=== PATIENT | female | born 1995 | race Hispanic/Latino ===

== ENCOUNTER 2017-06-12 10:08 | Emergency (ER) | payer SELFPAY ==
[2017-06-12] MEDS ORDERED: PANTOPRAZOLE 40 MG INJ ONE (11:15)
[2017-06-12] MEDS ORDERED: ONDANSETRON 4 MG/2 ML VIAL ONE (11:15)
[2017-06-12] MEDS ORDERED: NA CHLORIDE 0.9% 1,000 ML ONE (11:15)
[2017-06-12 11:25] LABS: Urine Blood NEGATIVE (NEG); Urine Glucose NEGATIVE (NEG); Urine Protein NEGATIVE (NEG); Urine pH 7.5 (5.0-7.0)
--- NOTE | 2017-06-12 11:29 | RAD REPORT ---
EXAM DESCRIPTION: US - Abdomen Exam Limited - 06/12/2017 11:11 am CLINICAL HISTORY: Abdominal pain. COMPARISON: None. FINDINGS: The patient was not NPO prior to the exam limiting evaluation. This results in the gallbla dder main somewhat contracted. A gallstone is not visualized. The gallbladder wall is not thickened. The biliary tree is normal caliber. IMPRESSION: Grossly normal gallbladder ultrasound
[2017-06-12 11:38] LABS: Urine Amorphous Sediment 4+ /HPF (NONE SEEN); Urine Bacteria <20 /HPF (<20); Urine RBC NONE SEEN /HPF (NONE SEEN)
[2017-06-12 11:39] LABS: Urine Culture Reflex Order NOT NEEDED
[2017-06-12 11:39] LABS: Absolute Monocytes 0.5 K/uL (0.1-1.3); Absolute Neutrophil 3.4 K/uL (1.8-8.0); Basophils % 0.6 % (0-1.3); Eosinophils % 0.5 % (0-4.4); Hematocrit 37.9 % (36.0-45.0); Lymphocytes % 33.6 % (15.3-44.8); MCH 30.4 pg (27.0-35.0); MCV 90.8 fL (80-100); MPV 8.5 fL (7.6-11.3); Monocytes % 8.5 % (3.3-12.3); RBC Red Blood Cell Count 4.17 M/uL (3.86-4.86)
[2017-06-12 11:52] LABS: Bicarbonate 27 mEq/L (21-31); Glucose Level 93 mg/dL (65-120); Lipase 25 U/L (22-51); Potassium 4.1 mEq/L (3.6-5.0); Sodium Level 137 mEq/L (135-145)
[2017-06-12 11:58] LABS: ALT/SGPT 19 IU/L (10-60); AST/SGOT 20 IU/L (10-42); Alkaline Phosphatase 79 IU/L (42-121); Amylase Level 55 U/L (28-100); BUN Blood Urea Nitrogen 14 mg/dL (6-20); Bilirubin Direct < 0.1 mg/dL (0-0.2); Bilirubin Total 0.3 mg/dL (0.3-1.2); Protein, Total 7.7 g/dL (6.0-8.3)
--- NOTE | 2017-06-12 12:06 | ER ---
Nurse's Notes [facility] Name: Philomena Smith Age: 21 yrs Sex: Female : 1995 Arrival Date: 06/12/2017 Time: 10:09 Bed 20 Private MD: Diagnosis: Upper abdominal pain, unspecified;Gastro-esophageal reflux disease Presentation: 06/12 10:34 Presenting complaint: Patient states: RUQ pain that started last night after eating aj steak and potatoes. Patient reports nausea as well. Transition of care: patient was not received from another setting of care. Onset of symptoms was June 11, 2017. Care prior to arrival: None. 10:34 Method Of Arrival: Ambulatory aj 10:34 Acuity: LUIS ANTONIO 3 aj Triage Assessment: 10:36 General: Appears in no apparent distress. comfortable, Behavior is calm, cooperative, aj appropriate for age. Pain: Complains of pain in epigastric area and right upper quadrant Pain currently is 7 out of 10 on a pain scale. Neuro: Level of Consciousness is awake, alert, obeys commands, Oriented to person, place, time, situation. Respiratory: Airway is patent Respiratory effort is even, unlabored, Respiratory pattern is regular, symmetrical. GI: Reports upper abdominal pain, nausea. Derm: Skin is intact, is healthy with good turgor, Skin is pink, warm \T\ dry. normal. 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 - Social history:: Smoking status: Patient/guardian denies using tobacco. Screenin:23 Abuse screen: Denies threats or abuse. Denies injuries from another. Nutritional iw screening: No deficits noted. Tuberculosis screening: No symptoms or risk factors identified. Fall Risk None identified. Assessment: 12:23 Reassessment: Patient appears in no apparent distress at this time. Patient and/or iw family updated on plan of care and expected duration. Pain level reassessed. Patient is alert, oriented x 3, equal unlabored respirations, skin warm/dry/pink. Patient denies pain at this time. Patient states feeling better. Patient states symptoms have improved. 12:24 GI: Bowel sounds present X 4 quads. Abd is soft and non tender X 4 quads. iw Vital Signs: 10:36 BP 124 / 78; Pulse 95; Resp 17; Temp 97.2; Pulse Ox 97% on R/A; Weight 58.97 kg; Height aj 5 ft. 0 in. (152.40 cm); Pain 7/10; 12:23 BP 128 / 74; Pulse 84; Resp 16; Pulse Ox 100% on R/A; Pain 0/10; iw 10:36 Body Mass Index 25.39 (58.97 kg, 152.40 cm) aj ED Course: 10:09 Patient arrived in ED. as 10:35 Triage completed. aj 10:36 Arm band placed on left wrist. Patient placed in waiting room, Patient notified of wait aj time. 10:41 Tg Torres FNP-C is PHCP. kb 10:41 Krzysztof Peres MD is Attending Physician. kb 11:11 Ultrasound completed. Patient tolerated well. aa4 11:12 US Abdomen Limited In Process Unspecified. EDMS 11:18 Missed attempt(s): 22 gauge in left forearm. Bleeding controlled, band aid applied, dh3 catheter tip intact. 11:25 Initial lab(s) drawn, by ED staff, sent to lab. dh3 11:30 Bhakti Grimm, SHARLA is Primary Nurse. ss 12:23 Patient has correct armband on for positive identification. iw 12:23 No provider procedures requiring assistance completed. IV discontinued, intact, iw bleeding controlled, No redness/swelling at site. Pressure dressing applied. Administered Medications: 11:26 Drug: Zofran 4 mg Route: IVP; Site: right antecubital; ss 12:25 Follow up: Response: No adverse reaction iw 11:31 Drug: NS 0.9% 1000 ml Route: IV; Rate: 1000 ml; Site: right antecubital; ss 12:25 Follow up: IV Status: Completed infusion iw 11:31 Drug: ProTONIX 40 mg Route: IVP; Site: right antecubital; ss 12:00 Follow up: Response: No adverse reaction; Pain is decreased iw Outcome: 12:05 Discharge ordered by . kb 12:23 Discharged to home ambulatory, with friend. iw 12:23 Condition: good 12:23 Discharge instructions given to patient, Instructed on discharge instructions, follow up and referral plans. medication usage, Demonstrated understanding of instructions, follow-up care, medications, Prescriptions given X 2. 12:25 Patient left the ED. iw Signatures: Dispatcher [employer] EDMS Tg Torres, TAX EXAMINING TECHNICIAN-C TAX EXAMINING TECHNICIAN-Laura Pack, RN RN Amara Hughes Irene, RN RN iw Frazier, Amanda aa4 Bhakti Grimm RN RN ss Herrera, Deanna 3
--- NOTE | 2017-06-12 12:06 | EDPHYS ---
Physician Documentation [facility] Name: Philomena Smith Age: 21 yrs Sex: Female : 1995 Arrival Date: 06/12/2017 Time: 10:09 Bed 20 Private MD: ED Physician Krzysztof Peres HPI: 06/12 11:41 This 21 yrs old Female presents to ER via Ambulatory with complaints of kb Abdominal Pain. 11:41 The patient presents with abdominal pain in the upper abdomen. Onset: The kb symptoms/episode began/occurred yesterday. The symptoms do not radiate. Associated signs and symptoms: Pertinent positives: nausea. The symptoms are described as achy. Modifying factors: The symptoms are alleviated by nothing, the symptoms are aggravated by nothing. Severity of pain: At its worst the pain was moderate in the emergency department the pain is unchanged. The patient has experienced similar episodes in the past, several times, and the symptoms today are exactly the same. The patient has not recently seen a physician. Pt states she started having upper abd pain last night after dinner. States she has had this pain several times in the past, but never had it evaluated. 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 - Social history:: Smoking status: Patient/guardian denies using tobacco. ROS: 11:41 Constitutional: Negative for fever, chills, and weight loss, Cardiovascular: Negative kb for chest pain, palpitations, and edema, Respiratory: Negative for shortness of breath, cough, wheezing, and pleuritic chest pain, Back: Negative for injury and pain, : Negative for injury, bleeding, discharge, and swelling, MS/Extremity: Negative for injury and deformity, Skin: Negative for injury, rash, and discoloration, Neuro: Negative for headache, weakness, numbness, tingling, and seizure. 11:41 Abdomen/GI: Positive for abdominal pain, nausea, Negative for vomiting, diarrhea, constipation, abdominal cramps, abdominal distension, anorexia. Exam: 11:41 Constitutional: This is a well developed, well nourished patient who is awake, alert, kb and in no acute distress. Head/Face: Normocephalic, atraumatic. Chest/axilla: Normal chest wall appearance and motion. Nontender with no deformity. No lesions are appreciated. Cardiovascular: Regular rate and rhythm with a normal S1 and S2. No gallops, murmurs, or rubs. Normal PMI, no JVD. No pulse deficits. Respiratory: Lungs have equal breath sounds bilaterally, clear to auscultation and percussion. No rales, rhonchi or wheezes noted. No increased work of breathing, no retractions or nasal flaring. Back: No spinal tenderness. No costovertebral tenderness. Full range of motion. Skin: Warm, dry with normal turgor. Normal color with no rashes, no lesions, and no evidence of cellulitis. MS/ Extremity: Pulses equal, no cyanosis. Neurovascular intact. Full, normal range of motion. Neuro: Awake and alert, GCS 15, oriented to person, place, time, and situation. Cranial nerves II-XII grossly intact. Motor strength 5/5 in all extremities. Sensory grossly intact. Cerebellar exam normal. Normal gait. 11:41 Abdomen/GI: Inspection: abdomen appears normal, Bowel sounds: normal, in all quadrants, Palpation: soft, in all quadrants, moderate abdominal tenderness, in the epigastric area, right upper quadrant and left upper quadrant. Vital Signs: 10:36 BP 124 / 78; Pulse 95; Resp 17; Temp 97.2; Pulse Ox 97% on R/A; Weight 58.97 kg; Height aj 5 ft. 0 in. (152.40 cm); Pain 7/10; 12:23 BP 128 / 74; Pulse 84; Resp 16; Pulse Ox 100% on R/A; Pain 0/10; iw 10:36 Body Mass Index 25.39 (58.97 kg, 152.40 cm) aj MDM: 10:48 Patient medically screened. kb 11:41 Data reviewed: vital signs, nurses notes. Data interpreted: Pulse oximetry: on room air kb is 97 %. Interpretation: normal. 12:03 Counseling: I had a detailed discussion with the patient and/or guardian regarding: the kb historical points, exam findings, and any diagnostic results supporting the discharge/admit diagnosis, lab results, the need for outpatient follow up, a family practitioner, a vice president of finance, to return to the emergency department if symptoms worsen or persist or if there are any questions or concerns that arise at home. 06/12 10:52 Order name: Amylase, Serum; Complete Time: 11:59 kb 06/12 10:52 Order name: Basic Metabolic Panel; Complete Time: 11:59 kb 06/12 10:52 Order name: CBC with Diff; Complete Time: 11:44 kb 06/12 10:52 Order name: Hepatic Function; Complete Time: 11:59 kb 06/12 10:52 Order name: Lipase; Complete Time: 11:59 kb 06/12 11:18 Order name: Urine Microscopic Only; Complete Time: 11:39 hb 06/12 10:41 Order name: US Abdomen Limited; Complete Time: 11:30 kb 06/12 10:52 Order name: Urine Test (obtain specimen); Complete Time: 11:31 kb 06/12 10:52 Order name: IV Saline Lock; Complete Time: 11:26 kb 06/12 11:20 Order name: Urine Dipstick--Ancillary (enter results); Complete Time: 11:25 mw2 06/12 11:21 Order name: Urine --Ancillary (enter results); Complete Time: 11:26 mw2 06/12 10:52 Order name: Labs collected and sent; Complete Time: 11:26 kb 06/12 10:52 Order name: Urine Dipstick-Ancillary (obtain specimen); Complete Time: 11:31 kb Administered Medications: 11:26 Drug: Zofran 4 mg Route: IVP; Site: right antecubital; ss 12:25 Follow up: Response: No adverse reaction iw 11:31 Drug: NS 0.9% 1000 ml Route: IV; Rate: 1000 ml; Site: right antecubital; ss 12:25 Follow up: IV Status: Completed infusion iw 11:31 Drug: ProTONIX 40 mg Route: IVP; Site: right antecubital; ss 12:00 Follow up: Response: No adverse reaction; Pain is decreased iw Disposition: 06/13 07:57 Co-signature as Attending Physician, Krzysztof Peres MD I agree with the assessment and wa plan of care. Disposition: 06/12/17 12:05 Discharged to Home. Impression: Upper abdominal pain, unspecified, Gastro-esophageal reflux disease. - Condition is Stable. - Discharge Instructions: Gastroesophageal Reflux Disease, Adult, Abdominal Pain, Adult, [id number]. - Prescriptions for Protonix 40 mg Oral Tablet - take 1 tablet by ORAL route once daily; 30 tablet. Zofran 4 mg Oral Tablet - take 1 tablet by ORAL route every 6 hours As needed; 20 tablet. - Medication Reconciliation Form, Thank You Letter, Antibiotic Education, Prescription Opioid Use, Work release form form. Signatures: Dispatcher [employer] Tg Reese, CRAB FISHER-C CRAB FISHER-Laura Pack RN RN aj Williams, Irene, RN RN iw Smirch, Shelby, RN RN ss Krzysztof Peres MD MD wa
== END 2017-06-12 12:25 | disposition home or self-care (01) ==
LOC: ER 10:08
DX: K21.9 Gastro-esophageal reflux disease without esophagitis (principal)
CPT/HCPCS: 36415; 76705; 80048; 80076; 81003; 81015; 81025; 82150; 83690; 85025; 96361; 96374; 96375; 99284; C9113; J2405; J7030

== ENCOUNTER 2017-06-27 11:30 | Emergency (ER) | payer SELFPAY ==
[2017-06-27 13:45] LABS: Absolute Lymphocytes (CBC) 1.9 K/uL (0.7-4.9); Absolute Monocytes 0.6 K/uL (0.1-1.3); Absolute Neutrophil 5.1 K/uL (1.8-8.0); Basophils % 0.9 % (0-1.3); Lymphocytes % 24.8 % (15.3-44.8); MCH 30.7 pg (27.0-35.0); MCV 90.5 fL (80-100); MPV 8.5 fL (7.6-11.3); Monocytes % 7.4 % (3.3-12.3); RBC Red Blood Cell Count 4.42 M/uL (3.86-4.86)
[2017-06-27 13:51] LABS: Protime INR 0.94
[2017-06-27 13:52] LABS: BUN Blood Urea Nitrogen 8 mg/dL (6-20); Bicarbonate 28 mEq/L (21-31); Glucose Level 100 mg/dL (65-120); Potassium 3.3 mEq/L (3.6-5.0); Sodium Level 138 mEq/L (135-145)
--- NOTE | 2017-06-27 14:34 | EDPHYS ---
Physician Documentation [facility] Name: Philomena Smith Age: 21 yrs Sex: Female : 1995 Arrival Date: 06/27/2017 Time: 11:32 Bed 27 Private MD: None, None ED Physician Stuart Wilson HPI: 06/27 16:48 This 21 yrs old Female presents to ER via Ambulatory with complaints of Rectal kdr Bleeding. 16:48 The patient presents to the emergency department with bleeding from the rectum/anus, kdr that is mild, Spotting when she wiped the last few days. Onset: The symptoms/episode began/occurred 3 day(s) ago. Context: the patient has no known special context relating to the rectal area complaint(s). Modifying factors: The symptoms are alleviated by nothing, The symptoms are aggravated by bowel movement. Associate signs and symptoms: The patient has no apparent associated signs or symptoms. The patient has not experienced similar symptoms in the past. The patient has not recently seen a physician. 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 - Social history:: Smoking status: . ROS: 16:48 Constitutional: Negative for fever, chills, and weight loss, Eyes: Negative for injury, kdr pain, redness, and discharge, Neck: Negative for injury, pain, and swelling, Cardiovascular: Negative for chest pain, palpitations, and edema, Respiratory: Negative for shortness of breath, cough, wheezing, and pleuritic chest pain, Back: Negative for injury and pain, : Negative for injury, bleeding, discharge, and swelling, MS/Extremity: Negative for injury and deformity, Skin: Negative for injury, rash, and discoloration, Neuro: Negative for headache, weakness, numbness, tingling, and seizure activity. Psych: Negative for depression, anxiety, suicide ideation, homicidal ideation, and hallucinations, Allergy/Immunology: Negative for hives, rash, and allergies, Endocrine: Negative for neck swelling, polydipsia, polyuria, polyphagia, and marked weight changes, Hematologic/Lymphatic: Negative for swollen nodes, abnormal bleeding, and unusual bruising. 16:48 Abdomen/GI: Positive for abdominal pain, nausea, vomiting, and diarrhea, constipation, abdominal cramps, abdominal distension, anorexia, States she has chronic abdominal pain that is unchanged. Exam: 16:48 Constitutional: This is a well developed, well nourished patient who is awake, alert, kdr and in no acute distress. Head/Face: Normocephalic, atraumatic. Eyes: Pupils equal round and reactive to light, extra-ocular motions intact. Lids and lashes normal. Conjunctiva and sclera are non-icteric and not injected. Cornea within normal limits. Periorbital areas with no swelling, redness, or edema. Neck: Trachea midline, no thyromegaly or masses palpated, and no cervical lymphadenopathy. Supple, full range of motion without nuchal rigidity, or vertebral point tenderness. No Meningismus. Chest/axilla: Normal chest wall appearance and motion. Nontender with no deformity. No lesions are appreciated. Cardiovascular: Regular rate and rhythm with a normal S1 and S2. No gallops, murmurs, or rubs. Normal PMI, no JVD. No pulse deficits. Respiratory: Lungs have equal breath sounds bilaterally, clear to auscultation and percussion. No rales, rhonchi or wheezes noted. No increased work of breathing, no retractions or nasal flaring. Back: No spinal tenderness. No costovertebral tenderness. Full range of motion. Skin: Warm, dry with normal turgor. Normal color with no rashes, no lesions, and no evidence of cellulitis. MS/ Extremity: Pulses equal, no cyanosis. Neurovascular intact. Full, normal range of motion. Neuro: Awake and alert, GCS 15, oriented to person, place, time, and situation. Cranial nerves II-XII grossly intact. Motor strength 5/5 in all extremities. Sensory grossly intact. Cerebellar exam normal. Normal gait. Psych: Awake, alert, with orientation to person, place and time. Behavior, mood, and affect are within normal limits. 16:48 Abdomen/GI: Inspection: abdomen appears normal, Bowel sounds: normal, Palpation: soft, nontender, Rectal exam: rectal tone normal, Stool: normal, hemorrhoid(s), are not appreciated, mass, is not appreciated, swelling, is not appreciated, fecal impaction, is not appreciated. Vital Signs: 11:37 BP 107 / 80; Pulse 107; Resp 18; Temp 97.5(O); Pulse Ox 100% on R/A; Weight 59.42 kg; hj Height 5 ft. 2 in. (157.48 cm); Pain 6/10; 12:45 BP 114 / 78; Pulse 97; Resp 18; Pulse Ox 100% ; aj1 13:26 BP 108 / 75; Pulse 99; Resp 18; Pulse Ox 99% ; aj1 14:46 BP 110 / 72; Pulse 97; Resp 18; Pulse Ox 99% ; aj1 11:37 Body Mass Index 23.96 (59.42 kg, 157.48 cm) hj MDM: 14:33 Patient medically screened. kdr 16:48 Data reviewed: vital signs, nurses notes, lab test result(s). Counseling: I had a kdr detailed discussion with the patient and/or guardian regarding: the historical points, exam findings, and any diagnostic results supporting the discharge/admit diagnosis, lab results, the need for outpatient follow up. 06/27 13:04 Order name: CBC with Diff [facility] 06/27 13:04 Order name: Chem 7; Complete Time: 13:58 [facility] 06/27 13:04 Order name: PT-INR; Complete Time: 14:26 [facility] 06/27 13:04 Order name: CBC with Automated Diff; Complete Time: 13:58 [facility] 06/27 15:01 Order name: Urine Dipstick--Ancillary (enter results) Administered Medications: No medications were administered Disposition: 06/27/17 14:33 Discharged to Home. Impression: Rectal Bleeding. - Condition is Stable. - Discharge Instructions: Gastrointestinal Bleeding, [id number]. - Work release form, Medication Reconciliation Form, Thank You Letter, Antibiotic Education, Prescription Opioid Use form. - Follow up: Private Physician; When: 2 - 3 days; Reason: If symptoms return, Further diagnostic work-up, Recheck today's complaints, Continuance of care, Re-evaluation by your physician. - Problem is new. - Symptoms have improved. Signatures: Dispatcher [employer] Nicole Odom RN RN aj1 Juan Miguel Benton RN RN sg Stuart Wilson MD MD [facility] Kosta, Jonny, RN RN hj
--- NOTE | 2017-06-27 14:34 | ER ---
Nurse's Notes [facility] Name: Philomena Smith Age: 21 yrs Sex: Female : 1995 Arrival Date: 06/27/2017 Time: 11:32 Bed 27 Private MD: None, None Diagnosis: Rectal Bleeding Presentation: 06/27 11:34 Presenting complaint: Patient states: na been noticing streak of blood in my stool for hj 2 years now, today its hurts today when i went; denies nausea, vomiting, diarrhea, constipation; denies fever and chills;. Transition of care: patient was not received from another setting of care. Onset of symptoms was June 27, 2017. Initial Sepsis Screen: Does the patient meet any 2 criteria? No. Patient's initial sepsis screen is negative. Does the patient have a suspected source of infection? No. Patient's initial sepsis screen is negative. Care prior to arrival: None. 11:34 Method Of Arrival: Ambulatory 11:34 Acuity: LUIS ANTONIO 3 hj Triage Assessment: 11:37 General: Appears in no apparent distress. uncomfortable, Behavior is calm, cooperative, hj appropriate for age. Pain: Complains of pain in rectal. 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 - Social history:: Smoking status: . Screenin:45 Abuse screen: Denies threats or abuse. Denies injuries from another. Nutritional aj1 screening: No deficits noted. Tuberculosis screening: No symptoms or risk factors identified. 14:46 Fall Risk None identified. aj1 Assessment: 12:45 General: Appears in no apparent distress. comfortable, Behavior is calm, cooperative, aj1 appropriate for age. Pain: Denies pain. Neuro: Level of Consciousness is awake, alert, obeys commands, Oriented to person, place, time, situation, Speech is normal, Facial symmetry appears normal. Cardiovascular: Patient's skin is warm and dry. Respiratory: Airway is patent Respiratory effort is even, unlabored, Respiratory pattern is regular, symmetrical. GI: Abdomen is non-distended, Bowel sounds present X 4 quads. Abd is soft and non tender X 4 quads. Reports bloody stool, Patient currently denies abdominal pain, constipation, diarrhea. : No signs and/or symptoms were reported regarding the genitourinary system. EENT: No signs and/or symptoms were reported regarding the EENT system. Derm: No signs and/or symptoms reported regarding the dermatologic system. Skin is pink, warm \T\ dry. normal. Musculoskeletal: No signs and/or symptoms reported regarding the musculoskeletal system. Circulation, motion, and sensation intact. 13:26 Reassessment: Patient appears in no apparent distress at this time. No changes from aj1 previously documented assessment. Patient and/or family updated on plan of care and expected duration. Pain level reassessed. Patient is alert, oriented x 3, equal unlabored respirations, skin warm/dry/pink. 14:46 Reassessment: Patient appears in no apparent distress at this time. No changes from aj1 previously documented assessment. Patient and/or family updated on plan of care and expected duration. Pain level reassessed. Patient is alert, oriented x 3, equal unlabored respirations, skin warm/dry/pink. Vital Signs: 11:37 BP 107 / 80; Pulse 107; Resp 18; Temp 97.5(O); Pulse Ox 100% on R/A; Weight 59.42 kg; hj Height 5 ft. 2 in. (157.48 cm); Pain 6/10; 12:45 BP 114 / 78; Pulse 97; Resp 18; Pulse Ox 100% ; aj1 13:26 BP 108 / 75; Pulse 99; Resp 18; Pulse Ox 99% ; aj1 14:46 BP 110 / 72; Pulse 97; Resp 18; Pulse Ox 99% ; aj1 11:37 Body Mass Index 23.96 (59.42 kg, 157.48 cm) ED Course: 11:32 Patient arrived in ED. mr 11:33 None, None is Private Physician. mr 11:36 Triage completed. hj 11:37 Arm band placed on right wrist. hj 12:21 Stuart Wilson MD is Attending Physician. kdr 12:45 Patient has correct armband on for positive identification. Bed in low position. Call aj1 light in reach. Side rails up X 1. 12:45 No provider procedures requiring assistance completed. aj1 12:47 Shane, Nicole, RN is Primary Nurse. aj1 13:26 Served as a brand inspector during rectal exam. aj1 13:48 Inserted saline lock: 22 gauge in right antecubital area, using aseptic technique. aj1 Blood collected. 14:59 IV discontinued, intact, bleeding controlled, No redness/swelling at site. Pressure aj1 dressing applied. Administered Medications: No medications were administered Outcome: 14:33 Discharge ordered by . kdr 15:00 Discharged to home ambulatory. aj1 15:00 Condition: good 15:00 Discharge instructions given to patient, Instructed on discharge instructions, follow up and referral plans. Demonstrated understanding of instructions, follow-up care. 15:00 Patient left the ED. aj1 15:01 Patient left the ED. sg Signatures: Nicole Lynn RN SHARLA aj1 Juan Miguel Benton RN RN sg Stuart Wilson MD MD kdr Rivera, Maria mr Brambila, Jonny RN SHARLA Corrections: (The following items were deleted from the chart) : 13:20 General: Appears in no apparent distress. comfortable, Behavior is calm, aj1 cooperative, appropriate for age, aj1 : 13:20 Pain: Denies pain. aj1 aj1 : 13:20 Neuro: Level of Consciousness is awake, alert, obeys commands, Oriented to aj1 person, place, time, situation, Speech is normal, Facial symmetry appears normal, aj1 : 13:20 Cardiovascular: Patient's skin is warm and dry. aj1 aj1 : 13:20 Respiratory: Airway is patent Respiratory effort is even, unlabored, Respiratory aj1 pattern is regular, symmetrical, aj1 : 13:20 GI: Abdomen is non-distended, Bowel sounds present X 4 quads. Abd is soft and non aj1 tender X 4 quads. Reports bloody stool, Patient currently denies abdominal pain, constipation, diarrhea, aj1 : 13:20 : No signs and/or symptoms were reported regarding the genitourinary system. aj1aj1 : 13:20 EENT: No signs and/or symptoms were reported regarding the EENT system. aj1 aj1 : 13:20 Derm: No signs and/or symptoms reported regarding the dermatologic system. Skin aj1 is pink, warm \T\ dry. normal, aj1 13:25 13:20 Musculoskeletal: No signs and/or symptoms reported regarding the musculoskeletal aj1 system. Circulation, motion, and sensation intact. aj1
[2017-06-27 15:12] LABS: Urine Blood NEGATIVE (NEG); Urine Glucose NEGATIVE (NEG); Urine Protein NEGATIVE (NEG); Urine Specific Gravity 1.015 (1.005-1.030)
== END 2017-06-27 15:01 | disposition home or self-care (01) ==
LOC: ER 11:30
DX: K62.5 Hemorrhage of anus and rectum (principal)
CPT/HCPCS: 36415; 80048; 81003; 85025; 85610; 99284

== ENCOUNTER 2017-08-19 17:16 | Emergency (ER) | payer SELFPAY ==
[2017-08-19 18:10] LABS: Absolute Lymphocytes (CBC) 1.1 K/uL (0.7-4.9); Absolute Monocytes 0.6 K/uL (0.1-1.3); Absolute Neutrophil 4.4 K/uL (1.8-8.0); Basophils % 0.3 % (0-1.3); Eosinophils % 0.4 % (0-4.4); Hematocrit 37.7 % (36.0-45.0); MCV 90.3 fL (80-100); MPV 8.6 fL (7.6-11.3); Monocytes % 10.1 % (3.3-12.3); RBC Red Blood Cell Count 4.17 M/uL (3.86-4.86)
[2017-08-19 18:23] LABS: ALT/SGPT 27 U/L (12-78); AST/SGOT 23 U/L (15-37); Albumin 3.6 g/dL (3.4-5.0); Alkaline Phosphatase 77 U/L (45-117); BUN Blood Urea Nitrogen 6 mg/dL (7-18); Bicarbonate 27 mmol/L (21-32); Bilirubin Direct 0.1 mg/dL (0-0.2); Bilirubin Total 0.4 mg/dL (0.2-1.0); Glucose Level 78 mg/dL (74-106); Lipase 88 U/L (73-393); Potassium 3.3 mmol/L (3.5-5.1); Protein, Total 7.7 g/dL (6.4-8.2); Sodium Level 135 mmol/L (136-145)
[2017-08-19 18:35] LABS: Urine Blood NEGATIVE (NEG); Urine Glucose NEGATIVE (NEG); Urine Protein NEGATIVE (NEG)
[2017-08-19] MEDS ORDERED: KETOROLAC 30 MG/ML INJ ONE (18:38)
[2017-08-19] MEDS ORDERED: NA CHLORIDE 0.9% 1,000 ML ONE (18:38)
[2017-08-19 19:07] LABS: Urine Bacteria <20 /HPF (<20); Urine Culture Reflex Order NOT NEEDED; Urine RBC <5 /HPF (NONE SEEN)
--- NOTE | 2017-08-19 20:34 | RAD REPORT ---
EXAM DESCRIPTION: CT - Abdomen Pelvis W Contrast - 08/19/2017 8:18 pm CLINICAL HISTORY: Abdominal pain. Left-sided abdominal pain COMPARISON: March 2017 TECHNIQUE: Computed axial tomography of the abdomen and pelvis was obtained. 100 cc Isovue-300 is ad ministered intravenously. Oral contrast was given. All CT scans are performed using dose optimization technique as appropriate and may include automated exposure control or mA/KV adjustment according to patient size. FINDINGS: The liver, spleen, pancreas, adrenals and kidneys appear unremarkable. The appendix is normal caliber. There is no evidence of diverticulitis 2.7 centimeter left ovarian cyst is seen with minimal amount of free fluid A tiny umbilical hernia is present IMPRESSION: 2.7 centimeter left ovarian cyst with minimal amount of free fluid
--- NOTE | 2017-08-19 20:56 | ER ---
Nurse's Notes [facility] Name: Philomena Smith Age: 21 yrs Sex: Female : 1995 Arrival Date: 08/19/2017 Time: 17:19 Bed 26 Private MD: None, None Diagnosis: Other and unspecified ovarian cysts-Left Presentation: 08/19 17:30 Presenting complaint: Patient states: left sided abdominal pain that began today. Pt aa5 states "I was just sitting when the pain started". Pt also reports nausea, denies vomiting. 17:30 Transition of care: patient was not received from another setting of care. Onset of aa5 symptoms was August 19, 2017. Risk Assessment: Do you want to hurt yourself or someone else? Patient reports no desire to harm self or others. Initial Sepsis Screen: Does the patient meet any 2 criteria? No. Patient's initial sepsis screen is negative. Does the patient have a suspected source of infection? No. Patient's initial sepsis screen is negative. Care prior to arrival: None. 17:30 Method Of Arrival: Ambulatory aa5 17:30 Acuity: LUIS ANTONIO 3 aa5 Triage Assessment: 17:55 General: Appears in no apparent distress. well groomed, well developed, well nourished, rk2 Behavior is calm, cooperative. Pain: Complains of pain in abdomen. Neuro: Level of Consciousness is alert, obeys commands, Oriented to person, place, time, situation. Respiratory: Airway is patent Respiratory effort is even, unlabored, Respiratory pattern is regular, symmetrical. GI: Abdomen is flat, Abd is soft X 4 quads Abdomen is tender to palpation in left upper quadrant and left lower quadrant. Derm: Skin is pink, warm \\T\\ dry. 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 - Social history:: Smoking status: Patient/guardian denies using tobacco. - Ebola Screening: : No symptoms or risks identified at this time. Screenin:56 Abuse screen: Denies threats or abuse. Nutritional screening: No deficits noted. rk2 Tuberculosis screening: No symptoms or risk factors identified. Fall Risk None identified. Assessment: 18:20 GI: Bowel sounds present X 4 quads. rk2 18:49 Reassessment: Pt. completed oral contrast, CT called. rk2 19:30 Reassessment: Patient appears in no apparent distress at this time. No changes from rk2 previously documented assessment. Patient and/or family updated on plan of care and expected duration. Pain level reassessed. No needs voiced \\T\\ this time. 20:07 Reassessment: Pt. taken to CT by wheelchair, appears to be in no distress \\T\\ this time. rk2 Vital Signs: 17:30 BP 118 / 76; Pulse 107; Resp 18 S; Temp 97.5(TE); Pulse Ox 98% on R/A; Weight 59.42 kg aa5 (R); Height 5 ft. 0 in. (152.40 cm) (R); 19:00 BP 101 / 74; Pulse 95; Resp 17; Pulse Ox 100% on R/A; rk2 21:00 BP 112 / 68; Pulse 88; Resp 17; Pulse Ox 99% on R/A; rk2 17:30 Body Mass Index 25.58 (59.42 kg, 152.40 cm) aa5 ED Course: 17:19 Patient arrived in ED. sb2 17:19 None, None is Private Physician. sb2 17:28 Arm band placed on. aa5 17:34 Stuart Wilson MD is Attending Physician. kdr 17:40 Triage completed. aa5 17:40 Daisy Mims, RN is Primary Nurse. rk2 17:56 Patient has correct armband on for positive identification. Bed in low position. Call rk2 light in reach. 17:56 Inserted saline lock: 20 gauge in left antecubital area, using aseptic technique. rk2 18:51 Wayne Ferreira PA is PHCP. cp 20:18 CT Abd/Pelvis - W/Contrast In Process Unspecified. EDMS 20:55 Pam Interiano MD is Referral Physician. cp 21:13 No provider procedures requiring assistance completed. IV discontinued. rk2 Administered Medications: 18:40 Drug: TORadol 30 mg Route: IVP; Site: left antecubital; rk2 21:09 Follow up: Response: No adverse reaction rk2 18:40 Drug: NS 0.9% 1000 ml Route: IV; Rate: 1 bolus; Site: left antecubital; rk2 19:20 Follow up: Response: No adverse reaction; IV Status: Completed infusion rk2 21:08 Drug: Potassium Effervescent Tablet 25 mEq Route: PO; rk2 21:09 Follow up: given \\T\\ DC rk2 Intake: Outcome: 20:56 Discharge ordered by . cp 21:13 Discharged to home ambulatory. rk2 21:13 Condition: good 21:13 Discharge instructions given to patient, Prescriptions given X 1. 21:14 Patient left the ED. rk2 Signatures: Dispatcher [employer] EDMS Stuart Wilson MD MD kdr Calderon, Audri RN RN aa5 Wayne Ferreira PA PA cp Kidder, Rhonda, RN RN rk2 Diana Martinez sb2 Corrections: (The following items were deleted from the chart) 18:49 18:48 GI: Bowel sounds present X 4 quads. rk2 rk2 18:49 18:20 Reassessment: Pt. completed oral contrast, CT called rk2 rk2
--- NOTE | 2017-08-19 20:56 | EDPHYS ---
Physician Documentation [facility] Name: Philomena Smith Age: 21 yrs Sex: Female : 1995 Arrival Date: 08/19/2017 Time: 17:19 Bed 26 Private MD: None, None ED Physician Stuart Wilson HPI: 08/19 18:43 This 21 yrs old Female presents to ER via Ambulatory with complaints of kdr Abdominal Pain. 18:43 The patient presents with abdominal pain in the left upper quadrant, in the left lower kdr quadrant. Onset: The symptoms/episode began/occurred suddenly, just prior to arrival. The symptoms do not radiate. Associated signs and symptoms: Pertinent positives: nausea and vomiting, Pertinent negatives: blood in stools, chest pain, constipation, diarrhea, dysuria, fever, headache, hematuria, nausea, palpitations, shortness of breath, vaginal discharge, vomiting. The symptoms are described as achy, crampy, sharp, steady, waxing/waning. Modifying factors: The symptoms are alleviated by nothing, the symptoms are aggravated by movement, touching the area, vomiting. Severity of pain: At its worst the pain was mild moderate just prior to arrival, in the emergency department the pain is unchanged. The patient has experienced similar episodes in the past, a few times. The patient has not recently seen a physician. 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 - Social history:: Smoking status: Patient/guardian denies using tobacco. - Ebola Screening: : No symptoms or risks identified at this time. ROS: 18:43 Constitutional: Negative for fever, chills, and weight loss, Eyes: Negative for injury, kdr pain, redness, and discharge, Neck: Negative for injury, pain, and swelling, Cardiovascular: Negative for chest pain, palpitations, and edema, Respiratory: Negative for shortness of breath, cough, wheezing, and pleuritic chest pain, Back: Negative for injury and pain, : Negative for injury, bleeding, discharge, and swelling, MS/Extremity: Negative for injury and deformity, Skin: Negative for injury, rash, and discoloration, Neuro: Negative for headache, weakness, numbness, tingling, and seizure activity. Psych: Negative for depression, anxiety, suicide ideation, homicidal ideation, and hallucinations, Allergy/Immunology: Negative for hives, rash, and allergies, Endocrine: Negative for neck swelling, polydipsia, polyuria, polyphagia, and marked weight changes, Hematologic/Lymphatic: Negative for swollen nodes, abnormal bleeding, and unusual bruising. 18:43 Abdomen/GI: Positive for abdominal pain, nausea and vomiting, Negative for Exam: 18:51 Constitutional: This is a well developed, well nourished patient who is awake, alert, kdr and in no acute distress. Head/Face: Normocephalic, atraumatic. Eyes: Pupils equal round and reactive to light, extra-ocular motions intact. Lids and lashes normal. Conjunctiva and sclera are non-icteric and not injected. Cornea within normal limits. Periorbital areas with no swelling, redness, or edema. Neck: Trachea midline, no thyromegaly or masses palpated, and no cervical lymphadenopathy. Supple, full range of motion without nuchal rigidity, or vertebral point tenderness. No Meningismus. Chest/axilla: Normal chest wall appearance and motion. Nontender with no deformity. No lesions are appreciated. Cardiovascular: Regular rate and rhythm with a normal S1 and S2. No gallops, murmurs, or rubs. Normal PMI, no JVD. No pulse deficits. Respiratory: Lungs have equal breath sounds bilaterally, clear to auscultation and percussion. No rales, rhonchi or wheezes noted. No increased work of breathing, no retractions or nasal flaring. Back: No spinal tenderness. No costovertebral tenderness. Full range of motion. Skin: Warm, dry with normal turgor. Normal color with no rashes, no lesions, and no evidence of cellulitis. MS/ Extremity: Pulses equal, no cyanosis. Neurovascular intact. Full, normal range of motion. Neuro: Awake and alert, GCS 15, oriented to person, place, time, and situation. Cranial nerves II-XII grossly intact. Motor strength 5/5 in all extremities. Sensory grossly intact. Cerebellar exam normal. Normal gait. Psych: Awake, alert, with orientation to person, place and time. Behavior, mood, and affect are within normal limits. 18:51 Abdomen/GI: Inspection: abdomen appears normal, Bowel sounds: active, Palpation: soft, mild abdominal tenderness, in the anterior aspect of left lateral abdomen, left upper quadrant and left lower quadrant. Vital Signs: 17:30 BP 118 / 76; Pulse 107; Resp 18 S; Temp 97.5(TE); Pulse Ox 98% on R/A; Weight 59.42 kg aa5 (R); Height 5 ft. 0 in. (152.40 cm) (R); 19:00 BP 101 / 74; Pulse 95; Resp 17; Pulse Ox 100% on R/A; rk2 21:00 BP 112 / 68; Pulse 88; Resp 17; Pulse Ox 99% on R/A; rk2 17:30 Body Mass Index 25.58 (59.42 kg, 152.40 cm) aa5 MDM: 18:52 Patient medically screened. cp 20:54 Special discussion: Based on the patient's Hx, exam, and Dx evaluation, there is no cp indication for emergent surgery or inpatient Tx. It is understood by the patient/guardian that if the Sx's persist or worsen they need to return immediately for re-evaluation. 20:55 Data reviewed: vital signs, nurses notes, lab test result(s), radiologic studies, CT cp scan. 20:55 Counseling: I had a detailed discussion with the patient and/or guardian regarding: the cp historical points, exam findings, and any diagnostic results supporting the discharge/admit diagnosis, lab results, radiology results, the need for outpatient follow up, an OB/Gyne specialist, to return to the emergency department if symptoms worsen or persist or if there are any questions or concerns that arise at home. Response to treatment: the patient's symptoms have markedly improved after treatment, and as a result, I will discharge patient. 08/19 17:34 Order name: Basic Metabolic Panel; Complete Time: 18:29 kdr 08/19 19:23 Interpretation: Normal except: NA 135; K 3.3; BUN 6. cp 08/19 17:34 Order name: CBC with Diff; Complete Time: 18:29 kdr 08/19 17:34 Order name: Creatinine for Radiology; Complete Time: 18:29 kdr 08/19 17:34 Order name: Hepatic Function; Complete Time: 18:29 kdr 08/19 20:50 Interpretation: Normal except: GLOB 4.1; A/G 0.9. 08/19 17:34 Order name: Lipase; Complete Time: 18:29 kdr 08/19 19:23 Interpretation: LIP 88; Reviewed. 08/19 17:34 Order name: Urine Microscopic Only; Complete Time: 19:22 kdr 08/19 19:22 Interpretation: Reviewed. 08/19 17:34 Order name: IV Saline Lock; Complete Time: 17:52 kdr 08/19 17:34 Order name: Labs collected and sent; Complete Time: 17:52 kdr 08/19 18:09 Order name: CT Abd/Pelvis - W/Contrast; Complete Time: 20:49 kdr 08/19 20:49 Interpretation: Report reviewed. 08/19 18:24 Order name: Urine Dipstick--Ancillary (enter results); Complete Time: 19:22 bd 08/19 19:22 Interpretation: Reviewed. 08/19 18:24 Order name: Urine --Ancillary (enter results); Complete Time: 19:22 bd 08/19 17:34 Order name: Urine Dipstick-Ancillary (obtain specimen); Complete Time: 17:54 kdr Administered Medications: 18:40 Drug: TORadol 30 mg Route: IVP; Site: left antecubital; rk2 21:09 Follow up: Response: No adverse reaction rk2 18:40 Drug: NS 0.9% 1000 ml Route: IV; Rate: 1 bolus; Site: left antecubital; rk2 19:20 Follow up: Response: No adverse reaction; IV Status: Completed infusion rk2 21:08 Drug: Potassium Effervescent Tablet 25 mEq Route: PO; rk2 21:09 Follow up: given \T\ DC rk2 Disposition: 08/19/17 20:56 Discharged to Home. Impression: Other and unspecified ovarian cysts - Left. - Condition is Stable. - Discharge Instructions: Ovarian Cyst. - Prescriptions for Naprosyn 500 mg Oral Tablet - take 1 tablet by ORAL route 2 times per day take with food; 20 tablet. - Medication Reconciliation Form, Thank You Letter, Antibiotic Education, Prescription Opioid Use, Work release form form. - Follow up: Pam Interiano MD; When: 1 week; Reason: Recheck today's complaints. - Problem is new. - Symptoms have improved. Addendum: 08/23/2017 07:33 Co-signature as Attending Physician, Stuart Wilson MD I agree with the assessment and k dr plan of care. Signatures: Dispatcher [employer] EDStuart Joe MD MD [facility] Ann Nance RN RN aa5 Wayne Ferreira PA PA cp Daisy Mims, RN RN rk2 Corrections: (The following items were deleted from the chart) 08/19 21:14 20:56 08/19/2017 20:56 Discharged to Home. Impression: Other and unspecified ovarian rk2 cysts - Left. Condition is Stable. Forms are Medication Reconciliation Form, Thank You Letter, Antibiotic Education, Prescription Opioid Use. Follow up: Mini Rekhi; When: 1 week; Reason: Recheck today's complaints. Problem is new. Symptoms have improved. cp
[2017-08-19] MEDS ORDERED: POTASSIUM 25 MEQ EFFERV TAB ONE (21:09)
== END 2017-08-19 21:14 | disposition home or self-care (01) ==
LOC: ER 17:16
DX: N83.292 Other ovarian cyst, left side (principal)
CPT/HCPCS: 36415; 74177; 80048; 80076; 81003; 81015; 81025; 83690; 85025; 96361; 96374; 99284; J7030; Q9967

== ENCOUNTER 2018-03-30 21:32 | Emergency (ER) | payer SELFPAY ==
[2018-03-30] MEDS ORDERED: ACETAMINOPHEN 500 MG TAB ONE (22:03)
--- NOTE | 2018-03-31 00:02 | EDPHYS ---
Physician Documentation [facility] Name: Philomena Smith Age: 22 yrs Sex: Female : 1995 Arrival Date: 03/30/2018 Time: 21:33 Bed 25 Private MD: ED Physician Maycol Johnson HPI: 03/30 23:00 This 22 yrs old Female presents to ER via Ambulatory with complaints of body pm1 aches, chills, headache, sore throat. 23:00 The patient presents with sore throat. The patient describes throat pain as burning, pm1 raw, scratchy. 23:00 Onset: The symptoms/episode began/occurred 2 day(s) ago. Severity of symptoms: in the pm1 emergency department the symptoms are unchanged. Modifying factors: The symptoms are alleviated by nothing, the symptoms are aggravated by foods, swallowing, Patient's oral intake status: good Denies contact with similarly ill indivduals. Associated signs and symptoms: Pertinent positives: cough, fever, flu-like symptoms, headache, Sore throat bodyaches, Pertinent negatives chest pain, diarrhea, nausea, shortness of breath, vomiting. The patient has not experienced similar symptoms in the past. The patient has not recently seen a physician. 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 - Social history:: Smoking status: Patient/guardian denies using tobacco. - Ebola Screening: : No symptoms or risks identified at this time. ROS: 23:00 : Negative for injury, bleeding, discharge, and swelling, MS/Extremity: Negative for pm1 injury and deformity, Skin: Negative for injury, rash, and discoloration, Neuro: Negative for headache, weakness, numbness, tingling, and seizure. 23:00 Eyes: Negative for injury, pain, redness, and discharge, Cardiovascular: Negative for chest pain, palpitations, and edema, Abdomen/GI: Negative for abdominal pain, nausea, vomiting, diarrhea, and constipation. 23:00 Constitutional: Positive for body aches, fever, Negative for poor PO intake. 23:00 ENT: Positive for sore throat, Negative for drainage from ear(s), ear pain, rhinorrhea, sinus congestion, sinus pain. 23:00 Respiratory: Positive for cough, Negative for shortness of breath, sputum production, wheezing. 23:00 Neck: Positive for swollen nodes, Negative for pain with movement, stiffness. pm1 Exam: 23:00 Constitutional: This is a well developed, well nourished patient who is awake, alert, pm1 and in no acute distress. Head/Face: Normocephalic, atraumatic. Eyes: Pupils equal round and reactive to light, extra-ocular motions intact. Lids and lashes normal. Conjunctiva and sclera are non-icteric and not injected. Cornea within normal limits. Periorbital areas with no swelling, redness, or edema. ENT: Nares patent. No nasal discharge, no septal abnormalities noted. Tympanic membranes are normal and external auditory canals are clear. Oropharynx with no redness, swelling, or masses, exudates, or evidence of obstruction, uvula midline. Mucous membranes moist. Neck: Trachea midline, no thyromegaly or masses palpated, and no cervical lymphadenopathy. Supple, full range of motion without nuchal rigidity, or vertebral point tenderness. No Meningismus. Chest/axilla: Normal chest wall appearance and motion. Nontender with no deformity. No lesions are appreciated. Cardiovascular: Regular rate and rhythm with a normal S1 and S2. No gallops, murmurs, or rubs. Normal PMI, no JVD. No pulse deficits. Respiratory: Lungs have equal breath sounds bilaterally, clear to auscultation and percussion. No rales, rhonchi or wheezes noted. No increased work of breathing, no retractions or nasal flaring. Abdomen/GI: Soft, non-tender, with normal bowel sounds. No distension or tympany. No guarding or rebound. No evidence of tenderness throughout. Back: No spinal tenderness. No costovertebral tenderness. Full range of motion. Skin: Warm, dry with normal turgor. Normal color with no rashes, no lesions, and no evidence of cellulitis. MS/ Extremity: Pulses equal, no cyanosis. Neurovascular intact. Full, normal range of motion. 23:00 Neuro: Orientation: is normal, Motor: is normal, moves all fours, Sensation: is normal, no obvious gross deficits, Gait: is steady, at a normal pace, without difficulty. Vital Signs: 21:38 BP 109 / 72; Pulse 123; Resp 18; Temp 99.0(O); Pulse Ox 99% on R/A; Weight 65.77 kg ak1 (R); Height 5 ft. 2 in. (157.48 cm) (R); Pain 5/10; 03/31 00:16 BP 110 / 60; Pulse 90; Resp 18; Temp 99(O); Pulse Ox 100% ; Pain 0/10; mg2 03/30 21:38 Body Mass Index 26.52 (65.77 kg, 157.48 cm) ak1 MDM: 03/30 21:46 Patient medically screened. pm1 23:58 Data reviewed: vital signs. Data interpreted: Pulse oximetry: on room air is 99 %. pm1 Interpretation: normal. Counseling: I had a detailed discussion with the patient and/or guardian regarding: the historical points, exam findings, and any diagnostic results supporting the discharge/admit diagnosis, lab results, the need for outpatient follow up, to return to the emergency department if symptoms worsen or persist or if there are any questions or concerns that arise at home. 03/30 21:50 Order name: Strep; Complete Time: 23:46 pm1 03/30 21:50 Order name: Flu; Complete Time: 23:46 pm1 03/30 21:50 Order name: [place] Screen Profile; Complete Time: 23:46 pm1 03/30 22:21 Order name: Throat Culture EDMS Administered Medications: 22:12 Drug: Tylenol 1000 mg Route: PO; mg2 03/31 00:17 Follow up: Response: No adverse reaction; Marked relief of symptoms mg2 Disposition: 05:41 Co-signature as Attending Physician, Maycol Johnson MD I agree with the assessment and tw4 plan of care. Disposition: 03/31/18 00:00 Discharged to Home. Impression: Acute pharyngitis. - Condition is Stable. - Discharge Instructions: Pharyngitis. - Medication Reconciliation Form, Thank You Letter form. - Follow up: Emergency Department; When: As needed; Reason: Worsening of condition. Follow up: Private Physician; When: 2 - 3 days; Reason: Recheck today's complaints, Continuance of care, Re-evaluation by your physician. - Problem is new. - Symptoms have improved. Signatures: Dispatcher [employer] EDMS Sharda Fox, RN RN ak1 Arnold Newell, LANDSCAPER HELPER LANDSCAPER HELPER pm1 Maycol Johnson MD MD tw4 Yuriy Lozada, RN RN mg2 Corrections: (The following items were deleted from the chart) 00:17 00:00 03/31/2018 00:00 Discharged to Home. Impression: Acute pharyngitis. Condition is mg2 Stable. Forms are Medication Reconciliation Form, Thank You Letter, Antibiotic Education, Prescription Opioid Use. Follow up: Emergency Department; When: As needed; Reason: Worsening of condition. Follow up: Private Physician; When: 2 - 3 days; Reason: Recheck today's complaints, Continuance of care, Re-evaluation by your physician. Problem is new. Symptoms have improved. pm1 01:38 03/30 23:00 Eyes: Negative for injury, pain, redness, and discharge, Neck: Negative for pm1 injury, pain, and swelling, Cardiovascular: Negative for chest pain, palpitations, and edema, Abdomen/GI: Negative for abdominal pain, nausea, vomiting, diarrhea, and constipation, pm1
--- NOTE | 2018-03-31 00:02 | ER ---
Nurse's Notes [facility] Name: Philomena Smith Age: 22 yrs Sex: Female : 1995 Arrival Date: 03/30/2018 Time: 21:33 Bed 25 Private MD: Diagnosis: Acute pharyngitis Presentation: 03/30 21:39 Presenting complaint: Patient states: bodyaches, neck pain X2 days. Transition of care: ak1 patient was not received from another setting of care. Onset of symptoms is unknown. Risk Assessment: Do you want to hurt yourself or someone else? Patient reports no desire to harm self or others. Care prior to arrival: None. 21:39 Method Of Arrival: Ambulatory ak1 21:39 Acuity: LUIS ANTONIO 4 ak1 22:23 Initial Sepsis Screen: Does the patient meet any 2 criteria? No. Patient's initial mg2 sepsis screen is negative. Does the patient have a suspected source of infection? No. Patient's initial sepsis screen is negative. Triage Assessment: 21:39 General: Appears in no apparent distress. Behavior is calm, appropriate for age. ak1 22:23 Headache History: The patient has had previous headaches and this one is similar to mg2 previous episodes. Pain: Complains of pain in head Also complains of no other associated symptoms. 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 - Social history:: Smoking status: Patient/guardian denies using tobacco. - Ebola Screening: : No symptoms or risks identified at this time. Screenin:22 Abuse screen: Denies threats or abuse. Denies injuries from another. Nutritional mg2 screening: No deficits noted. Tuberculosis screening: No symptoms or risk factors identified. Fall Risk None identified. Assessment: 22:20 General: Appears in no apparent distress. comfortable, Behavior is calm, cooperative. mg2 Pain: Complains of pain in head and neck Pain does not radiate. Pain currently is 4 out of 10 on a pain scale. Quality of pain is described as aching, Pain began gradually, Is intermittent. Neuro: Level of Consciousness is awake, alert, obeys commands, Oriented to person, place, time, situation. Neuro: Reports headache. Cardiovascular: Capillary refill < 3 seconds Patient's skin is warm and dry. Respiratory: Airway is patent Respiratory effort is even, unlabored, Respiratory pattern is regular, symmetrical. GI: No signs and/or symptoms were reported involving the gastrointestinal system. : No signs and/or symptoms were reported regarding the genitourinary system. EENT: No signs and/or symptoms were reported regarding the EENT system. Derm: Skin is intact, is healthy with good turgor, Skin is pink, warm \T\ dry. normal. Musculoskeletal: Reports pain in whole body since yesterday. Vital Signs: 21:38 BP 109 / 72; Pulse 123; Resp 18; Temp 99.0(O); Pulse Ox 99% on R/A; Weight 65.77 kg ak1 (R); Height 5 ft. 2 in. (157.48 cm) (R); Pain 5/10; 03/31 00:16 BP 110 / 60; Pulse 90; Resp 18; Temp 99(O); Pulse Ox 100% ; Pain 0/10; mg2 03/30 21:38 Body Mass Index 26.52 (65.77 kg, 157.48 cm) ak1 ED Course: 03/30 21:33 Patient arrived in ED. am2 21:39 Triage completed. ak1 21:39 Arm band placed on Patient placed in an exam room, on a stretcher, Patient notified of ak1 wait time. 21:43 Arnold Newell NP is PHCP. pm1 21:43 Maycol Johnson MD is Attending Physician. pm1 22:00 Initial lab(s) drawn, by me, sent to lab. Flu and/or RSV swab sent to lab. Strep swab jp3 sent to lab. 22:05 Bed in low position. Call light in reach. Side rails up X 1. Pulse ox on. NIBP on. jp3 22:05 Flu Sent. jp3 22:05 Quay Screen Profile Sent. jp3 22:05 Strep Sent. jp3 22:12 Yuriy Lozada, RN is Primary Nurse. mg2 22:23 No provider procedures requiring assistance completed. Patient did not have IV access mg2 during this emergency room visit. 22:28 Throat Culture Sent. tl3 Administered Medications: 22:12 Drug: Tylenol 1000 mg Route: PO; mg2 03/31 00:17 Follow up: Response: No adverse reaction; Marked relief of symptoms mg2 Outcome: 00:00 Discharge ordered by . pm1 00:17 Discharged to home ambulatory, with family. mg2 00:17 Condition: good 00:17 Discharge instructions given to patient, family, Instructed on discharge instructions, follow up and referral plans. Demonstrated understanding of instructions, follow-up care. 00:17 Patient left the ED. mg2 Signatures: Sharda Fox RN RN ak1 Arnold Newell NP [employer] SUPERINTENDENT pm1 Laura Torres am2 Mary Jo Casanova RN RN tl3 Yuriy Lozada RN RN mg2 Esteban Eng jp3
== END 2018-03-31 00:17 | disposition home or self-care (01) ==
LOC: ER 21:32
DX: J02.9 Acute pharyngitis, unspecified (principal); R51 Headache
CPT/HCPCS: 36415; 86308; 87070; 87081; 87804; 99283

== ENCOUNTER 2018-05-04 21:14 | Emergency (ER) | payer OTHER ==
[2018-05-04 23:57] LABS: Urine Blood NEGATIVE (NEG); Urine Glucose NEGATIVE (NEG); Urine Protein NEGATIVE (NEG); Urine pH 8.5 (5.0-7.0)
[2018-05-05 00:09] LABS: Urine Amorphous Sediment 1+ /HPF (NONE SEEN); Urine Bacteria <20 /HPF (<20); Urine Culture Reflex Order NOT NEEDED; Urine RBC <5 /HPF (NONE SEEN)
--- NOTE | 2018-05-05 00:11 | ER ---
Nurse's Notes [facility] Name: Philomena Smith Age: 22 yrs Sex: Female : 1995 Arrival Date: 05/04/2018 Time: 21:18 Bed 23 Private MD: Diagnosis: external hemorrhoid Presentation: 05/04 21:36 Presenting complaint: Patient states: she is having abdominal pain with rectal bleeding bb which is bright red has been seen for the same thing in the past but bleeding was worse today also had two episodes of diarrhea today but denies vomiting. Transition of care: patient was not received from another setting of care. Onset of symptoms was May 04, 2018. Risk Assessment: Do you want to hurt yourself or someone else? Patient reports no desire to harm self or others. Initial Sepsis Screen: Does the patient meet any 2 criteria? No. Patient's initial sepsis screen is negative. Does the patient have a suspected source of infection? No. Patient's initial sepsis screen is negative. Care prior to arrival: None. 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 - Social history:: Smoking status: Patient/guardian denies using tobacco. - Ebola Screening: : No symptoms or risks identified at this time. Screenin:13 Abuse screen: Denies threats or abuse. Denies injuries from another. Nutritional rv screening: No deficits noted. Tuberculosis screening: No symptoms or risk factors identified. Fall Risk None identified. Assessment: 22:13 General: Appears in no apparent distress. comfortable, Behavior is calm, cooperative. rv Pain: Complains of pain in abdomen. Neuro: Level of Consciousness is awake, alert, obeys commands, Oriented to person, place, time, situation. Cardiovascular: Capillary refill < 3 seconds. Respiratory: Airway is patent. GI: Bowel sounds present X 4 quads. Abd is soft and non tender X 4 quads. : No signs and/or symptoms were reported regarding the genitourinary system. EENT: No signs and/or symptoms were reported regarding the EENT system. Derm: Skin is intact. Musculoskeletal: No signs and/or symptoms reported regarding the musculoskeletal system. 03 00:18 Reassessment: Patient and/or family updated on plan of care and expected duration. Pain tl3 level reassessed. pt being discharged. Vital Signs: 05/04 21:38 BP 123 / 78; Pulse 105; Resp 20 S; Temp 98.2(O); Pulse Ox 100% on R/A; Weight 66.68 kg bb (R); Height 5 ft. 0 in. (152.40 cm) (R); Pain 0/10; 22:00 BP 111 / 77 LA; Pulse 92; Resp 19 S; Pulse Ox 100% on R/A; rv 21:38 Body Mass Index 28.71 (66.68 kg, 152.40 cm) bb ED Course: 21:18 Patient arrived in ED. es 21:38 Triage completed. bb 21:38 Arm band placed on Patient placed in an exam room, on a stretcher, on pulse oximetry. bb 21:51 Wayne Ferreira PA is PHCP. cp 21:51 Wayne Sultana MD is Attending Physician. cp 22:13 Patient has correct armband on for positive identification. Placed in gown. Bed in low rv position. Call light in reach. Side rails up X 1. Pulse ox on. NIBP on. 03 00:09 Krzysztof Ramirez MD is Referral Physician. cp 00:18 No provider procedures requiring assistance completed. Patient did not have IV access tl3 during this emergency room visit. Administered Medications: No medications were administered Outcome: 00:11 Discharge ordered by . cp 00:18 Discharged to home ambulatory. tl3 00:18 Condition: stable 00:18 Discharge instructions given to patient, Instructed on discharge instructions, follow up and referral plans. Demonstrated understanding of instructions, follow-up care. 00:19 Patient left the ED. tl3 Signatures: Nilda Ceja Brenda RN RN bb Wayne Ferreira PA PA cp Lowrey, Tammy, RN RN tl3 Adalberto Justin RN RN rv
--- NOTE | 2018-05-05 00:12 | EDPHYS ---
Physician Documentation [facility] Name: Philomena Smith Age: 22 yrs Sex: Female : 1995 Arrival Date: 05/04/2018 Time: 21:18 Bed 23 Private MD: ED Physician Wayne Sultana HPI: 05/04 23:30 This 22 yrs old Female presents to ER via Ambulatory with complaints of cp Abdominal Pain, Rectal Bleeding. 23:30 The patient presents with abdominal pain rectal bleeding. Onset: The symptoms/episode cp began/occurred today. Associated signs and symptoms: Pertinent negatives: constipation, diarrhea, dysuria, fever, vomiting. Severity of pain: in the emergency department the pain has improved markedly. Patient reports having bowel movement today and noticing drops of red blood in toilet and when she wiped. 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 - Social history:: Smoking status: Patient/guardian denies using tobacco. - Ebola Screening: : No symptoms or risks identified at this time. ROS: 23:35 Constitutional: Negative for body aches, chills, fever, poor PO intake. cp 23:35 Eyes: Negative for injury, pain, redness, and discharge. cp 23:35 ENT: Negative for drainage from ear(s), ear pain, sore throat, difficulty swallowing, difficulty handling secretions. 23:35 Cardiovascular: Negative for chest pain, palpitations. 23:35 Respiratory: Negative for cough, shortness of breath, wheezing. 23:35 Abdomen/GI: Positive for abdominal pain, rectal bleeding, Negative for vomiting, diarrhea, constipation. 23:35 : Negative for urinary symptoms, vaginal bleeding. 23:35 Neuro: Negative for altered mental status, headache, weakness. 23:35 All other systems are negative. Exam: 23:42 Constitutional: The patient appears in no acute distress, alert, awake, comfortable, cp non-toxic, well developed, well nourished. 23:42 Head/Face: Normocephalic, atraumatic. cp 23:42 Eyes: Periorbital structures: appear normal, Conjunctiva: normal, no exudate, no injection, Sclera: no appreciated abnormality, Lids and lashes: appear normal, bilaterally. 23:42 ENT: External ear(s): are unremarkable, Nose: is normal, Mouth: Lips: moist, Oral mucosa: moist, Posterior pharynx: Airway: no evidence of obstruction, patent. 23:42 Chest/axilla: Inspection: normal, Palpation: is normal, no crepitus, no tenderness. 23:42 Cardiovascular: Rate: normal, Rhythm: regular. 23:42 Respiratory: the patient does not display signs of respiratory distress, Respirations: normal, no use of accessory muscles, no retractions, no splinting, no tachypnea, Breath sounds: are clear throughout. 23:42 Abdomen/GI: Inspection: abdomen appears normal, Bowel sounds: active, all quadrants, Palpation: abdomen is soft and non-tender, in all quadrants. 23:42 Back: pain, is absent, ROM is normal. 23:42 : Rectal exam: hemorrhoid(s), external, no thrombosis, no inflammation noted. Vital Signs: 21:38 BP 123 / 78; Pulse 105; Resp 20 S; Temp 98.2(O); Pulse Ox 100% on R/A; Weight 66.68 kg bb (R); Height 5 ft. 0 in. (152.40 cm) (R); Pain 0/10; 22:00 BP 111 / 77 LA; Pulse 92; Resp 19 S; Pulse Ox 100% on R/A; rv 21:38 Body Mass Index 28.71 (66.68 kg, 152.40 cm) bb MDM: 21:51 Patient medically screened. cp 05/05 00:10 Data reviewed: vital signs, nurses notes, and as a result, I will discharge patient. cp 00:10 Counseling: I had a detailed discussion with the patient and/or guardian regarding: the cp historical points, exam findings, and any diagnostic results supporting the discharge/admit diagnosis, to return to the emergency department if symptoms worsen or persist or if there are any questions or concerns that arise at home. 05/04 23:24 Order name: Urine Microscopic Only cp 05/04 23:47 Order name: Urine Dipstick--Ancillary (enter results) ms 05/04 23:24 Order name: Urine Dipstick-Ancillary (obtain specimen); Complete Time: 23:48 cp 05/04 23:47 Order name: Urine --Ancillary (enter results) ms 05/04 23:48 Order name: Urine Dipstick-Ancillary; Complete Time: 00:07 EDOH 05/04 23:48 Order name: Urine --Ancillary; Complete Time: 00:07 EDOH 05/04 23:24 Order name: Urine Test (obtain specimen); Complete Time: 23:47 cp Administered Medications: No medications were administered Disposition: 05/05/18 00:11 Discharged to Home. Impression: external hemorrhoid. - Condition is Stable. - Discharge Instructions: Hemorrhoids. - Medication Reconciliation Form, Thank You Letter, Antibiotic Education, Prescription Opioid Use form. - Follow up: Krzysztof Ramirez MD; When: 2 - 3 days; Reason: Worsening of condition. - Problem is new. - Symptoms have improved. Addendum: 05/06/2018 11:18 Co-signature as Attending Physician, Wayne Sultana MD I agree with the assessment and c broussard plan of care. Signatures: Dispatcher [employer] [facility] Wayne Sultana MD MD cha Ballard, Brenda RN RN Wayne Hannah PA PA Mary Jo Cantu, RN RN tl3 Corrections: (The following items were deleted from the chart) 05/05 00:19 00:11 05/05/2018 00:11 Discharged to Home. Impression: external hemorrhoid. Condition tl3 is Stable. Forms are Medication Reconciliation Form, Thank You Letter, Antibiotic Education, Prescription Opioid Use. Follow up: Krzysztof Ramirez; When: 2 - 3 days; Reason: Worsening of condition. Problem is new. Symptoms have improved. cp
== END 2018-05-05 00:19 | disposition home or self-care (01) ==
LOC: ER 21:14
DX: K64.4 Residual hemorrhoidal skin tags (principal)
CPT/HCPCS: 81003; 81015; 81025; 99283

== ENCOUNTER 2018-06-26 03:47 | Emergency (ER) | payer OTHER, SELFPAY ==
[2018-06-26] MEDS ORDERED: AZITHROMYCIN 250 MG TAB ONE (04:54)
[2018-06-26] MEDS ORDERED: IBUPROFEN 200 MG TAB PO ONE (04:55)
--- NOTE | 2018-06-26 05:07 | EDPHYS ---
Physician Documentation [facility] Name: Philomena Smith Age: 22 yrs Sex: Female : 1995 Arrival Date: 06/26/2018 Time: 03:50 Bed 16 Private MD: ED Physician Wayne Sultana HPI: 06/26 04:05 This 22 yrs old Female presents to ER via Ambulatory with complaints of Sore catina Throat, Weakness. 04:05 The patient presents with sore throat. The patient describes throat pain as burning, catina constant. Onset: The symptoms/episode began/occurred yesterday. Severity of symptoms: At their worst the symptoms were mild, moderate, in the emergency department the symptoms are unchanged. Modifying factors: The symptoms are alleviated by nothing, the symptoms are aggravated by nothing. The patient has not experienced similar symptoms in the past. 04:07 fever, cough , sore throat, body aches. 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 - Social history:: Smoking status: Patient/guardian denies using tobacco, Patient uses alcohol, occasionally. - Family history:: not pertinent. - Ebola Screening: : No symptoms or risks identified at this time. ROS: 04:07 Constitutional: Negative for fever, chills, and weight loss, Eyes: Negative for injury, catina pain, redness, and discharge, Neck: Negative for injury, pain, and swelling, Cardiovascular: Negative for chest pain, palpitations, and edema, Abdomen/GI: Negative for abdominal pain, nausea, vomiting, diarrhea, and constipation, Back: Negative for injury and pain, : Negative for injury, bleeding, discharge, and swelling, MS/Extremity: Negative for injury and deformity, Skin: Negative for injury, rash, and discoloration, Neuro: Negative for headache, weakness, numbness, tingling, and seizure, Psych: Negative for depression, anxiety, suicide ideation, homicidal ideation, and hallucinations, Allergy/Immunology: Negative for hives, rash, and allergies, Endocrine: Negative for neck swelling, polydipsia, polyuria, polyphagia, and marked weight changes, Hematologic/Lymphatic: Negative for swollen nodes, abnormal bleeding, and unusual bruising. 04:07 ENT: Positive for sinus congestion, sore throat. 04:07 Respiratory: Positive for cough, with no reported sputum. Exam: 04:07 Head/Face: Normocephalic, atraumatic. Eyes: Pupils equal round and reactive to light, catina extra-ocular motions intact. Lids and lashes normal. Conjunctiva and sclera are non-icteric and not injected. Cornea within normal limits. Periorbital areas with no swelling, redness, or edema. Neck: Trachea midline, no thyromegaly or masses palpated, and no cervical lymphadenopathy. Supple, full range of motion without nuchal rigidity, or vertebral point tenderness. No Meningismus. Chest/axilla: Normal chest wall appearance and motion. Nontender with no deformity. No lesions are appreciated. Cardiovascular: Regular rate and rhythm with a normal S1 and S2. No gallops, murmurs, or rubs. Normal PMI, no JVD. No pulse deficits. Abdomen/GI: Soft, non-tender, with normal bowel sounds. No distension or tympany. No guarding or rebound. No evidence of tenderness throughout. Skin: Warm, dry with normal turgor. Normal color with no rashes, no lesions, and no evidence of cellulitis. MS/ Extremity: Pulses equal, no cyanosis. Neurovascular intact. Full, normal range of motion. Neuro: Awake and alert, GCS 15, oriented to person, place, time, and situation. Cranial nerves II-XII grossly intact. Motor strength 5/5 in all extremities. Sensory grossly intact. Cerebellar exam normal. Normal gait. 04:07 Constitutional: The patient appears febrile. 04:07 Respiratory: the patient does not display signs of respiratory distress, Respirations: normal, Breath sounds: rhonchi, that are mild, are scattered, Respiratory rate: 18 Vital Signs: 04:00 BP 121 / 80; Pulse 106; Resp 18; Temp 98.3(O); Pulse Ox 100% on R/A; Weight 66.68 kg jb4 (R); Height 5 ft. 0 in. (152.40 cm) (R); Pain 7/10; 04:55 BP 108 / 69; Pulse 100; Resp 16; Pulse Ox 98% on R/A; jb4 04:00 Body Mass Index 28.71 (66.68 kg, 152.40 cm) [facility] MDM: 03:59 Patient medically screened. [facility] 05:09 Data reviewed: vital signs, nurses notes, lab test result(s), Flu: negative radiologic [facility] studies, plain films. 06/26 04:05 Order name: Strep; Complete Time: 05:[address] [facility] 06/26 04:05 Order name: Flu; Complete Time: 05:[address] [facility] 06/26 04:05 Order name: Chest Pa And Lat (2 Views) XRAY [facility] 06/26 04:51 Order name: Urine Dipstick--Ancillary (enter results) [facility] 06/26 04:51 Order name: Urine --Ancillary (enter results) [facility] 06/26 04:05 Order name: Urine Dipstick-Ancillary (obtain specimen); Complete Time: 04:[address] [facility] 06/26 04:05 Order name: Urine Test (obtain specimen); Complete Time: 04:[address] [facility] 06/26 04:05 Order name: PO challenge; Complete Time: 04:[address] [facility] Administered Medications: 04:40 Drug: Motrin 600 mg Route: PO; jb4 05:17 Follow up: Response: No adverse reaction [facility] 04:40 Drug: Zithromax 500 mg Route: PO; 4 05:16 Follow up: Response: No adverse reaction 4 Disposition: 06/26/18 05:06 Discharged to Home. Impression: Fever, unspecified, Acute upper respiratory infection, unspecified, Malaise and fatigue, Streptococcal tonsillitis. - Condition is Stable. - Discharge Instructions: Strep Throat, Upper Respiratory Infection, Adult, Weakness, Cool Mist Vaporizer, Upper Respiratory Infection, Adult, [id number], Weakness, Cnzu-bv-[id number], Cough, Adult. - Prescriptions for Cheratussin AC 10- 100 mg/5 mL Oral liquid - take 10 milliliters by ORAL route every 4 hours; 120 milliliter. Zithromax 500 mg Oral Tablet - take 1 tablet by ORAL route once daily for 4 days; 4 tablet. - Medication Reconciliation Form, Thank You Letter, Antibiotic Education, Prescription Opioid Use form. - Follow up: Private Physician; When: 2 - 3 days; Reason: Recheck today's complaints, Continuance of care, Re-evaluation by your physician. - Problem is new. - Symptoms have improved. Signatures: Dispatcher [employer] EDWayne Richards MD MD cha Bryson, James, RN RN jb4 Corrections: (The following items were deleted from the chart) 05:25 05:06 06/26/2018 05:06 Discharged to Home. Impression: Fever, unspecified; Acute upper jb4 respiratory infection, unspecified; Malaise and fatigue; Streptococcal tonsillitis. Condition is Stable. Discharge Instructions: Upper Respiratory Infection, Adult, Weakness, Cool Mist Vaporizer, Upper Respiratory Infection, Adult, Kvuz-ky-Bdpw, Weakness, Ymwe-cv-Uput, Cough, Adult. Prescriptions for Cheratussin AC 10-100 mg/5 mL Oral liquid - take 10 milliliter by ORAL route every 4 hours; 150 milliliter, Zithromax 500 mg Oral Tablet - take 1 tablet by ORAL route once daily for 4 days; 4 tablet. and Forms are Medication Reconciliation Form, Thank You Letter, Antibiotic Education, Prescription Opioid Use. Follow up: Private Physician; When: 2 - 3 days; Reason: Recheck today's complaints, Continuance of care, Re-evaluation by your physician. Problem is new. Symptoms have improved. catina
--- NOTE | 2018-06-26 05:07 | ER ---
Nurse's Notes [facility] Name: Philomena Smith Age: 22 yrs Sex: Female : 1995 Arrival Date: 06/26/2018 Time: 03:50 Bed 16 Private MD: Diagnosis: Fever, unspecified;Acute upper respiratory infection, unspecified;Malaise and fatigue;Streptococcal tonsillitis Presentation: 06/26 03:55 Presenting complaint: Patient states: starting 2 days ago I began having cough, body jb4 aches, and chills. Now my chest and stomach hurt when I cough. 03:55 Transition of care: patient was not received from another setting of care. Onset of jb4 symptoms was June 24, 2018. Risk Assessment: Do you want to hurt yourself or someone else? Patient reports no desire to harm self or others. Initial Sepsis Screen: Does the patient meet any 2 criteria? HR > 90 bpm. Yes Does the patient have a suspected source of infection? No. Patient's initial sepsis screen is negative. Care prior to arrival: None. 03:55 Method Of Arrival: Ambulatory jb4 03:55 Acuity: LUIS ANTONIO 4 jb4 SPACE AND MISSILE OPERATIONS SPACELIFT: 04:00 LMP 06/16/2018 jb4 Historical: - Allergies: 04:00 No Known Allergies; jb4 - Home Meds: 04:00 None [Active]; jb4 - PMHx: 04:00 None; jb4 - PSHx: 04:00 None; jb4 - Immunization history:: Adult Immunizations up to date, Flu vaccine is not up to date. - Social history:: Smoking status: Patient/guardian denies using tobacco, Patient uses alcohol, occasionally. - Family history:: not pertinent. - Ebola Screening: : No symptoms or risks identified at this time. Screenin:00 Abuse screen: Denies threats or abuse. Nutritional screening: No deficits noted. jb4 Tuberculosis screening: No symptoms or risk factors identified. Fall Risk None identified. Assessment: 04:00 General: Appears in no apparent distress. uncomfortable, Behavior is calm, cooperative, jb4 appropriate for age. Pain: Complains of pain in generalized body aches Pain does not radiate. Pain currently is 7 out of 10 on a pain scale. Quality of pain is described as aching, Pain began 2-3 days ago. Neuro: Level of Consciousness is awake, alert, obeys commands, Oriented to person, place, time, situation. Cardiovascular: Patient's skin is warm and dry. Respiratory: Airway is patent Respiratory effort is even, unlabored, Respiratory pattern is regular, symmetrical. GI: No signs and/or symptoms were reported involving the gastrointestinal system. : No signs and/or symptoms were reported regarding the genitourinary system. EENT: Throat is clear is pink. Derm: Skin is intact, Skin is pink, warm \T\ dry. Musculoskeletal: Circulation, motion, and sensation intact. Range of motion: intact in all extremities. 05:00 Reassessment: Patient appears in no apparent distress at this time. Patient and/or jb4 family updated on plan of care and expected duration. Pain level reassessed. Patient is alert, oriented x 3, equal unlabored respirations, skin warm/dry/pink. Vital Signs: 04:00 BP 121 / 80; Pulse 106; Resp 18; Temp 98.3(O); Pulse Ox 100% on R/A; Weight 66.68 kg jb4 (R); Height 5 ft. 0 in. (152.40 cm) (R); Pain 7/10; 04:55 BP 108 / 69; Pulse 100; Resp 16; Pulse Ox 98% on R/A; jb4 04:00 Body Mass Index 28.71 (66.68 kg, 152.40 cm) jb4 ED Course: 03:50 Patient arrived in ED. do 03:59 Wayne Sultana MD is Attending Physician. catina 04:00 Arm band placed on left wrist. jb4 04:00 Patient has correct armband on for positive identification. Placed in gown. Bed in low jb4 position. Call light in reach. Pulse ox on. NIBP on. 04:03 Bart Marie RN is Primary Nurse. jb4 04:05 Triage completed. jb4 04:23 Flu Sent. jb4 04:23 Strep Sent. jb4 04:42 Patient moved to radiology via wheelchair. kw 04:42 X-ray completed. Patient tolerated procedure well. kw 04:43 Patient moved back from radiology. kw 04:43 Chest Pa And Lat (2 Views) XRAY In Process Unspecified. EDMS 05:23 No provider procedures requiring assistance completed. Patient did not have IV access jb4 during this emergency room visit. Administered Medications: 04:40 Drug: Motrin 600 mg Route: PO; jb4 05:17 Follow up: Response: No adverse reaction jb4 04:40 Drug: Zithromax 500 mg Route: PO; jb4 05:16 Follow up: Response: No adverse reaction jb4 Outcome: 05:06 Discharge ordered by . catina 05:23 Discharged to home ambulatory. jb4 05:23 Condition: stable 05:23 Discharge instructions given to patient, Instructed on discharge instructions, follow up and referral plans. medication usage, Demonstrated understanding of instructions, follow-up care, medications, Prescriptions given X 2. 05:25 Patient left the ED. jb4 Signatures: Dispatcher [employer] EDMS Wayne Sultana MD MD cha Whitley, Kimberlee kw Ogletree, Danielle do Bryson, James RN RN jb4
[2018-06-26 05:52] LABS: Urine Blood TRACE (NEG); Urine Glucose NEGATIVE (NEG); Urine Protein NEGATIVE (NEG); Urine Specific Gravity 1.025 (1.005-1.030); Urine pH 5.5 (5.0-7.0)
--- NOTE | 2018-06-26 08:03 | RAD REPORT ---
EXAM DESCRIPTION: RAD - Chest Pa And Lat (2 Views) - 06/26/2018 4:44 am CLINICAL HISTORY: Cough, body, chest pain, chills COMPARISON: May 2015 TECHNIQUE: PA and lateral views of the chest were obtained. FINDINGS: The lungs are clear. Heart size is normal and central vasculature is within normal limit s. No pleural effusion or pneumothorax seen. No acute bony finding noted. No aortic abnormality. IMPRESSION: No acute cardiopulmonary process.
== END 2018-06-26 05:25 | disposition home or self-care (01) ==
LOC: ER 03:47
DX: J06.9 Acute upper respiratory infection, unspecified (principal); J03.00 Acute streptococcal tonsillitis, unspecified
CPT/HCPCS: 71046; 81003; 81025; 87081; 87804; 99284

== ENCOUNTER 2018-11-21 21:10 | Emergency (ER) | payer SELFPAY ==
--- OUTSIDE RECORDS SUMMARY | 2018-11-21 21:13 | XMS REPORT ---
:1995 [facility] Address [address] [place] [address] Dr. Barreto [address] [place] [id number] Care Team Providers Name Role Phone Unavailable Unavailable Unavailable Problems This patient has no known problems. Allergies, Adverse Reactions, Alerts This patient has no known allergies or adverse reactions. Medications This patient has no known medications.
[2018-11-21] MEDS ORDERED: NA CHLORIDE 0.9% 1,000 ML ONE (21:43)
[2018-11-21 21:51] LABS: Absolute Lymphocytes (CBC) 2.1 K/uL (0.7-4.9); Basophils % 0.5 % (0-1.3); Hematocrit 39.1 % (36.0-45.0); Lymphocytes % 22.7 % (15.3-44.8); MPV 8.4 fL (7.6-11.3); RBC Red Blood Cell Count 4.21 M/uL (3.86-4.86)
[2018-11-21 21:59] LABS: Urine Bacteria 20-50 /HPF (<20); Urine Culture Reflex Order REFLEXED; Urine Mucus 2+ /HPF (NONE SEEN); Urine RBC <5 /HPF (NONE SEEN)
[2018-11-21 22:08] LABS: BUN Blood Urea Nitrogen 7 mg/dL (7-18); Bicarbonate 24 mmol/L (21-32); Glucose Level 80 mg/dL (74-106); Potassium 3.6 mmol/L (3.5-5.1); Sodium Level 140 mmol/L (136-145)
[2018-11-21 22:13] LABS: Urine Blood TRACE (NEG); Urine Glucose NEGATIVE (NEG); Urine Protein NEGATIVE (NEG); Urine Specific Gravity 1.025 (1.005-1.030)
[2018-11-21 22:32] LABS: HCG, Quantitative 1416 mIU/mL (1-3)
[2018-11-21] MEDS ORDERED: CEFTRIAXONE/SWI 1gm 1 GM/10 ML SYR ONE (23:18)
--- NOTE | 2018-11-21 23:58 | EDPHYS ---
Physician Documentation [facility] Name: Philomena Smith Age: 23 yrs Sex: Female : 1995 Arrival Date: 11/21/2018 Time: 21:13 Bed 24 Private MD: ED Physician Krzysztof Peres HPI: 11/21 21:45 This 23 yrs old Female presents to ER via Ambulatory with complaints of pm1 Abdominal Pain - Preg. 21:45 The patient presents with abdominal pain in the lower abdomen. Onset: The pm1 symptoms/episode began/occurred 2 day(s) ago. The symptoms do not radiate. Associated signs and symptoms: none. Pertinent negatives: nausea, vomiting, and diarrhea, chest pain, constipation, dysuria, fever, headache, shortness of breath. The symptoms are described as crampy. Modifying factors: The symptoms are alleviated by nothing, the symptoms are aggravated by nothing. Severity of pain: in the emergency department the pain has resolved is a 0 / 10. The patient has not experienced similar symptoms in the past. The patient has not recently seen a physician. A2. 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 - Social history:: Smoking status: Patient/guardian denies using tobacco, Patient/guardian denies using alcohol, street drugs, IV drugs. - Ebola Screening: : No symptoms or risks identified at this time. ROS: 21:45 Constitutional: Negative for fever, chills, and weight loss, Eyes: Negative for injury, pm1 pain, redness, and discharge, ENT: Negative for injury, pain, and discharge, Neck: Negative for injury, pain, and swelling, Cardiovascular: Negative for chest pain, palpitations, and edema, Respiratory: Negative for shortness of breath, cough, wheezing, and pleuritic chest pain. 21:45 Back: Negative for injury and pain, : Negative for injury, bleeding, discharge, and swelling, MS/Extremity: Negative for injury and deformity, Skin: Negative for injury, rash, and discoloration, Neuro: Negative for headache, weakness, numbness, tingling, and seizure. 21:45 Abdomen/GI: Positive for abdominal cramps, of the suprapubic area, right lower quadrant and left lower quadrant, Negative for nausea, vomiting, and diarrhea, constipation. Exam: 21:45 Constitutional: This is a well developed, well nourished patient who is awake, alert, pm1 and in no acute distress. Head/Face: Normocephalic, atraumatic. Eyes: Pupils equal round and reactive to light, extra-ocular motions intact. Lids and lashes normal. Conjunctiva and sclera are non-icteric and not injected. Cornea within normal limits. Periorbital areas with no swelling, redness, or edema. ENT: Nares patent. No nasal discharge, no septal abnormalities noted. Tympanic membranes are normal and external auditory canals are clear. Oropharynx with no redness, swelling, or masses, exudates, or evidence of obstruction, uvula midline. Mucous membranes moist. Neck: Trachea midline, no thyromegaly or masses palpated, and no cervical lymphadenopathy. Supple, full range of motion without nuchal rigidity, or vertebral point tenderness. No Meningismus. Chest/axilla: Normal chest wall appearance and motion. Nontender with no deformity. No lesions are appreciated. Cardiovascular: Regular rate and rhythm with a normal S1 and S2. No gallops, murmurs, or rubs. Normal PMI, no JVD. No pulse deficits. Respiratory: Lungs have equal breath sounds bilaterally, clear to auscultation and percussion. No rales, rhonchi or wheezes noted. No increased work of breathing, no retractions or nasal flaring. 21:45 Back: No spinal tenderness. No costovertebral tenderness. Full range of motion. Skin: Warm, dry with normal turgor. Normal color with no rashes, no lesions, and no evidence of cellulitis. MS/ Extremity: Pulses equal, no cyanosis. Neurovascular intact. Full, normal range of motion. 21:45 Abdomen/GI: Inspection: abdomen appears normal, Bowel sounds: normal, Palpation: abdomen is soft and non-tender, in all quadrants, mass, is not appreciated, rebound tenderness, is not appreciated. 21:45 Neuro: Orientation: is normal, Motor: is normal, moves all fours. Vital Signs: 21:26 BP 116 / 77; Pulse 104; Resp 18; Temp 97.9; Pulse Ox 100% on R/A; Weight 70.31 kg; mg2 Height 5 ft. 0 in. (152.40 cm); Pain 7/10; 23:23 BP 115 / 77; Pulse 111 RA; Resp 18; Pulse Ox 100% on R/A; mg2 21:26 Body Mass Index 30.27 (70.31 kg, 152.40 cm) mg2 MDM: 21:30 Patient medically screened. pm1 21:47 Data reviewed: vital signs. Data interpreted: Pulse oximetry: on room air is 100 %. pm1 Interpretation: normal. 23:51 Counseling: I had a detailed discussion with the patient and/or guardian regarding: the pm1 historical points, exam findings, and any diagnostic results supporting the discharge/admit diagnosis, lab results, radiology results, the need for outpatient follow up, to return to the emergency department if symptoms worsen or persist or if there are any questions or concerns that arise at home. 11/21 21:30 Order name: Quantitative Hcg; Complete Time: 00:10 11/21 21:30 Order name: Abo/rh Typing; Complete Time: 00:10 11/21 21:30 Order name: Basic Metabolic Panel; Complete Time: 00:10 11/21 21:30 Order name: CBC with Diff; Complete Time: 00:10 11/21 21:34 Order name: Urine Microscopic Only; Complete Time: 00:10 11/21 21:54 Order name: Urine Dipstick--Ancillary (enter results); Complete Time: 00:10 11/21 21:30 Order name: Urine Test (obtain specimen); Complete Time: 21:46 11/21 21:30 Order name: IV Saline Lock; Complete Time: 21:46 11/21 21:30 Order name: Labs collected and sent; Complete Time: 21:46 11/21 21:34 Order name: US Transvaginal Ob pm1 11/21 21:54 Order name: Urine --Ancillary (enter results); Complete Time: 00:10 11/21 22:01 Order name: Urine Culture EDMS 09/21 21:30 Order name: NPO; Complete Time: 21:46 pm1 11/21 21:30 Order name: Urine Dipstick-Ancillary (obtain specimen); Complete Time: 21:46 pm1 Administered Medications: 21:41 Drug: NS 0.9% 1000 ml Route: IV; Rate: 1000 ml; Site: right forearm; mg2 11/22 00:12 Follow up: Response: No adverse reaction; IV Status: Completed infusion 11/21 23:23 Drug: Rocephin - (cefTRIAXone) 1 grams Route: IVPB; Infused Over: 30 mins; Site: right mg2 forearm; 11/22 00:12 Follow up: Response: No adverse reaction; IV Status: Completed infusion Disposition: 09:15 Co-signature as Attending Physician, Krzysztof Peres MD I agree with the assessment and fl plan of care. Disposition: 11/21/18 23:57 Discharged to Home. Impression: Urinary tract infection, site not specified. - Condition is Stable. - Discharge Instructions: and Urinary Tract Infection. - Prescriptions for Macrobid 100 mg Oral Capsule - take 1 capsule by ORAL route every 12 hours for 10 days; 20 capsule. - Medication Reconciliation Form, Thank You Letter, Antibiotic Education, Prescription Opioid Use form. - Follow up: Emergency Department; When: As needed; Reason: Worsening of condition. Follow up: Private Physician; When: 2 - 3 days; Reason: Recheck today's complaints, Continuance of care, Re-evaluation by your physician. - Problem is new. - Symptoms have improved. Signatures: Dispatcher [employer] [facility] Arnold Newell NP WEAVER APPRENTICE pm1 Zakia Yi Krzysztof Peres MD MD wa Gardose, Michele, RN RN mg2 Corrections: (The following items were deleted from the chart) 00:13 11/21 23:57 11/21/2018 23:57 Discharged to Home. Impression: Urinary tract infection, site not specified. Condition is Stable. Forms are Medication Reconciliation Form, Thank You Letter, Antibiotic Education, Prescription Opioid Use. Follow up: Emergency Department; When: As needed; Reason: Worsening of condition. Follow up: Private Physician; When: 2 - 3 days; Reason: Recheck today's complaints, Continuance of care, Re-evaluation by your physician. Problem is new. Symptoms have improved. pm1
--- NOTE | 2018-11-21 23:58 | ER ---
Nurse's Notes [facility] Name: Philomena Smith Age: 23 yrs Sex: Female : 1995 Arrival Date: 11/21/2018 Time: 21:13 Bed 24 Private MD: Diagnosis: Urinary tract infection, site not specified Presentation: 11/21 21:25 Presenting complaint: Patient states: im and im having bilateral lower mg2 quadrant pain for 2 days. i also have history of ovarian cysts before. Transition of care: patient was not received from another setting of care. Onset of symptoms was November 20, 2018. Risk Assessment: Do you want to hurt yourself or someone else? Patient reports no desire to harm self or others. Initial Sepsis Screen: Does the patient meet any 2 criteria? No. Patient's initial sepsis screen is negative. Does the patient have a suspected source of infection? No. Patient's initial sepsis screen is negative. Care prior to arrival: None. 21:25 Method Of Arrival: Ambulatory mg2 21:25 Acuity: LUIS ANTONIO 3 mg2 Triage Assessment: 21:29 General: Appears in no apparent distress. comfortable, Behavior is calm, cooperative. mg2 Pain: Complains of pain in abdomen Pain does not radiate. Pain currently is 7 out of 10 on a pain scale. Quality of pain is described as aching, Pain began gradually, 2-3 days ago. Is intermittent. EENT: No signs and/or symptoms were reported regarding the EENT system. Neuro: Level of Consciousness is awake, alert, obeys commands, Oriented to person, place, time, situation. Cardiovascular: Capillary refill < 3 seconds Patient's skin is warm and dry. Respiratory: Airway is patent Respiratory effort is even, unlabored, Respiratory pattern is regular, symmetrical. GI: Reports lower abdominal pain. Derm: Skin is intact, is healthy with good turgor, Skin is pink, warm \T\ dry. normal. Musculoskeletal: Circulation, motion, and sensation intact. Capillary refill < 3 seconds. 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 - Social history:: Smoking status: Patient/guardian denies using tobacco, Patient/guardian denies using alcohol, street drugs, IV drugs. - Ebola Screening: : No symptoms or risks identified at this time. Screenin:30 Abuse screen: Denies threats or abuse. Denies injuries from another. Nutritional mg2 screening: No deficits noted. Tuberculosis screening: No symptoms or risk factors identified. Fall Risk None identified. Assessment: 21:30 Reassessment: see triage assessment. [facility] [place] 00:00 GI: Bowel sounds present X 4 quads. Abd is soft and non tender X 4 quads. Vital Signs: 11/21 21:26 BP 116 / 77; Pulse 104; Resp 18; Temp 97.9; Pulse Ox 100% on R/A; Weight 70.31 kg; mg2 Height 5 ft. 0 in. (152.40 cm); Pain 7/10; 23:23 BP 115 / 77; Pulse 111 RA; Resp 18; Pulse Ox 100% on R/A; mg2 21:26 Body Mass Index 30.27 (70.31 kg, 152.40 cm) mg2 ED Course: 21:13 Patient arrived in ED. ds1 21:25 Yuriy Lozada, SHARLA is Primary Nurse. mg2 21:26 Triage completed. mg2 21:28 Arm band placed on. mg2 21:30 Arnold Newell NP is PHCP. pm1 21:30 Krzysztof Peres MD is Attending Physician. pm1 21:47 Patient has correct armband on for positive identification. mg2 21:47 No provider procedures requiring assistance completed. Inserted saline lock: 20 gauge mg2 in right forearm, using aseptic technique. Blood collected. 22:22 US Transvaginal Ob In Process Unspecified. EDMS 22:30 Ultrasound completed. Patient tolerated well. Notified CHOCOLATE DIPPER/LISANDRO FERRIS. sg3 23:59 IV discontinued, intact, bleeding controlled, No redness/swelling at site. Pressure mg2 dressing applied. Administered Medications: 21:41 Drug: NS 0.9% 1000 ml Route: IV; Rate: 1000 ml; Site: right forearm; [facility] [place] 11/[place] 00:12 Follow up: Response: No adverse reaction; IV Status: Completed infusion 11/21 23:23 Drug: Rocephin - (cefTRIAXone) 1 grams Route: IVPB; Infused Over: 30 mins; Site: right mg2 forearm; 11/22 00:12 Follow up: Response: No adverse reaction; IV Status: Completed infusion Outcome: 11/21 23:57 Discharge ordered by . pm1 11/22 00:11 Discharged to home ambulatory. Condition: good Discharge instructions given to patient, Instructed on discharge instructions, follow up and referral plans. medication usage, POC UTI Demonstrated understanding of instructions, follow-up care, medications, POC Prescriptions given X 1. 00:13 Patient left the ED. Signatures: Dispatcher [employer] EDUT Vero Lloyd ds1 Arnold Newell NP CHOCOLATE DIPPER pm1 Zakia Yi [place] 3 Yuriy Lozada, RN RN mg2
[2018-11-22 01:43] VITALS: TEMP 98.3
[2018-11-22 01:44] VITALS: BP 121/74; O2SAT 99
--- NOTE | 2018-11-22 10:46 | RAD REPORT ---
EXAM DESCRIPTION: US - Transvaginal OB - 11/21/2018 10:22 pm CLINICAL HISTORY: ABD CRAMPING, Preliminary findings provided at the time of the study. COMPARISON: None. TECHNIQUE: Endovaginal sonography performed. FINDINGS: Normal sized uterus is identified. No myometrial mass seen. In the fundal portion of the e ndometrial cavity old fluid collection is present. This is most likely an early gestational sac. No f etal pole or yolk sac visible. Sac measurements correspond to a 5 week 1 day age. No hematoma or mass within the endometrial cavity. No blood or fluid in the cul de sac. Right ovary is identified and shows normal blood flow within the stroma. No right adnexal mass. Left ovary was obscured by bowel. No left adnexal mass seen. IMPRESSION: A 5 week 1 day sized sac is present in the fundal portion of the endometrial cavity. Thi s is most likely an early gestation. Follow-up sonography can be obtained as warranted. No hematoma or mass within the endometrial cavity. Normal right ovary and right adnexa. Nonvisualization of the left ovary due to bowel. No left adnexal mass.
== END 2018-11-22 00:13 | disposition home or self-care (01) ==
LOC: ER 21:10
DX: O23.40 Unspecified infection of urinary tract in pregnancy, unspecified trimester (principal); Z3A.00 Weeks of gestation of pregnancy not specified
CPT/HCPCS: 36415; 76817; 80048; 81003; 81015; 81025; 84702; 85025; 86900; 86901; 87086; 87088; 96361; 96365; 99284; J0696; J7030

== ENCOUNTER 2019-08-30 02:12 | Emergency (ER) | payer SELFPAY ==
--- OUTSIDE RECORDS SUMMARY | 2019-08-30 02:14 | XMS REPORT | Continuity of Care Document ---
:1995 Author Organization [facility] t Address [address] [place] [address] Care Team Providers Name Role Phone Pcp, Does Not Have A Attending Clinician Rom [place] Attending Clinician Doctor Unassigned, Name Attending Clinician Unavailable Payers Payer Name Policy Type Policy Number Effective Date Expiration Date S ource Problems This patient has no known problems. Allergies, Adverse Reactions, Alerts Allergy Allergy Status Severity Reaction(s) Onset Inactive Treating Comm ents Source Name Type Date Date Clinician No Known DA Active U 2018- [facility] [place] Medications This patient has no known medications. Procedures This patient has no known procedures. Encounters Start End Encounter Admission Attending Care Care Encounter Source Date/Time Date/Time Type Type Clinicians Facility Department ID 2019-08-24 2019-08-24 Telephone Anthony, [facility] [id number] 00:00:00 00:00:00 Patient Thien 350.1.13.10 Does Not Brenda 4.2.7.2.686 Have A [place] [id number] 2019-08-23 2019-08-23 Emergency Rom [facility] [id number] 13:57:56 14:34:00 Mago Neumann 350.1.13.10 [place] 4.2.7.2.686 [place] [id number] 2019-08-23 2019-08-23 Orders Doctor ANNA [id number] 00:00:00 00:00:00 Only Unassigned, DOMITILA 350.1.13.10 [place] [facility] 4.2.7.2.686 [id number] Results Test Description Test Time Test Comments Results Result Sour e Comments - US ABDOMEN LTD 2018-12-05 Patient Name: 01:30:00 OH CERDA Unit No: [id number] EXAMS: CPT CODE: [id number] US ABDOMEN LTD 47494 PROCEDURE: RIGHT UPPER QUADRANT ULTRASOUND DATED 12/05/2018 INDICATION: Acute epigastric abdominal pain COMPARISON: None TECHNIQUE: Sonographic evaluation of the right upper quadrant was performed with supplemental color and pulsed Doppler. FINDINGS: LIVER: A 7 x 6 x 5 mm hyperechoic lesion is identified in the peripheral subcapsular posterior segment of the right lobe the liver and a 9 x 8 x 6 mm hyperechoic lesion is identified in the peripheral subcapsular anterior segment of the right lobe of liver, likely representing incidental hemangiomas. The liver is otherwise normal in size and echotexture. GALLBLADDER: The gallbladder is incompletely distended however demonstrates no evidence of cholelithiasis, gallbladder wall thickening or pericholecystic fluid. BILE DUCTS: The common duct is normal in caliber measuring 2 mm. PANCREAS: The visualized pancreas appears normal. RIGHT KIDNEY: The right kidney measures 10.3 cm in length. Normal renal contour and morphology with normal echogenicity. There is no hydronephrosis. Additional comments: No free peritoneal fluid is identified in the right upper quadrant. Flow is documented in the inferior vena cava. The abdominal aorta is normal in caliber. IMPRESSION: 1. No sonographic evidence of cholelithiasis or acute cholecystitis. 2. Two hyperechoic lesions with greatest diameters of 7 mm and 9 mm are identified in the peripheral subcapsular right lobe of the liver, most likely representing incidental hemangiomas. SL:131 at 0130 Reported and signed by: Gustavo Machado MD CC: Vicky Lux MD Technologist: Arline Bacon RDMS Probe: Trnscrbd D/ (0130) ana.[email or web address].[email or web address] Orig Print D/T: S: 12/05/2018 (0133) [facility] NAME: OH CERDA Radiology Department PHYS: Tyson Escobar [address] : 1995 AGE: 23 SEX: F [place] [address] LOC: YESSICA PHONE #: [phone] EXAM DATE: 12/04/2018 STATUS: REG ER FAX #: [phone] RAD NO: Page 1 Signed Report Patient Name: OH CERDA Unit No: [id number] EXAMS: CPT CODE: [id number] ABDOMEN LTD 22100 <Continued> [facility] NAME: OH CERDA Radiology Department PHYS: Tyson Escobar [address] : 1995 AGE: 23 SEX: F [place] [address] LOC: YESSICA PHONE #: [phone] EXAM DATE: 12/04/2018 STATUS: REG ER FAX #: [phone] RAD NO: Page 2 Signed Report - US PREG UT 2018-12-05 Patient Name: TRANSVAGINAL 01:24:00 OH CERDA Unit No: [id number] EXAMS: CPT CODE: [id number] US PREG UT TRANSVAGINAL 56455 Early obstetrical ultrasound (less than 14 weeks) dated 12/04/2018. HISTORY: . Vaginal bleeding. A transabdominal pelvic ultrasound was performed with subsequent transvaginal imaging to better visualize the gestational sac and ovaries. No prior studies are available comparison. The uterus measures approximately 11.6 x 5.7 x 8.1 cm and contains a single intrauterine . The estimated gestational age based on a crown-rump length of 0.7 cm is 6 weeks 4 days. cardiac activity is documented with a heart rate of 127 bpm. Two hypoechoic avascular collections measuring 2.2 x 1.7 x 0.7 and 0.6 x 0.5 x 0.8 cm are identified adjacent to the gestational sac, likely representing subchorionic hemorrhage. No abnormalities of the myometrium are identified. The cervix is closed. The right ovary measures 3.8 x 1.8 x 1.7 cm and maintains normal echotexture. The left ovary measures 5.2 x 1.9 x 1.7 cm and contains a 2.0 x 1.5 x 1.5 cm thick-walled complex cyst, likely representing a resolving hemorrhagic corpus luteum. Ovarian blood flow is documented bilaterally using Doppler ultrasound. No adnexal masses or pelvic fluid collections are identified. IMPRESSION: 1. Single living intrauterine with an estimated ultrasound gestational age of 6 weeks 4 days and an estimated date of delivery of 07/26/2019. SL: 131 at 0124 Reported and signed by: Gustavo Machado MD CC: Vicky Lux MD Technologist: Arline Bacon RDMS Probe: [id number] Trnscrbd D/ (0124) t.DMM Orig Print D/T: S: 12/05/2018 (0127) [facility] NAME: OH CERDA Radiology Department PHYS: ANSELMOJudith Tyson Webber [address] : 1995 AGE: 23 SEX: F [place] [address] LOC: AgustinERS PHONE #: [phone] EXAM DATE: 12/05/2018 STATUS: REG ER FAX #: [phone] RAD NO: Page 1 Signed Report Patient Name: OH CERDA Unit No: [id number] EXAMS: CPT CODE: [id number] US PREG UT TRANSVAGINAL 55333 <Continued> [facility] NAME: OH CERDA Radiology Department PHYS: ANSELMOMarionTyson Redding [address] : 1995 AGE: 23 SEX: F [place] [address] LOC: Mk.ERS PHONE #: [phone] EXAM DATE: 12/05/2018 STATUS: REG ER FAX #: [phone] RAD NO: Page 2 Signed Report - US PREG EVAL 1ST 2018-12-05 Patient Name: TRIMTR 01:24:00 OH CERDA Unit No: [id number] EXAMS: CPT CODE: [id number] US PREG EVAL 1ST TRIMTR 62031 Early obstetrical ultrasound (less than 14 weeks) dated 12/04/2018. HISTORY: . Vaginal bleeding. A transabdominal pelvic ultrasound was performed with subsequent transvaginal imaging to better visualize the gestational sac and ovaries. No prior studies are available comparison. The uterus measures approximately 11.6 x 5.7 x 8.1 cm and contains a single intrauterine . The estimated gestational age based on a crown-rump length of 0.7 cm is 6 weeks 4 days. cardiac activity is documented with a heart rate of 127 bpm. Two hypoechoic avascular collections measuring 2.2 x 1.7 x 0.7 and 0.6 x 0.5 x 0.8 cm are identified adjacent to the gestational sac, likely representing subchorionic hemorrhage. No abnormalities of the myometrium are identified. The cervix is closed. The right ovary measures 3.8 x 1.8 x 1.7 cm and maintains normal echotexture. The left ovary measures 5.2 x 1.9 x 1.7 cm and contains a 2.0 x 1.5 x 1.5 cm thick-walled complex cyst, likely representing a resolving hemorrhagic corpus luteum. Ovarian blood flow is documented bilaterally using Doppler ultrasound. No adnexal masses or pelvic fluid collections are identified. IMPRESSION: 1. Single living intrauterine with an estimated ultrasound gestational age of 6 weeks 4 days and an estimated date of delivery of 07/26/2019. SL: 131 at 0124 Reported and signed by: Gustavo Machado MD CC: Vicky Lux MD Technologist: Arline Bacon RDMS Probe: Trnscrbd D/ (0124) Ben Orig Print D/T: S: 12/05/2018 (0127) [facility] NAME: OH CERDA Radiology Department PHYS: Tyson Escobar [address] : 1995 AGE: 23 SEX: F [place], [place] [address] LOC: AgustinERS PHONE #: [phone] EXAM DATE: 12/04/2018 STATUS: REG ER FAX #: [phone] RAD NO: Page 1 Signed Report Patient Name: OH CERDA Unit No: [id number] EXAMS: CPT CODE: [id number] US PREG EVAL 1ST TRIMTR 70270 <Continued> [facility] NAME: OH CERDA Radiology Department PHYS: Tyson Escobar [address] : 1995 AGE: 23 SEX: F [place], [place] [address] LOC: AgustinERS PHONE #: [phone] EXAM DATE: 12/04/2018 STATUS: REG ER FAX #: [phone] RAD NO: Page 2 Signed Report COMPREHENSIVE METABOLIC PANEL 2018-12-04 23:35:00 Test Item Value Reference Range Interpretation Comme nts SODIUM (test code = NA) 138 mEq/L 135-145 N POTASSIUM (test code = K) 3.6 mEq/L 3.5-5.0 N CHLORIDE (test code = CL) 103 mEq/L 100-115 N CARBON DIOXIDE (test code = CO2) 28 mEq/L 22-31 N ANION GAP (test code = GAP) 10.70 10-20 N GLUCOSE (test code = GLU) 95 mg/dL 65-110 N BLOOD UREA NITROGEN (test code = BUN) 6 mg/dL 7-18 L GLOMERULAR FILTRATION RATE (test code = GFR) 125 ml/min >60 N CREATININE (test code = CREAT) 0.6 mg/dL 0.5-1.0 N TOTAL PROTEIN (test code = PROT) 7.4 gm/dL 6.3-8.2 N ALBUMIN (test code = ALB) 3.3 gm/dL 3.4-4.8 L CALCIUM (test code = CA) 9.0 mg/dL 8.4-10.2 N BILIRUBIN TOTAL (test code = BILT) 0.2 mg/dL 0.2-1.0 N SGOT/AST (test code = AST) 13 units/L 15-37 L SGPT/ALT (test code = ALT) 22 units/L 12-78 N ALKALINE PHOSPHATASE TOTAL (test code = ALKP) 71 units/L 46-116 N [id number] 23:35:00 Test Item Value Reference Range Interpretation Comments LIPASE (test code = LIP) 127 units/L 73-393 N HCG [id number] 23:35:00 Test Item Value Reference Range Interpretation Comments HCG SERUM (test 72436 INTERPRETATI ON:VALUES BETWEEN code = HCG) 15-20 milliInte rnational units/mL NEED T O BERETESTED WITHIN 48 HOURS . All units for these ranges ar e in milliInternatio nalunits/mL0-1 WK AFTER CONCEP TION 0-50 1-2 W KS AFTER CONCEPTION 40-3002-3 WKS A FTER CONCEPTION 100-1 ,0003-4 WKS AFTER CONCEPTIO N 500-6,0001-2 MO NTHS AFTER CONCEPTION 5,000-200,0002- 3 MONTHS AFTER CONCEPTION 10,000-100,0002 ND TRIMESTER 3,000-50,0003RD TRIMESTER 1 ,000-50,000 SPECIMENS WITH AN HCG LEVEL FROM 0-6 milliInternatio nalunits/mL SHOULD BE CONSI DERED NEGATIVE COMPREHENSIVE METABOLIC [id number] 23:11:00 Test Item Value Reference Range Interpretation Comments SODIUM (test code = NA) 138 mEq/L 135-145 N POTASSIUM (test code = K) 3.6 mEq/L 3.5-5.0 N CHLORIDE (test code = CL) 103 mEq/L 100-115 N CARBON DIOXIDE (test code = CO2) 28 mEq/L 22-31 N ANION GAP (test code = GAP) 10.70 10-20 N GLUCOSE (test code = GLU) 95 mg/dL 65-110 N BLOOD UREA NITROGEN (test code = 6 mg/dL 7-18 L BUN) GLOMERULAR FILTRATION RATE (test 125 ml/min >60 N code = GFR) CREATININE (test code = CREAT) 0.6 mg/dL 0.5-1.0 N TOTAL PROTEIN (test code = PROT) 7.4 gm/dL 6.3-8.2 N ALBUMIN (test code = ALB) 3.3 gm/dL 3.4-4.8 L CALCIUM (test code = CA) 9.0 mg/dL 8.4-10.2 N BILIRUBIN TOTAL (test code = BILT) 0.2 mg/dL 0.2-1.0 N SGOT/AST (test code = AST) 13 units/L 15-37 L SGPT/ALT (test code = ALT) 22 units/L 12-78 N ALKALINE PHOSPHATASE TOTAL (test 71 units/L 46-116 N code = ALKP) CBC W/AUTO [id number] 22:58:00 Test Item Value Reference Range Interpretation Comments WHITE BLOOD CELL (test code = WBC) 8.0 K/mm3 6.6-12.1 N RED BLOOD CELL (test code = RBC) 3.99 M/mm3 3.45-5.01 N HEMOGLOBIN (test code = HGB) 12.5 g/dL 10.7-13.9 N HEMATOCRIT (test code = HCT) 37.1 % 32.1-42.1 N MEAN CELL VOLUME (test code = MCV) 93 fL 84.1-94.8 N MEAN CELL HGB (test code = MCH) 31.3 pg 27-35 N MEAN CELL HGB CONCETRATION (test 33.7 gm/dL 32.2-34.1 N code = MCHC) RED CELL DISTRIBUTION WIDTH (test 12.1 % 12.4-16.5 L code = RDW) PLATELET COUNT (test code = PLT) 309 K/mm3 133-385 N IMMATURE PLATELET FRACTION (test 0.0 % 0.0-10.8 N code = IPF) MEAN PLATELET VOLUME (test code = 10.1 fl 9.1-12.7 N MPV) NEUTROPHIL % (test code = NT%) 64.7 % 56.5-79.4 N LYMPHOCYTE % (test code = LY%) 25.6 % 14.3-34.3 N MONOCYTE % (test code = MO%) 7.9 % 5.1-10.4 N EOSINOPHIL % (test code = EO%) 0.8 % 0.1-3.0 N BASOPHIL % (test code = BA%) 0.5 % 0.1-1.0 N NEUTROPHIL # (test code = NT#) 5.2 K/mm3 LYMPHOCYTE # (test code = LY#) 2.0 K/mm3 MONOCYTE # (test code = MO#) 0.6 K/mm3 EOSINOPHIL # (test code = EO#) 0.06 K/mm3 BASOPHIL # (test code = BA#) 0.0 K/mm3 RBC MORPHOLOGY REQUIRED (test code NORMAL NORMAL = RBCM) PLATELET MORPHOLOGY REQUIRED (test NORMAL NORMAL code = PLTMR) UA RFLX MICR CULT IF [id number] 22:44:00 Test Item Value Reference Range Interpretation Comments UA COLOR (test code = COLU) YELLOW YELLOW UA APPEARANCE (test code = HAZY CLEAR APPU) UA GLUCOSE DIPSTICK (test NEGATIVE NEGATIVE code = DGLUU) UA BILIRUBIN DIPSTICK (test NEGATIVE NEGATIVE code = BILU) UA KETONE DIPSTICK (test code NEGATIVE NEGATIVE = KETU) UA SPECIFIC GRAVITY (test 1.025 1.001-1.035 N code = SGU) UA BLOOD DIPSTICK (test code NEGATIVE NEGATIVE = KAT) UA PH DIPSTICK (test code = 6.0 5-9 GAIL) UA PROTEIN DIPSTICK (test NEGATIVE NEGATIVE code = PROU) UA UROBILINIOGEN DIPSTICK 0.2 mg/dL NEG (test code = URO) UA NITRITE DIPSTICK (test NEGATIVE NEGATIVE code = CESAR) UA LEUKOCYTE ESTERASE NEGATIVE NEG DIPSTICK (test code = LEUU) UA WBC (test code = WBCU) NONE SEEN #/hpf NONE SEEN UA RBC (test code = RBCU) 2-5 #/hpf NONE SEEN A UA EPITHELIAL CELLS (test MANY #/HPF RARE-FEW A code = EPIU) UA BACTERIA (test code = RARE #/hpf NONE SEEN BACU) Indication for culture: Flank Pain
--- OUTSIDE RECORDS SUMMARY | 2019-08-30 02:14 | XMS REPORT | Summary of Care ---
:1995 Author Organization [facility] - Health Address [address] [place] [address] Care Team Providers Name Role Phone Pcp, Does Not Have A Primary Care Provider Encounter Details Date Type Department Care Team Description 08/23/2019 Orders Only [facility] Doctor Unassigned, No [address] [facility] [place] [address] [address] [place] [address] Allergies No Known Allergiesdocumented as of this encounter (statuses as of 08/23/2019) Medications No known medicationsdocumented as of this encounter (statuses as of 08/23/2019) Active Problems Problem Noted Date Missed ab 10/27/2017 Pelvic pain 10/27/2017 Blighted ovum 10/20/2017 Uterine size-date discrepancy, antepartum, first trime ster 12/19/2014 Supervision of high-risk with insufficient p renatal care, 12/14/2014 unspecified trimester Fatigue during , antepartum, unspecified trim rose 12/14/2014 documented as of this encounter (statuses as of 08/23/2019) Resolved Problems Problem Noted Date Resolved Date Unfavorable cervix in term 07/27/2015 Liveborn by 07/27/2015 10/27/2017 40 weeks gestation of 07/25/2015 10/28/19 18 Maternal varicella, non-immune 12/16/2014 8 Absence of menstruation 12/14/2014 12/19/2014 documented as of this encounter (statuses as of 08/23/2019) Social History Tobacco Use Types Packs/Day Years Used Date Never Smoker Smokeless Tobacco: Never Used Alcohol Use Drinks/Week oz/Week Comments No 0 Standard drinks or equivalent 0.0 Sex Assigned at Date Recorded Not on file Job Start Date Occupation Industry Not on file Not on file Not on file Travel History Travel Start Travel End No recent travel history available. documented as of this encounter Last Filed Vital Signs Not on filedocumented in this encounter Plan of Treatment Health Maintenance Due Date Last Done Comments VARICELLA VACCINES (1 of 2 - 1997 2-dose childhood series) MENINGOCOCCAL B VACCINES (1 of 2006 2 - Risk Bexsero 2-dose series) DTaP,Tdap,and Td Vaccines (1 - 09/13/2007 Tdap) HPV VACCINES (1 - Female 09/13/2007 2-dose series) Depression Screening 2008 PAP SMEAR 2017 CHLAMYDIA SCREENING 03/12/2018 03/12/2017, 12/13/2014 INFLUENZA VACCINE (Season 11/02/2019 Ended) MENINGOCOCCAL VACCINE Aged Out No longer eligible based on patient's age to complete this to pic PNEUMOCOCCAL 0-64 YEARS Aged Out No longe r eligible based COMBINED SERIES on patient's age to complete this to pic documented as of this encounter Procedures Procedure Name Priority Date/Time Associated Diagnosis Comme nts CONSENT/REFUSAL FOR Routine 08/23/2019 12:51 PM CDT DIAGNOSIS AND TREATMENT documented in this encounter Results Not on filedocumented in this encounter
--- OUTSIDE RECORDS SUMMARY | 2019-08-30 02:15 | XMS REPORT | Summary of Care ---
:1995 Author Organization [facility] Address [address] [place] [address] Care Team Providers Name Role Phone Pcp, Does Not Have A Primary Care Provider Reason for Visit Reason Comments Lab Results Encounter Details Date Type Department Care Team Description 08/24/2019 Telephone [facility] Phlebotomy Pcp, Patient Does Not Lab Results Lab-Wing Have A [address] [place] [address] Dr monzon [address] [place] [address] [place] [address] Allergies No Known Allergiesdocumented as of this encounter (statuses as of 08/25/2019) Medications Medication Sig Dispensed Refills Start Date End Date Status albuterol 90 Inhale 2 Puffs 8.5 g 0 08/23/2019 A ctive mcg/actuation every 4 (four) inhalerIndications: hours as needed Chills, COVID-19 virus for Wheezing or infection, Fever, Shortness of unspecified fever Breath. cause proMETHazine 25 mg Take 1 tablet by 6 tablet 0 08/23/2019 Active tabletIndications: mouth every 6 Chills, COVID-19 virus (six) hours as infection, Fever, needed for Nausea unspecified fever and Vomiting cause (N/V). documented as of this encounter (statuses as of 08/25/2019) Active Problems Problem Noted Date Missed ab 10/27/2017 Pelvic pain 10/27/2017 Blighted ovum 10/20/2017 Uterine size-date discrepancy, antepartum, first trime ster 12/19/2014 Supervision of high-risk with insufficient p renatal care, 12/14/2014 unspecified trimester Fatigue during , antepartum, unspecified trim rose 12/14/2014 documented as of this encounter (statuses as of 08/25/2019) Resolved Problems Problem Noted Date Resolved Date Unfavorable cervix in term 07/27/2015 Liveborn by 07/27/2015 10/27/2017 40 weeks gestation of 07/25/2015 10/28/19 18 Maternal varicella, non-immune 12/16/2014 8 Absence of menstruation 12/14/2014 12/19/2014 documented as of this encounter (statuses as of 08/25/2019) Social History Tobacco Use Types Packs/Day Years Used Date Never Smoker Smokeless Tobacco: Never Used Alcohol Use Drinks/Week oz/Week Comments No 0 Standard drinks or equivalent 0.0 Sex Assigned at Date Recorded Not on file Job Start Date Occupation Industry Not on file Not on file Not on file Travel History Travel Start Travel End No recent travel history available. COVID-19 Exposure Response Date Recorded In the last month, have you been in contact with Yes 08/23/2019 12:51 PM CDT someone who was confirmed or suspected to have Coronavirus / COVID-19? documented as of this encounter Last Filed [...] to pic documented as of this encounter Results Not on filedocumented in this encounter Additional Health Concerns Infection Onset Date Last Indicated Resolved Time COVID-19 Confirmed 08/23/2019 08/23/2019 documented as of this encounter Insurance Payer Benefit Plan / Subscriber ID Effective Phone Address T ype Group Dates MEDICAID MEDICAID PENDING 2019-[address] Pending [place]ENDING [place] [address] documented as of this encounter
--- OUTSIDE RECORDS SUMMARY | 2019-08-30 02:15 | XMS REPORT | Summary of Care ---
:1995 Author Organization [facility] - Health Address [address] [place] [id number] Care Team Providers Name Role Phone Pcp, Does Not Have A Primary Care Provider Reason for Visit Reason Comments Chills Body Aches COVID exposure Auth/Cert Status Reason Specialty Diagnoses / Referred By Referred To Procedures Contact Contact Emergency Medicine [facility] Em ergency Dept [address] [place] [phone] Fax: Encounter Details Date Type Department Care Team Description 08/23/2019 Emergency ADC-Emergency Mago Cueto FNP COVID-19 virus infection (Primary Dx); Department [address] [place] [address]. Chills; [address] [place] [address] Fever, un specified fever [place] [address] [id number] [place] [address] Allergies No Known Allergiesdocumented as of this encounter (statuses as of 08/23/2019) Medications Medication Sig Dispensed Refills Start Date [...] of this encounter Last Filed Vital Signs Vital Sign Reading Time Taken Comments Blood Pressure 120/84 08/23/2019 2:21 PM CDT Pulse 100 08/23/2019 2:21 PM CDT Temperature 37.4 C (99.3 F) 08/23/2019 2:21 PM CDT Respiratory Rate 18 08/23/2019 2:21 PM CDT Oxygen Saturation 99% 08/23/2019 2:21 PM CDT Inhaled Oxygen Concentration - - Weight 72.6 kg (160 lb) 08/23/2019 1:03 PM CDT Height 152.4 cm (5') 08/23/2019 1:03 PM CDT Body Mass Index 31.25 08/23/2019 1:03 PM CDT documented in this encounter Discharge Instructions Mago Mckeon FNP - 08/23/2019DIAGNOSIS 1. Fever 2. COVID infection NO LIFE-THREATENING FINDINGS ON TODAY'S EXAM. PROCEDURES IN THE ER TODAY: COVID MEDICATIONS ADMINISTERED IN THE ER TODAY: Motrin YOUR PRESCRIPTIONS AND DLHP-QIJ-IQLABIV MEDICATION RECOMMENDATIONS: None SPECIAL CARE INSTRUCTIONS: Follow up with your PCP Self isolate for 2 weeks FOLLOW-UP RECOMMENDATIONS: RECOMMEND FOLLOW-UP WITH A PRIMARY CARE PROVIDER OR SPECIALIST IN 2-5 DAYS, ESPECIALLY IF NO IMPROVEMENT IN SYMPTOMS. TO FOLLOW-UP WITHIN THE [facility], TRY THESE OPTIONS (CLINIC APPOINTMENTS AVAILABLE ON [id number] BASIS): 1. SCHEDULE AN APPOINTMENT ONLINE AT [email or web address] 2. OR CALL THE [facility] AT OR 3. OR CALL YOUR [facility] PHYSICIAN'S OFFICE DIRECTLY IF YOU ARE ALREADY AN ESTABLISHED [facility] PATIENT. OR, YOU MAY FOLLOW-UP WITH A PROVIDER OF YOUR CHOICE, SUCH : 1. A PHYSICIAN OF YOUR CHOICE 2. [facility], . LOCATIONS IN [facility] 3. [facility], [address], [place]; [phone] RETURN TO ER FOR WORSENING OF SYMPTOMS. AttachmentsThe following attachments cannot be sent through Care Everywhere. Coronavirus Disease 2019: Caring for Yourself and Others (South Korean)Coronavirus Disease 2019 (COVID-19): Prevention ([place])documented in this encounter Plan of Treatment Health [...] encounter Procedures Procedure Name Priority Date/Time Associated Comments Diagnosis ASSIGNMENT OF Routine 08/23/2019 2:29 PM BENEFITS CDT COVID-19 (ID NOW STAT 08/23/2019 1:11 PM Chills Resu lts for this RAPID TESTING) CDT procedure are in the results section. NOTICE OF PRIVACY Routine 08/23/2019 12:51 PM PRACTICES CDT documented in this encounter Results COVID-19 (ID NOW RAPID TESTING) (08/23/2019 1:11 PM CDT) SARS-CoV-2 Rapid ID Positive (A) Not Detected [facility] Specimen Swab - NASOPHARYNGEAL SWAB Narrative Performed At ID NOW COVID-19 Assay is an isothermal nucleic [facility] acid amplification test intended for the qualitative detection of nucleic acid from SARS-CoV-2 viral RNA in nasopharyngeal (BIBLIOGRAPHIC SERVICES SPECIALIST) specimens. It is used under Emergency Use Authorization (EUA) by FDA. The limit of detection (LOD) of the assay is 125 Genome Equivalents/mL. A positive result is indicative of the presence of SARS-CoV-2 RNA. Clinical correlation with patient history and other diagnostic information is necessary to determine patient infection status. A negative (Not Detected) result does not preclude SARS-CoV-2 infection. In patients with clinical symptoms and other tests that are consistent with SARS-CoV-2 infection, negative results should be treated as presumptive negative and a new specimen should be tested with alternative PCR molecular test. Invalid: Please collect a new specimen for repeat patient testing if clinically indicated. Performing Organization Address City/State/Zipcode Phone Number [facility] CLIA: [id number], [address] [place], [place] [address] documented in this encounter Visit Diagnoses Diagnosis COVID-19 virus infection - Primary Chills Chills (without fever) Fever, unspecified fever cause documented in this encounter Administered Medications Medication Order MAR Action Action Date Dose Rate Site acetaminophen (TYLENOL) tablet Given 08/23/2019 2:20 AM CDT 650 mg 650 mg 650 mg, Oral, ONCE, 1 dose, 08/23/19 at 1430, ALISON ibuprofen (IBU) tablet 800 mg Given 08/23/2019 1:09 PM CDT 800 mg 800 mg, Oral, ONCE, 1 dose, 08/23/19 at 1415, ALISON documented in this encounter Additional Health Concerns Infection Onset Date Last Indicated Resolved Time COVID-19 Confirmed 08/23/2019 08/23/2019 documented as of this encounter Insurance Payer Benefit Plan / Subscriber ID Effective Phone Address T ype Group Dates MEDICAID MEDICAID PENDING 2019-[address] [place] [address] documented as of this encounter
[2019-08-30] MEDS ORDERED: METOCLOPRAMIDE 10 MG/2mL INJ ONE (02:40)
[2019-08-30] MEDS ORDERED: DIPHENHYDRAMINE 50 MG/ML VIAL ONE (02:41)
[2019-08-30] MEDS ORDERED: NA CHLORIDE 0.9% 100 ML IV ONE (02:41)
[2019-08-30] MEDS ORDERED: NA CHLORIDE 0.9% 1,000 ML ONE (02:41)
[2019-08-30] MEDS ORDERED: KETOROLAC 30 MG/ML INJ ONE (02:41)
[2019-08-30 03:19] LABS: Urine Blood NEGATIVE (NEG); Urine Glucose NEGATIVE (NEG); Urine Protein NEGATIVE (NEG); Urine Specific Gravity 1.025 (1.005-1.030)
--- NOTE | 2019-08-30 04:25 | ER ---
Nurse's Notes [facility] Name: Philomena Smith Age: 23 yrs Sex: Female : 1995 Arrival Date: 08/30/2019 Time: 02:13 Bed 8 Private MD: Diagnosis: Headache Presentation: 08/29 02:14 Chief complaint: Chief complaint: Patient states: Blurred vision that began yesterday sg afternoon, no other symptoms reported fo triage at this time. Coronavirus screen: Proceed with normal triage. Ebola Screen: Patient negative for fever greater than or equal to 101.5 degrees Fahrenheit, and additional compatible Ebola Virus Disease symptoms Patient denies exposure to infectious person. Patient denies travel to an Ebola-affected area in the 21 days before illness onset. No symptoms or risks identified at this time. Initial Sepsis Screen: Does the patient meet any 2 criteria? No. Patient's initial sepsis screen is negative. Does the patient have a suspected source of infection? No. Patient's initial sepsis screen is negative. Risk Assessment: Do you want to hurt yourself or someone else? Patient reports no desire to harm self or others. Onset of symptoms was August 30, 2019. Care prior to arrival: None. 02:14 Acuity: LUIS ANTONIO 3 sg 02:14 Method Of Arrival: Ambulatory sg 02:14 Transition of care: patient was not received from another setting of care. 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 - Social history:: Smoking status: Patient denies any tobacco usage or history of. Patient/guardian denies using alcohol, street drugs, The patient lives with family. - Family history:: not pertinent. Screenin:52 Abuse screen: Denies threats or abuse. Nutritional screening: No deficits noted. ea Tuberculosis screening: No symptoms or risk factors identified. Fall Risk None identified. Assessment: 02:53 General: Appears in no apparent distress. Behavior is calm, cooperative, appropriate ea for age. Pain: Complains of pain in headache. Neuro: Level of Consciousness is awake, alert, obeys commands, Oriented to person, place, time, situation. Cardiovascular: Patient's skin is warm and dry. Respiratory: Airway is patent Respiratory effort is even, unlabored, Respiratory pattern is regular, symmetrical. Derm: Skin is pink, warm \T\ dry. 03:30 Reassessment: Patient and/or family updated on plan of care and expected duration. Pain ea level reassessed. Patient is alert, oriented x 3, equal unlabored respirations, skin warm/dry/pink. 04:49 Reassessment: Patient and/or family updated on plan of care and expected duration. Pain ea level reassessed. Patient is alert, oriented x 3, equal unlabored respirations, skin warm/dry/pink. Discharge instruction given to patient, verbalized the understanding of instruction. Pt left ED ambulatory tolerating well. Vital Signs: 02:14 Pulse 78; Resp 18; Temp 97.9; Pulse Ox 100% on R/A; Weight 83.91 kg; Height 5 ft. 0 in. sg (152.40 cm); Pain 3/10; 02:14 Body Mass Index 36.13 (83.91 kg, 152.40 cm) sg [place] Coma Score: 02:59 Eye Response: spontaneous(4). Verbal Response: oriented(5). Motor Response: obeys ma2 commands(6). Total: 15. ED Course: 02:13 Patient arrived in ED. ds1 02:14 Arm band placed on. sg 02:16 Triage completed. sg 02:22 Citlali Zhang MD is Attending Physician. ma2 02:27 Amberly Ferrari RN is Primary Nurse. ea 02:52 Patient has correct armband on for positive identification. Bed in low position. Call ea light in reach. 02:52 Inserted saline lock: 20 gauge in right forearm, using aseptic technique. ea 03:06 CT Head Brain wo Cont In Process Unspecified. EDMS 04:45 IV discontinued, intact, bleeding controlled, No redness/swelling at site. Pressure ea dressing applied. 04:50 No provider procedures requiring assistance completed. ea Administered Medications: 02:40 Drug: NS 0.9% 1000 ml Route: IV; Rate: 1 bolus; Site: right forearm; ea 03:00 Follow up: Response: No adverse reaction; IV Status: Completed infusion; IV Intake: ea 1000ml 02:40 Drug: Reglan 20 mg Route: IVP; Site: right forearm; ea 03:30 Follow up: Response: No adverse reaction ea 02:40 Drug: Benadryl 50 mg Route: IVP; Site: right forearm; ea 03:30 Follow up: Response: No adverse reaction ea 02:40 Drug: TORadol 30 mg Route: IVP; Site: right forearm; ea 03:30 Follow up: Response: No adverse reaction ea Intake: 03:00 IV: 1000ml; Total: 1000ml. ea Outcome: 04:24 Discharge ordered by MD. ydson 04:50 Discharged to home ambulatory, with family. ea 04:50 Condition: stable 04:50 Discharge instructions given to patient, Instructed on discharge instructions, follow up and referral plans. medication usage, Demonstrated understanding of instructions, follow-up care, medications, Prescriptions given X 1. 04:51 Patient left the ED. ea Signatures: Dispatcher [employer] EDJuan Miguel Mccall RN RN sg Sanford, Demi dsAmberly Mendoza RN RN ea Alzahri, Mohammad, MD MD me2 Corrections: (The following items were deleted from the chart) 02:21 02:14 Chief complaint: sg sg
--- NOTE | 2019-08-30 04:25 | EDPHYS ---
Physician Documentation [facility] Name: Philomena Smith Age: 23 yrs Sex: Female : 1995 Arrival Date: 08/30/2019 Time: 02:13 Bed 8 Private MD: ED Physician Citlali Zhang HPI: 08/29 02:59 This 23 yrs old Female presents to ER via Ambulatory with complaints of ma2 Blurred Vision. 02:59 The patient complains of pain to the forehead. Onset: The symptoms/episode ma2 began/occurred gradually, 2 day(s) ago. Associated signs and symptoms: Pertinent positives: Pertinent negatives: altered mental status, fever, nausea, paresthesias, rash, vomiting, weakness. Severity of symptoms: At its worst the pain was very mild, in the emergency department the pain is unchanged. Headache History: The patient has had previous headaches and this one is similar to previous episodes. The patient has experienced similar episodes in the past. 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 - Social history:: Smoking status: Patient denies any tobacco usage or history of. Patient/guardian denies using alcohol, street drugs, The patient lives with family. - Family history:: not pertinent. ROS: 02:59 Constitutional: Negative for fever, chills, and weight loss. ma2 02:59 All other systems are negative. Exam: 02:59 Constitutional: This is a well developed, well nourished patient who is awake, alert, ma2 and in no acute distress. Eyes: Pupils equal round and reactive to light, extra-ocular motions intact. Lids and lashes normal. Conjunctiva and sclera are non-icteric and not injected. Cornea within normal limits. Periorbital areas with no swelling, redness, or edema. ENT: Nares patent. No nasal discharge, no septal abnormalities noted. Tympanic membranes are normal and external auditory canals are clear. Oropharynx with no redness, swelling, or masses, exudates, or evidence of obstruction, uvula midline. Mucous membranes moist. Neck: Trachea midline, no thyromegaly or masses palpated, and no cervical lymphadenopathy. Supple, full range of motion without nuchal rigidity, or vertebral point tenderness. No Meningismus. Chest/axilla: Normal chest wall appearance and motion. Nontender with no deformity. No lesions are appreciated. Cardiovascular: Regular rate and rhythm with a normal S1 and S2. No gallops, murmurs, or rubs. Normal PMI, no JVD. No pulse deficits. Respiratory: Lungs have equal breath sounds bilaterally, clear to auscultation and percussion. No rales, rhonchi or wheezes noted. No increased work of breathing, no retractions or nasal flaring. Abdomen/GI: Soft, non-tender, with normal bowel sounds. No distension or tympany. No guarding or rebound. No evidence of tenderness throughout. Back: No spinal tenderness. No costovertebral tenderness. Full range of motion. Skin: Warm, dry with normal turgor. Normal color with no rashes, no lesions, and no evidence of cellulitis. MS/ Extremity: Pulses equal, no cyanosis. Neurovascular intact. Full, normal range of motion. Neuro: Awake and alert, GCS 15, oriented to person, place, time, and situation. Cranial nerves II-XII grossly intact. Motor strength 5/5 in all extremities. Sensory grossly intact. Cerebellar exam normal. Normal gait. Vital Signs: 02:14 Pulse 78; Resp 18; Temp 97.9; Pulse Ox 100% on R/A; Weight 83.91 kg; Height 5 ft. 0 in. (152.40 cm); Pain 3/10; 02:14 Body Mass Index 36.13 (83.91 kg, 152.40 cm) Armaan Coma Score: 02:59 Eye Response: spontaneous(4). Verbal Response: oriented(5). Motor Response: obeys ma2 commands(6). Total: 15. MDM: 02:22 Patient medically screened. tn2 02:59 Differential diagnosis: cerebral abscess, migraine, sinusitis, tension headache. ma2 04:24 Data reviewed: vital signs, nurses notes. Counseling: I had a detailed discussion with ma2 the patient and/or guardian regarding: the historical points, exam findings, and any diagnostic results supporting the discharge/admit diagnosis, the presence of at least one elevated blood pressure reading (>120/80) during this emergency department visit, the need for outpatient follow up. Response to treatment: the patient's symptoms have resolved after treatment. 08/29 02:49 Order name: Urine Dipstick--Ancillary (enter results); Complete Time: 03:50 ds4 08/29 02:49 Order name: Urine --Ancillary (enter results); Complete Time: 03:50 ds4 08/29 02:29 Order name: CT Head Brain wo Cont ma2 08/29 02:29 Order name: Urine Dipstick-Ancillary (obtain specimen); Complete Time: 02:48 ma2 Administered Medications: 02:40 Drug: NS 0.9% 1000 ml Route: IV; Rate: 1 bolus; Site: right forearm; ea 03:00 Follow up: Response: No adverse reaction; IV Status: Completed infusion; IV Intake: ea 1000ml 02:40 Drug: Reglan 20 mg Route: IVP; Site: right forearm; ea 03:30 Follow up: Response: No adverse reaction ea 02:40 Drug: Benadryl 50 mg Route: IVP; Site: right forearm; ea 03:30 Follow up: Response: No adverse reaction ea 02:40 Drug: TORadol 30 mg Route: IVP; Site: right forearm; ea 03:30 Follow up: Response: No adverse reaction ea Disposition: 08/30/19 04:24 Discharged to Home. Impression: Headache. - Condition is Stable. - Discharge Instructions: General Headache Without Cause. - Prescriptions for Reglan 10 mg Oral Tablet - take 1 tablet by ORAL route every 6 hours . take 30 minutes before meals and at bedtime; 100 tablet. - Medication Reconciliation Form, Thank You Letter, Antibiotic Education, Prescription Opioid Use form. - Follow up: Private Physician; When: Tomorrow; Reason: Continuance of care. Signatures: Dispatcher [employer] Juan Miguel Kern RN RN sg Antunez, Elena, RN RN ea Alzahri, Mohammad, MD MD tn2 Corrections: (The following items were deleted from the chart) 04:51 04:25 08/30/2019 04:24 Discharged to Home. Impression: Headache. Condition is Stable. ea Discharge Instructions: General Headache Without Cause. Prescriptions for Reglan 10 mg Oral Tablet - take 1 tablet by ORAL route every 6 hours . take 30 minutes before meals and at bedtime; 100 tablet. and Forms are Medication Reconciliation Form, Thank You Letter, Antibiotic Education, Prescription Opioid Use. Follow up: Private Physician; When: Tomorrow; Reason: Continuance of care. ma2
[2019-08-30 05:03] VITALS: TEMP 97.9; O2SAT 100
--- NOTE | 2019-08-30 10:40 | RAD REPORT ---
EXAM DESCRIPTION: Head Brain Wo Cont CLINICAL HISTORY: PAIN COMPARISON: None. TECHNIQUE: CT HEAD WITHOUT IV CONTRAST on 08/30/2019 2:29 AM CDT This exam was performed according to our departmental dose-optimization program, which includes autom ated exposure control, adjustment of the mA and/or kV according to patient size and/or use of iterati ve reconstruction technique. FINDINGS: There is no acute hemorrhage, mass effect or midline shift. Hernandez-white differentiation is preserved. There is no hydrocephalus. There is no significant volume loss for age. The calvarium is intact. Orbits and globes are unremarkable. The paranasal sinuses are clear. Mastoid air cells are clear. IMPRESSION: No acute intracranial findings. Electronically signed by: Guzman De La Rosa MD 08/30/2019 3:11 AM CDT Due to temporary technical issues with the PACS/Fluency reporting system, reports are being signed by the in house radiologist without review as a courtesy to ensure prompt reporting. The interpreting r adiologist is fully responsible for the content of the report.
== END 2019-08-30 04:51 | disposition home or self-care (01) ==
LOC: ER 02:12
DX: R51 Headache (principal)
CPT/HCPCS: 70450; 81003; 81025; 96374; 96375; 99283; J1200; J2765; J7030

== ENCOUNTER 2020-09-28 14:36 | Emergency (ER) | payer OTHER, SELFPAY ==
--- OUTSIDE RECORDS SUMMARY | 2020-09-28 14:39 | XMS REPORT | Continuity of Care Document ---
:1995 Author Organization [facility] t Address [address] [place] [address] Care Team Providers Name Role Phone Diego Mcnally Attending Clinician Pcp, Does Not Have A Attending Clinician Rom [place] Attending Clinician Doctor Unassigned, Name Attending Clinician Unavailable Payers Payer Name Policy Type Policy Number Effective Date Expiration Date S ource Problems This patient has no known problems. Allergies, Adverse Reactions, Alerts Allergy Allergy Status Severity Reaction(s) Onset Inactive Treating Comm ents Source Name Type Date Date Clinician No Known DA Active U 2018-03 [facility] [place] Medications This patient has no known medications. Procedures This patient has no known procedures. Encounters Start End Encounter Admission Attending Care Care Encounter Source Date/Time Date/Time Type Type Clinicians Facility Department ID 2019-11-07 2019-11-07 Emergency Emely [facility] [id number] 18:59:00 20:52:00 Carri Neumann [id number] Brenda 4.2.7.2.686 [place] [id number] 2019-08-24 2019-08-24 Telephone Pcp, [facility] [id number] 00:00:00 00:00:00 Patient Thien 350.1.13.10 Does Not [address]2.686 Have A [place] [id number] [id number] 2019-08-23 2019-08-23 Emergency Rom, [facility] [id number] 13:57:56 14:34:00 Mago Neumann 350.1.13.[address]2.686 [place] [id number] 2019-08-23 2019-08-23 Orders Doctor ANNA [id number] 00:00:00 00:00:00 Only Unassigned, DOMITILA 350.1.13.10 [place] [address] [id number] [id number] Results Test Description Test Time Test Comments Results Result [facility] e Comments - US ABDOMEN LTD 2018-12-05 Patient Name: 01:30:00 OH CERDA Unit No: [id number] EXAMS: CPT CODE: [id number] US ABDOMEN LTD 55537 PROCEDURE: RIGHT UPPER QUADRANT ULTRASOUND DATED 12/05/2018 [...] Arline Bacon RDMS Probe: Trnscrbd D/ (0130) t.SDR.DMM Orig Print D/T: S: 12/05/2018 (0133) [facility] NAME: OH CERDA Radiology Department PHYS: Tyson Escobar [address] : 1995 AGE: 23 SEX: F [place] [address] LOC: AgustinERS PHONE #: [phone] EXAM DATE: 12/04/2018 STATUS: REG ER FAX #: [phone] RAD NO: Page 1 Signed Report Patient Name: OH CERDA Unit No: [id number] EXAMS: CPT CODE: [id number] US ABDOMEN LTD 20875 <Continued> [facility] NAME: OH CERDA Radiology Department PHYS: Tyson Escobar [address] : 1995 AGE: 23 SEX: F [place] [address] LOC: AgustinERS PHONE #: [phone] EXAM DATE: 12/04/2018 STATUS: REG ER FAX #: [phone] RAD NO: Page 2 Signed Report - US PREG UT 2018-12-05 Patient Name: TRANSVAGINAL 01:24:00 OH CERDA Unit No: [id number] EXAMS: CPT CODE: [id number] US PREG UT TRANSVAGINAL 05868 Early obstetrical ultrasound (less than 14 weeks) [...] Lux MD Technologist: Arline Bacon RDMS Probe: [id number] Trnscrbd D/ (0124) Ben Orig Print D/T: S: 12/05/2018 (0127) [facility] NAME: OH CERDA Radiology Department PHYS: Tyson Escobar [address] : 1995 AGE: 23 SEX: F [place], [place] [address] LOC: AgustinERS PHONE #: [phone] EXAM DATE: 12/05/2018 STATUS: REG ER FAX #: [phone] RAD NO: Page 1 Signed Report Patient Name: OH CERDA Unit No: [id number] EXAMS: CPT CODE: [id number] US PREG UT TRANSVAGINAL [address] <Continued> [facility] NAME: OH CERDA Radiology Department PHYS: Tyson Escobar [address] : 1995 AGE: 23 SEX: F [place], [place] [address] LOC: YESSICA PHONE #: [phone] EXAM DATE: 12/05/2018 STATUS: ROSALIE ER FAX #: [phone] RAD NO: Page 2 Signed Report - US PREG EVAL 1ST 2018-12-05 Patient Name: TRIMTR 01:24:00 OH CERDA Unit No: [id number] EXAMS: CPT CODE: [id number] US PREG EVAL 1ST TRIMTR 00282 Early obstetrical ultrasound (less than 14 weeks) [...] Arline Bacon RDMS Probe: Trnscrbd D/ (0124) t.PHILL Orig Print D/T: S: 12/05/2018 (0127) [facility] NAME: OH CERDA Radiology Department PHYS: Tyson Escobar [address] : 1995 AGE: 23 SEX: F [place], [place] [address] LOC: AgustinERS PHONE #: [phone] EXAM DATE: 12/04/2018 STATUS: REG ER FAX #: [phone] RAD NO: Page 1 Signed Report Patient Name: OH CERDA Unit No: [id number] EXAMS: CPT CODE: [id number] US PREG EVAL 1ST TRIMTR 77729 <Continued> [facility] NAME: OH CERDA Radiology Department PHYS: Tyson Escobar [address] : 1995 AGE: 23 SEX: F [place], [place] [address] LOC: AgustinERS PHONE #: [phone] EXAM DATE: 12/04/2018 STATUS: REG ER FAX #: [phone] RAD NO: Page 2 Signed Report COMPREHENSIVE [...] code = ALKP) 71 units/L 46-116 N [id number] 23:35:00 Test Item Value Reference Range Interpretation Comments LIPASE (test code = LIP) 127 units/L 73-393 N HCG [id number] 23:35:00 Test Item Value Reference Range Interpretation Comments HCG SERUM (test 87806 INTERPRETATI ON:VALUES BETWEEN code = HCG) 15-20 [...] SHOULD BE CONSI DERED NEGATIVE COMPREHENSIVE METABOLIC [id number] 23:11:00 Test Item Value Reference Range Interpretation [...] 46-116 N code = ALKP) CBC W/AUTO [id number] 22:58:00 Test Item Value Reference Range Interpretation [...] = PLTMR) UA RFLX MICR CULT IF [id number] 22:44:00 Test Item Value Reference Range Interpretation [...]
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
--- NOTE | 2020-09-28 15:48 | RAD REPORT ---
EXAM DESCRIPTION: RAD - Shoulder Right 2 View - 09/28/2020 3:33 pm CLINICAL HISTORY: PAIN COMPARISON: No comparisons FINDINGS: No right shoulder fracture or dislocation. IMPRESSION: Unremarkable right shoulder.
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
[2020-09-28] MEDS ORDERED: KETOROLAC 30 MG/ML INJ ONE (17:28)
[2020-09-28] MEDS ORDERED: HYDROCODONE/APAP 7.5/325 MG TAB ONE (17:28)
[2020-09-28 23:18] VITALS: BP 120/80; TEMP 98; O2SAT 97
== END 2020-09-28 17:20 | disposition home or self-care (01) ==
LOC: ER 14:36
DX: M54.2 Cervicalgia (principal); M25.511 Pain in right shoulder; V49.40XA Driver injured in collision with unspecified motor vehicles in traffic accident, initial encounter
CPT/HCPCS: 70450; 72125; 96372; 99283

== ENCOUNTER 2020-10-30 10:44 | Emergency (ER) | payer SELFPAY ==
--- OUTSIDE RECORDS SUMMARY | 2020-10-30 10:46 | XMS REPORT | Continuity of Care Document ---
:[address] [facility] [place] [place] t Address [address] [place] [address] Care Team Providers Name Role Phone Diego [...] [facility] [place] Medications This patient has no known medications. Procedures This patient has no known procedures. Encounters Start End Encounter Admission Attending Care Care Encounter Source Date/Time Date/Time Type Type Clinicians Facility Department ID 2019-11-07 2019-11-07 Emergency Emely [facility] [id number] 18:59:00 20:52:00 Carri Neumann [id number] Brenda [id number] [place] [id number] 2019-08-24 2019-08-24 Telephone Pcp, [facility] [id number] 00:00:00 00:00:00 Patient Thien [id number] Does Not [address]2.7.2.686 Have A [place] [id number] [id number] 2019-08-23 2019-08-23 Emergency Rom, [facility] [id number] 13:57:56 14:34:00 Mago Neumann [id number]7.2.686 [place] [id number] 2019-08-23 2019-08-23 Orders Doctor ANNA [id number] 00:00:00 00:00:00 Only Unassigned, DOMITILA 350.1.13.10 [place] [address]686 [id number] Results Test Description Test Time Test Comments Results Result [facility] e Comments - US ABDOMEN LTD 2018-12-05 Patient Name: 01:30:00 [place] CERDA Unit No: [id number] EXAMS: CPT CODE: [id number] US ABDOMEN LTD 77557 PROCEDURE: RIGHT UPPER QUADRANT ULTRASOUND DATED 12/05/2018 [...] t.SDR.DMM Orig Print D/T: S: 12/05/2018 (0133) [facility] NAME: OH CERDA Radiology Department PHYS: Tyson Escobar [address] : 1995 AGE: 23 SEX: F [place] [address] LOC: AgustinERS PHONE #: [phone] EXAM DATE: 12/04/2018 STATUS: REG ER FAX #: [phone] RAD NO: Page 1 Signed Report Patient Name: OH CERDA Unit No: [id number] EXAMS: CPT CODE: [id number] US ABDOMEN LTD 80955 <Continued> [facility] NAME: OH CERDA Radiology Department PHYS: Tyson Escobar [address] : 1995 AGE: 23 SEX: F [place] [address] LOC: AgustinERS PHONE #: [phone] EXAM DATE: 12/04/2018 STATUS: REG ER FAX #: [phone] RAD NO: Page 2 Signed Report - US PREG UT 2018-12-05 Patient Name: TRANSVAGINAL 01:24:00 [place] CERDA Unit No: [id number] EXAMS: CPT CODE: [id number] US PREG UT TRANSVAGINAL 65419 Early obstetrical ultrasound (less than 14 weeks) [...] Lux MD Technologist: Arline Bacon RDMS Probe: [id number] Trnscrbd D/ (0124) Ben Orig Print D/T: S: 12/05/2018 (0127) [facility] NAME: OH CERDA Radiology Department PHYS: Tyson Escobar [address] : 1995 AGE: 23 SEX: F [place], [place] [address] LOC: AgustinERS PHONE #: [phone] EXAM DATE: 12/05/2018 STATUS: REG ER FAX #: [phone] RAD NO: Page 1 Signed Report Patient Name: OH CERDA Unit No: [id number] EXAMS: CPT CODE: [id number] US PREG UT TRANSVAGINAL 22822 <Continued> [facility] NAME: OH CERDA Radiology Department PHYS: Tyson Escobar [address] : 1995 AGE: 23 SEX: F [place], [place] [address] LOC: YESSICA PHONE #: [phone] EXAM DATE: 12/05/2018 STATUS: ROSALIE ER FAX #: [phone] RAD NO: Page 2 Signed Report - US PREG EVAL 1ST 2018-12-05 Patient Name: TRIMTR 01:24:00 [place] CERDA Unit No: [id number] EXAMS: CPT CODE: [id number] US PREG EVAL 1ST TRIMTR 39143 Early obstetrical ultrasound (less than 14 weeks) [...] D/T: S: 12/05/2018 (0127) [facility] NAME: OH CERDA Radiology Department PHYS: Tyson Escobar [address] : 1995 AGE: 23 SEX: F [place], [place] [address] LOC: AgustinERS PHONE #: [phone] EXAM DATE: 12/04/2018 STATUS: REG ER FAX #: [phone] RAD NO: Page 1 Signed Report Patient Name: OH CERDA Unit No: [id number] EXAMS: CPT CODE: [id number] US PREG EVAL 1ST TRIMTR 34729 <Continued> [facility] NAME: OH CERDA Radiology Department PHYS: Tyson Escobar [address] : 1995 AGE: 23 SEX: F [place], [place] [address] LOC: AgustinERS PHONE #: [phone] EXAM DATE: 12/04/2018 STATUS: REG ER FAX #: [phone] RAD NO: Page 2 Signed Report COMPREHENSIVE [...] code = ALKP) 71 units/L 46-116 N [id number] 23:35:00 Test Item Value Reference Range Interpretation Comments LIPASE (test code = LIP) 127 units/L 73-393 N HCG [id number] 23:35:00 Test Item Value Reference Range Interpretation Comments HCG SERUM (test 52625 INTERPRETATI ON:VALUES BETWEEN code = HCG) 15-20 [...] SHOULD BE CONSI DERED NEGATIVE COMPREHENSIVE METABOLIC [id number] 23:11:00 Test Item Value Reference Range Interpretation [...] 46-116 N code = ALKP) CBC W/AUTO [id number] 22:58:00 Test Item Value Reference Range Interpretation [...] = PLTMR) UA RFLX MICR CULT IF [id number] 22:44:00 Test Item Value Reference Range Interpretation [...]
[2020-10-30 11:32] LABS: Absolute Lymphocytes (CBC) 2.7 K/uL (0.7-4.9); Basophils % 0.7 % (0-1.3); Hematocrit 38.6 % (36.0-45.0); MPV 8.3 fL (7.6-11.3); RBC Red Blood Cell Count 4.23 M/uL (3.86-4.86)
[2020-10-30 11:49] LABS: ALT/SGPT 73 U/L (12-78); AST/SGOT 32 U/L (15-37); Albumin 3.9 g/dL (3.4-5.0); Alkaline Phosphatase 111 U/L (45-117); BUN Blood Urea Nitrogen 11 mg/dL (7-18); Bicarbonate 26 mmol/L (21-32); Bilirubin Direct < 0.1 mg/dL (0-0.2); Bilirubin Total 0.3 mg/dL (0.2-1.0); Glucose Level 103 mg/dL (74-106); Lipase 118 U/L (73-393); Potassium 3.9 mmol/L (3.5-5.1); Protein, Total 8.3 g/dL (6.4-8.2); Sodium Level 140 mmol/L (136-145)
--- NOTE | 2020-10-30 11:53 | RAD REPORT ---
EXAM DESCRIPTION: US - Abdomen Exam Limited - 10/30/2020 11:33 am CLINICAL HISTORY: ABD PAIN COMPARISON: Abdomen Pelvis W Contrast dated 08/19/2017 FINDINGS: Septations are present of the fundus of the gallbladder. No wall thickening or pericholecy stic fluid identifiable. Sludge is present near the fundus. There is a small 3 mm echogenic focus hari ng the gallbladder wall without posterior shadowing. This is probably a small polyp. No common duct stone or biliary tree dilatation identified. IMPRESSION: Small amount of sludge is present in the gallbladder with no gallstones confirmed. No acute gallbladder findings by sonographic criteria. No biliary tree abnormality.
[2020-10-30 12:44] LABS: Urine Blood Negative (Negative); Urine Glucose Negative (Negative); Urine Protein Negative (Negative)
--- NOTE | 2020-10-30 13:03 | RAD REPORT ---
EXAM DESCRIPTION: CT - Abdomen Pelvis W Contrast - 10/30/2020 12:51 pm CLINICAL HISTORY: ABD PAIN COMPARISON: Abdomen Pelvis W Contrast dated 08/19/2017; Abdomen Exam Limited dated 10/30/2020 TECHNIQUE: Biphasic, helical CT imaging of the abdomen and pelvis was performed following 100 ml non -ionic IV contrast. No oral contrast administered. All CT scans are performed using dose optimization technique as appropriate and may include automated exposure control or mA/KV adjustment according to patient size. FINDINGS: No suspicious findings in the lung bases. The liver, spleen, and pancreas show no suspicious focal findings. Liver attenuation indicates mild f atty infiltration. No acute gallbladder abnormality suspected. Gallbladder septations are noted and h ave been previously described. No biliary tree dilatation. Symmetric renal function is seen with no hydronephrosis or suspicious renal mass. No pyelonephritis o r acute parenchymal process. No bladder abnormalities. No adrenal abnormalities. No focal uterine abnormality. There are scarring changes present. There may be some tethering of the uterus to the anterior abdominal wall either from prior scarring or surgical procedure. Lef t ovary is unremarkable. Right ovary contains a 19 millimeter cyst. No cyst rupture or hemorrhage fin dings. No dilated bowel loops or bowel wall thickening. No appendicitis findings. No acute bowel process daniela dent. No free air, free fluid or inflammatory stranding. No hernia, mass or bulky lymphadenopathy. No suspicious bony findings. IMPRESSION: Contrast enhanced CT abdomen and pelvis showing no acute or emergent finding. Nonacute findings detailed in the body of the report.
--- NOTE | 2020-10-30 13:29 | ER ---
Nurse's Notes [facility] Name: Philomena Smith Age: 25 yrs Sex: Female : 1995 Arrival Date: 10/30/2020 Time: 10:44 Bed DX1 Private MD: Diagnosis: Upper abdominal pain, unspecified Presentation: 10/30 11:09 Chief complaint: Upper abdominal pain and N/V x 2 hours. Coronavirus screen: At this hb time, the client does not indicate any symptoms associated with coronavirus-19. Ebola Screen: No symptoms or risks identified at this time. Initial Sepsis Screen: Does the patient meet any 2 criteria? No. Patient's initial sepsis screen is negative. Does the patient have a suspected source of infection? No. Patient's initial sepsis screen is negative. Risk Assessment: Do you want to hurt yourself or someone else? Patient reports no desire to harm self or others. Onset of symptoms was October 30, 2020. 11:09 Method Of Arrival: Ambulatory hb 11:09 Acuity: LUIS ANTONIO 3 hb Historical: - Allergies: 11:11 No Known Allergies; hb - PSHx: 11:11 section; hb Screenin:00 Abuse screen: Denies threats or abuse. Denies injuries from another. Nutritional iw screening: No deficits noted. Tuberculosis screening: No symptoms or risk factors identified. Vital Signs: 11:09 Pulse 105; Resp 16; Temp 97.7; Pulse Ox 100% on R/A; Weight 84.82 kg; Height 5 ft. hb (152.40 cm); Pain 10/10; 11:09 Body Mass Index 36.52 (84.82 kg, 152.40 cm) hb ED Course: 10:44 Patient arrived in ED. as 11:00 Tg Torres FNP-C is PHCP. kb 11:00 Wayne Sultana MD is Attending Physician. kb 11:11 Triage completed. hb 11:19 Inserted saline lock: 22 gauge in left antecubital area, using aseptic technique. Blood hb collected. 11:21 Arm band placed on. hb 11:33 US Abdomen Limited In Process Unspecified. EDMS 12:52 CT Abd/Pelvis - IV Contrast Only In Process Unspecified. EDMS 13:31 Jumana Márquez, RN is Primary Nurse. iw Administered Medications: 14:14 Drug: NS 0.9% 1000 ml Route: IV; Rate: 1000 ml; Site: left antecubital; iw 15:00 Follow up: IV Status: Completed infusion iw 14:14 Drug: Pepcid (famotidine) 20 mg Route: IVP; Site: left antecubital; iw 19:49 Follow up: Response: No adverse reaction iw 14:14 Drug: Ketorolac 30 mg Route: IVP; Site: left antecubital; iw 14:30 Follow up: Response: No adverse reaction iw Outcome: 13:28 Discharge ordered by MD. mohan 15:07 Discharged to home iw 15:07 Condition: good 15:07 Discharge instructions given to patient. 15:08 Patient left the ED. iw Signatures: Dispatcher [employer] Tg Reese FNP-C FNP-Amara Mckenzie Irene, SHARLA RN iw Keri Obando RN RN hb
--- NOTE | 2020-10-30 13:29 | EDPHYS ---
Physician Documentation [facility] Name: Philomena Smith Age: 25 yrs Sex: Female : 1995 Arrival Date: 10/30/2020 Time: 10:44 Bed DX1 Private MD: ED Physician Wayne Sultana HPI: 10/30 11:10 This 25 yrs old Female presents to ER via Unassigned with complaints of kb Abdominal Pain. 11:10 The patient presents with abdominal pain in the upper abdomen. Onset: The kb symptoms/episode began/occurred 2 hour(s) ago. The symptoms do not radiate. Associated signs and symptoms: Pertinent positives: nausea and vomiting, Pertinent negatives: diarrhea, fever. The symptoms are described as constant. Modifying factors: The symptoms are alleviated by nothing, the symptoms are aggravated by pressure. Severity of pain: At its worst the pain was moderate in the emergency department the pain is unchanged. The patient has not experienced similar symptoms in the past. The patient has not recently seen a physician. Historical: - Allergies: 11:11 No Known Allergies; hb - PSHx: 11:11 section; hb ROS: 11:10 Constitutional: Negative for fever, chills, and weight loss. kb 11:10 Abdomen/GI: Positive for abdominal pain, nausea and vomiting, Negative for diarrhea. 11:10 All other systems are negative. Exam: 11:10 Constitutional: This is a well developed, well nourished patient who is awake, alert, kb and in no acute distress. Head/Face: Normocephalic, atraumatic. ENT: Moist Mucous membranes Cardiovascular: Regular rate and rhythm with a normal S1 and S2. No gallops, murmurs, or rubs. No pulse deficits. Respiratory: Respirations even and unlabored. No increased work of breathing, no retractions or nasal flaring. Skin: Warm, dry with normal turgor. Normal color. MS/ Extremity: Pulses equal, no cyanosis. Neurovascular intact. Full, normal range of motion. Neuro: Awake and alert, GCS 15, oriented to person, place, time, and situation. Moves all extremities. Normal gait. Psych: Awake, alert, with orientation to person, place and time. Behavior, mood, and affect are within normal limits. 11:10 Abdomen/GI: Inspection: abdomen appears normal, Bowel sounds: normal, in all quadrants, Palpation: soft, in all quadrants, mild abdominal tenderness, in the epigastric area and right upper quadrant, moderate abdominal tenderness, in the left upper quadrant. Vital Signs: 11:09 Pulse 105; Resp 16; Temp 97.7; Pulse Ox 100% on R/A; Weight 84.82 kg; Height 5 ft. hb (152.40 cm); Pain 10; 11:09 Body Mass Index 36.52 (84.82 kg, 152.40 cm) hb MDM: 11:09 Patient medically screened. kb 11:11 Data reviewed: vital signs, nurses notes. Data interpreted: Pulse oximetry: on room air kb is 100 %. Interpretation: normal. 13:25 Counseling: I had a detailed discussion with the patient and/or guardian regarding: the kb historical points, exam findings, and any diagnostic results supporting the discharge/admit diagnosis, lab results, radiology results, the need for outpatient follow up, a family practitioner, to return to the emergency department if symptoms worsen or persist or if there are any questions or concerns that arise at home. 10/30 11:10 Order name: Basic Metabolic Panel; Complete Time: 11:50 kb 10/30 11:10 Order name: CBC with Diff; Complete Time: 11:38 kb 10/30 11:10 Order name: Hepatic Function; Complete Time: 11:50 kb 10/30 11:10 Order name: Lipase; Complete Time: 11:50 kb 10/30 11:10 Order name: US Abdomen Limited; Complete Time: 12:06 kb 10/30 12:43 Order name: Urine Dipstick-Ancillary; Complete Time: 12:44 EDMS 10/30 11:01 Order name: Urine Dipstick-Ancillary (obtain specimen); Complete Time: 14:15 kb 10/30 11:01 Order name: Urine Test (obtain specimen); Complete Time: 14:15 kb 10/30 11:10 Order name: IV Saline Lock; Complete Time: 11:25 kb 10/30 11:10 Order name: Labs collected and sent; Complete Time: 11:25 kb 10/30 12:06 Order name: CT Abd/Pelvis - IV Contrast Only; Complete Time: 13:04 kb Administered Medications: 14:14 Drug: NS 0.9% 1000 ml Route: IV; Rate: 1000 ml; Site: left antecubital; iw 15:00 Follow up: IV Status: Completed infusion iw 14:14 Drug: Pepcid (famotidine) 20 mg Route: IVP; Site: left antecubital; iw 19:49 Follow up: Response: No adverse reaction iw 14:14 Drug: Ketorolac 30 mg Route: IVP; Site: left antecubital; iw 14:30 Follow up: Response: No adverse reaction iw Disposition: 10/31 07:45 Co-signature as Attending Physician, Wayne Sultana MD I agree with the assessment and catina plan of care. Disposition Summary: 10/30/20 13:28 Discharge Ordered Location: Home kb Condition: Stable kb Diagnosis - Upper abdominal pain, unspecified kb Followup: kb - With: Emergency Department - When: As needed - Reason: Worsening of condition Followup: kb - With: Private Physician - When: 2 - 3 days - Reason: Recheck today's complaints, Continuance of care, Re-evaluation by your physician Discharge Instructions: - Discharge Summary Sheet kb - Abdominal Pain, Adult, [id number] kb Forms: - Medication Reconciliation Form kb - Thank You Letter kb - Antibiotic Education kb - Prescription Opioid Use kb Signatures: Dispatcher [employer] Tg Reese, WATER POLLUTION SPECIALIST-C WATER POLLUTION SPECIALIST-Wayne Gonzáles MD MD cha Williams, Irene, RN RN Keri Hernandez, SHARLA RN
[2020-10-30] MEDS ORDERED: KETOROLAC 30 MG/ML INJ ONE (14:23)
[2020-10-30] MEDS ORDERED: NA CHLORIDE 0.9% 1,000 ML ONE (14:23)
[2020-10-30] MEDS ORDERED: FAMOTIDINE 20 MG/2 ML VIAL IV ONE (14:29)
[2020-10-30 15:12] VITALS: TEMP 97.7; O2SAT 100
== END 2020-10-30 15:08 | disposition home or self-care (01) ==
LOC: ER 10:44
DX: R10.10 Upper abdominal pain, unspecified (principal)
CPT/HCPCS: 36415; 74177; 76705; 80048; 80076; 81003; 83690; 85025; 96361; 96374; 96375; 99284; J7030; Q9967

== ENCOUNTER 2021-03-20 07:10 | Emergency (ER) | payer SELFPAY ==
--- OUTSIDE RECORDS SUMMARY | 2021-03-20 07:12 | XMS REPORT | Continuity of Care Document ---
:1995 Author Organization [facility] t Address [address] [place] [address] Care Team Providers Name Role Phone Pcp, Does Not Have A Primary Care Physician MARIAN HOPPER Attending Clinician Unavailable Marian Gonsalves Attending Clinician Obdulia PAC, S Attending Clinician OBDULIA, S Attending Clinician Unavailable Pcp, Does Not Have A Attending Clinician Rom WASHINGTON Attending Clinician ROM Attending Clinician Unavailable Doctor Unassigned, Name Attending Clinician Unavailable Payers Payer Name Policy Type Policy Number Effective Date Expiration Date S ource Problems Condition Condition Condition Status Onset Resolution Last Treating Co mments Source Name Details Category Date Date Treatment Clinician Date Pelvic Pelvic Disease Active Univers pain pain 8-27 ity of 00:00: [address] Missed ab Missed ab Disease Active Uni vers 8-27 ity of 00:00: [address] Blighted Blighted Disease Active Unive rs ovum ovum 8-20 ity of 00:00: [address] Uterine Uterine Disease Active 2014-03 Univers size-date size-date 0-19 [place], [place] Medical antepartum antepartum Br anch , first , first trimester trimester Supervisio Supervisio Disease Active 2014-03 U nivers n of n of 0-14 [place] of high[place] with with Branch insufficie insufficie nt nt care, care, unspecifie unspecifie d d trimester trimester Fatigue Fatigue Disease Active 2014-03 Univers during during 0-14 [place] ante[place] antepartum 00 Me dical , , Branch unspecifie unspecifie d d trimester trimester Allergies, Adverse Reactions, Alerts Allergy Allergy Status Severity Reaction(s) Onset Inactive Treating Comm ents Source Name Type Date Date Clinician No Known DA Active U 2018-03 [facility] 00 [facility] NO KNOWN Drug Active Univers ALLERGIE Class ity of S [facility] Social History Social Habit Start Date Stop Date Quantity Comments Source Exposure to Not sure [facility] SARS-CoV-2 (event) Medica l Branch Alcohol intake 2019-08-23 2019-08-23 0 /d [facility] 00:00:00 00:00:00 [facility] Tobacco use and 2014-12-13 2014-12-13 Never used [facility] exposure 00:00:00 00:00:00 [facility] Sex [birth year] [facility] 00:00:00 00:00:00 [facility] Smoking Status Start Date Stop Date Source Never smoker [facility] Medications Ordered Filled Start Stop Current Ordering Indication Dosage Frequency Signature Comments Components Source Medication Medication Date Date Medication? Clinician (SIG) Name Name ibuprofen 2020-03 Yes [id number] 600mg Take 1 Univers 600 mg 2- 05 tablet by ity of tablet 00:00: mouth [place] 00 every 6 Medical (six) Branch hours as needed for Pain (scale 4-6). benzonatate 2020-03 Yes [id number] 100mg Take 1 Univers 100 mg 2- 05 capsule by ity of capsule 00:00: mouth 3 [place] 00 (three) Medical times Branch daily as needed for Cough. amoxicillin 2020-03- Yes [id number] 500mg Take 1 Univers 500 mg 2-24 03-02 05 capsule by ity of capsule 00:00: 05:59 mouth 3 [place] 00 :00 (three) Medical times Branch daily for 10 days. ibuprofen 2020-0 Yes [id number] 600mg Take 1 Univers 600 mg 11-06 [id number] tablet by ity of tablet 00:00: mouth [place] 00 every 6 Medical (six) Branch hours as needed for Pain (scale 4-6). ibuprofen 2020-0 Yes [id number] 600mg Take 1 Univers 600 mg 11-06 [id number] tablet by ity of tablet 00:00: mouth [place] 00 every 6 Medical (six) Branch hours as needed for Pain (scale 4-6). ibuprofen 2019-0 2020- No [id number] 600mg Take 1 Univers 600 mg 11-06- [id number] tablet by ity o f tablet 00:00: 00:00 mouth [place] 00 :00 every 6 Medical (six) Branch hours as needed for Pain (scale 4-6). acetaminoph 2019-0 2020- No 650mg 650 mg, U nivers en 08-22 Oral, ity of (TYLENOL) 19:30: 07:20 ONCE, 1 [place] tablet 650 00 :00 dose, Mon Medi tasha mg 08/23/19 at Branch 1430, ALISON ibuprofen 2019-0 2020- No 800mg 800 mg, Uni vers (IBU) 08-22 Oral, ity of tablet 800 19:15: 18:09 ONCE, 1 [place] mg 00 :00 dose, Mon Medical 08/23/19 at Branch 1415, ALISON albuterol 2020-0 Yes [id number] 2{puff} Inhale 2 Univers 90 6-22 Puffs ity of mcg/actuati 00:00: every 4 [place] as on inhaler 00 (four) Medical hours as Branch needed for Wheezing or Shortness of Breath. proMETHazin 2020-0 Yes [id number] 25mg Take 1 Univers e 25 mg 6-22 tablet by ity of tablet 00:00: mouth [place] 00 every 6 Medical (six) Branch hours as needed for Nausea and Vomiting (N/V). albuterol 2020-0 Yes [id number] 2{puff} Inhale 2 Univers 90 6-22 Puffs ity of mcg/actuati 00:00: every 4 Prim[place] as on inhaler 00 (four) Medical hours as Branch needed for Wheezing or Shortness of Breath. proMETHazin 2020-0 Yes [id number] 25mg Take 1 Univers e 25 mg 6-22 tablet by ity of tablet 00:00: mouth [place] 00 every 6 Medical (six) Branch hours as needed for Nausea and Vomiting (N/V). albuterol 2020-0 Yes [id number] 2{puff} Inhale 2 Univers 90 6-22 Puffs ity of mcg/actuati 00:00: every 4 [place] as on inhaler 00 (four) Medical hours as Branch needed for Wheezing or Shortness of Breath. proMETHazin 2019-0 Yes [id number] 25mg Take 1 Univers e 25 mg 6-22 tablet by ity of tablet 00:00: mouth [place] 00 every 6 Medical (six) Branch hours as needed for Nausea and Vomiting (N/V). albuterol 2020-0 Yes [id number] 2{puff} Inhale 2 Univers 90 6-22 Puffs ity of mcg/actuati 00:00: every 4 Prim[place] as on inhaler 00 (four) Medical hours as Branch needed for Wheezing or Shortness of Breath. proMETHazin 2019-0 Yes [id number] 25mg Take 1 Univers e 25 mg 6-22 tablet by ity of tablet 00:00: mouth [place] 00 every 6 Medical (six) Branch hours as needed for Nausea and Vomiting (N/V). No known No Univers medications [facility] Vital Signs Vital Name Observation Time Observation Value Comments Source Systolic blood 2021-02-21 17:03:00 135 mm[Hg] [facility] Diastolic blood 2021-02-21 17:03:00 80 mm[Hg] [facility] Heart rate 2021-02-21 17:03:00 100 /min [facility] Body temperature 2021-02-21 17:03:00 37.5 Ginny [facility] Respiratory rate 2021-02-21 17:03:00 18 /min [facility] Body height 2021-02-21 17:03:00 152.4 cm [facility] Body weight 2021-02-21 17:03:00 83.008 kg [facility] BMI 2021-02-21 17:03:00 35.74 kg/m2 [facility] Oxygen saturation in 2021-02-21 17:03:00 99 /min University of Arterial blood by [place] Medi tasha Pulse oximetry Branch Systolic blood 2019-11-07 23:56:00 123 mm[Hg] Univer sity of pressure [place] [facility] Diastolic blood 2019-11-07 23:56:00 78 mm[Hg] Unive rsity of pressure [place] [facility] Heart rate 2019-11-07 23:56:00 95 /min Universi ty [facility] [place] [facility] Body temperature 2019-11-07 23:56:00 37.33 Ginny Univ ersity [facility] [place] [facility] Respiratory rate 2019-11-07 23:56:00 18 /min Univ ersity of [place] [facility] Body weight 2019-11-07 23:56:00 74.844 kg Universi ty [facility] [place] [facility] BMI 2019-11-07 23:56:00 32.22 kg/m2 [facility]i ty [facility] [place] [facility] Oxygen saturation in 2019-11-07 23:56:00 99 /min University of Arterial blood by [facility] Pulse oximetry Branch Systolic blood 2019-11-07 23:56:00 123 mm[Hg] Univer sity of pressure [place] [facility] Diastolic blood 2019-11-07 23:56:00 78 mm[Hg] Unive rsity of pressure [place] [facility] Heart rate 2019-11-07 23:56:00 95 /min [facility]i ty [facility] [place] [facility] Body temperature 2019-11-07 23:56:00 37.33 Ginny Univ ers[facility] [place] [facility] Respiratory rate 2019-11-07 23:56:00 18 /min Univ ers[facility] [place] [facility] Body weight 2019-11-07 23:56:00 74.844 kg Universi ty [facility] [place] [facility] BMI 2019-11-07 23:56:00 32.22 kg/m2 [facility]i [facility] [place] [facility] Oxygen saturation in 2019-11-07 23:56:00 99 /min University of Arterial blood by [facility] Pulse oximetry Branch Body temperature 2019-08-23 19:21:46 37.39 Ginny Univ ersity [facility] [place] [facility] Systolic blood 2019-08-23 19:21:16 120 mm[Hg] Univer sity of pressure [place] [facility] Diastolic blood 2019-08-23 19:21:16 84 mm[Hg] Unive rsity of pressure [place] [facility] Heart rate 2019-08-23 19:21:16 100 /min Universi ty [facility] [place] [facility] Respiratory rate 2019-08-23 19:21:16 18 /min Univ ersity of [place] [facility] [place] Oxygen saturation in 2019-08-23 19:21:16 99 /min University of Arterial blood by [facility] Pulse oximetry Branch Body height 2019-08-23 18:03:00 152.4 cm Universi ty of [place] [facility] [place] Body weight 2019-08-23 18:03:00 72.576 kg Universi ty of [facility] BMI 2019-08-23 18:03:00 31.25 kg/m2 Universi ty of [facility] Body temperature 2019-08-23 19:21:46 37.39 Ginny Univ ersity of [facility] Branch Systolic blood 2019-08-23 19:21:16 120 mm[Hg] Univer sity of pressure [facility] Diastolic blood 2019-08-23 19:21:16 84 mm[Hg] Unive rsity of pressure [facility] Heart rate 2019-08-23 19:21:16 100 /min Universi ty of [facility] Respiratory rate 2019-08-23 19:21:16 18 /min Univ ersity of [facility] Oxygen saturation in 2019-08-23 19:21:16 99 /min University of Arterial blood by [facility] Pulse oximetry Branch Body height 2019-08-23 18:03:00 152.4 cm Universi ty [facility] [place] [facility] [place] Body weight 2019-08-23 18:03:00 72.576 kg Universi ty [facility] [place] [facility] [place] BMI 2019-08-23 18:03:00 31.25 kg/m2 [facility] Procedures Procedure Date / Time Performed Performing Clinician Reginaldo e RAPID INFLUENZA A/B 2021-02-21 17:51:00 [facility] Hopper [facility] COVID-19 (ID NOW RAPID 2021-02-21 17:51:00 Raquel Hopper [facility] TESTING) Medical Branch NOTICE OF PRIVACY 2021-02-21 16:54:53 Doctor Unassigned, No [facility] [place] [facility] Name Medical Branch CONSENT/REFUSAL FOR 2021-02-21 16:54:41 [facility] Unassigned, No [facility] Name Medical Branch TREATMENT XR FOOT 3+ VW RIGHT 2019-11-08 00:32:04 Jayce Han [facility] NOTICE OF PRIVACY 2019-11-07 23:47:07 Doctor Unassigned, No [facility] Name Medical Branch CONSENT/REFUSAL FOR 2019-11-07 23:46:53 Doctor Unassigned, No Un [facility] [place] DIAGNOSIS AND Name Medical Branch TREATMENT ASSIGNMENT OF BENEFITS 2019-08-23 19:29:40 Doctor Unassigned, No [facility] Name Medical Branch COVID-19 (ID NOW RAPID 2019-08-23 18:11:00 Jaswinder Patel [facility] TESTING) Medical Branch NOTICE OF PRIVACY 2019-08-23 17:51:36 Doctor Unassigned, No [facility] [place] [facility] Name Medical Branch CONSENT/REFUSAL FOR 2019-08-23 17:51:23 Doctor Unassigned, No Un [facility] [place] DIAGNOSIS AND Name Medical Branch TREATMENT Encounters Start End Encounter Admission Attending Care Care Encounter Source Date/Time Date/Time Type Type Clinicians Facility Department ID 2021-02-21 2021-02-21 Emergency X Raquel HOPPER [facility] ERT [id number] Univers 11:04:00 13:25:[address] [facility] 2021-02-21 2021-02-21 Emergency Raquel Hopper [facility] [id number] Univers 11:04:00 13:25:00 Marian HALL 350.1.13.10 i ty [facility] 4.2.7.2.686 [facility] [id number] [address] 2019-11-07 2019-11-07 Emergency Obdulia [facility] [id number] 18:59:00 20:52:00 Jayce Hall 350.1.13.10 [place] [address] [place] [address] [id number] [facility] 2019-11-07 2019-11-07 [facility] [id number] Univers 18:59:00 20:52:00 Jayce Hall 350.1.13.10 i ty of Brenda 4.[address] [place] [id number] 2019-11-07 2019-11-07 Emergency [facility] [id number] Univers 18:59:00 18:59:00 JAYCE [address] of [facility] 2019-08-24 2019-08-24 Telephone Pcp, [facility] [id number] 00:00:00 00:00:00 Patient [place] 350.1.13.10 Does Not [place] 4.2.7.2.686 Have A [place] [id number] 2019-08-24 2019-08-24 Telephone Pcp, [facility] [id number] Univers 00:00:00 00:00:00 Patient [place] 350.1.13.10 i ty of Does Not [place] 4.2.7.2.686 Prim[place] as Have A [place] [id number] [address] 2019-08-23 2019-08-23 [facility] [id number] 13:57:56 14:34:00 Shanekrishan Hall 350.1.13.10 [place] 4.2.7.2.686 [place] [id number] [facility] 2019-08-23 2019-08-23 [facility] [id number] Univers 13:57:56 14:34:00 Shane Thien 350.1.13.10 i ty of [place] 4.2.7.2.686 [place] [id number] [address] 2019-08-23 2019-08-23 Emergency X [facility] ERT [id number] Univers 13:57:56 13:57:56 SHANE deluca [facility] 2019-08-23 2019-08-23 Orders Doctor ANNA [id number] 00:00:00 00:00:00 Only Unassigned, DOMITILA 350.1.13.10 [facility] 4.2.7.2.686 [id number] 2019-08-23 2019-08-23 Orders Doctor ANNA [id number] Univers 00:00:00 00:00:00 Only Unassigned, DOMITILA 350.1.13.10 ity of [facility] 4.2.7.2.686 Primo as [id number] Medi tasha 009 Branch Results Test Description Test Time Test Comments Results Result Sourc e Comments XR FOOT 3+ VW 2019-11-08 Soft tissue Universit y of RIGHT 00:35:40 swelling. No [place] Medica l acute bony Branch abnormality is present. EXAM: XR FOOT 3+ VW RIGHT HISTORY: right foot pain COMPARISON: None FINDINGS: Imaging of the foot demonstrates maintenance of alignment. There is mildswelling over the plantar and dorsal midfoot and. Joint spaces arepreserved. [facility], Radiant Results Inft User - 11/07/2019 7:36 PM CDTEXAM:XR FOOT 3+ VW RIGHTHISTORY:righ t foot pain COMPARISON:NoneFI NDINGS: Imaging of the foot demonstrates maintenance of alignment. There is mildswelling over the plantar and dorsal midfoot and. Joint spaces arepreserved.IMPR ESSIONSoft tissue swelling.No acute bony abnormality is present. COVID-19 (ID NOW RAPID TESTING) 2019-08-23 18:38:00 Test Item Value Reference Range Interpretation Comme nts SARS-CoV-2 Rapid ID NOW (test code Positive Not Detected A = 72787-3) KETAN (test code = KETAN) ID NOW COVID-19 Assay is an isothermal nucleic acid amplification test intended for the qualitative detection of nucleic acid from SARS-CoV-2 viral RNA in nasopharyngeal (AUDITOR TAX) specimens. It is used under Emergency Use Authorization (EUA) by FDA. The limit of detection (LOD) of the assay is 125 Genome Equivalents/mL. A positive result is indicative of the presence of SARS-CoV-2 RNA. ?Clinical correlation with patient history and other diagnostic [...] for repeat patient testing if clinically indicated. Lab Interpretation (test code = Abnormal 03951-9) [facility]- US ABDOMEN [id number] 01:30:00 Patient Name: [place] CERDA Unit No: [id number] EXAMS: CPT CODE: [id number] US ABDOMEN LTD 28728 PROCEDURE: RIGHT UPPER QUADRANT ULTRASOUND DATED 12/05/2018 INDICATION: Acute epigastric abdominal pain COMPARISON: None TECHNIQUE: Sonographic evaluation of the right upper quadrant was performed with supplemental color and pulsed Doppler. FINDINGS: LIVER: A 7 x 6 x 5mm hyperechoic lesion is identified in the peripheral [...] right kidney measures 10.3 cm in length. Normalrenal contour and morphology with normal echogenicity. There [...] Arline Bacon RDMS Probe: Trnscrbd D/ (0130) [email or web address] Print D/T: S: 12/05/2018 (0133) [facility] NAME: [place] CERDA Radiology Department PHYS: CIPRIANO Wild Tyson Barahona [address] : 1995 AGE: 23 SEX: F [place], [place] [address] LOC: YESSICA PHONE #: [phone] EXAM DATE: 12/04/2018 STATUS: REG ER FAX #: [phone] RAD NO: Page 1 Signed Report Patient Name: [place] CERDA Unit No: [id number] EXAMS: CPT CODE: [id number] US ABDOMEN LTD 61682 <Continued> [facility] NAME: [place] CER[place] Radiology Department PHYS: Tyson Escobar [address] : 1995 AGE: 23 SEX: F [place], [place] [address] LOC: YESSICA PHONE #: [phone] EXAM DATE: 12/04/2018 STATUS: REG ER FAX #: [phone] RAD NO: Page 2 Signed Report- US PREG UT [id number] 01:24:00 Patient Name: [place] CERDA Unit No: [id number] EXAMS: CPT CODE: [id number] US PREG UT TRANSVAGINAL 22436 Early obstetrical ultrasound (less than 14 weeks) dated 12/04/2018. HISTORY: . Vaginal bleeding. A transabdominal pelvic ultrasound was performed with subsequent transvaginal imaging to better visualize the gestational sac and ovaries. No prior studies are available [facility]. The uterus measures approximately 11.6 x 5.7 [...] a 2.0 x 1.5 x 1.5 cm thick- walled complex cyst, likely representing a resolving hemorrhagic [...] Lux MD Technologist: Arline Bacon RDMS Probe: [id number] Trnscrbd D/ (0124) [email or web address] Orig Print D/T: S: 12/05/2018 (0127) [facility] NAME: [place] CERDA Radiology Department PHYS: Tyson Escobar [address] : 1995 AGE: 23 SEX: F [place] [address] LOC: Mk.ERS PHONE #: [phone] EXAM DATE: 12/05/2018 STATUS: REG ER FAX #: [phone] RAD NO: Page 1 Signed Report Patient Name: [place] CERDA Unit No: [id number] EXAMS: CPT CODE: [id number] US PREG UT TRANSVAGINAL 68208 <Continued> [facility] NA ME: [place] CERDA Radiology Department PHYS: ANSELMOTyson Avila [address] : 1995 AGE: 23 SEX: F [place] [address] LOC: Mk.ERS PHONE #: [phone] EXAMDATE: 12/05/2018 STATUS: REG ER FAX #: [phone] RAD NO: Page 2 Signed Report- US PREG EVAL 1ST [id number] 01:24:00 Patient Name: [place] CERDA Unit No: [id number] EXAMS: CPT CODE: [id number] US PREG EVAL 1ST TRIMTR 65068 Early obstetrical ultrasound (less than 14 weeks) [...] a 2.0 x 1.5 x 1.5 cm thick- walled complex cyst, likely representing a resolving hemorrhagic [...] Orig Print D/T: S: 12/05/2018 (0127) [facility] NAME: [place] CERDA Radiology Department PHYS: Tyson Escobar [address] : 1995 AGE: 23 SEX: F [place] [address] LOC: AgustinERS PHONE #: [phone] EXAM DATE: 12/04/2018 STATUS: REG ER FAX #: [phone] RAD NO: Page 1 Signed Report Patient Name: [place] CERDA Unit No: [id number] EXAMS: CPT CODE: [id number] US PREG EVAL 1ST TRIMTR 12357 <Continued> The [facility] NA ME: [place] CERDA Radiology Department PHYS: Tyson Escobar [address] : 1995 AGE: 23 SEX: F [place] [address] LOC: YESSICA PHONE #: [phone] EXAMDATE: 12/04/2018 STATUS: ROSALIE HULL FAX #: [phone] RAD NO: Page 2 Signed ReportCOMPREHENSIVE METABOLIC [id number] 23:35:00 Test Item Value Reference Range Interpretation [...] 71 units/L 46-116 N code = ALKP) [id number] 23:35:00 Test Item Value Reference Range Interpretation Comments LIPASE (test code = LIP) 127 units/L 73-393 N HCG [id number] 23:35:00 Test Item Value Reference Range Interpretation Comments HCG SERUM (test 06323 INTERPRETATI ON:VALUES BETWEEN code = HCG) 15-20 [...] SHOULD BE CONSI DERED NEGATIVE COMPREHENSIVE METABOLIC [id number] 23:11:00 Test Item Value Reference Range Interpretation [...] 46-116 N code = ALKP) CBC W/AUTO [id number] 22:58:00 Test Item Value Reference Range Interpretation [...] = PLTMR) UA RFLX MICR CULT IF [id number] 22:44:00 Test Item Value Reference Range Interpretation [...]
[2021-03-20] MEDS ORDERED: ONDANSETRON 4 MG/2 ML VIAL ONE (07:38)
[2021-03-20] MEDS ORDERED: MORPHINE 4 MG/ML SYR ONE (07:38)
[2021-03-20 07:55] LABS: Absolute Lymphocytes (CBC) 2.7 K/uL (0.7-4.9); Hematocrit 40.7 % (36.0-45.0); Lymphocytes % 28.7 % (15.3-44.8); MPV 8.6 fL (7.6-11.3); RBC Red Blood Cell Count 4.44 M/uL (3.86-4.86)
--- NOTE | 2021-03-20 08:01 | RAD REPORT ---
EXAM DESCRIPTION: US - Abdomen Exam Limited - 03/20/2021 7:51 am CLINICAL HISTORY: R/O GB;Abd pain COMPARISON: Abdomen Pelvis W Contrast dated 10/30/2020bdomen Pelvis W Contrast dated 10/30/2020 FINDINGS: The gallbladder demonstrates gallstones. No pericholecystic fluid or gallbladder wall thic kening. The common bile duct is normal measuring 3 mm. The liver demonstrates no findings of intrahepatic biliary dilatation. IMPRESSION: Cholelithiasis without sonographic evidence of acute cholecystitis.
[2021-03-20 08:20] LABS: ALT/SGPT 149 U/L (12-78); AST/SGOT 56 U/L (15-37); Albumin 3.6 g/dL (3.4-5.0); Alkaline Phosphatase 119 U/L (45-117); BUN Blood Urea Nitrogen 12 mg/dL (7-18); Bicarbonate 23 mmol/L (21-32); Bilirubin Direct 0.1 mg/dL (0-0.2); Bilirubin Total 0.3 mg/dL (0.2-1.0); Glucose Level 120 mg/dL (74-106); Lipase 113 U/L (73-393); Potassium 3.7 mmol/L (3.5-5.1); Protein, Total 8.2 g/dL (6.4-8.2); Sodium Level 139 mmol/L (136-145)
[2021-03-20 09:19] LABS: Urine Blood Negative (Negative); Urine Glucose Negative (Negative); Urine Protein Negative (Negative); Urine Specific Gravity >=1.030 (1.005-1.030); Urine pH 5.5 (5.0-7.0)
[2021-03-20 09:29] LABS: Urine Specific Gravity/Preg >1.030 (1.005-1.030)
--- NOTE | 2021-03-20 10:00 | RAD REPORT ---
EXAM DESCRIPTION: MRI - Cholangiogram - 03/20/2021 9:36 am CLINICAL HISTORY: abd pain COMPARISON: No comparisonsAbdomen Exam Limited dated 03/20/2021 FINDINGS: Three-dimensional MRCP was performed using maximum intensity projection reconstruction on the same work station. No intrahepatic biliary tree dilatation is seen. The common bile duct is normal caliber without evide nce of retained stone, stricture or mass. The pancreatic duct is not pathologically dilated. Cholelithiasis is present. Limited T2 sequences through the abdomen demonstrates no bulky adenopathy, significant free fluid or abscess. IMPRESSION: Cholelithiasis but no evidence of choledocholithiasis or biliary ductal dilatation.
--- NOTE | 2021-03-20 10:46 | ER ---
Nurse's Notes [facility] Name: Philomena Smith Age: 25 yrs Sex: Female : 1995 Arrival Date: 03/20/2021 Time: 07:15 Bed 15 Private MD: Diagnosis: Other cholelithiasis without obstruction;Upper abdominal pain, unspecified Presentation: 03/20 07:27 Chief complaint: Patient states: Right upper quadrant abdominal pain that started 3 ll3 hours prior to arrival. Coronavirus screen: Vaccine status: Patient reports being unvaccinated. Client denies travel out of the [place] in the last 14 days. Ebola Screen: Patient negative for fever greater than or equal to 101.5 degrees Fahrenheit, and additional compatible Ebola Virus Disease symptoms Patient denies exposure to infectious person. Initial Sepsis Screen: Does the patient meet any 2 criteria? No. Patient's initial sepsis screen is negative. Does the patient have a suspected source of infection? No. Patient's initial sepsis screen is negative. Risk Assessment: Do you want to hurt yourself or someone else? Patient reports no desire to harm self or others. Onset of symptoms was March 20, 2021. 07:27 Method Of Arrival: Ambulatory ll3 07:27 Acuity: LUIS ANTONIO 3 ll3 Triage Assessment: 07:27 General: Appears uncomfortable, Behavior is cooperative, appropriate for age. Pain: ll3 Complains of pain in right upper quadrant. EENT: No deficits noted. No signs and/or symptoms were reported regarding the EENT system. Neuro: No deficits noted. Level of Consciousness is awake, alert, obeys commands, Oriented to person, place, time, situation, Speech is normal. Cardiovascular: No deficits noted. Denies chest pain. Respiratory: Airway is patent Respiratory effort is even, unlabored, Respiratory pattern is regular, symmetrical. GI: Abdomen is tender to palpation in right upper quadrant and left upper quadrant. Derm: Skin is intact, Skin is pink, warm \T\ dry. Historical: - Allergies: 07:26 No Known Allergies; ll3 - Home Meds: 07:26 None [Active]; ll3 - PMHx: 07:26 None; ll3 - PSHx: 07:26 section; ll3 - Immunization history:: Client reports having NOT received the Covid vaccine. - Social history:: Smoking status: Patient denies any tobacco usage or history of. Screenin:35 Abuse screen: Denies threats or abuse. Denies injuries from another. Nutritional ph screening: No deficits noted. Tuberculosis screening: No symptoms or risk factors identified. Fall Risk None identified. Assessment: 07:33 General: Appears in no apparent distress. uncomfortable, Behavior is calm, cooperative, ph appropriate for age, Denies fever, feeling ill. Pain: Complains of pain in epigastric area and right upper quadrant Pain radiates to back. Neuro: Level of Consciousness is awake, alert, obeys commands, Oriented to person, place, time, situation. Cardiovascular: Capillary refill < 3 seconds in bilateral fingers Patient's skin is warm and dry. Respiratory: Airway is patent Respiratory effort is even, unlabored. GI: Abdomen is round non-distended, Abd is soft X 4 quads Abdomen is tender to palpation in epigastric area and right upper quadrant Reports upper abdominal pain, diarrhea, epigastric pain, nausea. Derm: Skin is intact, is healthy with good turgor, Skin is pink, warm \T\ dry. Musculoskeletal: Circulation, motion, and sensation intact. Range of motion: intact in all extremities. 08:30 Reassessment: Patient appears in no apparent distress at this time. Patient and/or ph family updated on plan of care and expected duration. Pain level reassessed. Patient is alert, oriented x 3, equal unlabored respirations, skin warm/dry/pink. Pt resting comfortably, awaiting lab results. 09:21 Reassessment: Patient appears in no apparent distress at this time. Patient and/or ph family updated on plan of care and expected duration. Pain level reassessed. Patient is alert, oriented x 3, equal unlabored respirations, skin warm/dry/pink. Pt taken to CT via wheelchair. 10:30 Reassessment: Patient appears in no apparent distress at this time. No changes from previously documented assessment. Patient and/or family updated on plan of care and expected duration. Pain level reassessed. Awaiting imaging results. 11:28 Reassessment: Patient appears in no apparent distress at this time. Patient and/or ph family updated on plan of care and expected duration. Pain level reassessed. Patient is alert, oriented x 3, equal unlabored respirations, skin warm/dry/pink. Pt d/c home. Vital Signs: 07:27 BP 150 / 105; Pulse 112; Resp 18; Temp 96.7; Pulse Ox 100% on R/A; Weight 84.82 kg; ll3 Height 5 ft. 0 in. (152.40 cm); Pain 10/10; 07:57 BP 135 / 89; Pulse 101; Resp 16; Pulse Ox 100% on R/A; ph 09:22 BP 134 / 82; Pulse 97; Resp 16; Pulse Ox 97% on R/A; ph 10:45 BP 128 / 89; Pulse 89; Resp 18; Temp 97.6; Pulse Ox 99% on R/A; ph 07:27 Body Mass Index 36.52 (84.82 kg, 152.40 cm) ll3 ED Course: 07:15 Patient arrived in ED. ja2 07:26 Liberty Campo, RN is Primary Nurse. ph 07:26 Arm band placed on left wrist. ll3 07:27 Kirk Alex PA is PHCP. jr8 07:27 Wayne Sultana MD is Attending Physician. jr8 07:28 Triage completed. ll3 07:35 Patient has correct armband on for positive identification. Placed in gown. Bed in low ph position. Call light in reach. Side rails up X 1. Pulse ox on. NIBP on. Door closed. Noise minimized. Warm blanket given. 07:37 Inserted saline lock: 20 gauge in right forearm, using aseptic technique. Blood eo2 collected. 07:41 Basic Metabolic Panel Sent. eo2 07:41 CBC with Diff Sent. eo2 07:41 Hepatic Function Sent. eo2 07:41 Lipase Sent. eo2 07:51 US Abdomen Limited In Process Unspecified. EDMS 09:36 Cholangiogram In Process Unspecified. EDMS 10:45 Jesus Gaffney MD is Referral Physician. jr8 10:54 No provider procedures requiring assistance completed. ph 11:30 IV discontinued, intact, bleeding controlled, No redness/swelling at site. Pressure ph dressing applied. Administered Medications: 07:55 Drug: Zofran (Ondansetron) 4 mg Route: IVP; Site: right antecubital; ph 10:53 Follow up: Response: No adverse reaction ph 07:57 Drug: morphine 4 mg Route: IVP; Site: right antecubital; ph 10:53 Follow up: Response: No adverse reaction; Pain is decreased; RASS: Drowsy (-1) ph Outcome: 10:46 Discharge ordered by MD. durant 11:29 Discharged to home with friend. ph 11:29 Condition: good 11:29 Discharge instructions given to patient, Instructed on discharge instructions, follow up and referral plans. medication usage, Demonstrated understanding of instructions, follow-up care, medications, Prescriptions given X 3. 11:30 Patient left the ED. ph Signatures: Dispatcher [employer] EDMS Kirk Alex PA PA jr8 Hall, Patricia RN RN ph Mel Jama Lynsea RN RN ll3 Valeria Pham RN RN eo2
--- NOTE | 2021-03-20 10:46 | EDPHYS ---
Physician Documentation [facility] Name: Philomena Smith Age: 25 yrs Sex: Female : 1995 Arrival Date: 03/20/2021 Time: 07:15 Bed 15 Private MD: ED Physician Wayne Sultana HPI: 03/20 09:07 This 25 yrs old Female presents to ER via Ambulatory with complaints of jr8 SWOLLEN ABDOMIN, Abdominal Pain. 09:07 The patient presents with abdominal pain in the right upper quadrant. Onset: The jr8 symptoms/episode began/occurred acutely, today. The symptoms radiate to right back. Associated signs and symptoms: Pertinent positives: nausea and vomiting. The symptoms are described as stabbing. Modifying factors: The symptoms are alleviated by nothing, the symptoms are aggravated by nothing. Severity of pain: At its worst the pain was moderate in the emergency department the pain is unchanged. It is unknown whether or not the patient has had similar symptoms in the past. The patient has not recently seen a physician. Historical: - Allergies: 07:26 No Known Allergies; ll3 - Home Meds: 07:26 None [Active]; ll3 - PMHx: 07:26 None; ll3 - PSHx: 07:26 section; ll3 - Immunization history:: Client reports having NOT received the Covid vaccine. - Social history:: Smoking status: Patient denies any tobacco usage or history of. ROS: 09:07 Eyes: Negative for injury, pain, redness, and discharge, ENT: Negative for injury, jr8 pain, and discharge, Neck: Negative for injury, pain, and swelling, Cardiovascular: Negative for chest pain, palpitations, and edema, Respiratory: Negative for shortness of breath, cough, wheezing, and pleuritic chest pain, Back: Negative for injury and pain, MS/Extremity: Negative for injury and deformity, Skin: Negative for injury, rash, and discoloration, Neuro: Negative for headache, weakness, numbness, tingling, and seizure. 09:07 Abdomen/GI: Positive for abdominal pain, nausea and vomiting, diarrhea, Negative for hematemesis, black/tarry stool. Exam: 09:07 Cardiovascular: Regular rate and rhythm with a normal S1 and S2. No gallops, murmurs, jr8 or rubs. Normal PMI, no JVD. No pulse deficits. Respiratory: Lungs have equal breath sounds bilaterally, clear to auscultation and percussion. No rales, rhonchi or wheezes noted. No increased work of breathing, no retractions or nasal flaring. Back: No spinal tenderness. No costovertebral tenderness. Full range of motion. Skin: Warm, dry with normal turgor. Normal color with no rashes, no lesions, and no evidence of cellulitis. MS/ Extremity: Pulses equal, no cyanosis. Neurovascular intact. Full, normal range of motion. Neuro: Awake and alert, GCS 15, oriented to person, place, time, and situation. Cranial nerves II-XII grossly intact. Motor strength 5/5 in all extremities. Sensory grossly intact. 09:07 Constitutional: The patient appears alert, awake, in obvious pain. 09:07 Abdomen/GI: Inspection: obese Bowel sounds: active, all quadrants, Palpation: soft, in all quadrants, moderate abdominal tenderness, in the right upper quadrant, mass, is not appreciated, rebound tenderness, is not appreciated, voluntary guarding, is not appreciated, involuntary guarding, is not appreciated, no appreciated organomegaly, Indicators: McBurney's point is not tender, Du's sign is positive, Rovsing's sign is negative, Liver: tenderness, is not appreciated. Vital Signs: 07:27 BP 150 / 105; Pulse 112; Resp 18; Temp 96.7; Pulse Ox 100% on R/A; Weight 84.82 kg; ll3 Height 5 ft. 0 in. (152.40 cm); Pain 10/10; 07:57 BP 135 / 89; Pulse 101; Resp 16; Pulse Ox 100% on R/A; ph 09:22 BP 134 / 82; Pulse 97; Resp 16; Pulse Ox 97% on R/A; ph 10:45 BP 128 / 89; Pulse 89; Resp 18; Temp 97.6; Pulse Ox 99% on R/A; ph 07:27 Body Mass Index 36.52 (84.82 kg, 152.40 cm) ll3 MDM: 07:27 Patient medically screened. jr8 10:44 Data reviewed: vital signs, nurses notes, lab test result(s), radiologic studies, MRI, jr8 ultrasound. Data interpreted: Pulse oximetry: on room air is 97 %. Interpretation: normal. Counseling: I had a detailed discussion with the patient and/or guardian regarding: the historical points, exam findings, and any diagnostic results supporting the discharge/admit diagnosis, lab results, radiology results, the need for outpatient follow up, a general surgeon, to return to the emergency department if symptoms worsen or persist or if there are any questions or concerns that arise at home. Response to treatment: the patient's symptoms have markedly improved after treatment. ED course: Patient able to tolerate fluids. Minimal pain at this time and no active vomiting. Hemodynamically stable and afebrile. No choledocholithiasis on cholangiogram. No acute cholecystitis. Discussed with patient that she has cholelithiasis and needs to follow-up with general surgery. If she were to get worse to come back for further evaluation. Patient good with this. 03/20 07:31 Order name: Basic Metabolic Panel; Complete Time: 08:28 03/20 07:31 Order name: CBC with Diff; Complete Time: 08:06 03/20 07:31 Order name: Hepatic Function; Complete Time: 08:28 03/20 07:31 Order name: Lipase; Complete Time: 08:28 03/20 09:19 Order name: Urine Dipstick-Ancillary; Complete Time: 09:22 EDMS 03/20 09:25 Order name: Urine --Ancillary (enter results); Complete Time: 09:31 bd 03/20 07:31 Order name: IV Saline Lock; Complete Time: 07:35 03/20 07:31 Order name: Labs collected and sent; Complete Time: 07:35 03/20 07:31 Order name: Urine Dipstick-Ancillary (obtain specimen); Complete Time: 10:53 03/20 07:31 Order name: Urine Test (obtain specimen); Complete Time: 10:53 03/20 07:32 Order name: US Abdomen Limited; Complete Time: 08:06 03/20 08:32 Order name: Cholangiogram; Complete Time: 10:03 EDMS Administered Medications: 07:55 Drug: Zofran (Ondansetron) 4 mg Route: IVP; Site: right antecubital; ph 10:53 Follow up: Response: No adverse reaction ph 07:57 Drug: morphine 4 mg Route: IVP; Site: right antecubital; ph 10:53 Follow up: Response: No adverse reaction; Pain is decreased; RASS: Drowsy (-1) ph Disposition: 03/21 08:18 Co-signature as Attending Physician, Wayne Sultana MD I agree with the assessment and catina plan of care. Disposition Summary: 03/20/21 10:46 Discharge Ordered Location: Home jr8 Problem: new jr8 Symptoms: have improved jr8 Condition: Stable jr8 Diagnosis - Other cholelithiasis without obstruction jr8 - Upper abdominal pain, unspecified jr8 Followup: jr8 - With: Jesus Gaffney MD - When: 2 - 3 days - Reason: Recheck today's complaints, Continuance of care, Re-evaluation by your physician Discharge Instructions: - Discharge Summary Sheet jr8 - Cholelithiasis jr8 - Gallbladder Eating Plan jr8 Forms: - Medication Reconciliation Form jr8 - Thank You Letter jr8 - Antibiotic Education jr8 - Prescription Opioid Use jr8 Prescriptions: - Cipro 500 mg Oral Tablet - take 1 tablet by ORAL route every 12 hours for 7 days; 14 tablet; Refills: 0, jr8 Product Selection Permitted - Zofran 4 mg Oral Tablet - take 1 tablet by ORAL route every 12 hours As needed; 20 tablet; Refills: 0, jr8 Product Selection Permitted - dicyclomine 20 mg Oral Tablet - take 1 tablet by ORAL route 4 times per day As needed; 28 tablet; Refills: 0, jr8 Product Selection Permitted Signatures: Dispatcher [employer] Wayne Hoffmann MD MD cha Roszak, Josh, PA PA jr8 Liberty Campo RN RN Dl Chou RN RN ll3
[2021-03-20 11:41] VITALS: BP 128/89; TEMP 97.6; O2SAT 99
== END 2021-03-20 11:30 | disposition home or self-care (01) ==
LOC: ER 07:10
DX: K80.80 Other cholelithiasis without obstruction (principal)
CPT/HCPCS: 36415; 74181; 76705; 80048; 80076; 81003; 81025; 83690; 85025; 96374; 96375; 99284; J2405

== ENCOUNTER 2021-03-27 20:59 | Inpatient (IN) | payer SELFPAY ==
--- OUTSIDE RECORDS SUMMARY | 2021-03-27 21:01 | XMS REPORT | Continuity of Care Document ---
:1995 Author Organization [facility] t Address [address] [place] [address] Care Team Providers Name Role Phone Pcp, [...] Univers pain pain 8-27 ity of 00:00: [address] Missed ab Missed ab Disease Active Uni vers 8-27 ity of 00:00: [address] Blighted Blighted Disease Active Unive rs ovum ovum 8-20 ity of 00:00: [address] Uterine Uterine Disease Active 2014-03 Univers [...] Allergie 04 [facility] 00:00: [facility] 00 [facility] NO KNOWN Drug Active Univers ALLERGIE Class ity of S [facility] Social History Social Habit Start Date Stop Date Quantity Comments Source Exposure to Not sure [facility] SARS-CoV-2 (event) Medica l Branch Alcohol intake 2019-08-23 2019-08-23 0 /d [facility] 00:00:00 00:00:00 [facility] Tobacco use and 2014-12-13 2014-12-13 Never used [facility] exposure 00:00:00 00:00:00 [facility] Sex Ass[birth year] [facility] 00:00:00 00:00:00 [facility] Smoking Status Start Date Stop Date Source Never smoker [facility] Medications Ordered Filled Start Stop Current Ordering Indication Dosage Frequency Signature Comments Components Source Medication Medication Date Date Medication? Clinician (SIG) Name Name ibuprofen 2020-03 Yes [id number] 600mg Take 1 Univers 600 mg 2- 05 tablet by ity of tablet 00:00: mouth [place] 00 every 6 Medical (six) Branch hours as needed for Pain (scale 4-6). benzonatate 2020-03 Yes [id number] 100mg Take 1 Univers 100 mg 2- 05 capsule by ity of capsule 00:00: mouth 3 [place] 00 (three) Medical times Branch daily as needed for Cough. amoxicillin 2020-03- Yes [id number] 500mg Take 1 Univers 500 mg 2-24 03-02 05 capsule by ity of capsule 00:00: 05:59 mouth 3 [place] 00 :00 (three) Medical times Branch daily for 10 days. ibuprofen 2020-0 Yes [id number] 600mg Take 1 Univers 600 mg 11-06 [id number] tablet by ity of tablet 00:00: mouth [place] 00 every 6 Medical (six) Branch hours as needed for Pain (scale 4-6). ibuprofen 2020-0 Yes [id number] 600mg Take 1 Univers 600 mg 11-06 [id number] tablet by ity of tablet 00:00: mouth [place] 00 every 6 Medical (six) Branch hours as needed for Pain (scale 4-6). ibuprofen 2019-0 2020- No [id number] 600mg Take 1 Univers 600 mg 11-06- [id number] tablet by ity o f tablet 00:00: [...] at Branch 1415, ALISON albuterol 2020-0 Yes [id number] 2{puff} Inhale 2 Univers 90 6-22 Puffs ity of mcg/actuati 00:00: every 4 [place] as on inhaler 00 (four) Medical hours as Branch needed for Wheezing or Shortness of Breath. proMETHazin 2020-0 Yes [id number] 25mg Take 1 Univers e 25 mg 6-22 tablet by ity of tablet 00:00: mouth [place] 00 every 6 Medical (six) Branch hours as needed for Nausea and Vomiting (N/V). albuterol 2020-0 Yes [id number] 2{puff} Inhale 2 Univers 90 6-22 Puffs ity of mcg/actuati 00:00: every 4 Prim[place] as on inhaler 00 (four) Medical hours as Branch needed for Wheezing or Shortness of Breath. proMETHazin 2020-0 Yes [id number] 25mg Take 1 Univers e 25 mg 6-22 tablet by ity of tablet 00:00: mouth [place] 00 every 6 Medical (six) Branch hours as needed for Nausea and Vomiting (N/V). albuterol 2020-0 Yes [id number] 2{puff} Inhale 2 Univers 90 6-22 Puffs ity of mcg/actuati 00:00: every 4 Primo as on inhaler 00 (four) Medical hours as Branch needed for Wheezing or Shortness of Breath. proMETHazin 2019-0 Yes [id number] 25mg Take 1 Univers e 25 mg 6-22 tablet by ity of tablet 00:00: mouth [place] 00 every 6 Medical (six) Branch hours as needed for Nausea and Vomiting (N/V). albuterol 2020-0 Yes [id number] 2{puff} Inhale 2 Univers 90 6-22 Puffs ity of mcg/actuati 00:00: every 4 Primo as on inhaler 00 (four) Medical hours as Branch needed for Wheezing or Shortness of Breath. proMETHazin 2019-0 Yes [id number] 25mg Take 1 Univers e 25 mg 6-22 tablet by ity of tablet 00:00: mouth [place] 00 every 6 Medical (six) Branch hours as needed for Nausea and Vomiting (N/V). No known No Univers medications [facility] Vital Signs Vital Name Observation Time Observation Value Comments Source Systolic blood 2021-02-21 17:03:00 135 mm[Hg] [facility] Diastolic blood 2021-02-21 17:03:00 80 mm[Hg] [facility] Heart rate 2021-02-21 17:03:00 100 /min [facility] Body temperature 2021-02-21 17:03:00 37.5 Ginny [facility] Respiratory rate 2021-02-21 17:03:00 18 /min [facility] Body height 2021-02-21 17:03:00 152.4 cm [facility] Body weight 2021-02-21 17:03:00 83.008 kg [facility] BMI 2021-02-21 17:03:00 35.74 kg/m2 [facility] Oxygen saturation in 2021-02-21 17:03:00 99 /min University of Arterial blood by [place] [facility] tasha Pulse oximetry Branch Systolic blood 2019-11-07 23:56:00 123 mm[Hg] Univer sity of pressure [place] [facility] Diastolic blood 2019-11-07 23:56:00 78 mm[Hg] Unive rsity of pressure [place] [facility] Heart rate 2019-11-07 23:56:00 95 /min Universi ty of [place] [facility] Body temperature 2019-11-07 23:56:00 37.33 Ginny Univ ersity of [place] [facility] Respiratory rate 2019-11-07 23:56:00 18 /min Univ ersity of [place] [facility] Body weight 2019-11-07 23:56:00 74.844 kg Universi ty [facility] [place] [facility] BMI 2019-11-07 23:56:00 32.22 kg/m2 [facility]i ty [facility] [place] [facility] Oxygen saturation in 2019-11-07 23:56:00 99 /min University of Arterial blood by [facility] Pulse oximetry Branch Systolic blood 2019-11-07 23:56:00 123 mm[Hg] Univer sity of pressure [place] [facility] Diastolic blood 2019-11-07 23:56:00 78 mm[Hg] Unive rsity of pressure [place] [facility] Heart rate 2019-11-07 23:56:00 95 /min Universi ty [facility] [place] [facility] Body temperature 2019-11-07 23:56:00 37.33 Ginny Univ ersity [facility] [place] [facility] Respiratory rate 2019-11-07 23:56:00 18 /min Univ ersity [facility] [place] [facility] Body weight 2019-11-07 23:56:00 74.844 kg Universi ty [facility] [place] [facility] BMI 2019-11-07 23:56:00 32.22 kg/m2 [facility]i [facility] [place] [facility] Oxygen saturation in 2019-11-07 23:56:00 99 /min University of Arterial blood by [facility] Pulse oximetry Branch Body temperature 2019-08-23 19:21:46 37.39 Ginny Univ ersity [facility] [place] [facility] Systolic blood 2019-08-23 19:21:16 120 mm[Hg] Univer sity of pressure [place] [facility] Diastolic blood 2019-08-23 19:21:16 84 mm[Hg] Unive rsity of pressure [place] [facility] Heart rate 2019-08-23 19:21:16 100 /min Universi ty [facility] [place] [facility] Respiratory rate 2019-08-23 19:21:16 18 /min Univ ers[facility] [place] [facility] [place] Oxygen saturation in 2019-08-23 19:21:16 99 /min University of Arterial blood by [facility] Pulse oximetry Branch Body height 2019-08-23 18:03:00 152.4 cm Universi ty [facility] [place] [facility] [place] Body weight 2019-08-23 18:03:[address] [facility] BMI 2019-08-23 18:03:00 31.25 kg/m2 Universi ty of [facility] Body temperature 2019-08-23 19:21:46 37.39 Ginny Univ ersity of [facility] Branch Systolic blood 2019-08-23 19:21:16 120 mm[Hg] Univer sity of pressure [facility] Diastolic blood 2019-08-23 19:21:16 84 mm[Hg] Unive rsity of pressure [facility] Heart rate 2019-08-23 19:21:16 100 /min Universi ty of [facility] Respiratory rate 2019-08-23 19:21:16 18 /min Univ ersity of [facility] Oxygen saturation in 2019-08-23 19:21:16 99 /min University of Arterial blood by [facility] Pulse oximetry Branch Body height 2019-08-23 18:03:00 152.4 cm Universi ty [facility] [place] [facility] [place] Body weight 2019-08-23 18:03:00 72.576 kg Universi ty [facility] [place] [facility] [place] BMI 2019-08-23 18:03:00 31.25 [facility] Procedures Procedure Date / Time Performed Performing Clinician Reginaldo e RAPID INFLUENZA A/B 2021-02-21 17:51:00 [facility] COVID-19 (ID NOW RAPID 2021-02-21 17:51:00 Raquel Hopper [facility] TESTING) Medical Branch NOTICE OF PRIVACY 2021-02-21 16:54:53 Doctor Unassigned, No [facility] [place] [facility] Name Medical Branch CONSENT/REFUSAL FOR 2021-02-21 16:54:41 Doctor Unassigned, No [facility] Name Medical Branch TREATMENT XR FOOT 3+ VW RIGHT 2019-11-08 00:32:04 Jayce [facility] NOTICE OF PRIVACY 2019-11-07 23:47:07 Doctor Unassigned, No [facility] Name Medical Branch CONSENT/REFUSAL FOR 2019-11-07 23:46:53 Doctor Unassigned, No Un [facility] [place] DIAGNOSIS AND Name Medical Branch TREATMENT ASSIGNMENT OF BENEFITS 2019-08-23 19:29:40 Doctor Unassigned, No [facility] Name Medical Branch COVID-19 (ID NOW RAPID 2019-08-23 18:11:00 Jaswinder Patel [facility] TESTING) Medical Branch NOTICE OF PRIVACY 2019-08-23 17:51:36 Doctor Unassigned, No [facility] [place] [facility] Name Medical Branch CONSENT/REFUSAL FOR 2019-08-23 17:51:23 Doctor Unassigned, No Un [facility] [place] DIAGNOSIS AND Name Medical Branch TREATMENT Encounters Start End Encounter Admission Attending Care Care Encounter Source Date/Time Date/Time Type Type Clinicians Facility Department ID 2021-02-21 2021-02-21 Emergency X Raquel HOPPER [facility] ERT [id number] Univers 11:04:00 13:25:[address] [facility] 2021-02-21 2021-02-21 Emergency Raquel Hopper [facility] [id number] Univers 11:04:00 13:25:00 Marian HALL 350.1.13.10 i ty [facility] 4.2.7.2.686 [facility] [id number] [address] 2019-11-07 2019-11-07 Emergency Obdulia [facility] [id number] 18:59:00 20:52:00 Jayce Hall 350.1.13.10 [place] [address] [place] [address] [id number] [facility] 2019-11-07 2019-11-07 [facility] [id number] Univers 18:59:00 20:52:00 Jayce Hall 350.1.13.10 i ty of [place] 4.[address] [place] [id number] 2019-11-07 2019-11-07 Emergency X [facility] [id number] Univers 18:59:00 18:59:[address] [facility] 2019-08-24 2019-08-24 Telephone Pcp, [facility] [id number] 00:00:00 00:00:00 Patient [place] 350.1.13.10 Does Not [place] 4.2.7.2.686 Have A Newman [id number] 2019-08-24 2019-08-24 Telephone Pcp, [facility] [id number] Univers 00:00:00 00:00:00 Patient [place] 350.1.13.10 i ty of Does Not [place] 4.2.7.2.686 [place] as Have A Newman [id number] [address] 2019-08-23 2019-08-23 [facility] [id number] 13:57:56 14:34:00 Shanekrishan Hall 350.1.13.10 [place] 4.2.7.2.686 Newman [phone] [facility] 2019-08-23 2019-08-23 [facility] [id number] Univers 13:57:56 14:34:00 Shane Thien 350.1.13.10 i ty of [place] 4[place]2.7.2.686 [place] [id number] [address] 2019-08-23 2019-08-23 Emergency X [facility] ERT [id number] Univers 13:57:56 13:57:56 SHANE deluca [facility] 2019-08-23 2019-08-23 Orders Doctor ANNA [id number] 00:00:00 00:00:00 Only Unassigned, DOMITILA 350.1.13.10 [facility] 4.2.7.2.686 [id number] 2019-08-23 2019-08-23 Orders Doctor ANNA [id number] Univers 00:00:00 00:00:00 Only Unassigned, DOMITILA 350.1.13.10 ity of [facility] [facility] 4.2.7.2.686 Primo as [phone] Medi tasha 009 Branch Results Test Description [...] (test code Positive Not Detected A = 94998-0) KETAN (test code = KETAN) ID NOW COVID-19 Assay is an isothermal nucleic acid amplification test intended for the qualitative detection of nucleic acid from SARS-CoV-2 viral RNA in nasopharyngeal (OCULAR CARE TECHNICIAN) specimens. It is used under Emergency Use [...] indicated. Lab Interpretation (test code = Abnormal 28904-4) [facility]- US ABDOMEN [id number] 01:30:00 Patient Name: [place] CERDA Unit No: [id number] EXAMS: CPT CODE: [id number] US ABDOMEN LTD 88134 PROCEDURE: RIGHT UPPER QUADRANT ULTRASOUND DATED 12/05/2018 [...] tDELLADMMOrig Print D/T: S: 12/05/2018 (0133) [facility] NAME: [place] CERDA Radiology Department PHYS: CIPRIANO Wild Tyson Barahona [address] : 1995 AGE: 23 SEX: F [place], [place] [address] LOC: YESSICA PHONE #: [phone] EXAM DATE: 12/04/2018 STATUS: REG ER FAX #: [phone] RAD NO: Page 1 Signed Report Patient Name: OH CERDA Unit No: [id number] EXAMS: CPT CODE: [id number] US ABDOMEN LTD 90503 <Continued> [facility] NAME: OH CERDA Radiology Department PHYS: Tyson Escobar [address] : 1995 AGE: 23 SEX: F [place], [place] [address] LOC: YESSICA PHONE #: [phone] EXAM DATE: 12/04/2018 STATUS: REG ER FAX #: [phone] RAD NO: Page 2 Signed Report- US PREG UT [id number] 01:24:00 Patient Name: [place] CERDA Unit No: [id number] EXAMS: CPT CODE: [id number] US PREG UT TRANSVAGINAL 92455 Early obstetrical ultrasound (less than 14 weeks) dated 12/04/2018. HISTORY: . Vaginal bleeding. A transabdominal pelvic ultrasound was performed with subsequent transvaginal imaging to better visualize the gestational sac and ovaries. [facility]. The uterus measures approximately 11.6 x 5.7 [...] Lux MD Technologist: Arline Bacon RDMS Probe: [id number] Trnscrbd D/ (0124) DylanDMKathleen Orig Print D/T: S: 12/05/2018 (0127) [facility] NAME: OH CERDA Radiology Department PHYS: Tyson Escobar [address] : 1995 AGE: 23 SEX: F [place] [address] LOC: Mk.ERS PHONE #: [phone] EXAM DATE: 12/05/2018 STATUS: REG ER FAX #: [phone] RAD NO: Page 1 Signed Report Patient Name: OH CERDA Unit No: [id number] EXAMS: CPT CODE: [id number] US PREG UT TRANSVAGINAL 64690 <Continued> [facility] NA ME: [place] CERDA Radiology Department PHYS: ANSELMOTyson Avila [address] : 1995 AGE: 23 SEX: F [place] [address] LOC: Mk.ERS PHONE #: [phone] EXAMDATE: 12/05/2018 STATUS: REG ER FAX #: [phone] RAD NO: Page 2 Signed Report- US PREG EVAL 1ST [id number] 01:24:00 Patient Name: [place] CERDA Unit No: [id number] EXAMS: CPT CODE: [id number] US PREG EVAL 1ST TRIMTR 75485 Early obstetrical ultrasound (less than 14 weeks) [...] Orig Print D/T: S: 12/05/2018 (0127) [facility] NAME: OH CERDA Radiology Department PHYS: Tyson Escobar [address] : 1995 AGE: 23 SEX: F [place] [address] LOC: AgustinERS PHONE #: [phone] EXAM DATE: 12/04/2018 STATUS: REG ER FAX #: [phone] RAD NO: Page 1 Signed Report Patient Name: [place] CERDA Unit No: [id number] EXAMS: CPT CODE: [id number] US PREG EVAL 1ST TRIMTR 65136 <Continued> [facility] NA ME: [place] CERDA Radiology Department PHYS: Tyson Escobar [address] : 1995 AGE: 23 SEX: F [place] [address] LOC: YESSICA PHONE #: [phone] EXAMDATE: 12/04/2018 STATUS: ROSALIE HULL FAX #: [phone] RAD NO: Page 2 Signed ReportCOMPREHENSIVE METABOLIC [id number] 23:35:00 Test Item Value Reference Range Interpretation [...] 71 units/L 46-116 N code = ALKP) [id number] 23:35:00 Test Item Value Reference Range Interpretation Comments LIPASE (test code = LIP) 127 units/L 73-393 N HCG [id number] 23:35:00 Test Item Value Reference Range Interpretation Comments HCG SERUM (test 90674 INTERPRETATI ON:VALUES BETWEEN code = HCG) 15-20 [...] SHOULD BE CONSI DERED NEGATIVE COMPREHENSIVE METABOLIC [id number] 23:11:00 Test Item Value Reference Range Interpretation [...] 46-116 N code = ALKP) CBC W/AUTO [id number] 22:58:00 Test Item Value Reference Range Interpretation [...] = PLTMR) UA RFLX MICR CULT IF [id number] 22:44:00 Test Item Value Reference Range Interpretation [...]
--- NOTE | 2021-03-27 22:03 | RAD REPORT ---
EXAM DESCRIPTION: US - Abdomen Exam Limited - 03/27/2021 9:54 pm CLINICAL HISTORY: ABD PAIN COMPARISON: Abdomen Exam Limited dated 03/20/2021; Cholangiogram dated 03/20/2021 FINDINGS: The gallbladder demonstrates gallbladder sludge and several gallstones. A small volume of pericholecystic fluid is possible. The common bile duct is normal measuring 4 mm. The liver demonstrates no findings of intrahepatic biliary dilatation. IMPRESSION: Cholelithiasis is noted. The gallbladder is distended with possible trace pericholecyst ic fluid. Early cholecystitis is a possibility. HIDA scan may be of value for further evaluation.
[2021-03-27 23:06] LABS: Absolute Lymphocytes (CBC) 1.8 K/uL (0.7-4.9); Hematocrit 39.9 % (36.0-45.0); MPV 8.3 fL (7.6-11.3); RBC Red Blood Cell Count 4.36 M/uL (3.86-4.86)
[2021-03-27] MEDS ORDERED: ONDANSETRON 4 MG/2 ML VIAL ONE (23:25)
[2021-03-27] MEDS ORDERED: NA CHLORIDE 0.9% 1,000 ML ONE (23:25)
[2021-03-27] MEDS ORDERED: MORPHINE 4 MG/ML SYR ONE (23:25)
[2021-03-27 23:27] LABS: ALT/SGPT 95 U/L (12-78); AST/SGOT 27 U/L (15-37); Albumin 3.4 g/dL (3.4-5.0); Alkaline Phosphatase 108 U/L (45-117); BUN Blood Urea Nitrogen 11 mg/dL (7-18); Bicarbonate 25 mmol/L (21-32); Bilirubin Direct < 0.1 mg/dL (0-0.2); Bilirubin Total 0.2 mg/dL (0.2-1.0); Glucose Level 93 mg/dL (74-106); Lipase 102 U/L (73-393); Potassium 3.5 mmol/L (3.5-5.1); Protein, Total 8.2 g/dL (6.4-8.2); Sodium Level 139 mmol/L (136-145)
--- NOTE | 2021-03-27 23:43 | EDPHYS ---
Physician Documentation [facility] Name: Philomena Smith Age: 25 yrs Sex: Female : 1995 Arrival Date: 03/27/2021 Time: 21:08 Bed 19 Private MD: ED Physician Ron Sandoval HPI: 03/27 23:52 This 25 yrs old Female presents to ER via Ambulatory with complaints of kb Abdominal Pain. 23:52 The patient presents with abdominal pain in the right upper quadrant. Onset: The kb symptoms/episode began/occurred last week. The symptoms do not radiate. Associated signs and symptoms: Pertinent positives: nausea, Pertinent negatives: fever, vomiting. The symptoms are described as constant. Modifying factors: The symptoms are alleviated by nothing, the symptoms are aggravated by nothing. Severity of pain: At its worst the pain was moderate severe in the emergency department the pain is unchanged. The patient has experienced a previous episode. The patient has been recently seen at the [facility] Emergency Department, last week, for similar complaints. Pt reports RUQ pain that started last week. Came here for eval and was sent home with instructions to follow up with general surgery. States she did not follow up because she thought the pain would get better, but it has only gotten worse. . DIRECTOR CLIENT: 03/28 00:14 LMP 03/07/2021 bb Historical: - Allergies: 03/27 21:58 No Known Allergies; ab2 - Home Meds: 21:58 None [Active]; ab2 - PMHx: 21:58 None; ab2 - Immunization history:: Adult Immunizations up to date, Client reports having NOT received the Covid vaccine. - Social history:: Smoking status: Patient denies any tobacco usage or history of. ROS: 23:51 Constitutional: Negative for fever, chills, and weight loss. kb 23:51 Abdomen/GI: Positive for abdominal pain, nausea, Negative for vomiting, diarrhea, constipation. 23:51 All other systems are negative. Exam: 23:51 Constitutional: This is a well developed, well nourished patient who is awake, alert, kb and in no acute distress. Head/Face: Normocephalic, atraumatic. ENT: Moist Mucous membranes Cardiovascular: Regular rate and rhythm with a normal S1 and S2. No gallops, murmurs, or rubs. No pulse deficits. Respiratory: Respirations even and unlabored. No increased work of breathing. Talking in full sentences Skin: Warm, dry with normal turgor. Normal color. MS/ Extremity: Pulses equal, no cyanosis. Neurovascular intact. Full, normal range of motion. Neuro: Awake and alert, GCS 15, oriented to person, place, time, and situation. Moves all extremities. Normal gait. Psych: Awake, alert, with orientation to person, place and time. Behavior, mood, and affect are within normal limits. 23:51 Abdomen/GI: Inspection: abdomen appears normal, Bowel sounds: normal, in all quadrants, Palpation: soft, in all quadrants, moderate abdominal tenderness, in the right upper quadrant. Vital Signs: 21:55 BP 136 / 106; ab2 21:55 Pulse 98; Resp 16; Temp 98.2(O); Pulse Ox 99% on R/A; Weight 61.23 kg; Height 5 ft. 1 ab2 in. (154.94 cm); Pain 8/10; 22:13 BP 108 / 89; Pulse 89; Resp 18 S; Temp 99.1(O); Pulse Ox 99% on R/A; Pain 10/10; bb 03/28 00:12 BP 131 / 76; Pulse 90; Resp 16 S; Pulse Ox 100% on R/A; bb 01:12 BP 120 / 84; Pulse 89; Resp 18; Pulse Ox 100% ; Pain 2/10; al4 03/27 21:55 Body Mass Index 25.51 (61.23 kg, 154.94 cm) ab2 MDM: 03/27 21:46 Patient medically screened. 23:43 Data reviewed: vital signs, nurses notes. Data interpreted: Pulse oximetry: on room air kb is 99 %. Interpretation: normal. Counseling: I had a detailed discussion with the patient and/or guardian regarding: the historical points, exam findings, and any diagnostic results supporting the discharge/admit diagnosis, lab results, radiology results, the need for further work-up and treatment in the hospital. Physician consultation: Chay Cespedes MD was contacted at 23:44, regarding admission, patient's condition, and will see patient in inpatient room. 23:51 Data reviewed: I have discussed the patient's presentation/case with the attending Emergency Department Physician;. 03/27 22:06 Order name: Basic Metabolic Panel; Complete Time: 23:31 kb 03/27 22:06 Order name: CBC with Diff; Complete Time: 23:14 kb 03/27 22:06 Order name: Hepatic Function; Complete Time: 23:31 kb 03/27 22:06 Order name: Lipase; Complete Time: 23:31 kb 03/27 23:20 Order name: COVID-19 SARS RT PCR (Document "Date of Onset" if Symptomatic); Complete kb Time: 00:24 03/28 00:31 Order name: Urine Dipstick-Ancillary; Complete Time: 00:33 ED[facility] 03/27 21:18 Order name: US Abdomen Limited; Complete Time: 22:05 rn 03/28 03:46 Order name: CBC with Automated Diff; Complete Time: 03:54 EDWV 03/28 05:28 Order name: Basic Metabolic Panel [facility] 03/28 05:28 Order name: Liver (Hepatic) Function [facility] 03/28 05:28 Order name: Lipase [facility] 03/28 06:46 Order name: Urine --Ancillary (enter results) [facility] 03/28 07:11 Order name: Urine Dipstick-Ancillary [facility] 03/28 08:26 Order name: Urine --Ancillary [facility] 03/27 22:06 Order name: IV Saline Lock; Complete Time: 22:56 kb 03/27 22:06 Order name: Labs collected and sent; Complete Time: 22:56 kb 03/27 23:20 Order name: Urine Dipstick-Ancillary (obtain specimen); Complete Time: 00:13 kb 03/27 23:20 Order name: Urine Test (obtain specimen); Complete Time: 00:13 kb Administered Medications: 23:39 Drug: morphine 4 mg Route: IVP; Site: left antecubital; 3 03/28 00:13 Follow up: Response: Pain is decreased; RASS: Alert and Calm (0) 03/27 23:39 Drug: Zofran (Ondansetron) 4 mg Route: IVP; Site: left antecubital; 3 03/28 00:13 Follow up: Response: No adverse reaction 03/27 23:39 Drug: NS 0.9% 1000 ml Route: IV; Rate: 1000 ml; Site: left antecubital; [facility] 03/28 01:16 Follow up: IV Status: Completed infusion; IV Intake: 1000ml al4 Disposition: 20:44 Co-signature as Attending Physician, Ron Sandoval MD I agree with the assessment and rn plan of care. Attestation: The patient's history, exam findings, diagnostics, and a summary of any interventions or procedures was reviewed in detail with Tg DAVIES. Disposition Summary: 03/27/21 23:42 Hospitalization Ordered Hospitalization Status: Observation kb Provider: Chay Cespedes Condition: Stable kb Problem: new kb Symptoms: are unchanged kb Bed/Room Type: Standard kb Location: [facility] ER HOLD(03/28/21 00:31) Room Assignment: ERHOLD-(03/28/21 00:31) cg Diagnosis - Acute cholecystitis kb Forms: - Medication Reconciliation Form kb - SBAR form kb Signatures: Dispatcher [employer] EDTg oLyd FNP-C FNP-Ckb Nieto, Roman, MD MD rn Garcia, Cindy RN RN Dl Diaz RN RN 3 Dixon Spencer ab2 Windy Chino RN, Alexis al4 Corrections: (The following items were deleted from the chart) 03/27 21:59 21:58 PSHx: section; ab2 ab2 03/28 00:31 03/27 23:42 Telemetry/MedSurg (observation) kb 03/28 00:31 03/27 23:42 kb
--- NOTE | 2021-03-27 23:43 | ER ---
Nurse's Notes [facility] Name: Philomena Smith Age: 25 yrs Sex: Female : 1995 Arrival Date: 03/27/2021 Time: 21:08 Bed 19 Private MD: Diagnosis: Acute cholecystitis Presentation: 03/27 21:55 Chief complaint: Patient states: Pt presents to ed with c/o RUQ abdominal pain. Pt ab2 states, "its my gallbladder." Pt c/o nausea. Coronavirus screen: Vaccine status: Patient reports being unvaccinated. Client denies travel out of the [place] in the last 14 days. nausea, Client presents with at least one sign or symptom that may indicate coronavirus-19. Standard/surgical mask placed on the client. Provider contacted for isolation considerations. Ebola Screen: Patient negative for fever greater than or equal to 101.5 degrees Fahrenheit, and additional compatible Ebola Virus Disease symptoms Patient denies exposure to infectious person. Patient denies travel to an Ebola-affected area in the 21 days before illness onset. No symptoms or risks identified at this time. Initial Sepsis Screen: Does the patient meet any 2 criteria? No. Patient's initial sepsis screen is negative. Does the patient have a suspected source of infection? No. Patient's initial sepsis screen is negative. Risk Assessment: Do you want to hurt yourself or someone else? Patient reports no desire to harm self or others. Onset of symptoms is unknown. 21:55 Method Of Arrival: Ambulatory ab2 21:55 Acuity: LUIS ANTONIO 3 ab2 Triage Assessment: 21:57 General: Appears in no apparent distress. uncomfortable, Behavior is calm, cooperative, ab2 appropriate for age. Pain: Complains of pain in right upper quadrant Pain currently is 8 out of 10 on a pain scale. EENT: No deficits noted. No signs and/or symptoms were reported regarding the EENT system. Neuro: Level of Consciousness is awake, alert, obeys commands, Oriented to person, place, time, situation, Appropriate for age Feather Cutting Machine Feeder are equal bilaterally Moves all extremities. Gait is steady. Cardiovascular: No deficits noted. Denies chest pain, shortness of breath, Heart tones S1 S2 present Patient's skin is warm and dry. Respiratory: No deficits noted. Airway is patent Breath sounds are clear bilaterally. Denies cough, shortness of breath. GI: Abdomen is round non-distended, Bowel sounds present X 4 quads. Abdomen is tender to palpation X 4 quads. Reports upper abdominal pain, nausea. : No deficits noted. No signs and/or symptoms were reported regarding the genitourinary system. Derm: No deficits noted. No signs and/or symptoms reported regarding the dermatologic system. Musculoskeletal: No deficits noted. No signs and/or symptoms reported regarding the musculoskeletal system. 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 - Social history:: Smoking status: Patient denies any tobacco usage or history of. Screenin:58 Abuse screen: Denies threats or abuse. Denies injuries from another. Nutritional ab2 screening: No deficits noted. Tuberculosis screening: No symptoms or risk factors identified. Fall Risk None identified. Assessment: 21:58 Reassessment: Patient appears in no apparent distress at this time. No changes from ab2 previously documented assessment. 22:56 Reassessment: Patient is alert, oriented x 3, equal unlabored respirations, skin bb warm/dry/pink. 03/28 00:11 Reassessment: Patient is alert, oriented x 3, equal unlabored respirations, skin bb warm/dry/pink. pt instructed on admit verbalized understanding of and agrees to plan of care. IV site intact, patent with fluids infusing Patient states feeling better. 01:11 General: Appears in no apparent distress. comfortable, Behavior is calm, cooperative, al4 appropriate for age. Pain: Complains of pain in right upper quadrant Pain currently is 3 out of 10 on a pain scale. Neuro: Level of Consciousness is awake, alert, obeys commands, Oriented to person, place, time, situation. Cardiovascular: Capillary refill < 3 seconds Patient's skin is warm and dry. Respiratory: Airway is patent is compromised Respiratory effort is even, unlabored, Respiratory pattern is regular, symmetrical. GI: Reports pain in RUQ. : No signs and/or symptoms were reported regarding the genitourinary system. EENT: No signs and/or symptoms were reported regarding the EENT system. Derm: No signs and/or symptoms reported regarding the dermatologic system. Musculoskeletal: No signs and/or symptoms reported regarding the musculoskeletal system. Vital Signs: 03/27 21:55 BP 136 / 106; ab2 21:55 Pulse 98; Resp 16; Temp 98.2(O); Pulse Ox 99% on R/A; Weight 61.23 kg; Height 5 ft. 1 ab2 in. (154.94 cm); Pain 8/10; 22:13 BP 108 / 89; Pulse 89; Resp 18 S; Temp 99.1(O); Pulse Ox 99% on R/A; Pain 10/10; bb 03/28 00:12 BP 131 / 76; Pulse 90; Resp 16 S; Pulse Ox 100% on R/A; bb 01:12 BP 120 / 84; Pulse 89; Resp 18; Pulse Ox 100% ; Pain 2/10; al4 03/27 21:55 Body Mass Index 25.51 (61.23 kg, 154.94 cm) ab2 ED Course: 03/27 21:08 Patient arrived in ED. wm 21:46 Tg Torres FNP-C [facility]. kb 21:46 Ron Sandoval MD is Attending Physician. kb 21:54 US Abdomen Limited In Process Unspecified. EDMS 21:55 Dixon Spencer is Primary Nurse. ab2 21:57 Triage completed. ab2 21:58 Arm band placed on right wrist. ab2 21:58 No provider procedures requiring assistance completed. ab2 21:59 Patient has correct armband on for positive identification. Bed in low position. Call ab2 light in reach. Side rails up X2. Adult w/ patient. 22:50 Initial lab(s) drawn, by me, sent to lab. Inserted saline lock: 20 gauge in left bb antecubital area, using aseptic technique. Blood collected. 23:42 Chay Cespedes MD is Hospitalizing Provider. kb Administered Medications: 23:39 Drug: morphine 4 mg Route: IVP; Site: left antecubital; ll3 03/28 00:13 Follow up: Response: Pain is decreased; RASS: Alert and Calm (0) 03/27 23:39 Drug: Zofran (Ondansetron) 4 mg Route: IVP; Site: left antecubital; ll3 03/28 00:13 Follow up: Response: No adverse reaction bb 03/27 23:39 Drug: NS 0.9% 1000 ml Route: IV; Rate: 1000 ml; Site: left antecubital; ll3 03/28 01:16 Follow up: IV Status: Completed infusion; IV Intake: 1000ml al4 Intake: 01:16 IV: 1000ml; Total: 1000ml. al4 Outcome: 03/27 23:42 Decision to Hospitalize by Provider. kb 03/28 00:14 Instructed on the need for admit. bb 09:25 Patient left the ED. ss Signatures: Dispatcher [employer] EDME Tg Torres, SWAGING MACHINE ADJUSTER-C SWAGING MACHINE ADJUSTER-Windy Dalal, RN RN bb Bhakti Grimm RN RN ss Comfort Méndez Lynsea, RN RN ll3 Dixon Jose al4 Dixon Spencer ab2 Corrections: (The following items were deleted from the chart) 03/27 21:59 21:58 PSHx: section; ab2 ab2
[2021-03-28 00:30] LABS: Urine Blood Trace-intact (Negative); Urine Glucose Negative (Negative); Urine Protein Negative (Negative); Urine Specific Gravity >=1.030 (1.005-1.030)
[2021-03-28] MEDS ORDERED: MORPHINE 4 MG/ML SYR IV PRN (01:09)
[2021-03-28] MEDS ORDERED: ACETAMINOPHEN 500 MG TAB PO PRN (01:09)
[2021-03-28] MEDS ORDERED: ONDANSETRON 4 MG/2 ML VIAL IV PRN ×2 (01:09→11:28)
[2021-03-28] MEDS ORDERED: NA CHLORIDE 0.9% 1,000 ML ONE (01:20)
[2021-03-28] MEDS ORDERED: CEFOXITIN SODIUM 1 GM/VIAL ONE ×2 (01:20→08:05)
[2021-03-28] MEDS ORDERED: NA CHLORIDE 0.9% 50 ML ONE ×2 (01:21→14:06)
[2021-03-28] MEDS: NA CHLORIDE 0.9% 1,000 ML IV SCH ×4 (01:30→23:23)
[2021-03-28] MEDS: CEFOXITIN 1 GM in NA CHLORIDE 0.9% 50 ML IVPB SCH ×4 (01:30→17:35)
[2021-03-28 03:25] LABS: Absolute Lymphocytes (CBC) 2.1 K/uL (0.7-4.9); Hematocrit 37.7 % (36.0-45.0); Lymphocytes % 22.5 % (15.3-44.8); MPV 8.7 fL (7.6-11.3); RBC Red Blood Cell Count 4.11 M/uL (3.86-4.86)
[2021-03-28 05:24] LABS: ALT/SGPT 85 U/L (12-78); AST/SGOT 28 U/L (15-37); Albumin 3.1 g/dL (3.4-5.0); Alkaline Phosphatase 94 U/L (45-117); BUN Blood Urea Nitrogen 8 mg/dL (7-18); Bicarbonate 24 mmol/L (21-32); Bilirubin Direct < 0.1 mg/dL (0-0.2); Bilirubin Total 0.2 mg/dL (0.2-1.0); Glucose Level 80 mg/dL (74-106); Lipase 193 U/L (73-393); Potassium 3.8 mmol/L (3.5-5.1); Protein, Total 7.1 g/dL (6.4-8.2); Sodium Level 140 mmol/L (136-145)
[2021-03-28 07:11] LABS: Urine Blood Negative (Negative); Urine Glucose Negative (Negative); Urine Protein Negative (Negative); Urine Specific Gravity >=1.030 (1.005-1.030); Urine pH 5.5 (5.0-7.0)
[2021-03-28] MEDS ORDERED: NA CHLORIDE 0.9% 100 ML ONE (08:05)
[2021-03-28 08:26] LABS: Urine Specific Gravity/Preg >1.030 (1.005-1.030)
--- NOTE | 2021-03-28 08:48 | PREOPHP ---
Date of Admission: 03/27/2021 Chief Complaint: Abdominal pain. History Of Present Illness: The patient is a 25-year-old female, who last couple of weeks had recurr ent episode of biliary colic associated with right upper quadrant epigastric abdominal pain and nause a. She has been in the ER twice and this is her second visit within the last week. She has a known history of gallbladder. She was admitted as she failed outpatient treatment as well as did not follo w up as she was supposed to. She is awake and alert. Complaining of pain associated with nausea. N o diarrhea or constipation. No blood in her stool. No dysuria or hematuria. No sore throat, runny nose, cough, headaches, dizziness. No chest pain. No fever or chills. Review of Systems: Otherwise unremarkable. Past Medical History: Negative. Past Surgical History: . Allergies: NO ALLERGIES. Social History: The patient does not smoke. Drinks occasionally. Family History: Noncontributory. Physical Examination: Vital signs: Her vitals are stable. She is currently afebrile. General: She is awake, alert, and oriented x3. Head and Neck: Cranial 2 through 12 grossly within normal limits. No neck masses. No JVD. Throat clear. Neck is supple. No evidence of icterus. Chest: Clear. Heart: S1, S2. Abdomen: Soft, nondistended. Positive bowel sounds. Positive right upper quadrant tenderness. Min imal rebound. No rigidity or guarding. Extremity: Adequately perfused. Nontender. Neuro: Nonfocal. Laboratory Data: White count is 9.3. Chemistry reviewed. Her ALT is slightly elevated at 85. Lipa se is normal. Ultrasound of the abdomen reviewed, shows cholelithiasis, gallbladder is distended and there is a trace pericholecystic fluid. Assessment: A 25-year-old female with likely acute cholecystitis and cholelithiasis. Plan: Admit, n.p.o., IV fluid, IV antibiotic, to the OR for lap choly possible open. The patient un derstands the risks, benefits, and alternatives and agrees to procedure. /MODL Voice ID: [id number]
[2021-03-28] MEDS ORDERED: Ringers Lactate 1,000 ML IV ONE (09:37)
[2021-03-28] MEDS ORDERED: propofoL 200 MG/20 ML VIAL IV ONE (09:45)
[2021-03-28] MEDS ORDERED: FENTANYL CITR 250 MCG/5 ML ONE (09:45)
[2021-03-28] MEDS ORDERED: MIDAZOLAM HCL 2 MG/2 ML INJ ONE (09:45)
[2021-03-28] MEDS ORDERED: GLYCOPYRROLATE 0.2 MG/ML SYR ONE (09:45)
[2021-03-28] MEDS ORDERED: ONDANSETRON 4 MG/2 ML VIAL ONE ×2 (09:48→11:49)
[2021-03-28] MEDS ORDERED: ROCURONIUM 50 MG/5 ML VIAL IV ONE (09:48)
[2021-03-28] MEDS ORDERED: dexAMETHasone 10 MG/ML VIAL ONE (09:52)
[2021-03-28] MEDS ORDERED: LIDOCAINE 2% MPF 5 ML VIAL ONE (09:52)
[2021-03-28] MEDS ORDERED: CEFOXITIN/NS 1gm 1 GM/50 ML BAG ONE (10:01)
[2021-03-28] MEDS ORDERED: SCOPOLAMINE HYDROBROMIDE PATCH TD ONE (10:05)
[2021-03-28] MEDS ORDERED: EPHEDRINE SULF 50 MG/ML VIAL ONE (10:53)
[2021-03-28] MEDS ORDERED: Phenylephrine HCl 10 MG/ML 1 ML VIAL ONE (11:09)
[2021-03-28] MEDS: Ringers Lactate 1,000 ML IV ONE ×2 (11:15→11:32)
--- NOTE | 2021-03-28 11:19 | P.OP ---
Reed Or Wind Instrument Repairer: Carlos GROSS Preoperative diagnosis: Acute Cholecystitis and Cholelithiasis Postoperative diagnosis: same Primary procedure: Lap Juliet Anesthesia: General Estimated blood loss: min Specimen: GB Findings: as above Complications: None Transferred to: Recovery Room Condition: Good
[2021-03-28] MEDS ORDERED: HYDROCODONE/APAP 7.5/325 MG TAB PO PRN (11:28)
[2021-03-28] MEDS ORDERED: HYDROMORPHONE HCL 1 MG/ML INJ IV PRN (11:28)
[2021-03-28] MEDS: HYDROMORPHONE HCL 1 MG/ML INJ ONE ×2 (11:57→12:02)
--- NOTE | 2021-03-28 13:03 | OP ---
Date of Procedure: 03/28/2021 Surgeon: Chay Cespedes MD Health Commissioner: GINNY Chin. Preoperative Diagnoses: Acute cholecystitis and cholelithiasis. Postoperative Diagnosis: Acute cholecystitis and cholelithiasis. Procedure: Laparoscopic cholecystectomy. Estimated Blood Loss: Minimal. Specimen: Gallbladder. Finding: As above. Anesthesia: General. Complications: None. Disposition: The patient tolerated the procedure in stable condition and taken to Recovery in good g eneral condition. Procedure In Detail: The patient was brought to the OR and placed in supine position. General anest hesia begun. The patient was prepped and draped in the sterile fashion. Marcaine 0.5% was infiltrat ed locally. A 15-blade was used to make a 1 cm supraumbilical midline incision. Subcutaneous tissue divided. Fascia identified and divided. Aponeurosis identified and divided. A #1 Vicryl stay sutu re was placed. Peritoneal cavity entered with sharp and blunt dissection. A 12 mm trocar placed int o the peritoneal cavity under direct vision. Pneumoperitoneum was established. Three 5 mm trocars p laced, 1 in the epigastrium just to the right of midline and 2 in the right subcostal region. Laparo scopy revealed intrahepatic acutely inflamed gallbladder. Fundus retracted superiorly. Infundibulum was identified and retracted inferolaterally. Cystic duct and cystic artery were clearly identified with blunt dissection. Clips were placed. Both structures were divided. Cautery was used to remov e the gallbladder from the liver bed. Bleeding on the liver bed controlled with cautery. Gallbladde r was retrieved through the umbilicus via an EndoCatch bag. Right upper quadrant was irrigated. Eff luent was clear. No evidence of bleeding or bile leakage appreciated. Subsequently, all trocars wer e removed under direct vision. Stay sutures were tied to each other to reapproximate the fascial def ect. Subcutaneous wounds irrigated. Bleeding controlled with cautery. A 3-0 chromic used to approx imate subcutaneous tissue and denise were used to close the skin. Sterile dressing applied. The pa tient was awakened and taken to Recovery in good general condition. /MODL Voice ID: [id number] Report ID: [id number]
[2021-03-28 13:52] VITALS: BMI 34.7
[2021-03-29] MEDS: CEFOXITIN 1 GM in NA CHLORIDE 0.9% 50 ML IVPB SCH ×2 (01:03→08:00)
[2021-03-29 04:52] LABS: Absolute Lymphocytes (CBC) 0.9 K/uL (0.7-4.9); Hematocrit 35.2 % (36.0-45.0); MPV 8.2 fL (7.6-11.3); RBC Red Blood Cell Count 3.87 M/uL (3.86-4.86)
[2021-03-29 05:00] LABS: Potassium 3.9 mmol/L (3.5-5.1)
[2021-03-29 05:22] LABS: Blood Morphology Comment NOT SEEN (NOT SEEN); Platelet Estimate ADEQ
[2021-03-29] MEDS: NA CHLORIDE 0.9% 1,000 ML IV SCH (08:02)
[2021-03-29 09:02] VITALS: O2SAT 100
[2021-03-29 09:40] VITALS: BP 98/54; TEMP 98.7
--- NOTE | 2021-03-29 12:00 | DS ---
Date of Discharge: 03/29/2021 Admitting Diagnosis: Acute cholecystitis and cholelithiasis. Discharge Diagnosis: Acute cholecystitis and cholelithiasis. Procedure Performed: Laparoscopic cholecystectomy. Hospital Course: The patient is a 25-year-old female, underwent the aforementioned procedure. Posto peratively, she is tolerating diet, ambulating, pain control with p.o. pain medications, afebrile. T herefore, the patient will be discharged to home. Disposition: Home. Condition: Stable. Discharge Instructions: Resume home medications and diet. Activity as tolerated. No heavy lifting. Remove outer dressing in the a.m. Shower. Keep wound clean and dry. Follow up in my office in a week. Call for appointment. KARMA/MEERA Voice ID: [id number] Report ID: [id number]
== END 2021-03-29 10:17 | disposition home or self-care (01) | DRG 419 ==
LOC: ER 20:59 → ERHOLD 23:47 → 2ND 03-28 12:22 → OBSVTOIN 03-28 21:43
PROVIDERS: ADMIT Surgery; ATTEND Surgery
PROC: 0FT44ZZ Resection of Gallbladder, Percutaneous Endoscopic Approach (ICD-10-PCS; principal; 2021-03-28 12:00)
DX: K80.00 Calculus of gallbladder with acute cholecystitis without obstruction (principal); Z20.822 Contact with and (suspected) exposure to COVID-19
CPT/HCPCS: 36415; 76705; 80048; 80076; 81003; 81025; 83690; 85025; 88304; 96361; 96374; 96375; 99284; G0378; J0694; J1100; J1170; J2250; J2370; J2405; J2704; J3010; J7030; J7120; U0003

== ENCOUNTER 2021-05-03 14:37 | Emergency (ER) | payer SELFPAY ==
--- OUTSIDE RECORDS SUMMARY | 2021-05-03 14:42 | XMS REPORT | Continuity of Care Document ---
:1995 Author Organization [facility] t Address [address] [place] [address] Care Team Providers Name Role Phone Pcp, [...] Univers pain pain 8-27 ity of 00:00: [address] Missed ab Missed ab Disease Active Uni vers 8-27 ity of 00:00: [address] Blighted Blighted Disease Active Unive rs ovum ovum 8-20 ity of 00:00: [address] Uterine Uterine Disease Active 2014-03 Univers [...] Allergie 04 [facility] s 00:00: [facility] 00 [facility] NO KNOWN Drug Active Univers ALLERGIE Class ity of S [facility] Social History Social Habit Start Date Stop Date Quantity Comments Source Exposure to Not sure [facility] SARS-CoV-2 (event) Medica l Branch Alcohol intake 2019-08-23 2019-08-23 0 /d [facility] 00:00:00 00:00:00 [facility] Tobacco use and 2014-12-13 2014-12-13 Never used [facility] exposure 00:00:00 00:00:00 [facility] Sex [birth year] [facility] 00:00:00 00:00:00 [facility] Smoking Status Start Date Stop Date Source Never smoker [facility] Medications Ordered Filled Start Stop Current Ordering Indication Dosage Frequency Signature Comments Components Source Medication Medication Date Date Medication? Clinician (SIG) Name Name ibuprofen 2020-03 Yes [id number] 600mg Take 1 Univers 600 mg 2- 05 tablet by ity of tablet 00:00: mouth [place] 00 every 6 Medical (six) Branch hours as needed for Pain (scale 4-6). benzonatate 2020-03 Yes [id number] 100mg Take 1 Univers 100 mg 2- 05 capsule by ity of capsule 00:00: mouth 3 [place] 00 (three) Medical times Branch daily as needed for Cough. amoxicillin 2020-03- Yes [id number] 500mg Take 1 Univers 500 mg 2-24 03-02 05 capsule by ity of capsule 00:00: 05:59 mouth 3 [place] 00 :00 (three) Medical times Branch daily for 10 days. ibuprofen 2020-0 Yes [id number] 600mg Take 1 Univers 600 mg 11-06 [id number] tablet by ity of tablet 00:00: mouth [place] 00 every 6 Medical (six) Branch hours as needed for Pain (scale 4-6). ibuprofen 2020-0 Yes [id number] 600mg Take 1 Univers 600 mg 11-06 [id number] tablet by ity of tablet 00:00: mouth [place] 00 every 6 Medical (six) Branch hours as needed for Pain (scale 4-6). ibuprofen 2019-0 2020- No [id number] 600mg Take 1 Univers 600 mg 11-06- [id number] tablet by ity o f tablet 00:00: [...] at Branch 1415, ALISON albuterol 2020-0 Yes [id number] 2{puff} Inhale 2 Univers 90 6-22 Puffs ity of mcg/actuati 00:00: every 4 [place] as on inhaler 00 (four) Medical hours as Branch needed for Wheezing or Shortness of Breath. proMETHazin 2020-0 Yes [id number] 25mg Take 1 Univers e 25 mg 6-22 tablet by ity of tablet 00:00: mouth [place] 00 every 6 Medical (six) Branch hours as needed for Nausea and Vomiting (N/V). albuterol 2020-0 Yes [id number] 2{puff} Inhale 2 Univers 90 6-22 Puffs ity of mcg/actuati 00:00: every 4 Prim[place] as on inhaler 00 (four) Medical hours as Branch needed for Wheezing or Shortness of Breath. proMETHazin 2020-0 Yes [id number] 25mg Take 1 Univers e 25 mg 6-22 tablet by ity of tablet 00:00: mouth [place] 00 every 6 Medical (six) Branch hours as needed for Nausea and Vomiting (N/V). albuterol 2020-0 Yes [id number] 2{puff} Inhale 2 Univers 90 6-22 Puffs ity of mcg/actuati 00:00: every 4 Prim[place] as on inhaler 00 (four) Medical hours as Branch needed for Wheezing or Shortness of Breath. proMETHazin 2019-0 Yes [id number] 25mg Take 1 Univers e 25 mg 6-22 tablet by ity of tablet 00:00: mouth [place] 00 every 6 Medical (six) Branch hours as needed for Nausea and Vomiting (N/V). albuterol 2020-0 Yes [id number] 2{puff} Inhale 2 Univers 90 6-22 Puffs ity of mcg/actuati 00:00: every 4 Prim[place] as on inhaler 00 (four) Medical hours as Branch needed for Wheezing or Shortness of Breath. proMETHazin 2019-0 Yes [id number] 25mg Take 1 Univers e 25 mg 6-22 tablet by ity of tablet 00:00: mouth [place] 00 every 6 Medical (six) Branch hours as needed for Nausea and Vomiting (N/V). No known No Univers medications [facility] Vital Signs Vital Name Observation Time Observation Value Comments Source Systolic blood 2021-02-21 17:03:00 135 mm[Hg] [facility] Diastolic blood 2021-02-21 17:03:00 80 mm[Hg] [facility] Heart rate 2021-02-21 17:03:00 100 /min [facility] Body temperature 2021-02-21 17:03:00 37.5 Ginny [facility] Respiratory rate 2021-02-21 17:03:00 18 /min [facility] Body height 2021-02-21 17:03:00 152.4 cm [facility] Body weight 2021-02-21 17:03:00 83.008 kg [facility] BMI 2021-02-21 17:03:00 35.74 kg/m2 [facility] Oxygen saturation in 2021-02-21 17:03:00 99 /min University of Arterial blood by [place] Medi tasha Pulse oximetry Branch Systolic blood 2019-11-07 23:56:00 123 mm[Hg] Univer sity of pressure [place] [facility] Diastolic blood 2019-11-07 23:56:00 78 mm[Hg] Unive rsity of pressure [place] [facility] Heart rate 2019-11-07 23:56:00 95 /min Universi ty of [place] [facility] Body temperature 2019-11-07 23:56:00 37.33 Ginny Univ ersity of [place] [facility] Respiratory rate 2019-11-07 23:56:00 18 /min Univ ersity of [place] [facility] Body weight 2019-11-07 23:56:00 74.844 kg Universi ty of [place] [facility] BMI 2019-11-07 23:56:00 32.22 kg/m2 Universi ty of [place] [facility] Oxygen saturation in 2019-11-07 23:56:00 99 /min University of Arterial blood by [facility] Pulse oximetry Branch Systolic blood 2019-11-07 23:56:00 123 mm[Hg] Univer sity of pressure [place] [facility] Diastolic blood 2019-11-07 23:56:00 78 mm[Hg] Unive rsity of pressure [place] [facility] Heart rate 2019-11-07 23:56:00 95 /min Universi ty of [place] [facility] Body temperature 2019-11-07 23:56:00 37.33 Ginny Univ ersity of [place] [facility] Respiratory rate 2019-11-07 23:56:00 18 /min Univ ersity of [place] [facility] Body weight 2019-11-07 23:56:00 74.844 kg Universi ty of [place] [facility] BMI 2019-11-07 23:56:00 32.22 kg/m2 Universi ty of [place] [facility] Oxygen saturation in 2019-11-07 23:56:00 99 /min University of Arterial blood by [facility] Pulse oximetry Branch Body temperature 2019-08-23 19:21:46 37.39 Ginny Univ ersity of [place] [facility] Systolic blood 2019-08-23 19:21:16 120 mm[Hg] Univer sity of pressure [place] [facility] Diastolic blood 2019-08-23 19:21:16 84 mm[Hg] Unive rsity of pressure [place] [facility] Heart rate 2019-08-23 19:21:16 100 /min Universi ty of [place] [facility] Respiratory rate 2019-08-23 19:21:16 18 /min Univ ersity of [place] [facility] [place] Oxygen saturation in 2019-08-23 19:21:16 99 /min University of Arterial blood by [facility] Pulse oximetry Branch Body height 2019-08-23 18:03:00 152.4 cm Universi ty of [place] [facility] [place] Body weight 2019-08-23 18:03:00 72.576 kg Universi ty of [facility] BMI 2019-08-23 18:03:00 31.25 kg/m2 Universi ty of [facility] Body temperature 2019-08-23 19:21:46 37.39 Ginny Univ ersity of [facility] Branch Systolic blood 2019-08-23 19:21:16 120 mm[Hg] Univer sity of pressure [facility] Diastolic blood 2019-08-23 19:21:16 84 mm[Hg] Unive rsity of pressure [facility] Heart rate 2019-08-23 19:21:16 100 /min Universi ty of [facility] Respiratory rate 2019-08-23 19:21:16 18 /min Univ ersity of [facility] Oxygen saturation in 2019-08-23 19:21:16 99 /min University of Arterial blood by [facility] Pulse oximetry Branch Body height 2019-08-23 18:03:00 152.4 cm Universi ty of [place] [facility] [place] Body weight 2019-08-23 18:03:00 72.576 kg Universi ty of [place] [facility] [place] BMI 2019-08-23 18:03:00 31.25 [facility]/m2 [facility] [place] [facility] Procedures Procedure Date / Time Performed Performing Clinician Reginaldo e RAPID INFLUENZA A/B 2021-02-21 17:51:00 [facility] COVID-19 (ID NOW RAPID 2021-02-21 17:51:00 Raquel Hopper [facility] TESTING) Medical Branch NOTICE OF PRIVACY 2021-02-21 16:54:53 Doctor Unassigned, No [facility] [place] [facility] Name Medical Branch CONSENT/REFUSAL FOR 2021-02-21 16:54:41 Doctor Unassigned, No [facility] AND Name Medical Branch TREATMENT XR FOOT 3+ VW RIGHT 2019-11-08 00:32:04 Jayce Han [facility] NOTICE OF PRIVACY 2019-11-07 23:47:07 Doctor Unassigned, No [facility] Name Medical Branch CONSENT/REFUSAL FOR 2019-11-07 23:46:53 Doctor Unassigned, No Un iversity of [place] DIAGNOSIS AND Name Medical Branch TREATMENT ASSIGNMENT OF BENEFITS 2019-08-23 19:29:40 Doctor Unassigned, No [facility] Name Medical Branch COVID-19 (ID NOW RAPID 2019-08-23 18:11:00 Jaswinder Patel [facility] TESTING) Medical Branch NOTICE OF PRIVACY 2019-08-23 17:51:36 Doctor Unassigned, No [facility] [place] [facility] Name Medical Branch CONSENT/REFUSAL FOR 2019-08-23 17:51:23 Doctor Unassigned, No Un iversity of [place] DIAGNOSIS AND Name Medical Branch TREATMENT Encounters Start End Encounter Admission Attending Care Care Encounter Source Date/Time Date/Time Type Type Clinicians Facility Department ID 2021-02-21 2021-02-21 Emergency X Raquel HOPPER [facility] ERT [id number] Univers 11:04:00 13:25:00 ity of [facility] 2021-02-21 2021-02-21 Emergency Raquel Hopper [facility] [id number] Univers 11:04:00 13:25:00 Marian HALL 350.1.13.10 i ty [facility] 4.2.7.2.686 [facility] [id number] [address] 2019-11-07 2019-11-07 Emergency Obdulia [facility] [id number] 18:59:00 20:52:00 Jayce Hall 350.1.13.10 [place] [address] [place] [address] [id number] [facility] 2019-11-07 2019-11-07 [facility] [id number] Univers 18:59:00 20:52:00 Jayce Hall 350.1.13.10 i ty of [place] 4.[address].7.[address] [place] [id number] 2019-11-07 2019-11-07 Emergency X [facility]EW [facility] ERT [id number] Univers 18:59:00 18:59:00 JAYCE deluca of [facility] 2019-08-24 2019-08-24 Telephone Pcp, [facility] [id number] 00:00:00 00:00:00 Patient Braymer [id number] Does Not [place] 4.2.7.2.686 Have A [place] [id number] 2019-08-24 2019-08-24 Telephone Pcp, [facility] [id number] Univers 00:00:00 00:00:00 Patient Braymer 350.1.13.10 i ty of Does Not [place] 4.2.7.2.686 [place] as Have A [place] [id number] [address] 2019-08-23 2019-08-23 [facility] [id number] 13:57:56 14:34:00 Shanekrishan Hall 350.1.13.10 [place] 4.2.7.2.686 [place] [id number] [facility] 2019-08-23 2019-08-23 [facility] [id number] Univers 13:57:56 14:34:00 Shane Thien 350.1.13.10 i ty of [place] 4[place]2.7.2.686 [place] [id number] [address] 2019-08-23 2019-08-[address] [facility] ERT [id number] Univers 13:57:56 13:57:56 SHANE deluca [facility] [place] [facility] 2019-08-23 2019-08-23 Orders Doctor ANNA [id number] 00:00:00 00:00:00 Only Unassigned, DOMITILA 350.1.13.10 [facility] 4.2.7.2.686 [id number] 2019-08-23 2019-08-23 Orders Doctor ANNA [id number] Univers 00:00:00 00:00:00 Only Unassigned, DOMITILA 350.1.13.10 ity of [facility] 4.2.7.2.686 Prim[place] as [id number] Medi tasha 009 Branch Results Test Description [...] (test code Positive Not Detected A = 55000-9) KETAN (test code = KETAN) ID NOW COVID-19 Assay is an isothermal nucleic acid amplification test intended for the qualitative detection of nucleic acid from SARS-CoV-2 viral RNA in nasopharyngeal ([employer]) specimens. It is used under Emergency Use [...] indicated. Lab Interpretation (test code = Abnormal 31080-3) [facility]- US ABDOMEN [id number] 01:30:00 Patient Name: [place] CERDA Unit No: [id number] EXAMS: CPT CODE: [id number] US ABDOMEN LTD 73233 PROCEDURE: RIGHT UPPER QUADRANT ULTRASOUND DATED 12/05/2018 [...] S: 12/05/2018 (0133) The [facility] NAME: [place] CERDA Radiology Department PHYS: CIPRIANO Wild Tyson Barahona [address] : 1995 AGE: 23 SEX: F [place], [place] [address] LOC: YESSICA PHONE #: [phone] EXAM DATE: 12/04/2018 STATUS: REG ER FAX #: [phone] RAD NO: Page 1 Signed Report Patient Name: [place] CERDA Unit No: [id number] EXAMS: CPT CODE: [id number] US ABDOMEN LTD 05397 <Continued> The [facility] NAME: [place] CERDA Radiology Department PHYS: Tyson Escobar [address] : 1995 AGE: 23 SEX: F [place], [place] [address] LOC: YESSICA PHONE #: [phone] EXAM DATE: 12/04/2018 STATUS: REG ER FAX #: [phone] RAD NO: Page 2 Signed Report- US PREG UT [id number] 01:24:00 Patient Name: [place] CERDA Unit No: [id number] EXAMS: CPT CODE: [id number] US PREG UT TRANSVAGINAL 98099 Early obstetrical ultrasound (less than 14 weeks) dated 12/04/2018. HISTORY: . Vaginal bleeding. A transabdominal pelvic ultrasound was performed with subsequent transvaginal imaging to better visualize the gestational sac and ovaries. [facility] The uterus measures approximately 11.6 x 5.7 [...] Lux MD Technologist: Arline Bacon RDMS Probe: [id number] Trnscrbd D/ (0124) DylanDMKathleen Orig Print D/T: S: 12/05/2018 (0127) The [facility] NAME: [place] CERDA Radiology Department PHYS: Tyson Escobar [address] : 1995 AGE: 23 SEX: F [place] [address] LOC: Mk.ERS PHONE #: [phone] EXAM DATE: 12/05/2018 STATUS: REG ER FAX #: [phone] RAD NO: Page 1 Signed Report Patient Name: [place] CERDA Unit No: [id number] EXAMS: CPT CODE: [id number] US PREG UT TRANSVAGINAL 49905 <Continued> The [facility] NA ME: [place] CERDA Radiology Department PHYS: ANSELMOTyson Avila [address] : 1995 AGE: 23 SEX: F [place] [address] LOC: Mk.ERS PHONE #: [phone] EXAMDATE: 12/05/2018 STATUS: REG ER FAX #: [phone] RAD NO: Page 2 Signed Report- US PREG EVAL 1ST [id number] 01:24:00 Patient Name: [place] CERDA Unit No: [id number] EXAMS: CPT CODE: [id number] US PREG EVAL 1ST TRIMTR 29628 Early obstetrical ultrasound (less than 14 weeks) [...] S: 12/05/2018 (0127) The [facility] NAME: [place] CERDA Radiology Department PHYS: Tyson Escobar [address] : 1995 AGE: 23 SEX: F [place] [address] LOC: AgustinERS PHONE #: [phone] EXAM DATE: 12/04/2018 STATUS: REG ER FAX #: [phone] RAD NO: Page 1 Signed Report Patient Name: [place] CERDA Unit No: [id number] EXAMS: CPT CODE: [id number] US PREG EVAL 1ST TRIMTR 48017 <Continued> The [facility] NA ME: [place] CERDA Radiology Department PHYS: Tyson Escobar [address] : 1995 AGE: 23 SEX: F [place] [address] LOC: YESSICA PHONE #: [phone] EXAMDATE: 12/04/2018 STATUS: ROSALIE HULL FAX #: [phone] RAD NO: Page 2 Signed ReportCOMPREHENSIVE METABOLIC [id number] 23:35:00 Test Item Value Reference Range Interpretation [...] 71 units/L 46-116 N code = ALKP) [id number] 23:35:00 Test Item Value Reference Range Interpretation Comments LIPASE (test code = LIP) 127 units/L 73-393 N HCG [id number] 23:35:00 Test Item Value Reference Range Interpretation Comments HCG SERUM (test 95916 INTERPRETATI ON:VALUES BETWEEN code = HCG) 15-20 [...] SHOULD BE CONSI DERED NEGATIVE COMPREHENSIVE METABOLIC [id number] 23:11:00 Test Item Value Reference Range Interpretation [...] 46-116 N code = ALKP) CBC W/AUTO [id number] 22:58:00 Test Item Value Reference Range Interpretation [...] = PLTMR) UA RFLX MICR CULT IF [id number] 22:44:00 Test Item Value Reference Range Interpretation [...]
[2021-05-03 15:29] LABS: Urine Blood Negative (Negative); Urine Glucose Negative (Negative); Urine Protein Trace (Negative); Urine pH 7.5 (5.0-7.0)
[2021-05-03 15:30] LABS: Absolute Lymphocytes (CBC) 1.3 K/uL (0.7-4.9); Hematocrit 36.2 % (36.0-45.0); Lymphocytes % 10.7 % (15.3-44.8); MPV 7.7 fL (7.6-11.3); RBC Red Blood Cell Count 4.03 M/uL (3.86-4.86)
[2021-05-03] MEDS ORDERED: FAMOTIDINE 20 MG/2 ML VIAL IV ONE (15:33)
[2021-05-03] MEDS ORDERED: ONDANSETRON 4 MG/2 ML VIAL ONE (15:33)
[2021-05-03] MEDS ORDERED: NA CHLORIDE 0.9% 1,000 ML ONE (15:33)
[2021-05-03 15:56] LABS: ALT/SGPT 49 U/L (12-78); AST/SGOT 23 U/L (15-37); Albumin 3.6 g/dL (3.4-5.0); Alkaline Phosphatase 89 U/L (45-117); BUN Blood Urea Nitrogen 8 mg/dL (7-18); Bicarbonate 26 mmol/L (21-32); Bilirubin Total 0.3 mg/dL (0.2-1.0); Glucose Level 88 mg/dL (74-106); Lipase 73 U/L (73-393); Potassium 3.7 mmol/L (3.5-5.1); Sodium Level 139 mmol/L (136-145)
[2021-05-03 15:58] LABS: Bilirubin Direct < 0.1 mg/dL (0-0.2)
--- NOTE | 2021-05-03 17:22 | RAD REPORT ---
EXAM DESCRIPTION: RAD - Chest Single View - 05/03/2021 4:03 pm CLINICAL HISTORY: PALPITATIONS COMPARISON: Two view chest June 2018 TECHNIQUE: AP portable chest image was obtained 05/03/2021 4:03 pm . FINDINGS: No peripheral mass consolidation. Low lung volumes, overlying soft tissues and under penet rated technique accentuate lung base markings. No significant infiltrate or edema finding seen. Failu re and volume overload not suspected. Heart and vasculature are normal. No measurable pleural effusion and no pneumothorax. No acute bony abnormality seen. No acute aortic findings suspected. IMPRESSION: No acute cardiopulmonary process.
--- NOTE | 2021-05-03 17:30 | RAD REPORT ---
EXAM DESCRIPTION: CT - Chest For Pe Angio - 05/03/2021 5:14 pm CLINICAL HISTORY: CHEST PAIN COMPARISON: No comparisons TECHNIQUE: Dynamically enhanced 3 mm thick images of the chest were obtained during administration o f approximately 150mL Isovue 370 IV contrast. Coronal and oblique MIP reconstruction images were gene rated and reviewed. Exam utilizes a protocol to evaluate the pulmonary arterial tree. All CT scans are performed using dose optimization technique as appropriate and may include automated exposure control or mA/KV adjustment according to patient size. FINDINGS: No pulmonary emboli are identified. The aorta as imaged shows no acute or suspicious finding. No pericardial thickening or effusion. No infiltrate or mass in the lung parenchyma. No pleural effusion or pleural thickening. No mediastinal or hilar suspicious masses. No chest wall masses or abnormal axillary lymphadenopathy. Limited upper abdomen imaging shows fatty infiltration the liver. IMPRESSION: No pulmonary emboli identified. No other significant or suspicious chest findings. Limited abdomen imaging shows evidence for fatty infiltration liver.
--- NOTE | 2021-05-03 17:42 | EDPHYS ---
Physician Documentation [facility] Name: Philomena Smith Age: 25 yrs Sex: Female : 1995 Arrival Date: 05/03/2021 Time: 14:42 Bed 19 Private MD: ED Physician Wayne Sultana HPI: 05/03 15:15 This 25 yrs old Female presents to ER via Ambulatory with complaints of cp Nausea/Vomiting - RECENT CHOLECYSTECTOMY. 15:15 The patient or guardian reports chest pain that is located primarily in the anterior cp chest wall. 15:15 The patient presents to the emergency department with nausea, that is mild, vomiting, cp that is intermittent. Onset: The symptoms/episode began/occurred 1 month(s) ago, after having cholecystectomy. The pain does not radiate. Associated signs and symptoms: Pertinent negatives: abdominal pain, anorexia, constipation, fever, GI bleeding. The chest pain is described as sharp. 15:15 Associated signs and symptoms: Pertinent positives: palpitations. 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 - Social history:: Smoking status: Patient denies any tobacco usage or history of. ROS: 15:20 Constitutional: Negative for body aches, chills, fever, poor PO intake. cp 15:20 Eyes: Negative for injury, pain, redness, and discharge. cp 15:20 ENT: Negative for drainage from ear(s), ear pain, sore throat, difficulty swallowing, difficulty handling secretions. 15:20 Cardiovascular: Positive for chest pain, palpitations, Negative for edema. 15:20 Respiratory: Negative for cough, shortness of breath, wheezing. 15:20 Abdomen/GI: Positive for nausea, vomiting, and diarrhea, Negative for abdominal pain, constipation. 15:20 Back: Negative for pain at rest, pain with movement. 15:20 : Negative for urinary symptoms. 15:20 Neuro: Negative for altered mental status, dizziness, headache, syncope, weakness. 15:20 All other systems are negative. Exam: 15:25 Constitutional: The patient appears in no acute distress, alert, awake, comfortable, cp non-toxic, well developed, well nourished. 15:25 Head/Face: Normocephalic, atraumatic. cp 15:25 Eyes: Periorbital structures: appear normal, Conjunctiva: normal, no exudate, no injection, Sclera: no appreciated abnormality, Lids and lashes: appear normal, bilaterally. 15:25 ENT: External ear(s): are unremarkable, Nose: is normal, Mouth: Lips: moist, Oral mucosa: pink and intact, moist, Posterior pharynx: Airway: no evidence of obstruction, patent. 15:25 Neck: ROM/movement: is normal, is supple, without pain, no range of motions limitations. 15:25 Chest/axilla: Inspection: normal. 15:25 Cardiovascular: Rate: tachycardic, Rhythm: regular, Heart sounds: murmur, not appreciated, Edema: is not appreciated, JVD: is not appreciated. 15:25 Respiratory: the patient does not display signs of respiratory distress, Respirations: normal, no retractions, no shallow respirations, labored breathing, is not present, Breath sounds: are clear throughout, no decreased breath sounds, no stridor, no wheezing. 15:25 Abdomen/GI: Inspection: abdomen appears normal, Bowel sounds: active, all quadrants, Palpation: abdomen is soft and non-tender, in all quadrants. 15:25 Back: CVA tenderness, is absent. 15:25 Neuro: Orientation: to person, place \T\ time. Mentation: is normal, Motor: moves all fours, strength is normal, Sensation: is normal. 15:44 ECG was reviewed by the Attending Physician. cp Vital Signs: 14:58 BP 115 / 90; Pulse 103; Resp 18; Temp 97.7; Pulse Ox 99% ; Weight 84.82 kg; Height 5 ll1 ft. 0 in. (152.40 cm); Pain 7/10; 16:05 BP 109 / 69; Pulse 96; Resp 18; Pulse Ox 96% on R/A; broussard 14:58 Body Mass Index 36.52 (84.82 kg, 152.40 cm) ll1 MDM: 15:09 Patient medically screened. cp 17:40 Data reviewed: vital signs, nurses notes, lab test result(s), EKG, radiologic studies, cp CT scan, plain films. 17:40 Test interpretation: by ED physician or midlevel provider: ECG, plain radiologic cp studies. Counseling: I had a detailed discussion with the patient and/or guardian regarding: the historical points, exam findings, and any diagnostic results supporting the discharge/admit diagnosis, lab results, radiology results, to return to the emergency department if symptoms worsen or persist or if there are any questions or concerns that arise at home. 05/03 15:08 Order name: Basic Metabolic Panel; Complete Time: 16:57 cp 05/03 15:08 Order name: CBC with Diff; Complete Time: 16:57 cp 05/03 16:57 Interpretation: Normal except: WBC 12.10; MATILDE% 83.9; LYM% 10.7; NEUT A 10.2. cp 05/03 15:08 Order name: Hepatic Function; Complete Time: 16:57 cp 05/03 17:32 Interpretation: Normal except: GLOB 4.4; A/G 0.8. cp 05/03 15:08 Order name: Lipase; Complete Time: 16:57 cp 05/03 15:18 Order name: D-Dimer; Complete Time: 16:57 cp 05/03 16:57 Interpretation: Abnormal: D-DIMER 638. cp 05/03 15:28 Order name: Urine Dipstick-Ancillary; Complete Time: 16:57 EDMS 05/03 17:32 Interpretation: Normal except: UPH 7.5; UPROT Trace. cp 05/03 15:18 Order name: EKG; Complete Time: 15:18 cp 05/03 15:18 Order name: XRAY Chest (1 view); Complete Time: 17:31 cp 05/03 15:31 Order name: Urine --Ancillary (enter results) bd 05/03 15:32 Order name: Urine --Ancillary; Complete Time: 16:57 EDMS 05/03 16:59 Order name: CT Chest For PE Angio; Complete Time: 17:31 cp 05/03 17:31 Interpretation: Report reviewed. cp 05/03 15:08 Order name: IV Saline Lock; Complete Time: 15:29 cp 05/03 15:08 Order name: Labs collected and sent; Complete Time: 15:28 cp 05/03 15:08 Order name: Urine Dipstick-Ancillary (obtain specimen); Complete Time: 15:28 cp 05/03 15:08 Order name: Urine Test (obtain specimen); Complete Time: 15:28 cp 05/03 15:18 Order name: EKG - Nurse/Tech; Complete Time: 15:42 cp 05/03 17:33 Order name: PO challenge cp EC:44 Rate is 95 beats/min. Rhythm is regular. AR interval is normal. QRS interval is normal. cp QT interval is normal. T waves are Inverted in lead aVR. Interpreted by me. Reviewed by me. Administered Medications: 15:42 Drug: Pepcid (famotidine) 20 mg Route: IVP; Site: left antecubital; broussard 15:42 Follow up: Response: No adverse reaction broussard 15:42 Drug: Zofran (Ondansetron) 4 mg Route: IVP; Site: left antecubital; broussard 15:42 Follow up: Response: No adverse reaction 15:42 Drug: NS 0.9% 1000 ml Route: IV; Rate: 1 bolus; Site: left antecubital; broussard Disposition Summary: 05/03/21 17:41 Discharge Ordered Location: Home cp Problem: new cp Symptoms: have improved cp Condition: Stable cp Diagnosis - Chest pain, unspecified cp - Diarrhea, unspecified cp - Nausea with vomiting, unspecified cp Followup: cp - With: Krzysztof Ramirez MD - When: 2 - 3 days - Reason: diarrhea Discharge Instructions: - Discharge Summary Sheet cp - Food Choices to Help Relieve Diarrhea, Adult cp - Nonspecific Chest Pain, Adult cp - Nausea and Vomiting, Adult cp Forms: - Medication Reconciliation Form cp - Thank You Letter cp - Antibiotic Education cp - Prescription Opioid Use cp Prescriptions: - Ibuprofen 800 mg Oral Tablet - take 1 tablet by ORAL route every 8 hours As needed take with food; 30 tablet; cp Refills: 0, Product Selection Permitted - Pepcid 20 mg Oral Tablet - take 1 tablet by ORAL route every 12 hours for 10 days; 20 tablet; Refills: 0, cp Product Selection Permitted - Zofran 4 mg Oral Tablet - take 1 tablet by ORAL route every 12 hours As needed; 20 tablet; Refills: 0, cp Product Selection Permitted Signatures: Dispatcher [employer] EDMS Wayne Ferreira PA PA cp Lewis, Lynsay, RN RN [facility] Keri Michelle RN RN broussard Corrections: (The following items were deleted from the chart) 05/04 02:01 05/03 15:15 The chest pain is described as a pressure, cp cp
--- NOTE | 2021-05-03 17:42 | ER ---
Nurse's Notes [facility] Name: Philomena Smith Age: 25 yrs Sex: Female : 1995 Arrival Date: 05/03/2021 Time: 14:42 Bed 19 Private MD: Diagnosis: Chest pain, unspecified;Diarrhea, unspecified;Nausea with vomiting, unspecified Presentation: 05/03 14:58 Chief complaint: Patient states: Diarrhea since gallbladder removal about 1 month ago. ll1 N/V, fast HR, shakiness for 1 day. No fever. Coronavirus screen: Vaccine status: Patient reports being unvaccinated. Client denies travel out of the [place] in the last 14 days. diarrhea, fatigue, nausea, vomiting. Client presents with at least one sign or symptom that may indicate coronavirus-19. Standard/surgical mask placed on the client. Ebola Screen: Patient denies travel to an Ebola-affected area in the 21 days before illness onset. Initial Sepsis Screen: Does the patient meet any 2 criteria? HR > 90 bpm. No. Patient's initial sepsis screen is negative. Does the patient have a suspected source of infection? Yes: Acute abdominal pain. Risk Assessment: Do you want to hurt yourself or someone else? Patient reports no desire to harm self or others. Onset of symptoms was May 03, 2021. 14:58 Method Of Arrival: Ambulatory ll1 14:58 Acuity: LUIS ANTONIO 3 ll1 Triage Assessment: 15:00 General: Appears uncomfortable, Behavior is calm, cooperative, appropriate for age. ll1 Pain: Complains of pain in chest/jaw Quality of pain is described as sharp, Is intermittent. Neuro: No deficits noted. Cardiovascular: Reports chest pain. GI: Reports diarrhea, nausea, vomiting. PEGGER: 16:05 LMP 04/09/2021 broussard Historical: - Allergies: 14:57 No Known Allergies; ll1 - PMHx: 14:57 None; ll1 - PSHx: 14:57 section; Cholecystectomy; ll1 - Immunization history:: Client reports having NOT received the Covid vaccine. - Social history:: Smoking status: Patient denies any tobacco usage or history of. Screenin:08 Abuse screen: Denies threats or abuse. Denies injuries from another. Nutritional broussard screening: No deficits noted. Tuberculosis screening: No symptoms or risk factors identified. Fall Risk None identified. Assessment: 15:08 Cardiovascular: Reports fatigue, lightheadedness, vomiting. GI: Abdomen is round broussard non-distended, Reports cramping, nausea, vomiting. Vital Signs: 14:58 BP 115 / 90; Pulse 103; Resp 18; Temp 97.7; Pulse Ox 99% ; Weight 84.82 kg; Height 5 ll1 ft. 0 in. (152.40 cm); Pain 7/10; 16:05 BP 109 / 69; Pulse 96; Resp 18; Pulse Ox 96% on R/A; broussard 14:58 Body Mass Index 36.52 (84.82 kg, 152.40 cm) ll1 ED Course: 14:42 Patient arrived in ED. kz 14:52 Arm band placed on Patient placed in an exam room, on a stretcher. ll1 15:00 Triage completed. ll1 15:08 Wayne Ferreira PA is PHCP. cp 15:08 Wayne Sultana MD is Attending Physician. cp 15:08 Patient has correct armband on for positive identification. Bed in low position. broussard 15:08 No provider procedures requiring assistance completed. broussard 15:41 D-Dimer Sent. broussard 16:03 XRAY Chest (1 view) In Process Unspecified. EDMS 17:15 CT Chest For PE Angio In Process Unspecified. EDMS 17:40 Krzysztof Ramirez MD is Referral Physician. cp 17:46 Inserted saline lock: 20 gauge in left antecubital area, using aseptic technique. IV broussard discontinued, intact, Pressure dressing applied. Administered Medications: 15:42 Drug: Pepcid (famotidine) 20 mg Route: IVP; Site: left antecubital; broussard 15:42 Follow up: Response: No adverse reaction broussard 15:42 Drug: Zofran (Ondansetron) 4 mg Route: IVP; Site: left antecubital; broussard 15:42 Follow up: Response: No adverse reaction broussard 15:42 Drug: NS 0.9% 1000 ml Route: IV; Rate: 1 bolus; Site: left antecubital; broussard Outcome: 17:41 Discharge ordered by . cp 17:46 Discharged to home broussard 17:46 Condition: good 17:46 Discharge instructions given to patient, Prescriptions given X 3. 17:46 Patient left the ED. broussard Signatures: Dispatcher [employer] EDMS Page, Wayne, PA PA cp Will, Lynsay, RN RN ll1 Keri Michelle RN RN ha Zapata, Kelly kz
[2021-05-03 18:56] VITALS: TEMP 97.7
[2021-05-03 18:57] VITALS: BP 109/69; O2SAT 96
--- NOTE | 2021-05-04 11:32 | EKG ---
Test Date: 2021-05-03 Test Time: 15:42:54 Gang Investigator: TP MEASUREMENT RESULTS: Intervals: Rate: 95 [place]: 142 QRSD: 72 QT: 366 QTc: 459 [place]: P: 39 [place]: 142 QRS: 16 T: 28 INTERPRETIVE STATEMENTS: Normal sinus rhythm Normal ECG Compared to ECG 09/17/2014 04:07:31 Sinus tachycardia no longer present Electronically Signed On 05-04-21 11:29:07 [employer] by Brad Harris
== END 2021-05-03 17:46 | disposition home or self-care (01) ==
LOC: ER 14:37
DX: R11.2 Nausea with vomiting, unspecified (principal); R07.9 Chest pain, unspecified; R19.7 Diarrhea, unspecified; Z90.49 Acquired absence of other specified parts of digestive tract
CPT/HCPCS: 36415; 71045; 71275; 80048; 80076; 81003; 81025; 83690; 85025; 85379; 93005; 96374; 96375; 99284; J2405; J7030; Q9967

== ENCOUNTER 2021-07-04 18:22 | Emergency (ER) | payer SELFPAY ==
--- OUTSIDE RECORDS SUMMARY | 2021-07-04 18:25 | XMS REPORT | Continuity of Care Document ---
:1995 Author Organization [facility] t Address [address] [place] [address] Care Team Providers Name Role Phone Pcp, Does Not Have A Primary Care Physician MARIAN HOPPER Attending Clinician Unavailable Marian Gonsalves Attending Clinician Obdulia ARZOLA S Attending Clinician OBDULIA S Attending Clinician Unavailable Pcp, Does Not [...] Univers pain pain 8-27 ity of 00:00: [address] Branch Missed ab Missed ab Disease Active Uni vers 8-27 ity of 00:00: [address] Blighted Blighted Disease Active Unive rs ovum ovum 8-20 ity of 00:00: [address] Uterine Uterine Disease Active 2014-03 Univers [...] Allergie 0-04 Woman's s 00:00: [facility] 00 [facility] [place] [facility] NO KNOWN Drug Active Univers ALLERGIE Class ity of S [facility] Social History Social Habit Start Date Stop Date Quantity Comments Source Exposure to Not sure [facility] SARS-CoV-2 (event) [facility] Alcohol intake 2019-08-23 2019-08-23 0 /d [facility] 00:00:00 00:00:00 [facility] Tobacco use and 2014-12-13 2014-12-13 Never used [facility] exposure 00:00:00 00:00:00 [facility] Sex Ass[birth year] At [birth year] [facility] 00:00:00 00:00:00 [facility] Smoking Status Start Date Stop Date Source Never smoker [facility] Medications Ordered Filled Start Stop Current Ordering Indication Dosage Frequency Signature Comments Components Source Medication Medication Date Date Medication? Clinician (SIG) Name Name ibuprofen 2020-03 Yes [id number] 600mg Take 1 Univers 600 mg 2- 05 tablet by ity of tablet 00:00: mouth [place] 00 every 6 Medical (six) Branch hours as needed for Pain (scale 4-6). benzonatate 2020-03 Yes [id number] 100mg Take 1 Univers 100 mg 2- 05 capsule by ity of capsule 00:00: mouth 3 [place] 00 (three) Medical times Branch daily as needed for Cough. amoxicillin 2020-03- No [id number] 500mg Take 1 Univers 500 mg -24 03-02 05 capsule by ity of capsule 00:00: 05:59 mouth 3 [place] 00 :00 (three) Medical times Branch daily for 10 days. ibuprofen 2020-0 Yes [id number] 600mg Take 1 Univers 600 mg 9- [id number] tablet by ity of tablet 00:00: mouth [place] 00 every 6 Medical (six) Branch hours as needed for Pain (scale 4-6). ibuprofen 2020-0 Yes [id number] 600mg Take 1 Univers 600 mg 9- [id number] tablet by ity of tablet 00:00: mouth [place] 00 every 6 Medical (six) Branch hours as needed for Pain (scale 4-6). ibuprofen 2020-0 2020- No [id number] 600mg Take 1 Univers 600 mg -08 09- [id number] tablet by ity o f tablet 00:00: 00:00 mouth [place] 00 :00 every 6 Medical (six) Branch hours as needed for Pain (scale 4-6). acetaminoph 2019-0 2020- No 650mg 650 mg, U nivers en 08-22- Oral, ity of (TYLENOL) 19:30: 07:20 ONCE, 1 [place] tablet 650 00 :00 dose, Mon Medi tasha mg 08/23/19 at Branch 1430, ALISON ibuprofen 2020-0 2020- No 800mg 800 mg, Uni vers (IBU) 08-22 Oral, ity of tablet 800 19:15: 18:09 ONCE, 1 [place] mg 00 :00 dose, Mon Medical 08/23/19 at Branch 1415, ALISON albuterol 2020-0 Yes [id number] 2{puff} Inhale 2 Univers 90 6-22 Puffs ity of mcg/actuati 00:00: every 4 [place] as on inhaler 00 (four) Medical hours as Branch needed for Wheezing or Shortness of Breath. proMETHazin 2020-0 Yes [id number] 25mg Take 1 Univers e 25 mg 6-22 tablet by ity of tablet 00:00: mouth [place] 00 every 6 Medical (six) Branch hours as needed for Nausea and Vomiting (N/V). albuterol 2020-0 Yes [id number] 2{puff} Inhale 2 Univers 90 6-22 Puffs ity of mcg/actuati 00:00: every 4 Prim[place] as on inhaler 00 (four) Medical hours as Branch needed for Wheezing or Shortness of Breath. proMETHazin 2020-0 Yes [id number] 25mg Take 1 Univers e 25 mg 6-22 tablet by ity of tablet 00:00: mouth [place] 00 every 6 Medical (six) Branch hours as needed for Nausea and Vomiting (N/V). albuterol Yes [id number] 2{puff} Inhale 2 Univers 90 6-22 Puffs ity of mcg/actuati 00:00: every 4 Prim[place] as on inhaler 00 (four) Medical hours as Branch needed for Wheezing or Shortness of Breath. proMETHazin Yes [id number] 25mg Take 1 Univers e 25 mg 6-22 tablet by ity of tablet 00:00: mouth [place] 00 every 6 Medical (six) Branch hours as needed for Nausea and Vomiting (N/V). albuterol Yes [id number] 2{puff} Inhale 2 Univers 90 6-22 Puffs ity of mcg/actuati 00:00: every 4 Primo as on inhaler 00 (four) Medical hours as Branch needed for Wheezing or Shortness of Breath. proMETHazin Yes [id number] 25mg Take 1 Univers e 25 mg 6-22 tablet by ity of tablet 00:00: mouth [place] 00 every 6 Medical (six) Branch hours as needed for Nausea and Vomiting (N/V). No known No [facility] medications [facility] Vital Signs Vital Name Observation Time Observation Value Comments Source Systolic blood 2021-02-21 17:03:00 135 mm[Hg] [facility] Diastolic blood 2021-02-21 17:03:00 80 mm[Hg] [facility] Heart rate 2021-02-21 17:03:00 100 /min [facility] Body temperature 2021-02-21 17:03:00 37.5 Ginny [facility] Respiratory rate 2021-02-21 17:03:00 18 /min [facility] Body height 2021-02-21 17:03:00 152.4 cm [facility] Body weight 2021-02-21 17:03:00 83.008 kg [facility] BMI 2021-02-21 17:03:00 35.74 kg/m2 [facility] [place] [facility] Oxygen saturation in 2021-02-21 17:03:00 99 /min University of Arterial blood by [place] Medi tasha Pulse oximetry Branch Systolic blood 2019-11-07 23:56:00 123 mm[Hg] Univer sity of pressure [place] [facility] Diastolic blood 2019-11-07 23:56:00 78 mm[Hg] Unive rsity of pressure [place] [facility] Heart rate 2019-11-07 23:56:00 95 /min [facility] [place] [facility] Body temperature 2019-11-07 23:56:00 37.33 Ginny [facility] [place] [facility] Respiratory rate 2019-11-07 23:56:00 18 /min Univ [facility] [place] [facility] Body weight 2019-11-07 23:56:00 74.844 kg [facility] [place] [facility] BMI 2019-11-07 23:56:00 32.22 kg/m2 [facility] [place] [facility] Oxygen saturation in 2019-11-07 23:56:00 99 /min University of Arterial blood by [facility] Pulse oximetry Branch Systolic blood 2019-11-07 23:56:00 123 mm[Hg] Univer sity of [facility] [place] [facility] Diastolic blood 2019-11-07 23:56:00 78 mm[Hg] Unive rsity of [facility] [place] [facility] Heart rate 2019-11-07 23:56:00 95 /min [facility] [place] [facility] Body temperature 2019-11-07 23:56:00 37.33 Ginny [facility] [place] [facility] Respiratory rate 2019-11-07 23:56:00 18 /min Univ [facility] [place] [facility] Body weight 2019-11-07 23:56:00 74.844 kg [facility] [place] [facility] BMI 2019-11-07 23:56:00 32.22 kg/m2 [facility] [place] [facility] Oxygen saturation in 2019-11-07 23:56:00 99 /min University of Arterial blood by [facility] tasha Pulse oximetry Branch Body temperature 2019-08-23 19:21:46 37.39 Ginny Univ [facility] [place] [facility] Systolic blood 2019-08-23 19:21:16 120 mm[Hg] Univer sity of [facility] [place] [facility] Diastolic blood 2019-08-23 19:21:16 84 mm[Hg] Unive rsity of [facility] [place] [facility] Heart rate 2019-08-23 19:21:16 100 /min [facility] [place] [facility] Respiratory rate 2019-08-23 19:21:16 18 /min Univ [facility] [place] [facility] Oxygen saturation in 2019-08-23 19:21:16 99 /min University of Arterial blood by [facility] Pulse oximetry Branch Body height 2019-08-23 18:03:00 152.4 cm [facility] [place] [facility] Body weight 2019-08-23 18:03:00 72.576 kg [facility] [place] [facility] BMI 2019-08-23 18:03:00 31.25 kg/m2 [facility] [place] [facility] [place] Body temperature 2019-08-23 19:21:46 37.39 Ginny Univ ersity of [facility] Systolic blood 2019-08-23 19:21:16 120 mm[Hg] Univer sity of pressure [facility] Diastolic blood 2019-08-23 19:21:16 84 mm[Hg] Unive rsity of pressure [facility] Heart rate 2019-08-23 19:21:16 100 /min [facility] [place] [facility] [place] Respiratory rate 2019-08-23 19:21:16 18 /min Univ ersity of [facility] Oxygen saturation in 2019-08-23 19:21:16 99 /min University of Arterial blood by [facility] Pulse oximetry Branch Body height 2019-08-23 18:03:00 152.4 cm [facility] [place] [facility] Body weight 2019-08-23 18:03:00 72.576 kg [facility] [place] [facility] [place] BMI 2019-08-23 18:03:00 31.25 kg/m2 Universi ty of [facility] Procedures Procedure Date / Time Performed Performing Clinician Sour e RAPID INFLUENZA A/B 2021-02-21 17:51:00 Raquel Hopper Universi ty of [facility] COVID-19 (ID NOW RAPID 2021-02-21 17:51:00 Raquel Hopper [facility] TESTING) Medical Branch NOTICE OF PRIVACY 2021-02-21 16:54:53 Doctor Unassigned, No [facility] Branch CONSENT/REFUSAL FOR 2021-02-21 16:54:41 Doctor Unassigned, No [facility] [place] [facility] AND Name Medical Branch TREATMENT XR FOOT 3+ VW RIGHT 2019-11-08 00:32:04 Jayce Han [facility] [place] [facility] [place] NOTICE OF PRIVACY 2019-11-07 23:47:07 Doctor Unassigned, No [facility] Name Medical Branch CONSENT/REFUSAL FOR 2019-11-07 23:46:53 Doctor Unassigned, No [facility] [place] DIAGNOSIS AND Name Medical Branch TREATMENT ASSIGNMENT OF BENEFITS 2019-08-23 19:29:40 Doctor Unassigned, No [facility] Name Medical Branch COVID-19 (ID NOW RAPID 2019-08-23 18:11:00 Jaswinder Patel [facility] TESTING) Medical Branch NOTICE OF PRIVACY 2019-08-23 17:51:36 Doctor Unassigned, No [facility] [place] [facility] Name Medical Branch CONSENT/REFUSAL FOR 2019-08-23 17:51:23 Doctor Unassigned, No [facility] [place] DIAGNOSIS AND Name Medical Branch TREATMENT Encounters Start End Encounter Admission Attending Care Care Encounter Source Date/Time Date/Time Type Type Clinicians Facility Department ID 2021-02-21 2021-02-21 Emergency X Raquel HOPPER [facility] ERT [id number] Univers 11:04:00 13:25:00 ity of [facility] 2021-02-21 2021-02-21 Emergency Raquel Hopper [facility] [id number] Univers 11:04:00 13:25:00 Marian HALL 350.1.13.10 i ty of [place] 4.2.7.2.686 [facility] [id number] [address] 2019-11-07 2019-11-07 Emergency Obdulia [facility] [id number] 18:59:00 20:52:00 Jayce S Thien 350.1.13.10 [place] [address] [place] [address] [id number] [facility] 2019-11-07 2019-11-07 Emergency Obdulia [facility] [id number] [facility] 18:59:00 20:52:00 Jayce S Thien 350.1.13.10 i ty of [place] 4.2.7.2.686 [facility] [id number] [address] 2019-11-07 2019-11-07 Emergency X OBDULIA [facility] ERT [id number] Univers 18:59:00 18:59:00 JAYCE deluca [facility] 2019-08-24 2019-08-24 Telephone Pcp, [facility] [id number] 00:00:00 00:00:00 Patient [place] 350.1.13.10 Does Not [place] 4.2.7.2.686 Have A [place] [id number] 2019-08-24 2019-08-24 Telephone Pcp, [facility] [id number] Univers 00:00:00 00:00:00 Patient [place] 350.1.13.10 i ty of Does Not [place] 4.2.7.2.686 Primo as Have A [place] [id number] [address] 2019-08-23 2019-08-23 [facility] [id number] 13:57:56 14:34:00 Shane Thien 350.1.13.10 [place] 4.2.7.2.686 [place] [id number] 2019-08-23 2019-08-23 [facility] 1.2.330.142 [id number] Univers 13:57:56 14:34:00 Shane Thien 350.1.13.10 i ty of [place] 4[place]2.7.2.686 [place] [id number] [address] 2019-08-23 2019-08-23 Emergency [facility] [id number] Univers 13:57:56 13:57:56 SHANE deluca [facility] 2019-08-23 2019-08-23 Orders Doctor CASTILLO 1.2.840.114 [id number] 00:00:00 00:00:00 Only UnassignedDOMITILA 350.1.13.10 [facility] 4.2.7.2.686 [id number] 2019-08-23 2019-08-23 Orders Doctor CASTILLO 1.2.840.114 [id number] Univers 00:00:00 00:00:00 Only UnassignedDOMITILA 350.1.13.10 ity of [facility] 4.2.7.2.686 Primo as [id number] [facility] 009 Branch Results Test Description Test Time Test Comments Results Result Sour e Comments XR FOOT 3+ VW 2019-11-08 [...] (test code Positive Not Detected A = 52510-0) KETAN (test code = KETAN) ID NOW COVID-19 Assay is an isothermal nucleic acid amplification test intended for the qualitative detection of nucleic acid from SARS-CoV-2 viral RNA in nasopharyngeal (PAINT LABORATORY TECHNICIAN) specimens. It is used under Emergency [...] indicated. Lab Interpretation (test code = Abnormal 31228-4) [facility] [place]- ABDOMEN [id number] 01:30:00 Patient Name: [place] CERDA Unit No: [id number] EXAMS: CPT CODE: [id number] ABDOMEN LTD 76247 PROCEDURE: RIGHT UPPER QUADRANT ULTRASOUND DATED 12/05/2018 [...] tDELLADMMOrig Print D/T: S: 12/05/2018 (0133) [facility] [place] [facility] NAME: PRASHANTOH Radiology Department PHYS: Tyson Escobar [address] : 1995 AGE: 23 SEX: [place], [place] [address] LOC: AgustinERS PHONE #: [phone] EXAM DATE: 12/04/2018 STATUS: REG ER FAX #: [phone] RAD NO: Page 1 Signed Report Patient Name: [place] CERDA Unit No: [id number] EXAMS: CPT CODE: [id number] US ABDOMEN LTD 48218 <Continued> The [facility] NAME: OH CERDA Radiology Department PHYS: ANSELMOTyson Avila [address] : 1995 AGE: 23 SEX: [place], [place] [address] LOC: YESSICA PHONE #: [phone] EXAM DATE: 12/04/2018 STATUS: REG ER FAX #: [phone] RAD NO: Page 2 Signed Report- US PREG UT [id number] 01:24:00 Patient Name: [place] CERDA Unit No: [id number] EXAMS: CPT CODE: [id number] US PREG UT TRANSVAGINAL 19717 Early obstetrical ultrasound (less than 14 weeks) dated 12/04/2018. HISTORY: . Vaginal bleeding. A transabdominal pelvic ultrasound was performed with subsequent transvaginal imaging to better visualize the gestational sac and ovaries. [facility]. The uterus measures approximately 11.6 x 5.7 [...] Lux MD Technologist: Arline Bacon RDMS Probe: [id number] Trnscrbd D/ (0124) DylanDMM Orig Print D/T: S: 12/05/2018 (0127) [facility] NAME: OH CERDA Radiology Department PHYS: Lester Escobaran Chago [address] : 1995 AGE: 23 SEX: [place] [address] LOC: AgustinERS PHONE #: [phone] EXAM DATE: 12/05/2018 STATUS: REG ER FAX #: [phone] RAD NO: Page 1 Signed Report Patient Name: [place] CERDA Unit No: [id number] EXAMS: CPT CODE: [id number] US PREG UT TRANSVAGINAL 61541 <Continued> The [facility] [place] [facility] NA ME: PRASHANTOH Radiology Department PHYS: ANSELMOJudith BarahonaTysonyolanda Anders [address] : 1995 AGE: 23 SEX: [place] [address] LOC: AgustinERS PHONE #: [phone] EXAMDATE: 12/05/2018 STATUS: REG ER FAX #: [phone] RAD NO: Page 2 Signed Report- US PREG EVAL 1ST [id number] 01:24:00 Patient Name: OH CERDA Unit No: [id number] EXAMS: CPT CODE: [id number] US PREG EVAL 1ST TRIMTR 69234 Early obstetrical ultrasound (less than 14 weeks) [...] Arline Bacon RDMS Probe: Trnscrbd D/ (0124) tOBIE Orig Print D/T: S: 12/05/2018 (0127) [facility] [place] [facility] NAME: OH CERDA Radiology Department PHYS: Tyson Escobar [address] : 1995 AGE: 23 SEX: [place], [place] [address] LOC: AgustinERS PHONE #: [phone] EXAM DATE: 12/04/2018 STATUS: REG ER FAX #: [phone] RAD NO: Page 1 Signed Report Patient Name: [place] CERDA Unit No: [id number] EXAMS: CPT CODE: [id number] US PREG EVAL 1ST TRIMTR 73547 <Continued> The [facility] [place] [facility] NA ME: OH CERDA Radiology Department PHYS: Tyson Escobar [address] : 1995 AGE: 23 SEX: [place], [place] [address] LOC: YESSICA PHONE #: [phone] EXAMDATE: 12/04/2018 STATUS: ROSALIE HULL FAX #: [phone] RAD NO: Page 2 Signed ReportCOMPREHENSIVE METABOLIC [id number] 23:35:00 Test Item Value Reference Range Interpretation [...] 71 units/L 46-116 N code = ALKP) [id number] 23:35:00 Test Item Value Reference Range Interpretation Comments LIPASE (test code = LIP) 127 units/L 73-393 N HCG [id number] 23:35:00 Test Item Value Reference Range Interpretation Comments HCG SERUM (test 07869 INTERPRETATI ON:VALUES BETWEEN code = HCG) 15-20 [...] SHOULD BE CONSI DERED NEGATIVE COMPREHENSIVE METABOLIC [id number] 23:11:00 Test Item Value Reference Range Interpretation [...] 46-116 N code = ALKP) CBC W/AUTO [id number] 22:58:00 Test Item Value Reference Range Interpretation [...] = PLTMR) UA RFLX MICR CULT IF [id number] 22:44:00 Test Item Value Reference Range Interpretation [...]
[2021-07-04] MEDS ORDERED: NA CHLORIDE 0.9% 1,000 ML ONE (19:38)
[2021-07-04] MEDS ORDERED: DIPHENHYDRAMINE 50 MG/ML VIAL ONE (19:38)
[2021-07-04] MEDS ORDERED: METOCLOPRAMIDE 10 MG/2mL INJ ONE (19:38)
[2021-07-04] MEDS ORDERED: ONDANSETRON 4 MG/2 ML VIAL ONE (19:38)
[2021-07-04 19:46] LABS: Absolute Lymphocytes (CBC) 0.5 K/uL (0.7-4.9); Hematocrit 39.6 % (36.0-45.0); Lymphocytes % 7.3 % (15.3-44.8); MPV 7.9 fL (7.6-11.3)
[2021-07-04 19:53] LABS: Urine Blood Negative (Negative); Urine Glucose Negative (Negative); Urine Protein Negative (Negative); Urine Specific Gravity >=1.030 (1.005-1.030)
[2021-07-04 19:58] LABS: ALT/SGPT 45 U/L (12-78); AST/SGOT 23 U/L (15-37); Albumin 3.8 g/dL (3.4-5.0); Alkaline Phosphatase 87 U/L (45-117); BUN Blood Urea Nitrogen 7 mg/dL (7-18); Bicarbonate 25 mmol/L (21-32); Bilirubin Total 0.3 mg/dL (0.2-1.0); Glucose Level 89 mg/dL (74-106); Lipase 77 U/L (73-393); Potassium 3.6 mmol/L (3.5-5.1); Protein, Total 7.9 g/dL (6.4-8.2); Sodium Level 137 mmol/L (136-145)
[2021-07-04 20:14] LABS: Urine Bacteria <20 /HPF (<20); Urine RBC <5 /HPF (NONE SEEN)
--- NOTE | 2021-07-04 21:31 | RAD REPORT ---
EXAM DESCRIPTION: CT - Head Brain Wo Cont - 07/04/2021 9:19 pm CLINICAL HISTORY: Headache, new or worsening, positional COMPARISON: Head Brain Wo Cont dated 08/30/2019 TECHNIQUE: All CT scans are performed using dose optimization technique as appropriate and may inclu de automated exposure control or mA/KV adjustment according to patient size. FINDINGS: No intracranial hemorrhage, hydrocephalus or extra-axial fluid collection.No areas of brai n edema or evidence of midline shift. The paranasal sinuses and mastoids are clear. The calvarium is intact. IMPRESSION: No acute intracranial abnormality.
--- NOTE | 2021-07-04 21:35 | RAD REPORT ---
EXAM DESCRIPTION: CTAbdomen Pelvis W Contrast - 07/04/2021 9:24 pm CLINICAL HISTORY: Abdominal pain, acute, nonlocalized COMPARISON: Abdomen Pelvis W Contrast dated 10/30/2020; Abdomen Pelvis W Contrast dated 08/19/2017 ; Abdomen Pelvis W Contrast dated 03/15/2017 TECHNIQUE: CT of the abdomen and pelvis was performed. All CT scans are performed using dose optimization technique as appropriate and may include automated exposure control or mA/KV adjustment according to patient size. FINDINGS: Lower chest: No acute abnormality. Liver: No acute abnormality or suspicious lesions. Biliary: Cholecystectomy Stomach: No significant focal abnormality. Duodenum: No significant focal abnormality. Pancreas: No significant abnormality. Spleen: No significant abnormality. Adrenal: No suspicious lesions. Kidney/ureter: No hydronephrosis. No renal calculi. Retroperitoneum: No retroperitoneal adenopathy. Vascular: No aneurysm. Bowel: Normal appendix.. No bowel obstruction. Peritoneum: No ascites or free air. Bladder: Circumferential bladder wall thickening and mild hyperenhancement. Reproductive: No adnexal masses. Bones: No acute fracture. Other: n/a IMPRESSION: No acute intra-abdominal or pelvic finding. Possible cystitis. Correlate with urinalysis.
[2021-07-04] MEDS ORDERED: MORPHINE 4 MG/ML SYR ONE (22:07)
[2021-07-04] MEDS ORDERED: dexAMETHasone 10 MG/ML VIAL ONE (22:08)
--- NOTE | 2021-07-04 22:24 | RAD REPORT ---
EXAM DESCRIPTION: CT - Neck Angio - 07/04/2021 10:17 pm CLINICAL HISTORY: headache COMPARISON: <Comparisons> TECHNIQUE: CT angiography of the neck vessels was performed with MIPs. All CT scans are performed using dose optimization technique as appropriate and may include automated exposure control or mA/KV adjustment according to patient size. FINDINGS: A left aortic arch is identified with normal three vessel configuration of the great vesse ls. No significant flow abnormality is seen of the common carotid bilaterally. No significant stenosis is identified involving the cervical segments of both internal carotid arteri es. Normal flow is seen within both vertebral arteries. Right dominant vertebral artery. IMPRESSION: No significant flow abnormality of the neck vessels is identified.
--- NOTE | 2021-07-04 22:31 | RAD REPORT ---
EXAM DESCRIPTION: CT - Head angio - 07/04/2021 10:17 pm CLINICAL HISTORY: Headache, new or worsening, positional COMPARISON: Head C Spine Mpr Wo Con dated 09/28/2020Head Brain Wo Cont dated 07/04/2021; Head Brain Wo Cont dated 08/30/2019 TECHNIQUE: CT angiography of the head was performed with MIPs. All CT scans are performed using dose optimization technique as appropriate and may include automated exposure control or mA/KV adjustment according to patient size. FINDINGS: Anterior circulation: No aneurysm or large vessel occlusion. No hemodynamically significant stenosis. No arteriovenous malf ormation identified. Posterior circulation: No aneurysm or large vessel occlusion. No hemodynamically significant stenosis. No arteriovenous malf ormation identified. Right dominant vertebral artery. IMPRESSION: No significant flow abnormality is detected.
--- NOTE | 2021-07-04 23:05 | ER ---
Nurse's Notes [facility] Name: Philomena Smith Age: 25 yrs Sex: Female : 1995 Arrival Date: 07/04/2021 Time: 18:24 Bed 17 Private MD: Diagnosis: Headache;Nausea;Diarrhea, unspecified Presentation: 07/04 18:38 Chief complaint: Patient states: she woke up with morning with a severe headache, ap3 nausea and sweats/chills. Patient reports she hasn't eaten anything today, nor has she vomited. Coronavirus screen: At this time, the client does not indicate any symptoms associated with coronavirus-19. Ebola Screen: No symptoms or risks identified at this time. Initial Sepsis Screen: Does the patient meet any 2 criteria? HR > 90 bpm. Does the patient have a suspected source of infection? No. Patient's initial sepsis screen is negative. Risk Assessment: Do you want to hurt yourself or someone else? Patient reports no desire to harm self or others. Onset of symptoms was July 04, 2021. 18:38 Method Of Arrival: Ambulatory ap3 18:38 Acuity: LUIS ANTONIO 3 ap3 Triage Assessment: 18:40 General: Appears uncomfortable, Behavior is calm, cooperative, appropriate for age. ap3 Pain: Complains of pain in face Pain currently is 10 out of 10 on a pain scale. Neuro: Level of Consciousness is awake, alert, obeys commands, Oriented to person, place, time, situation. Cardiovascular: Patient's skin is warm and dry. Respiratory: Airway is patent Respiratory effort is even, unlabored. GI: Reports nausea. 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 Flu vaccine is not up to date. - Social history:: Smoking status: Patient denies any tobacco usage or history of. Patient uses alcohol, occasionally. Screenin:41 Abuse screen: Denies threats or abuse. Nutritional screening: No deficits noted. ap3 Tuberculosis screening: No symptoms or risk factors identified. Fall Risk None identified. Assessment: 18:40 General: SEE TRIAGE NOTE. bp 19:00 Reassessment: PROVIDER AT B/S. bp 21:15 Reassessment: Pt taken to CT via wc. tomasz 21:35 Reassessment: The pt has returned from CT. Awaiting results. tomasz 22:07 Reassessment: The pt was again taken to CT, as the MD ordered more scans. tomasz 23:13 Reassessment: The pt acknowledged understanding of F/U with someone for her migraines. tomasz She has a family hx of same. Vital Signs: 18:38 BP 121 / 80; Pulse 122; Resp 17; Temp 99.6(O); Pulse Ox 97% ; Weight 83.01 kg; Height 5 ap3 ft. (152.40 cm); Pain 10/10; 19:28 BP 117 / 88; Pulse 111; Resp 18; Temp 98.6; Pulse Ox 100% on R/A; Pain 7/10; tomasz 20:42 BP 127 / 82; Pulse 114; Resp 18; Pulse Ox 99% on R/A; tomasz 22:24 BP 128 / 90; Pulse 102; Resp 18; tomasz 22:42 BP 121 / 79; Pulse 101; Resp 16; Pulse Ox 99% on R/A; tomasz 22:53 BP 121 / 79; Pulse 102; Resp 16; Pulse Ox 98% on R/A; tomasz 18:38 Body Mass Index 35.74 (83.01 kg, 152.40 cm) ap3 ED Course: 18:24 Patient arrived in ED. as 18:28 Pal Flores, RN is Primary Nurse. bp 18:36 Wayne Ferreira PA is PHCP. cp 18:36 Ron Sandoval MD is Attending Physician. cp 18:40 Triage completed. ap3 18:41 Arm band placed on right wrist. ap3 18:41 Patient has correct armband on for positive identification. Bed in low position. Call ap3 light in reach. Side rails up X 1. Pulse ox on. NIBP on. Door closed. Noise minimized. 19:18 Primary Nurse role handed off by Pal Flores, SHARLA mw2 19:20 Stuart Wilson MD is Attending Physician. cp 19:28 Windy Cai RN is Primary Nurse. tomasz 19:36 Inserted saline lock: 22 gauge in right forearm, using aseptic technique. Blood ds4 collected. 19:56 CBC with Diff Sent. tomasz 19:56 CMP Sent. tomasz 19:56 Lipase Sent. tomasz 19:56 Urine Microscopic Only Sent. tomasz 20:44 No provider procedures requiring assistance completed. tomasz 21:21 CT Head Brain wo Cont In Process Unspecified. EDMS 21:26 CT Abd/Pelvis - IV Contrast Only In Process Unspecified. EDMS 22:19 CT Head Angio In Process Unspecified. EDMS 22:19 CT Neck Angio In Process Unspecified. EDMS 23:12 intact, bleeding controlled, No redness/swelling at site. Pressure dressing applied. tomasz Administered Medications: 19:45 Drug: NS 0.9% 1000 ml Route: IV; Rate: 1 bolus; Site: right forearm; tomasz 22:41 Follow up: Response: No adverse reaction; IV Status: Completed infusion; IV Intake: tomasz 1000ml 19:45 Drug: Zofran (Ondansetron) 4 mg Route: IVP; Site: right forearm; tomasz 22:41 Follow up: Response: No adverse reaction tomasz 19:45 Drug: Reglan (metoCLOPramide) 10 mg Route: IVP; Site: right forearm; tomasz 22:41 Follow up: Response: No adverse reaction tomasz 19:45 Drug: Benadryl (diphenhydrAMINE) 25 mg Route: IVP; Site: left forearm; tomasz 22:40 Follow up: Response: No adverse reaction tomasz 22:23 Drug: Dexamethasone 10 mg Route: IVP; Site: right forearm; tomasz 22:40 Follow up: Response: No adverse reaction; Pain is decreased tomasz 22:23 Drug: morphine 4 mg Route: IVP; Site: right forearm; tomasz 22:40 Follow up: Response: No adverse reaction; Pain is decreased tomasz Intake: 22:41 IV: 1000ml; Total: 1000ml. tomasz Outcome: 20:44 Condition: stable tomasz 23:04 Discharge ordered by . cp 23:12 Discharged to home ambulatory. tomasz 23:12 Discharge instructions given to patient, Instructed on discharge instructions, follow up and referral plans. medication usage, Demonstrated understanding of instructions, follow-up care, medications, Prescriptions given X 3. 23:25 Patient left the ED. tomasz Signatures: Dispatcher [employer] EDAmara Melendez Donovan ds4 Wayne Ferreira PA PA cp Peltier, Brian, RN RN bp Laura Quispe RN RN 3 Constantine Soto 2 Windy Cai RN RN tomasz
--- NOTE | 2021-07-04 23:05 | EDPHYS ---
Physician Documentation [facility] Name: Philomena Smith Age: 25 yrs Sex: Female : 1995 Arrival Date: 07/04/2021 Time: 18:24 Bed 17 Private MD: ED Physician Stuart Wilson HPI: 07/04 19:20 This 25 yrs old Female presents to ER via Ambulatory with complaints of cp Vomiting/Diarrhea, Headache. 19:20 The patient presents to the emergency department with nausea, diarrhea, that is cp intermittent, 4 times today. 19:20 Onset: The symptoms/episode began/occurred this morning. Possible causes: unknown. cp Associated signs and symptoms: Pertinent positives: headache, Pertinent negatives: constipation, dysuria, fever, cough, neck stiffness. Severity of symptoms: in the emergency department the symptoms are unchanged despite home interventions. Patient reports headache worse left side of head and location different than typical migraine headaches. 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 Flu vaccine is not up to date. - Social history:: Smoking status: Patient denies any tobacco usage or history of. Patient uses alcohol, occasionally. ROS: 19:25 Constitutional: Negative for body aches, chills, fever. cp 19:25 Eyes: Negative for injury, pain, redness, and discharge. cp 19:25 ENT: Negative for drainage from ear(s), ear pain, sore throat, difficulty swallowing, difficulty handling secretions. 19:25 Neck: Negative for pain with movement, pain at rest, stiffness. 19:25 Cardiovascular: Negative for chest pain, edema, palpitations. 19:25 Respiratory: Negative for cough, shortness of breath, wheezing. 19:25 Abdomen/GI: Positive for nausea, diarrhea, Negative for vomiting, constipation. 19:25 Back: Negative for pain at rest, pain with movement. 19:25 Neuro: Positive for headache, Negative for altered mental status, weakness. 19:25 All other systems are negative. Exam: 19:30 Constitutional: The patient appears in no acute distress, alert, awake, cp non-diaphoretic, non-toxic, well developed, well nourished, uncomfortable. 19:30 Head/Face: Normocephalic, atraumatic. cp 19:30 Eyes: Periorbital structures: appear normal, Pupils: equal, round, and reactive to light and accomodation, Extraocular movements: intact throughout, Conjunctiva: normal, no exudate, no injection, Sclera: no appreciated abnormality, Lids and lashes: appear normal, bilaterally. 19:30 ENT: External ear(s): are unremarkable, Ear canal(s): are normal, clear, TM's: dullness, bilaterally, Nose: is normal, Mouth: Lips: moist, Oral mucosa: pink and intact, moist, Posterior pharynx: Airway: no evidence of obstruction, patent, Tonsils: are normal in appearance, erythema, is not appreciated, exudate, is not appreciated. 19:30 Neck: ROM/movement: is normal, is supple, without pain, no range of motions limitations, no meningismus, no nuchal rigidity, Lymph nodes: no appreciated lymphadenopathy. 19:30 Chest/axilla: Inspection: normal, Palpation: is normal, no crepitus, no tenderness. 19:30 Cardiovascular: Rate: tachycardic, Rhythm: regular, Edema: is not appreciated. cp 19:30 Respiratory: the patient does not display signs of respiratory distress, Respirations: normal, no use of accessory muscles, no retractions, labored breathing, is not present, Breath sounds: are clear throughout, no decreased breath sounds, no stridor, no wheezing. 19:30 Abdomen/GI: Inspection: abdomen appears normal, Bowel sounds: active, all quadrants, Palpation: soft, in all quadrants, mild abdominal tenderness, in all quadrants, rebound tenderness, is not appreciated, voluntary guarding, is not appreciated, involuntary guarding, is not appreciated. 19:30 Back: CVA tenderness, is absent. cp 19:30 Skin: no rash present. 19:30 Neuro: Orientation: to person, place \T\ time. Mentation: is normal, Cerebellar function: cp is grossly normal, Motor: moves all fours, strength is normal, Sensation: is normal. Vital Signs: 18:38 BP 121 / 80; Pulse 122; Resp 17; Temp 99.6(O); Pulse Ox 97% ; Weight 83.01 kg; Height 5 ap3 ft. (152.40 cm); Pain 10/10; 19:28 BP 117 / 88; Pulse 111; Resp 18; Temp 98.6; Pulse Ox 100% on R/A; Pain 7/10; tomasz 20:42 BP 127 / 82; Pulse 114; Resp 18; Pulse Ox 99% on R/A; tomasz 22:24 BP 128 / 90; Pulse 102; Resp 18; tomasz 22:42 BP 121 / 79; Pulse 101; Resp 16; Pulse Ox 99% on R/A; tomasz 22:53 BP 121 / 79; Pulse 102; Resp 16; Pulse Ox 98% on R/A; tomasz 18:38 Body Mass Index 35.74 (83.01 kg, 152.40 cm) ap3 MDM: 18:51 Patient medically screened. cp 20:00 Differential diagnosis: gastritis, cholecystitis, pancreatitis, appendicitis, cp diverticulitis, viral gastroenteritis, gastroenteritis. 23:01 Data reviewed: vital signs, nurses notes, lab test result(s), radiologic studies, CT cp scan. Counseling: I had a detailed discussion with the patient and/or guardian regarding: the historical points, exam findings, and any diagnostic results supporting the discharge/admit diagnosis, lab results, radiology results, to return to the emergency department if symptoms worsen or persist or if there are any questions or concerns that arise at home. Response to treatment: the patient's symptoms have markedly improved after treatment, Pain improved. Patient observed sleeping in exam room. Will discharge to home for continued monitoring. 07/04 19:14 Order name: CBC with Diff; Complete Time: 20:15 07/04 20:51 Interpretation: Normal except: MATILDE% 81.1; LYM% 7.3; LYMA 0.5. cp 07/04 19:14 Order name: CMP; Complete Time: 20:15 cp 07/04 21:41 Interpretation: Normal except: A/G 0.9; GLOB 4.1. cp 07/04 19:14 Order name: Lipase; Complete Time: 20:15 cp 07/04 19:14 Order name: Urine Microscopic Only; Complete Time: 20:15 cp 07/04 21:41 Interpretation: Reviewed. 07/04 19:53 Order name: Urine Dipstick-Ancillary; Complete Time: 20:15 EDMS 07/04 21:42 Interpretation: Reviewed. cp 07/04 20:53 Order name: CT Head Brain wo Cont; Complete Time: 21:40 cp 07/04 21:41 Interpretation: Report reviewed. cp 07/04 20:53 Order name: CT Abd/Pelvis - IV Contrast Only; Complete Time: 21:40 cp 07/04 21:40 Interpretation: Report reviewed. cp 07/04 21:50 Order name: CT Head Angio; Complete Time: 22:37 cp 07/04 22:37 Interpretation: Report reviewed. cp 07/04 21:50 Order name: CT Neck Angio; Complete Time: 22:37 cp 07/04 22:37 Interpretation: Report reviewed. cp 07/04 19:14 Order name: IV Saline Lock; Complete Time: 19:36 cp 07/04 19:14 Order name: Labs collected and sent; Complete Time: 19:36 cp 07/04 19:14 Order name: Urine Dipstick-Ancillary (obtain specimen); Complete Time: 19:52 cp 07/04 19:14 Order name: Urine Test (obtain specimen); Complete Time: 19:52 cp 07/04 21:42 Order name: PO challenge; Complete Time: 22:40 cp 07/04 22:37 Order name: PO challenge; Complete Time: 22:40 cp Administered Medications: 19:45 Drug: NS 0.9% 1000 ml Route: IV; Rate: 1 bolus; Site: right forearm; tomasz 22:41 Follow up: Response: No adverse reaction; IV Status: Completed infusion; IV Intake: tomasz 1000ml 19:45 Drug: Zofran (Ondansetron) 4 mg Route: IVP; Site: right forearm; tomasz 22:41 Follow up: Response: No adverse reaction tomasz 19:45 Drug: Reglan (metoCLOPramide) 10 mg Route: IVP; Site: right forearm; tomasz 22:41 Follow up: Response: No adverse reaction tomasz 19:45 Drug: Benadryl (diphenhydrAMINE) 25 mg Route: IVP; Site: left forearm; tomasz 22:40 Follow up: Response: No adverse reaction tomasz 22:23 Drug: Dexamethasone 10 mg Route: IVP; Site: right forearm; tomasz 22:40 Follow up: Response: No adverse reaction; Pain is decreased tomasz 22:23 Drug: morphine 4 mg Route: IVP; Site: right forearm; tomasz 22:40 Follow up: Response: No adverse reaction; Pain is decreased tomasz Disposition: 07/05 00:29 Co-signature as Attending Physician, Stuart Wilson MD I agree with the assessment and kdr plan of care. Disposition Summary: 07/04/21 23:04 Discharge Ordered Location: Home cp Problem: new cp Symptoms: have improved cp Condition: Stable cp Diagnosis - Headache cp - Nausea cp - Diarrhea, unspecified cp Followup: cp - With: Private Physician - When: 2 - 3 days - Reason: Recheck today's complaints Discharge Instructions: - Discharge Summary Sheet cp - Food Choices to Help Relieve Diarrhea, Adult cp - Diarrhea, Adult cp - Migraine Headache cp - Nausea, Adult cp Forms: - Medication Reconciliation Form cp - Thank You Letter cp - Antibiotic Education cp - Prescription Opioid Use cp Prescriptions: - Fioricet 50-300-40 mg Oral capsule - take 1 capsule by ORAL route every 6 hours As needed as needed; 20 capsule; cp Refills: 0, Product Selection Permitted - Ibuprofen 800 mg Oral Tablet - take 1 tablet by ORAL route every 8 hours As needed take with food; 30 tablet; cp Refills: 0, Product Selection Permitted - promethazine 25 mg Oral Tablet - take 1 tablet by ORAL route every 6 hours As needed; 20 tablet; Refills: 0, cp Product Selection Permitted Signatures: Dispatcher [employer] EDMS Stuart Wilson MD MD kdr Wayne Ferreira PA PA cp Laura Quispe RN RN ap3 Windy Cai RN RN tomasz Corrections: (The following items were deleted from the chart) 07/04 20:51 20:15 Normal except: MATILDE% 81.1; LYM% 7.3. cp cp
[2021-07-05 00:16] VITALS: TEMP 98.6
[2021-07-05 00:20] VITALS: BP 121/79
[2021-07-05 00:21] VITALS: O2SAT 98
== END 2021-07-04 23:25 | disposition home or self-care (01) ==
LOC: ER 18:22
DX: R51.9 Headache, unspecified (principal); R11.0 Nausea; R19.7 Diarrhea, unspecified
CPT/HCPCS: 36415; 70450; 70496; 70498; 74177; 80053; 81003; 81015; 83690; 85025; 99284; J1100; J1200; J2405; J2765; J7030; Q9967

== ENCOUNTER 2021-07-09 17:48 | Emergency (ER) | payer SELFPAY ==
--- OUTSIDE RECORDS SUMMARY | 2021-07-09 17:51 | XMS REPORT | Continuity of Care Document ---
:1995 Author Organization [facility] t Address [address] [place] [address] Care Team Providers Name Role Phone Pcp, [...] Treatment Clinician Date Pelvic Pelvic Disease Active NPI:183 pain pain 8 [id number] 00:00: 00 Missed ab Missed ab Disease Active NPI :183 8 [id number] 00:00: 00 Blighted Blighted Disease Active NPI:1 83 ovum ovum 8 [id number] 00:00: 00 Uterine Uterine Disease Active 2014-03 NPI:183 size-date size-date 0-19 1318 781 discrepanc discrepanc 00:00: y, y, 00 antepartum antepartum , first , first trimester trimester Supervisio Supervisio Disease Active 2014-03 N PI:183 n of n of -14 [id number] high-risk high-risk 00:00: 00 with with insufficie insufficie nt nt care, care, unspecifie unspecifie d d trimester trimester Fatigue Fatigue Disease Active 2014-03 NPI:183 during during 14 [id number] , , 00:00: antepartum antepartum 00 , , unspecifie unspecifie d d trimester trimester Allergies, Adverse Reactions, Alerts Allergy Allergy Status Severity Reaction(s) Onset Inactive Treating Comm ents Source Name Type Date Date Clinician No Known DA Active U 2018-03 [facility] [place] NO KNOWN Drug Active NPI:183 ALLERGIE Class [id number] S Social History Social Habit Start Date Stop Date Quantity Comments Source Exposure to Not sure NPI:[id number] 1 SARS-CoV-2 (event) Alcohol intake 2019-08-23 2019-08-23 0 /d NPI:[id number] 00:00:00 00:00:00 Tobacco use and 2014-12-13 2014-12-13 Never used NPI:08444 [id number] exposure 00:00:00 00:00:00 [birth year] NPI:[id number] 00:00:00 00:00:00 Smoking Status Start Date Stop Date Source Never smoker Medications Ordered Filled Start Stop Current Ordering Indication Dosage Frequency Signature Comments Components Source Medication Medication Date Date Medication? Clinician (SIG) Name Name ibuprofen 2020-03 Yes [id number] 600mg Take 1 NPI:183 600 mg 2- 05 tablet by [id number] tablet 00:00: mouth 00 every 6 (six) hours as needed for Pain (scale 4-6). benzonatate 2020-03 Yes [id number] 100mg Take 1 NPI:183 100 mg 2-22 05 capsule by [id number] capsule 00:00: mouth 3 00 (three) times daily as needed for Cough. amoxicillin 2020-03- No [id number] 500mg Take 1 NPI:183 500 mg -24 03-02 05 capsule by [id number] 1 capsule 00:00: 05:59 mouth 3 00 :00 (three) times daily for 10 days. ibuprofen Yes [id number] 600mg Take 1 NPI:183 600 mg 11-06 [id number] tablet by [id number] 1 tablet 00:00: mouth 00 every 6 (six) hours as needed for Pain (scale 4-6). ibuprofen 2020-0 Yes [id number] 600mg Take 1 NPI:183 600 mg 11-06 [id number] tablet by [id number] 1 tablet 00:00: mouth 00 every 6 (six) hours as needed for Pain (scale 4-6). ibuprofen 2019-0 2020- No [id number] 600mg Take 1 NPI:183 600 mg 11-06 [id number] tablet by [id number] tablet 00:00: 00:00 mouth 00 :00 every 6 (six) hours as needed for Pain (scale 4-6). acetaminoph 2019-2019- No 650mg 650 mg, N PI:183 en 08-22 Oral, [id number] (TYLENOL) 19:30: 07:20 ONCE, 1 tablet 650 00 :00 dose, Mon mg 08/23/19 at 1430, ALISON ibuprofen 0 2019- No 800mg 800 mg, NPI :183 (IBU) 08-22 Oral, [id number] tablet 800 19:15: 18:09 ONCE, 1 mg 00 :00 dose, 08/23/19 at 1415, ALISON albuterol 2020-0 Yes [id number] 2{puff} Inhale 2 NPI:183 90 6-22 Puffs [id number] mcg/actuati 00:00: every 4 on inhaler 00 (four) hours as needed for Wheezing or Shortness of Breath. proMETHazin 2020-0 Yes [id number] 25mg Take 1 NPI:183 e 25 mg 6-22 tablet by [id number] tablet 00:00: mouth 00 every 6 (six) hours as needed for Nausea and Vomiting (N/V). albuterol 2020-0 Yes [id number] 2{puff} Inhale 2 NPI:183 90 6-22 Puffs [id number] mcg/actuati 00:00: every 4 on inhaler 00 (four) hours as needed for Wheezing or Shortness of Breath. proMETHazin 2020-0 Yes [id number] 25mg Take 1 NPI:183 e 25 mg 6-22 tablet by [id number] tablet 00:00: mouth 00 every 6 (six) hours as needed for Nausea and Vomiting (N/V). albuterol 2019-0 Yes [id number] 2{puff} Inhale 2 NPI:183 90 6-22 Puffs [id number] mcg/actuati 00:00: every 4 on inhaler 00 (four) hours as needed for Wheezing or Shortness of Breath. proMETHazin 2019-0 Yes [id number] 25mg Take 1 NPI:183 e 25 mg 6-22 tablet by [id number] tablet 00:00: mouth 00 every 6 (six) hours as needed for Nausea and Vomiting (N/V). albuterol 2019-0 Yes [id number] 2{puff} Inhale 2 NPI:183 90 6-22 Puffs [id number] mcg/actuati 00:00: every 4 on inhaler 00 (four) hours as needed for Wheezing or Shortness of Breath. proMETHazin 0 Yes [id number] 25mg Take 1 NPI:183 e 25 mg 6-22 tablet by [id number] tablet 00:00: mouth 00 every 6 (six) hours as needed for Nausea and Vomiting (N/V). No known No NPI:183 medications [id number] Vital Signs Vital Name Observation Time Observation Value Comments Source Systolic blood pressure 2021-02-21 17:03:00 135 mm[Hg] Diastolic blood 2021-02-21 17:03:00 80 mm[Hg] NPI:1 [id number] pressure Heart rate 2021-02-21 17:03:00 100 /min NPI:1831 [id number] Body temperature 2021-02-21 17:03:00 37.5 Ginny Respiratory rate 2021-02-21 17:03:00 18 /min Body height 2021-02-21 17:03:00 152.4 cm NPI:1831 [id number] Body weight 2021-02-21 17:03:00 83.008 kg NPI:1831 [id number] BMI 2021-02-21 17:03:00 35.74 kg/m2 NPI:1831 352656 Oxygen saturation in 2021-02-21 17:03:00 99 /min Arterial blood by Pulse oximetry Systolic blood pressure 2019-11-07 23:56:00 123 mm[Hg] Diastolic blood 2019-11-07 23:56:00 78 mm[Hg] NPI:1 [id number] pressure Heart rate 2019-11-07 23:56:00 95 /min NPI:1831 649244 Body temperature 2019-11-07 23:56:00 37.33 Ginny Respiratory rate 2019-11-07 23:56:00 18 /min Body weight 2019-11-07 23:56:00 74.844 kg NPI:1831 179125 BMI 2019-11-07 23:56:00 32.22 kg/m2 NPI:1831 813285 Oxygen saturation in 2019-11-07 23:56:00 99 /min Arterial blood by Pulse oximetry Systolic blood pressure 2019-11-07 23:56:00 123 mm[Hg] Diastolic blood 2019-11-07 23:56:00 78 mm[Hg] NPI:1 [id number] pressure Heart rate 2019-11-07 23:56:00 95 /min NPI:1831 069385 Body temperature 2019-11-07 23:56:00 37.33 Ginny Respiratory rate 2019-11-07 23:56:00 18 /min Body weight 2019-11-07 23:56:00 74.844 kg NPI:1831 806652 BMI 2019-11-07 23:56:00 32.22 kg/m2 NPI:1831 683521 Oxygen saturation in 2019-11-07 23:56:00 99 /min Arterial blood by Pulse oximetry Body temperature 2019-08-23 19:21:46 37.39 Ginny Systolic blood pressure 2019-08-23 19:21:16 120 mm[Hg] Diastolic blood 2019-08-23 19:21:16 84 mm[Hg] NPI:1 [id number] pressure Heart rate 2019-08-23 19:21:16 100 /min NPI:1831 546483 Respiratory rate 2019-08-23 19:21:16 18 /min Oxygen saturation in 2019-08-23 19:21:16 99 /min Arterial blood by Pulse oximetry Body height 2019-08-23 18:03:00 152.4 cm NPI:1831 196123 Body weight 2019-08-23 18:03:00 72.576 kg NPI:1831 657584 BMI 2019-08-23 18:03:00 31.25 kg/m2 NPI:1831 757568 Body temperature 2019-08-23 19:21:46 37.39 Ginny Systolic blood pressure 2019-08-23 19:21:16 120 mm[Hg] Diastolic blood 2019-08-23 19:21:16 84 mm[Hg] NPI:1 [id number] pressure Heart rate 2019-08-23 19:21:16 100 /min NPI:1831 991808 Respiratory rate 2019-08-23 19:21:16 18 /min Oxygen saturation in 2019-08-23 19:21:16 99 /min Arterial blood by Pulse oximetry Body height 2019-08-23 18:03:00 152.4 cm NPI:1831 289101 Body weight 2019-08-23 18:03:00 72.576 kg NPI:1831 611330 BMI 2019-08-23 18:03:00 31.25 kg/m2 NPI:1831 [id number] Procedures Procedure Date / Time Performed Performing Clinician [facility] e RAPID INFLUENZA A/B 2021-02-21 17:51:00 Raquel Hopper NPI:1831 [id number] COVID-19 (ID NOW RAPID 2021-02-21 17:51:00 Raquel Hopper NPI:1 [id number] TESTING) NOTICE OF PRIVACY 2021-02-21 16:54:53 Doctor Unassigned, No PRACTICES Name CONSENT/REFUSAL FOR 2021-02-21 16:54:41 Doctor Unassigned, No 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 I:[id number] DIAGNOSIS AND TREATMENT Name XR FOOT 3+ VW RIGHT 2019-11-08 00:32:04 Jayce Steiner NPI:124 [id number] NOTICE OF PRIVACY 2019-11-07 23:47:07 Doctor Unassigned, No PRACTICES Name CONSENT/REFUSAL FOR 2019-11-07 23:46:53 Doctor Unassigned, No TOP 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 I:[id number] DIAGNOSIS AND TREATMENT Name ASSIGNMENT OF BENEFITS 2019-08-23 19:29:40 Doctor Unassigned, No Name COVID-19 (ID NOW RAPID 2019-08-23 18:11:00 Jaswinder Patel NPI:1 [id number] TESTING) NOTICE OF PRIVACY 2019-08-23 17:51:36 Doctor Unassigned, No PRACTICES Name CONSENT/REFUSAL FOR 2019-08-23 17:51:23 Doctor Unassigned, No 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 1.2.510.016 [id number] 18:59:00 20:52:00 Jayce [place] 350.1.13.10 [place] 4.2.7.2.686 [place] [address] [id number] 2019-11-07 2019-11-[address] [facility] 1.2.262.253 [id number] NPI:183 18:59:00 20:52:00 Jayce [place]ston 350.1.13.10 1 [id number] [place] 4.2.7.2.686 [place] [address] [id number] 082019-11-07 2019-11-07 [facility] [id number] NPI:183 18:59:00 18:59:00 JYACE [id number] 2019-08-24 2019-08-24 Telephone Pcp, [facility] 1.2.328.227 [id number] 00:00:00 00:00:00 Patient Nash 350.1.13.10 Does Not [place] 4.2.7.2.686 Have A Isabella [id number] 2019-08-24 2019-08-24 Telephone Pcp, [facility] 1.2.896.162 [id number] NPI:183 00:00:00 00:00:00 Patient Nash 350.1.13.10 1 [id number] Does Not [place] 4.2.7.2.686 Have A Isabella [id number] 2019-08-23 2019-08-23 [facility] 1.2.973.663 [id number] 8981 13:57:56 14:34:00 Shane Thien 350.1.13.10 [place] 4.2.7.2.686 [place] [id number] 2019-08-23 2019-08-23 [facility] 1.2.406.424 [id number] NPI:183 13:57:56 14:34:00 Shane Thien 350.1.13.10 1 [id number] [place] 4.2.7.2.686 Isabella [id number] 2019-08-23 2019-08-23 Emergency [facility] ERT [id number] NPI:183 13:57:56 13:57:56 SHANE [id number] 1 2019-08-23 2019-08-23 Orders Doctor ANNA 1.2.840.114 [id number] 00:00:00 00:00:00 Only Unassigned, DOMITILA 350.1.13.10 [place] [facility] 4.2.7.2.686 [id number] 2019-08-23 2019-08-23 Orders Doctor CASTILLO 1.2.840.114 [id number] NPI:183 00:00:00 00:00:00 Only Unassigned, DOMITILA 350.1.13.10 [id number] [place] [facility] 4.2.7.2.686 [id number] Results Test Description Test Time Test Comments Results Result Sourc e Comments XR FOOT 3+ VW 2019-11-08 Soft tissue NPI:[id number] 187 RIGHT 00:35:40 swelling. No acute 81 bony abnormality is present. EXAM: XR FOOT 3+ VW RIGHT HISTORY: right foot pain COMPARISON: None FINDINGS: Imaging of the foot demonstrates maintenance of alignment. There is mildswelling over the plantar and dorsal midfoot and. Joint spaces arepreserved. [facility], Radiant Results Inft User - 11/07/2019 7:36 PM CDTEXAM:XR FOOT 3+ VW RIGHTHISTORY:right foot pain COMPARISON:NoneFIN DINGS: Imaging of the foot demonstrates maintenance of alignment. There is mildswelling over the plantar and dorsal midfoot and. Joint spaces arepreserved.IMPRE SSIONSoft tissue swelling.No acute bony abnormality is present. COVID-19 (ID NOW RAPID TESTING) 2019-08-23 18:38:00 Test Item Value Reference Range Interpretation Comme nts SARS-CoV-2 Rapid ID NOW (test code Positive Not Detected A = 77234-0) KETAN (test code = KETAN) ID NOW COVID-19 Assay is an isothermal nucleic acid amplification test intended for the qualitative detection of nucleic acid from SARS-CoV-2 viral RNA in nasopharyngeal (TOP 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) specimens. It is used under Emergency Use [...] indicated. Lab Interpretation (test code = Abnormal 91157-4) - US ABDOMEN [id number] 01:30:00 Patient Name: OH CERDA Unit No: [id number] EXAMS: CPT CODE: [id number] US ABDOMEN LTD 48386 PROCEDURE: RIGHT UPPER QUADRANT ULTRASOUND DATED 12/05/2018 [...] tDELLADMMOrig Print D/T: S: 12/05/2018 (0133) [facility] NAME: OH CERDA Radiology Department PHYS: CIPRIANO Wild Tyson Barahona [address] : 1995 AGE: 23 SEX: F [place], [place] [address] LOC: YESSICA PHONE #: [phone] EXAM DATE: 12/04/2018 STATUS: REG ER FAX #: [phone] RAD NO: Page 1 Signed Report Patient Name: OH CERDA Unit No: [id number] EXAMS: CPT CODE: [id number] US ABDOMEN LTD 23014 <Continued> [facility] NAME: OH CERDA Radiology Department PHYS: Tyson Escobar [address] : 1995 AGE: 23 SEX: F [place], [place] [address] LOC: YESSICA PHONE #: [phone] EXAM DATE: 12/04/2018 STATUS: REG ER FAX #: [phone] RAD NO: Page 2 Signed Report- US PREG UT [id number] 01:24:00 Patient Name: OH CERDA Unit No: [id number] EXAMS: CPT CODE: [id number] US PREG UT TRANSVAGINAL 29481 Early obstetrical ultrasound (less than 14 weeks) dated 12/04/2018. HISTORY: . Vaginal bleeding. A transabdominal pelvic ultrasound was performed with subsequent transvaginal imaging to better visualize the gestational sac and ovaries. [facility] The uterus measures approximately 11.6 x 5.7 [...] Lux MD Technologist: Arline Bacon RDMS Probe: [id number] Trnscrbd D/ (0124) Ben Orig Print D/T: S: 12/05/2018 (0127) [facility] NAME: OH CERDA Radiology Department PHYS: Tyson Escobar [address] : 1995 AGE: 23 SEX: F [place] [address] LOC: Mk.ERS PHONE #: [phone] EXAM DATE: 12/05/2018 STATUS: REG ER FAX #: [phone] RAD NO: Page 1 Signed Report Patient Name: OH CERDA Unit No: [id number] EXAMS: CPT CODE: [id number] US PREG UT TRANSVAGINAL 60363 <Continued> [facility] NA ME: OH CERDA Radiology Department PHYS: CLAUDIATyson Wilson [address] : 1995 AGE: 23 SEX: F [place] [address] LOC: Mk.ERS PHONE #: [phone] EXAMDATE: 12/05/2018 STATUS: REG ER FAX #: [phone] RAD NO: Page 2 Signed Report- US PREG EVAL 1ST [id number] 01:24:00 Patient Name: OH CERDA Unit No: [id number] EXAMS: CPT CODE: [id number] US PREG EVAL 1ST TRIMTR 89343 Early obstetrical ultrasound (less than 14 weeks) [...] Orig Print D/T: S: 12/05/2018 (0127) [facility] NAME: OH CERDA Radiology Department PHYS: Tyson Escobar [address] : 1995 AGE: 23 SEX: F [place], [place] [address] LOC: AgustinERS PHONE #: [phone] EXAM DATE: 12/04/2018 STATUS: REG ER FAX #: [phone] RAD NO: Page 1 Signed Report Patient Name: OH CERDA Unit No: [id number] EXAMS: CPT CODE: [id number] US PREG EVAL 1ST TRIMTR 44412 <Continued> [facility] NA ME: OH CERDA Radiology Department PHYS: Tyson Escobar [address] : 1995 AGE: 23 SEX: F [place], [place] [address] LOC: YESSICA PHONE #: [phone] EXAMDATE: 12/04/2018 STATUS: ROSALIE HULL FAX #: [phone] RAD NO: Page 2 Signed ReportCOMPREHENSIVE METABOLIC [id number] 23:35:00 Test Item Value Reference Range Interpretation [...] 71 units/L 46-116 N code = ALKP) [id number] 23:35:00 Test Item Value Reference Range Interpretation Comments LIPASE (test code = LIP) 127 units/L 73-393 N HCG [id number] 23:35:00 Test Item Value Reference Range Interpretation Comments HCG SERUM (test 75073 INTERPRETATI ON:VALUES BETWEEN code = HCG) 15-20 [...] SHOULD BE CONSI DERED NEGATIVE COMPREHENSIVE METABOLIC [id number] 23:11:00 Test Item Value Reference Range Interpretation [...] 46-116 N code = ALKP) CBC W/AUTO [id number] 22:58:00 Test Item Value Reference Range Interpretation [...] = PLTMR) UA RFLX MICR CULT IF [id number] 22:44:00 Test Item Value Reference Range Interpretation [...]
[2021-07-09] MEDS ORDERED: PHENYLEPHRINE 0.5% NOSE 15ML NAS ONE (18:30)
[2021-07-09] MEDS ORDERED: ONDANSETRON 4 MG/2 ML VIAL ONE (18:43)
[2021-07-09] MEDS ORDERED: NA CHLORIDE 0.9% 1,000 ML ONE (18:43)
[2021-07-09 18:45] LABS: Absolute Lymphocytes (CBC) 1.9 K/uL (0.7-4.9); Hematocrit 41.5 % (36.0-45.0); Protime INR 0.97; RBC Red Blood Cell Count 4.57 M/uL (3.86-4.86)
[2021-07-09 18:56] LABS: Potassium 3.5 mmol/L (3.5-5.1)
[2021-07-09] MEDS ORDERED: HYDROCODONE/APAP 5/325 MG TAB ONE (20:15)
--- NOTE | 2021-07-09 20:28 | EDPHYS ---
Physician Documentation [facility] Name: Philomena Smith Age: 25 yrs Sex: Female : 1995 Arrival Date: 07/09/2021 Time: 17:53 Bed 24 Private MD: SANTHOSH Physician Wayne Sultana HPI: 07/09 18:10 This 25 yrs old Female presents to ER via EMS with complaints of Nose Bleed. jh7 18:10 The patient presents with a nose bleed. Onset: The symptoms/episode began/occurred jh7 today. Patient presents for nosebleed that started today. The patient states that she is has been getting them over the past few weeks, but that this one was the worst she has had. States that she has a history of migraines. No other significant medical history.. Historical: - Allergies: 18:06 No Known Allergies; aa5 - PSHx: 18:06 section; Cholecystectomy; aa5 - Immunization history:: Adult Immunizations unknown. - Social history:: Smoking status: Patient denies any tobacco usage or history of. ROS: 18:10 Constitutional: Negative for fever, chills, and weight loss, Eyes: Negative for injury, jh7 pain, redness, and discharge, Cardiovascular: Negative for chest pain, palpitations, and edema, Respiratory: Negative for shortness of breath, cough, wheezing, and pleuritic chest pain, Abdomen/GI: Negative for abdominal pain, nausea, vomiting, diarrhea, and constipation, Back: Negative for injury and pain, Skin: Negative for injury, rash, and discoloration. 18:10 ENT: Positive for nose bleed. 18:10 Neuro: Positive for headache, Negative for dizziness, loss of consciousness, syncope. 18:10 All other systems are negative. Exam: 18:10 ENT: Nose: bleeding, is seen from the right nare, and is moderate. jh7 18:15 Cardiovascular: Regular rate and rhythm with a normal S1 and S2. No gallops, murmurs, jh7 or rubs. Normal PMI, no JVD. No pulse deficits. Respiratory: Lungs have equal breath sounds bilaterally, clear to auscultation and percussion. No rales, rhonchi or wheezes noted. No increased work of breathing, no retractions or nasal flaring. Abdomen/GI: Soft, non-tender, with normal bowel sounds. No distension or tympany. No guarding or rebound. No evidence of tenderness throughout. 18:15 Back: No spinal tenderness. No costovertebral tenderness. Full range of motion. Neuro: Awake and alert, GCS 15, oriented to person, place, time, and situation. Normal gait. 18:15 Constitutional: The patient appears in no acute distress, alert, awake, pale, uncomfortable. 18:15 Skin: Appearance: Color: pale, Temperature: normal temperature, Moisture: normal moisture. Vital Signs: 17:53 BP 128 / 87; Pulse 107; Resp 18 S; Temp 98.6(O); Pulse Ox 99% on R/A; Weight 83.01 kg aa5 (R); Height 5 ft. 0 in. (152.40 cm) (R); 19:09 BP 135 / 95; Pulse 91; Resp 20 S; Pulse Ox 100% on R/A; Pain 9/10; ag7 20:15 BP 127 / 95; Pulse 94; Resp 17; Pulse Ox 100% ; Pain 8/10; ag7 17:53 Body Mass Index 35.74 (83.01 kg, 152.40 cm) aa5 Procedures: 18:15 Epistaxis treatment: A moderate amount of bleeding noted from right nare. Treated using 7 Phenylephrine sprays. Bleeding decreased. Epistaxis treatment: Treated using rhino rocket, Bleeding stopped. MDM: 18:00 Patient medically screened. [facility] 20:45 Differential diagnosis: spontaneous epistaxis. Data reviewed: vital signs, nurses [facility] notes, lab test result(s). Data interpreted: Pulse oximetry: is 100 %. Interpretation: normal. Counseling: I had a detailed discussion with the patient and/or guardian regarding: the historical points, exam findings, and any diagnostic results supporting the discharge/admit diagnosis, to return to the emergency department if symptoms worsen or persist or if there are any questions or concerns that arise at home. Response to treatment: the patient's symptoms have resolved after treatment, No epistaxis at time of discharge. 20:45 ED course: The patient's symptoms mildly improved with the phenylephrine sprays. A jh7 Rhino Rocket was placed and the epistaxis resolved. The patient complained that she did not want to go home with this in her nose, and demanded that we take it out. The Rhino Rocket was removed per patient request, and there was no bleeding at the time of discharge. The patient remained hemodynamically stable throughout the visit, and there were no abnormalities in her lab work. She was advised to return to the ER if her symptoms returned. She agreed to follow-up with ENT.. 07/09 18:05 Order name: CBC with Diff; Complete Time: 19:14 [facility] 07/09 18:05 Order name: BMP; Complete Time: : [facility] 07/09 18:05 Order name: PT-INR; Complete Time: 19:14 [facility] Administered Medications: 18:35 Drug: Joey-Synephrine (phenylephrine) [place] 0.5 % 2 sprays Route: Intranasal; Site: aa5 right nare; 18:42 Drug: NS 0.9% 1000 ml Route: IV; Rate: 1 bolus; Site: left forearm; aa5 20:13 Follow up: IV Status: Completed infusion; IV Intake: 1000ml ag7 18:42 Drug: Zofran (Ondansetron) 4 mg Route: IVP; Site: left forearm; aa5 20:13 Drug: HYDROcodone-acetaminophen 5 mg-325 mg 1 tabs {Note: c/o front lobe headache /10, ag7 continous, RASS 0.} Route: PO; 20:46 Follow up: Response: No adverse reaction; Pain is decreased ag7 Disposition Summary: 07/09/21 20:27 Discharge Ordered Location: Home [facility] Problem: new jh7 Symptoms: have improved jh7 Condition: Stable jh7 Diagnosis - Epistaxis [facility] Followup: [facility] - With: Shira Lyon MD - When: 1 - 2 days - Reason: Recheck today's complaints Discharge Instructions: - Discharge Summary Sheet [facility] - Nosebleed, Adult [facility] Forms: - Medication Reconciliation Form [facility] - Thank You Letter [facility] Signatures: Dispatcher [employer] Ann Griffin RN RN aa5 Nicole Olea RN RN ag7 Aminta Gutierrez FNP MEDICAL LEGAL INVESTIGATOR [facility]
--- NOTE | 2021-07-09 20:28 | ER ---
Nurse's Notes [facility] Name: Philomena Smith Age: 25 yrs Sex: Female : 1995 Arrival Date: 07/09/2021 Time: 17:53 Bed 24 Private MD: Diagnosis: Epistaxis Presentation: 07/09 17:53 Chief complaint: EMS states: nose bleed from right nostril that lasted approximately aa5 20-25 minutes. Pt c/o headache and nasal congestion. Denies cough, denies sore throat. Reports being seen here recently for cold. 17:53 Coronavirus screen: congestion. Ebola Screen: No symptoms or risks identified at this aa5 time. Initial Sepsis Screen: Does the patient meet any 2 criteria? No. Patient's initial sepsis screen is negative. Does the patient have a suspected source of infection? No. Patient's initial sepsis screen is negative. Risk Assessment: Do you want to hurt yourself or someone else? Patient reports no desire to harm self or others. Onset of symptoms was July 09, 2021. 17:53 Acuity: LUIS ANTONIO 4 aa5 17:53 Method Of Arrival: EMS: [facility] aa5 Historical: - Allergies: 18:06 No Known Allergies; aa5 - PSHx: 18:06 section; Cholecystectomy; aa5 - Immunization history:: Adult Immunizations unknown. - Social history:: Smoking status: Patient denies any tobacco usage or history of. Screenin:07 Abuse screen: Denies threats or abuse. Nutritional screening: No deficits noted. aa5 Tuberculosis screening: No symptoms or risk factors identified. Fall Risk None identified. Assessment: 17:53 General: Appears comfortable, Behavior is calm, cooperative. Pain: Complains of pain in aa5 head Quality of pain is described as aching. Neuro: Level of Consciousness is awake, alert, obeys commands, Oriented to person, place, time, situation. Cardiovascular: Heart tones S1 S2 present Rhythm is regular. Respiratory: Airway is patent Respiratory effort is even, unlabored, Respiratory pattern is regular, symmetrical. GI: No signs and/or symptoms were reported involving the gastrointestinal system. : No signs and/or symptoms were reported regarding the genitourinary system. EENT: Reports nasal congestion. Derm: Skin is dry, Skin is normal, Skin temperature is warm. Musculoskeletal: Range of motion: intact in all extremities. 18:35 Reassessment: Reassessment: nose bleed noted, large amount of blood noted, blood aa5 saturated small wash cloth. CARDIAC CATH LAB MANAGER at bedside. Nose bleed stopped spontaneously and Joey-Synephrine was administered after (see MAR).. 18:37 Reassessment: Pt c/o nausea, CARDIAC CATH LAB MANAGER was notified. . aa5 19:23 Reassessment: Patient and/or family updated on plan of care and expected duration. Pain ag7 level reassessed. Patient is alert, oriented x 3, equal unlabored respirations, skin warm/dry/pink. Patient continue to have moderate red drainage from the right nares, pressure applied with towel, patient sitting errect. Patient denies pain at this time. 20:48 Reassessment: Patient and/or family updated on plan of care and expected duration. Pain ag7 level reassessed. Patient is alert, oriented x 3, equal unlabored respirations, skin warm/dry/pink. NO BLEEDING NOTED FROM THE RIGHT NARES. Vital Signs: 17:53 BP 128 / 87; Pulse 107; Resp 18 S; Temp 98.6(O); Pulse Ox 99% on R/A; Weight 83.01 kg aa (R); Height 5 ft. 0 in. (152.40 cm) (R); 19:09 BP 135 / 95; Pulse 91; Resp 20 S; Pulse Ox 100% on R/A; Pain 9/10; ag7 20:15 BP 127 / 95; Pulse 94; Resp 17; Pulse Ox 100% ; Pain 8/10; ag7 17:53 Body Mass Index 35.74 (83.01 kg, 152.40 cm) [facility] ED Course: 17:53 Patient arrived in ED. aa5 17:53 Arm band placed on. aa5 17:53 Patient has correct armband on for positive identification. Bed in low position. Call [facility] light in reach. Side rails up X 1. 17:59 nAn Nance, SHARLA is Primary Nurse. aa5 18:00 Aminta Gutierrez FNP is [facility]. 7 18:00 Wayne Sultana MD is Attending Physician. 7 18:06 Triage completed. aa5 18:36 Initial lab(s) drawn, by or, sent to lab. Inserted saline lock: 20 gauge in left aa5 forearm, using aseptic technique. Blood collected. 19:00 Report given to SHARLA Rivera. aa5 20:16 Assist provider with nosebleed control Set up for procedure. ag7 20:27 Shira Lyon MD is Referral Physician. [facility] 20:48 IV discontinued, intact, bleeding controlled, No redness/swelling at site. Pressure ag7 dressing applied. Administered Medications: 18:35 Drug: Joey-Synephrine (phenylephrine) [place] 0.5 % 2 sprays Route: Intranasal; Site: aa5 right nare; 18:42 Drug: NS 0.9% 1000 ml Route: IV; Rate: 1 bolus; Site: left forearm; aa5 20:13 Follow up: IV Status: Completed infusion; IV Intake: 1000ml ag7 18:42 Drug: Zofran (Ondansetron) 4 mg Route: IVP; Site: left forearm; aa5 20:13 Drug: HYDROcodone-acetaminophen 5 mg-325 mg 1 tabs {Note: c/o front lobe headache 9/10, ag7 continous, RASS 0.} Route: PO; 20:46 Follow up: Response: No adverse reaction; Pain is decreased ag7 Intake: 20:13 IV: 1000ml; Total: 1000ml. ag7 Outcome: 20:27 Discharge ordered by . [facility] 20:48 Discharged to home ambulatory. ag7 20:48 Condition: stable 20:48 Discharge instructions given to patient, Instructed on discharge instructions, follow up and referral plans. Demonstrated understanding of instructions, follow-up care. 20:49 Patient left the ED. ag7 Signatures: Ann Nance RN RN aa5 Nicole Olea RN RN ag7 Aminta Gutierrez, CLIENT REPRESENTATIVE CLIENT REPRESENTATIVE [facility] Corrections: (The following items were deleted from the chart) 18:44 18:35 Reassessment: aa5 aa5 19:29 19:23 Reassessment: Patient and/or family updated on plan of care and expected ag7 duration. Pain level reassessed. Patient is alert, oriented x 3, equal unlabored respirations, skin warm/dry/pink. Patient continue to have moderate red drainage from the nares, pressure applied with towel, patient sitting errect. Patient denies pain at this time. ag7
[2021-07-09 22:56] VITALS: TEMP 98.6
[2021-07-09 22:57] VITALS: O2SAT 100
[2021-07-09 22:59] VITALS: BP 127/95
== END 2021-07-09 20:49 | disposition home or self-care (01) ==
LOC: ER 17:48
PROC: 2Y41X5Z Packing of Nasal Region using Packing Material (ICD-10-PCS; principal; 2021-07-09)
DX: R04.0 Epistaxis (principal)
CPT/HCPCS: 30901; 36415; 80048; 85025; 85610; 96361; 96374; 99284; J2405; J7030

== ENCOUNTER 2021-11-22 03:03 | Emergency (ER) | payer SELFPAY ==
--- OUTSIDE RECORDS SUMMARY | 2021-11-22 03:07 | XMS REPORT | Continuity of Care Document ---
:1995 Author Organization [facility] t Address [address] [place] [address] Care Team Providers Name Role Phone Pcp, Patient Does Not Have A Primary Care Physician [phone] Raquel HOPPER Attending Clinician Unavailable Raquel Gonsalves Attending Clinician Doctor Unassigned, [place] Attending Clinician Unavailable Jayce Mcnally Attending Clinician JAYCE STEINER Attending Clinician Unavailable Pcp, Patient Does Not Have A Attending Clinician [phone] Shane Sanchez Attending Clinician SHANE HENRY Attending Clinician Unavailable Payers Payer Name Policy Type Policy Number Effective Date Expiration Date S ource Problems Condition Condition Condition Status Onset Resolution Last Treating Co mments Source Name Details Category Date Date Treatment Clinician Date Pelvic Pelvic Disease Active Univers pain pain 8-27 ity of 00:00: [address] Missed ab Missed ab Disease Active Uni vers 8-27 ity of 00:00: [address] Blighted Blighted Disease Active Unive rs ovum ovum 8-20 ity of 00:00: [address] Uterine Uterine Disease Active 2014-03 Univers size-date size-date 0-19 ity of [place], [place] Medical antepartum antepartum Br anch , first , first trimester trimester Supervisio Supervisio Disease Active 2014-03 U nivers n of n of 0-14 ity of high-risk high-risk 00:00: Marshal oswald 00 Medi tasha with with Branch insufficie [...] Known DA Active U 2018-03 [facility]ie 004 [facility] [place] NO KNOWN Drug Active Univers ALLERGIE Class ity of S [facility] Social History Social Habit Start Date Stop Date Quantity Comments Source Exposure to 2021 2021-09-22 Not sure [facility] SARS-CoV-2 00:00:00 00:11:00 [facility] (event) [place] Alcohol intake 2019-08-23 2019-08-23 0 /d University 00:00:00 00:00:00 [facility] Tobacco use and 2014-12-13 2014-12-13 Smokeless tobacco Un iversity of exposure 00:00:00 00:00:00 non-user [facility] Sex Ass[birth year] At [birth year] Universit y of 00:00:00 00:00:00 [facility] Smoking Status Start Date Stop Date Source Never smoked tobacco [facility] Medications Ordered Filled Start Stop Current Ordering Indication Dosage Frequency Signature Comments Components Source Medication Medication Date Date Medication? Clinician (SIG) Name Name penicillin No 500mg 500 mg, Un kacie v potassium 09-22 Oral, ity of (PEN-VEE K) 07:45: 06:38 [place]CE[place] 500 00 :00 dose, On Medic al mg Sat Branch 09/22/21 at 0245, ALISON
Re ason for Anti-Infec tive: Documented Infection< br>Documen victorina Infection Site: HEENT
D uration of Therapy: 10 days penicillin 2021- Yes [id number] 500mg Take 1 Univers v potassium 7- 08-03 tablet by it y of 500 mg 00:00: 04:59 mouth in [place] tablet 00 :00 the Medical morning Branch and 1 tablet at noon and 1 tablet in the evening. Do all this for 10 days. penicillin 2021- Yes [id number] 500mg Take 1 Univers v potassium 7- 08-03 tablet by it y of 500 mg 00:00: 04:59 mouth in [place] tablet 00 :00 the Medical morning Branch and 1 tablet at noon and 1 tablet in the evening. Do all this for 10 days. ibuprofen 2020-03 Yes [id number] 600mg Take 1 Univers 600 mg 2-22 05 tablet by ity of tablet 00:00: mouth [place] 00 every 6 Medical (six) Branch hours as needed for Pain (scale 4-6). benzonatate 2020-03 Yes [id number] 100mg Take 1 Univers 100 mg 2-22 05 capsule by ity of capsule 00:00: mouth 3 [place] 00 (three) Medical times Branch daily as needed for Cough. ibuprofen 2020-03 Yes [id number] 600mg Take 1 Univers 600 mg 2-22 05 tablet by ity of tablet 00:00: mouth [place] 00 every 6 Medical (six) Branch hours as needed for Pain (scale 4-6). benzonatate 2020-03 Yes [id number] 100mg Take 1 Univers 100 mg 2-22 05 capsule by ity of capsule 00:00: mouth 3 [place] 00 (three) Medical times Branch daily as needed for Cough. ibuprofen 2020-03 Yes [id number] 600mg Take 1 Univers 600 mg 2-22 05 tablet by ity of tablet 00:00: mouth [place] 00 every 6 Medical (six) Branch hours as needed for Pain (scale 4-6). benzonatate 2020-03 Yes [id number] 100mg Take 1 Univers 100 mg 2-22 05 capsule by ity of capsule 00:00: mouth 3 [place] 00 (three) Medical times Branch daily as needed for Cough. ibuprofen 2020-03 Yes [id number] 600mg Take 1 Univers 600 mg 2-22 05 tablet by ity of tablet 00:00: mouth [place] 00 every 6 Medical (six) Branch hours as needed for Pain (scale 4-6). benzonatate 2020-03 Yes [id number] 100mg Take 1 Univers 100 mg 04-24 05 capsule by ity of capsule 00:00: mouth 3 [place] 00 (three) Medical times Branch daily as needed for Cough. amoxicillin 2020-032- No [id number] 500mg Take 1 Univers 500 mg 2-24 03- 05 capsule by ity of capsule 00:00: 05:59 mouth 3 [place] 00 :00 (three) Medical times Branch daily for 10 days. ibuprofen 2020-0 Yes [id number] 600mg Take 1 Univers 600 mg 9-06 [id number] tablet by ity of tablet 00:00: mouth [place] 00 every 6 Medical (six) Branch hours as needed for Pain (scale 4-6). ibuprofen 2020-0 Yes [id number] 600mg Take 1 Univers 600 mg 9-06 [id number] tablet by ity of tablet 00:00: mouth [place] 00 every 6 Medical (six) Branch hours as needed for Pain (scale 4-6). ibuprofen 2020-0 Yes [id number] 600mg Take 1 Univers 600 mg 9-06 [id number] tablet by ity of tablet 00:00: mouth [place] 00 every 6 Medical (six) Branch hours as needed for Pain (scale 4-6). ibuprofen 2020-0 Yes [id number] 600mg Take 1 Univers 600 mg 9-06 [id number] tablet by ity of tablet 00:00: mouth [place] 00 every 6 Medical (six) Branch hours as needed for Pain (scale 4-6). ibuprofen 2020-0 Yes [id number] 600mg Take 1 Univers 600 mg 9-06 [id number] tablet by ity of tablet 00:00: mouth [place] 00 every 6 Medical (six) Branch hours as needed for Pain (scale 4-6). ibuprofen 2020-0 2020- No [id number] 600mg Take 1 Univers 600 mg 9-06 09-06 [id number] tablet by ity o f tablet 00:00: [...] at Branch 1415, ALISON albuterol 2020-0 Yes [id number] 2{puff} Inhale 2 Univers 90 6-22 Puffs ity of mcg/actuati 00:00: every 4 [place] as on inhaler 00 (four) Medical hours as Branch needed for Wheezing or Shortness of Breath. proMETHazin 2020-0 Yes [id number] 25mg Take 1 Univers e 25 mg 6-22 tablet by ity of tablet 00:00: mouth [place] 00 every 6 Medical (six) Branch hours as needed for Nausea and Vomiting (N/V). albuterol 2020-0 Yes [id number] 2{puff} Inhale 2 Univers 90 6-22 Puffs ity of mcg/actuati 00:00: every 4 Prim[place] as on inhaler 00 (four) Medical hours as Branch needed for Wheezing or Shortness of Breath. proMETHazin 2020-0 Yes [id number] 25mg Take 1 Univers e 25 mg 6-22 tablet by ity of tablet 00:00: mouth [place] 00 every 6 Medical (six) Branch hours as needed for Nausea and Vomiting (N/V). albuterol 2020-0 Yes [id number] 2{puff} Inhale 2 Univers 90 6-22 Puffs ity of mcg/actuati 00:00: every 4 [place] as on inhaler 00 (four) Medical hours as Branch needed for Wheezing or Shortness of Breath. proMETHazin 2020-0 Yes [id number] 25mg Take 1 Univers e 25 mg 6-22 tablet by ity of tablet 00:00: mouth [place] 00 every 6 Medical (six) Branch hours as needed for Nausea and Vomiting (N/V). albuterol 2020-0 Yes [id number] 2{puff} Inhale 2 Univers 90 6-22 Puffs ity of mcg/actuati 00:00: every 4 Prim[place] as on inhaler 00 (four) Medical hours as Branch needed for Wheezing or Shortness of Breath. proMETHazin 2020-0 Yes [id number] 25mg Take 1 Univers e 25 mg 6-22 tablet by ity of tablet 00:00: mouth [place] 00 every 6 Medical (six) Branch hours as needed for Nausea and Vomiting (N/V). albuterol 2020-0 Yes [id number] 2{puff} Inhale 2 Univers 90 6-22 Puffs ity of mcg/actuati 00:00: every 4 Prim[place] as on inhaler 00 (four) Medical hours as Branch needed for Wheezing or Shortness of Breath. proMETHazin 2020-0 Yes [id number] 25mg Take 1 Univers e 25 mg 6-22 tablet by ity of tablet 00:00: mouth [place] 00 every 6 Medical (six) Branch hours as needed for Nausea and Vomiting (N/V). albuterol 2020-0 Yes [id number] 2{puff} Inhale 2 Univers 90 6-22 Puffs ity of mcg/actuati 00:00: every 4 Prim[place] as on inhaler 00 (four) Medical hours as Branch needed for Wheezing or Shortness of Breath. proMETHazin 2020-0 Yes [id number] 25mg Take 1 Univers e 25 mg 6-22 tablet by ity of tablet 00:00: mouth [place] 00 every 6 Medical (six) Branch hours as needed for Nausea and Vomiting (N/V). albuterol 2020-0 Yes [id number] 2{puff} Inhale 2 Univers 90 6-22 Puffs ity of mcg/actuati 00:00: every 4 Prim[place] as on inhaler 00 (four) Medical hours as Branch needed for Wheezing or Shortness of Breath. proMETHazin 2020-0 Yes [id number] 25mg Take 1 Univers e 25 mg 6-22 tablet by ity of tablet 00:00: mouth [place] 00 every 6 Medical (six) Branch hours as needed for Nausea and Vomiting (N/V). No known No [facility] Signs Vital Name Observation Time Observation Value Comments Source Systolic blood 2021-09-22 06:39:52 130 mm[Hg] Univer sity [facility] Diastolic blood 2021-09-22 06:39:52 75 mm[Hg] [facility] Heart rate 2021-09-22 06:39:52 100 /min Universi ty [facility] [place] [facility] Respiratory rate 2021-09-22 06:39:52 16 /min Univ ersity [facility] [place] [facility] Oxygen saturation in 2021-09-22 06:39:52 98 /min University of Arterial blood by [facility] Pulse oximetry Branch Body temperature 2021-09-22 05:12:00 36.72 Ginny Univ [facility] [place] [facility] Body height 2021-09-22 05:12:00 152.4 cm [facility] [place] [facility] Body weight 2021-09-22 05:12:00 83.462 kg [facility] [place] [facility] BMI 2021-09-22 05:12:00 35.94 kg/m2 [facility] [place] [facility] Systolic blood 2021-02-21 17:03:00 135 mm[Hg] Univer sity of pressure [place] [facility] Diastolic blood 2021-02-21 17:03:00 80 mm[Hg] Unive rsity of pressure [place] [facility] Heart rate 2021-02-21 17:03:00 100 /min [facility]i ty [facility] [place] [facility] Body temperature 2021-02-21 17:03:00 37.5 Ginny Univ ers[facility] [place] [facility] Respiratory rate 2021-02-21 17:03:00 18 /min Univ [facility] [place] [facility] Body height 2021-02-21 17:03:00 152.4 cm [facility] [place] [facility] Body weight 2021-02-21 17:03:00 83.008 kg [facility] [place] [facility] BMI 2021-02-21 17:03:00 35.74 kg/m2 [facility] [place] [facility] Oxygen saturation in 2021-02-21 17:03:00 99 /min University of Arterial blood by [facility] Pulse oximetry Branch Systolic blood 2019-11-07 [...] 99 /min University of Arterial blood by [facility] Pulse oximetry Branch Systolic blood 2019-11-07 [...] 99 /min University of Arterial blood by [facility] Pulse oximetry Branch Body temperature 2019-08-23 19:21:46 37.39 Ginny [facility] [place] [facility] Systolic blood 2019-08-23 19:21:16 120 mm[Hg] Univer sity of pressure [place] [facility] Diastolic blood 2019-08-23 19:21:16 84 mm[Hg] Unive rsity of pressure [place] [facility] Heart rate 2019-08-23 19:21:16 100 /min [facility] [place] [facility] Respiratory rate 2019-08-23 19:21:16 18 /min Univ [facility] [place] [facility] Oxygen saturation in 2019-08-23 19:21:16 99 /min University of Arterial blood by [facility] Pulse oximetry Branch Body height 2019-08-23 18:03:00 152.4 cm [facility] [place] [facility] Body weight 2019-08-23 18:03:00 72.576 kg [facility] [place] [facility] BMI 2019-08-23 18:03:00 31.25 kg/m2 [facility] [place] [facility] Body temperature 2019-08-23 19:21:46 37.39 Ginny [facility] Systolic blood 2019-08-23 19:21:16 120 [facility]Hg[facility] Diastolic blood 2019-08-23 19:21:16 84 mm[Hg] [facility] of pressure [facility] Heart rate 2019-08-23 19:21:16 100 /min [facility] Respiratory rate 2019-08-23 19:21:16 18 /min [facility] Oxygen saturation in 2019-08-23 19:21:16 99 /min [facility] Arterial blood by [facility] Pulse oximetry Branch Body height 2019-08-23 18:03:00 152.4 cm [facility] Body weight 2019-08-23 18:03:00 72.576 kg [facility] BMI 2019-08-23 18:03:00 31.25 kg/m2 [facility] Procedures Procedure Date / Time Performing Clinician Source Performed COVID-19 (ID NOW RAPID 2021-09-22 06:10:00 [facility] TEST[facility]) Medical Branch RAPID STREP SCREEN FOR 2021-09-22 05:19:00 Janna Lin [facility] GROUP A Medical Branch EMERGENCY SERVICES 2021-09-22 05:01:00 Doctor Jocelyn, [facility] AGREEMENTS AND [place] [facility] AUTHORIZATIONS NOTICE OF PRIVACY 2021-09-22 04:59:11 Doctor Jocelyn, [facility] PRACTICES [place] [facility] CONSENT/REFUSAL FOR 2021-09-22 04:58:57 Doctor Jocelyn [facility] DIAGNOSIS AND TREATMENT [place] [facility] RAPID INFLUENZA A/B 2021-02-21 17:51:00 Raquel Hopper [facility] COVID-19 (ID NOW RAPID 2021-02-21 17:51:00 Raquel Hopper [facility] TESTING) Medical Branch NOTICE OF PRIVACY 2021-02-21 16:54:53 Doctor Jocelyn, [facility] PRACTICES [place] [facility] CONSENT/REFUSAL FOR 2021-02-21 16:54:41 Doctor Jocelyn [facility] DIAGNOSIS AND TREATMENT [place] [facility] XR FOOT 3+ VW RIGHT 2019-11-08 00:32:04 Jayce Steiner [facility] [place] [facility] NOTICE OF PRIVACY 2019-11-07 23:47:07 Doctor Unassanais, [facility] [place] [facility] CONSENT/REFUSAL FOR 2019-11-07 23:46:53 Doctor Jocelyn, [facility] DIAGNOSIS AND TREATMENT [place] [facility] ASSIGNMENT OF BENEFITS 2019-08-23 19:29:40 [facility] [place] [facility] COVID-19 (ID NOW RAPID 2019-08-23 18:11:00 Jaswinder Patel [facility] TESTING) Medical Branch NOTICE OF PRIVACY 2019-08-23 17:51:36 Doctor Leslyessanais [facility] [place] [facility] CONSENT/REFUSAL FOR 2019-08-23 17:51:23 Doctor Jocelyn, [facility] DIAGNOSIS AND TREATMENT [place] [facility] Encounters Start End Encounter Admission Attending Care Care Encounter Source Date/Time Date/Time Type Type Clinicians Facility Department ID 2021-09-22 2021-09-22 Emergency X Raquel HOPPER [facility] ERT [id number] Univers 00:22:00 01:58:00 ity of [facility] 2021-09-22 2021-09-22 Emergency Raquel Hopper [facility] 1.2.840.114 [id number] Univers 00:22:00 01:58:00 Chrissy HALL 350.1.13.10 i ty [facility] 4.2.7.2.686 [place] [facility] [id number] [facility] 084 Branch 2021-09-22 2021-09-22 Orders Doctor CASTILLO 1.2.840.114 [id number] Univers 00:00:00 00:00:00 Only Unassigned, DOMITILA 350.1.13.10 ity of [place] [facility] 4.2.7.2.686 Prim[place] as [id number] [facility] 009 Branch 2021-09-21 2021-09-21 Orders Doctor CASTILLO 1.2.840.114 [id number] Univers 00:00:00 00:00:00 Only Unassigned, DOMITILA 350.1.13.10 ity of [place] [facility] 4.2.7.2.686 [place] as [id number] [place] [address] Branch 2021-02-21 2021-02-21 Emergency X Raquel HOPPER [facility] ERT [id number] Univers 11:04:00 13:25:00 ity [facility] 2021-02-21 2021-02-21 Emergency Raquel Hopper [facility] 1.2.840.114 [id number] Univers 11:04:00 13:25:00 Chrissy [place] 350.1.13.10 i ty of [place] 4[place]2.7.2.686 [place] [id number] [address] 2019-11-07 2019-11-07 Emergency Obdulia [facility] [id number] 18:59:00 20:52:00 Jayce S [place] 350.1.13.10 [place] 4.2.7.2.686 [place] [id number] [facility] 2019-11-07 2019-11-07 Emergency Obdulia [facility] [id number] Univers 18:59:00 20:52:00 Jayce S [place] 350.1.13.10 i ty of [place] 4.2.7.2.686 [place] [id number] [address] 2019-11-07 2019-11-07 Emergency [facility] [id number] Univers 18:59:00 18:59:00 [facility] 2019-08-24 2019-08-24 Telephone Pcp, [facility] 1.2.029.957 [id number] 00:00:00 00:00:00 Patient [place] 350.1.13.10 Does Not [place] 4.2.7.2.686 Have A [place] [id number] 2019-08-24 2019-08-24 Telephone Pcp, [facility] 1.2.154.239 [id number] Univers 00:00:00 00:00:00 Patient [place] 350.1.13.10 i ty of Does Not [place] 4.2.7.2.686 Prim[place] as Have A [place] [id number] [address] 2019-08-23 2019-08-23 Emergency [facility] 1.2.026.617 [id number] 13:57:56 14:34:00 Shane aHll 350.1.13.10 [place] 4.2.7.2.686 [place] [id number] 2019-08-23 2019-08-23 Emergency Rom [facility] 1.2.164.553 [id number] Univers 13:57:56 14:34:00 Shane [place] 350.1.13.10 i ty of [place] 4.2.7.2.686 [facility] [place] [id number] [facility] 084 Branch 2019-08-23 2019-08-23 Emergency [facility] [id number] Univers 13:57:56 13:57:56 SHANE itngozi of [facility] 2019-08-23 2019-08-23 Orders Doctor ANNA 1.2.840.114 [id number] 00:00:00 00:00:00 Only Unassigned, DOMITILA 350.1.13.10 [place] [facility] 4.2.7.2.686 [id number] 2019-08-23 2019-08-23 Orders Doctor ANNA 1.2.840.114 [id number] Univers 00:00:00 00:00:00 Only Unassigned, DOMITILA 350.1.13.10 ity of [place] [facility] 4.2.7.2.686 [facility] [id number] [facility] 009 Branch Results Test Description Test Time Test Comments Results Result [facility] Branch e Comments XR FOOT 3+ VW 2019-11-08 Soft tissue Universit y of RIGHT 00:35:40 swelling. No [place] [facility] Branch abnormality is present. EXAM: XR FOOT 3+ VW RIGHT HISTORY: right foot pain COMPARISON: None FINDINGS: Imaging of the foot demonstrates maintenance of alignment. There is mildswelling over the plantar and dorsal midfoot and. Joint spaces arepreserved. [facility] [place], Radiant Results Inft User - 11/07/2019 7:36 [...] (test code Positive Not Detected A = 54240-2) KETAN (test code = KETAN) ID NOW COVID-19 Assay is an isothermal nucleic acid amplification test intended for the qualitative detection of nucleic acid from SARS-CoV-2 viral RNA in nasopharyngeal (SHIP CAPTAIN) specimens. It is used under Emergency Use [...] indicated. Lab Interpretation (test code = Abnormal 27060-9) [facility] [place] [facility] ABDOMEN [id number] 01:30:00 Patient Name: [place] CERDA Unit No: [id number] EXAMS: CPT CODE: [id number] ABDOMEN LTD 10124 PROCEDURE: RIGHT UPPER QUADRANT ULTRASOUND DATED 12/05/2018 [...] and morphology with normal echogenicity. There is nohydronephrosis. Additional comments: No free peritoneal fluid is [...] Arline Bacon RDMS Probe: Trnscrbd D/ (0130) [email or web address] Orig PrintD/T: S: 12/05/2018 (0133) [facility] NAME: [place] CERDA Radiology Department PHYS: ASNELMOJudith Tyson Webber [address] : 1995 AGE: 23 SEX: F [place] [address] LOC: .ERS PHONE #: [phone] EXAM DATE: 12/04/2018 STATUS: REG ER FAX #: [phone] RAD NO: Page 1 Signed Report Patient Name: [place] CERDA Unit No: [id number] EXAMS: CPT CODE: [id number] US ABDOMEN LTD 56327 (Continued) [facility] NAME: PRASHANTOH Radiology Department PHYS: Zulay Torri JunTyson [address] : 1995 AGE: 23 SEX: F [place] [address] LOC: Mk.ERS PHONE #: [phone] EXAM DATE: 12/04/2018 STATUS: REG ER FAX #: [phone] RAD NO: Page 2 Signed Report- US PREG UT [id number] 01:24:00 Patient Name: [place] CERDA Unit No: [id number] EXAMS: CPT CODE: [id number] US PREG UT TRANSVAGINAL 26715 Early obstetrical ultrasound (less than 14 weeks) dated 12/04/2018. HISTORY: . Vaginal bleeding. A transabdominal pelvic ultrasound was performed with subsequent transvaginal imaging to bettervisualize the gestational sac and ovaries. No prior [...] avascular collections measuring 2.2 x 1.7 x 0.7and 0.6 x 0.5 x 0.8 cm are identified adjacent to the gestational sac, likely representing subchorionic hemorrhage. No abnormalities of the myometrium are identified. The cervix is closed. The right ovary measures 3.8 x 1.8 x 1.7 cm and maintains normal echotexture. The left ovary measures 5.2 x 1.9 x1.7 cm and contains a 2.0 x 1.5 [...] Lux MD Technologist: Arline Bacon RDMS Probe: [id number] Trnscrbd D/ (0124) Ben Orig Print D/T: S: 12/05/2018 (0127) [facility] NAME: [place] CERDA Radiology Department PHYS: Tyson Escobar [address] : 1995 AGE: 23 SEX: F [place], [place] [address] LOC: AgustinERS PHONE #: [phone] EXAM DATE: 12/05/2018 STATUS: REG ER FAX #: [phone] RAD NO: Page 1 Signed Report Patient Name: [place] CERDA Unit No: [id number] EXAMS: CPT CODE: [id number] US PREG UT TRANSVAGINAL 91284 (Continued) [facility] NAME: [place] CERDA Radiology Department PHYS: CLAUDIATyson Cano [address] : 1995 AGE: 23 SEX: F [place], [place] [address] LOC: AgustinERS PHONE #: [phone] EXAM DATE: 12/05/2018 STATUS: REG ER FAX #: [phone] RAD NO: Page 2 Signed Report- US PREG EVAL 1ST TRIMTR 2018-12-05 01:24:00 Patient Name: [place] CERDA Unit No: [id number] EXAMS: CPT CODE: [id number] US PREG EVAL 1ST TRIMTR 95280 Early obstetrical ultrasound (less than 14 weeks) [...] is documented bilaterally using Doppler ultrasound. No ad nexal masses or pelvic fluid collections are identified. IMPRESSION: 1. Single living intrauterine with an estimated ultrasound gestational age of 6 weeks 4 days and an estimated date of delivery of 07/26/2019. SL: 131 at 0124 Reported and signed by: Gustavo Machado MD CC: Vicky Lux MD Technologist: Arline Bacon RDMS Probe: Trnscrbd D/ (0124) [email or web address] Orig Print D/T: S: 12/05/2018 (0127) [facility] NAME: [place] CERDA Radiology Department PHYS: Tyson Escobar [address] : 1995 AGE: 23 SEX: F [place] [address] LOC: AgustinERS PHONE #: EXAM DATE: 12/04/2018 STATUS: REG ER FAX #: [phone] RAD NO: Page 1 Signed Report Patient Name: [place] CERDA Unit No: [id number] EXAMS: CPT CODE: [id number] PREG EVAL 1ST TRIMTR 02694 (Continued) [facility] NAME: [place] CERDA Radiology Department PHYS: Tyson Escobar [address] : 1995 AGE: 23 SEX: F [place] [address] LOC: AgustinERS PHONE #: [phone] EXAM DATE: 12/04/2018 STATUS: REG ER FAX #: [phone] RAD NO: Page2 Signed ReportCOMPREHENSIVE METABOLIC PANEL 2018-12-04 23:35:00 Test Item Value [...] 71 units/L 46-116 N code = ALKP) [id number] 23:35:00 Test Item Value Reference Range Interpretation Comments LIPASE (test code = LIP) 127 units/L 73-393 N HCG [id number] 23:35:00 Test Item Value Reference Range Interpretation Comments HCG SERUM (test 06492 INTERPRETATI ON:VALUES BETWEEN code = HCG) 15-20 milliInte rnational units/mL NEED T O BERETESTED WITHIN 48 HOURS . All units for these ranges ar e in milliInternatio nalunits/mL0-1 WK AFTER CONCEP TION 0-50 1-2 WKS AFTER VANITA PTION 40-3002-3 WKS AFTER VANITA PTION 100-1,0003-4 WK S AFTER CONCEPTION 500- 6,0001-2 MONTHS AFTER CONCEPTIO N 5,000-200,0002- 3 MONTHS AFTER CONCEPTION 10,0 00-100,0002ND TRIMESTER 3,000 -50,0003RD TRIMESTER 1,000 -50,000 SPECIMENS WITH AN HCG LEVEL FROM 0-6 milliInternatio nalunits/mL SHOULD BE CONSI DERED NEGATIVE COMPREHENSIVE METABOLIC [id number] 23:11:00 Test Item Value Reference Range Interpretation [...] 46-116 N code = ALKP) CBC W/AUTO [id number] 22:58:00 Test Item Value Reference Range Interpretation [...] = PLTMR) UA RFLX MICR CULT IF [id number] 22:44:00 Test Item Value Reference Range Interpretation [...]
[2021-11-22] MEDS ORDERED: dexAMETHasone 10 MG/ML VIAL ONE (04:11)
[2021-11-22] MEDS ORDERED: DIPHENHYDRAMINE 50 MG/ML VIAL ONE (04:11)
[2021-11-22] MEDS ORDERED: KETOROLAC 30 MG/ML INJ ONE (04:12)
[2021-11-22] MEDS ORDERED: METOCLOPRAMIDE 10 MG/2mL INJ ONE (04:12)
[2021-11-22] MEDS ORDERED: NA CHLORIDE 0.9% 1,000 ML ONE (04:12)
--- NOTE | 2021-11-22 04:58 | EDPHYS ---
Physician Documentation [facility] Name: Philomena Smith Age: 26 yrs Sex: Female : 1995 Arrival Date: 11/22/2021 Time: 03:30 Bed 8 Private MD: ED Physician Chato Weller HPI: 11/22 04:58 This 26 yrs old Female presents to ER via Ambulatory with complaints of ms3 Headache, Vomiting. 04:58 26-year-old female with past medical history of migraines presents for a migraine that ms3 is been ongoing for 3 days. Patient endorses nausea and vomiting. Patient denies alleviating factors. Patient states light and noise make the headache worse. Patient rates her pain a 10/10 described as throbbing located on the right side of her head. Patient denies fevers or chills.. Historical: - Allergies: 04:13 No Known Allergies; tw5 - Home Meds: 04:13 None [Active]; tw5 - PMHx: 04:14 Migraine; tw5 - PSHx: 04:13 section; Cholecystectomy; tw5 - Immunization history:: Flu vaccine is not up to date. - Social history:: Smoking status: Patient denies any tobacco usage or history of. ROS: 04:58 Constitutional: Negative for fever, and chills. ENT: Negative for injury, pain, and ms3 discharge, Neck: Negative for injury, pain, and swelling, Cardiovascular: Negative for chest pain, and palpitations. Respiratory: Negative for shortness of breath, cough, wheezing, and pleuritic chest pain. 04:58 MS/Extremity: Negative for injury and deformity, Skin: Negative for injury, rash, and discoloration. 04:58 Abdomen/GI: Positive for nausea and vomiting. 04:58 Neuro: Positive for headache. 04:58 All other systems are negative. Exam: 04:58 Constitutional: This is a well developed, well nourished patient who is awake, alert, ms3 and in no acute distress. Head/Face: Normocephalic, atraumatic. Eyes: Pupils equal round and reactive to light, extra-ocular motions intact. Lids and lashes normal. Conjunctiva and sclera are non-icteric and not injected. Periorbital areas with no swelling, redness, or edema. Neck: Trachea midline, no cervical lymphadenopathy. Supple, full range of motion without nuchal rigidity, or vertebral point tenderness. No Meningismus. Chest/axilla: Normal chest wall appearance and motion. Nontender with no deformity. Cardiovascular: Regular rate and rhythm with a normal S1 and S2. No gallops, murmurs, or rubs. Normal PMI, no JVD. No pulse deficits. Respiratory: Lungs have equal breath sounds bilaterally, clear to auscultation and percussion. No rales, rhonchi or wheezes noted. No increased work of breathing, no retractions or nasal flaring. Abdomen/GI: Soft, non-tender, with normal bowel sounds. No distension or tympany. No guarding or rebound. No evidence of tenderness throughout. Skin: Warm, dry with normal turgor. Normal color with no rashes, no lesions, and no evidence of cellulitis. MS/ Extremity: Pulses equal, no cyanosis. Neurovascular intact. Full, normal range of motion. Neuro: Awake and alert, GCS 15, oriented to person, place, time, and situation. Cranial nerves II-XII grossly intact. Motor strength 5/5 in all extremities. Sensory grossly intact. Cerebellar exam normal. Normal gait. Psych: Awake, alert, with orientation to person, place and time. Behavior, mood, and affect are within normal limits. Vital Signs: 03:49 BP 132 / 85; Pulse 93; Resp 18; Temp 98.5(O); Pulse Ox 100% on R/A; Weight 83.91 kg; oe Height 5 ft. 0 in. (152.40 cm); 04:15 BP 129 / 89; Pulse 96; Resp 18; Pulse Ox 99% on R/A; tw5 03:49 Body Mass Index 36.13 (83.91 kg, 152.40 cm) oe MDM: 03:54 Patient medically screened. ms3 04:58 Data reviewed: vital signs, nurses notes, and as a result, I will discharge patient. ms3 Counseling: I had a detailed discussion with the patient and/or guardian regarding: the historical points, exam findings, and any diagnostic results supporting the discharge/admit diagnosis, the need for outpatient follow up, to return to the emergency department if symptoms worsen or persist or if there are any questions or concerns that arise at home. Special discussion: I discussed with the patient/guardian in detail that at this point there is no indication for admission to the hospital. It is understood, however, that if the symptoms persist or worsen the patient needs to return immediately for re-evaluation. ED course: Discussed physical exam findings with patient. Patient understands agrees with plan. All questions were answered. Return precautions discussed include worsening symptoms, or any other concerns. On reevaluation patient symptoms are improved, patient is alert and oriented x4, patient is in no apparent distress, nontoxic-appearing, speaking full sentences.. 11/22 03:59 Order name: IV; Complete Time: 04:12 tw5 Administered Medications: 04:19 Drug: Benadryl (diphenhydrAMINE) 25 mg Route: IVP; Site: left antecubital; tw5 05:10 Follow up: Response: No adverse reaction; Marked relief of symptoms jb4 04:19 Drug: Ketorolac 10 mg Route: IVP; Site: left antecubital; tw5 05:09 Follow up: Response: No adverse reaction; Marked relief of symptoms jb4 04:24 Drug: Reglan (metoCLOPramide) 10 mg Route: IVP; Site: left antecubital; tw5 05:10 Follow up: Response: No adverse reaction; Marked relief of symptoms jb4 04:24 Drug: NS 0.9% 1000 ml Route: IV; Rate: 125 ml/hr; Site: left antecubital; tw5 05:10 Follow up: IV Status: Order to discontinue infusion; IV Intake: 88ml jb4 04:24 Drug: Decadron - Dexamethasone 10 mg Route: IVP; Site: left antecubital; tw5 05:10 Follow up: Response: No adverse reaction; Marked relief of symptoms jb4 Disposition Summary: 11/22/21 04:57 Discharge Ordered Location: Home ms3 Condition: Stable ms3 Diagnosis - Headache ms3 Followup: ms3 - With: Kostas Fairbanks MD - When: 2 - 3 days - Reason: Recheck today's complaints Discharge Instructions: - Discharge Summary Sheet ms3 - General Headache Without Cause ms3 - Migraine Headache ms3 Forms: - Medication Reconciliation Form ms3 - Thank You Letter ms3 - Antibiotic Education ms3 - Prescription Opioid Use ms3 Signatures: Chato Weller DO DO ms3 Angelic Garcia tw5 Bart Marie RN jb4 Corrections: (The following items were deleted from the chart) 04:14 04:13 PMHx: None; tw5 tw5
--- NOTE | 2021-11-22 04:58 | ER ---
Nurse's Notes [facility] Name: Philomena Smith Age: 26 yrs Sex: Female : 1995 Arrival Date: 11/22/2021 Time: 03:30 Bed 8 Private MD: Diagnosis: Headache Presentation: 11/22 04:12 Chief complaint: Patient states: terrible headache, patient reports nothing she has tw5 done has relieved the headache. Coronavirus screen: Vaccine status: Patient reports being unvaccinated. Ebola Screen: Patient negative for fever greater than or equal to 101.5 degrees Fahrenheit, and additional compatible Ebola Virus Disease symptoms Patient denies exposure to infectious person. Patient denies travel to an Ebola-affected area in the 21 days before illness onset. Initial Sepsis Screen: Does the patient meet any 2 criteria? No. Patient's initial sepsis screen is negative. Does the patient have a suspected source of infection? No. Patient's initial sepsis screen is negative. Risk Assessment: Do you want to hurt yourself or someone else? Patient reports no desire to harm self or others. Onset of symptoms was November 19, 2021. 04:12 Method Of Arrival: Ambulatory tw5 04:12 Acuity: LUIS ANTONIO 4 tw5 Triage Assessment: 04:14 Headache History: The patient has had previous headaches and this one is similar to tw5 previous episodes. General: Appears in no apparent distress. Behavior is calm, cooperative, appropriate for age. Pain: Pain currently is 9 out of 10 on a pain scale. Pain began 2-3 days ago. Also complains of photophobia. Neuro: Level of Consciousness is awake, alert, obeys commands, Oriented to person, place, time, situation. Historical: - Allergies: 04:13 No Known Allergies; tw5 - Home Meds: 04:13 None [Active]; tw5 - PMHx: 04:14 Migraine; tw5 - PSHx: 04:13 section; Cholecystectomy; tw5 - Immunization history:: Flu vaccine is not up to date. - Social history:: Smoking status: Patient denies any tobacco usage or history of. Screenin:15 Abuse screen: Denies threats or abuse. Denies injuries from another. Nutritional tw5 screening: No deficits noted. Tuberculosis screening: No symptoms or risk factors identified. Fall Risk No fall in past 12 months (0 pts). Assessment: 04:15 General: Reports "Sometimes my headaches get so bad, they cause me to have a nose tw5 bleed.". Pain: Pain currently is 9 out of 10 on a pain scale. 05:09 Reassessment: Patient appears in no apparent distress at this time. Patient and/or jb4 family updated on plan of care and expected duration. Pain level reassessed. Patient is alert, oriented x 3, equal unlabored respirations, skin warm/dry/pink. Patient states feeling better. Patient states symptoms have improved. Vital Signs: 03:49 BP 132 / 85; Pulse 93; Resp 18; Temp 98.5(O); Pulse Ox 100% on R/A; Weight 83.91 kg; oe Height 5 ft. 0 in. (152.40 cm); 04:15 BP 129 / 89; Pulse 96; Resp 18; Pulse Ox 99% on R/A; tw5 03:49 Body Mass Index 36.13 (83.91 kg, 152.40 cm) oe ED Course: 03:30 Patient arrived in ED. bp1 03:39 Chato Weller DO is Attending Physician. ms3 03:44 Angelic Garcia is Primary Nurse. tw5 04:12 Inserted saline lock: 22 gauge in left antecubital area, using aseptic technique. tw5 04:13 Triage completed. tw5 04:15 No provider procedures requiring assistance completed. tw5 04:15 Patient has correct armband on for positive identification. Placed in gown. Bed in low tw5 position. Call light in reach. Side rails up X 1. Pulse ox on. NIBP on. 04:56 Kostas Fairbanks MD is Referral Physician. ms3 05:09 IV discontinued, intact, bleeding controlled, No redness/swelling at site. Pressure jb4 dressing applied. Administered Medications: 04:19 Drug: Benadryl (diphenhydrAMINE) 25 mg Route: IVP; Site: left antecubital; tw5 05:10 Follow up: Response: No adverse reaction; Marked relief of symptoms jb4 04:19 Drug: Ketorolac 10 mg Route: IVP; Site: left antecubital; tw5 05:09 Follow up: Response: No adverse reaction; Marked relief of symptoms jb4 04:24 Drug: Reglan (metoCLOPramide) 10 mg Route: IVP; Site: left antecubital; tw5 05:10 Follow up: Response: No adverse reaction; Marked relief of symptoms jb4 04:24 Drug: NS 0.9% 1000 ml Route: IV; Rate: 125 ml/hr; Site: left antecubital; tw5 05:10 Follow up: IV Status: Order to discontinue infusion; IV Intake: 88ml jb4 04:24 Drug: Decadron - Dexamethasone 10 mg Route: IVP; Site: left antecubital; tw5 05:10 Follow up: Response: No adverse reaction; Marked relief of symptoms jb4 Medication: 04:15 VIS not applicable for this client. tw5 Intake: 05:10 IV: 88ml; Total: 88ml. jb4 Outcome: 04:57 Discharge ordered by . ms3 05:09 Discharged to home ambulatory. jb4 05:09 Condition: stable 05:09 Discharge instructions given to patient, Instructed on discharge instructions, follow up and referral plans. Demonstrated understanding of instructions, follow-up care. 05:10 Patient left the ED. jb4 Signatures: Bart Marie, RN RN jb4 Leonel Booker Marcus, DO DO ms3 Sheeba Wang Tiffany tw5 Corrections: (The following items were deleted from the chart) 04:14 04:13 PMHx: None; tw5 tw5
[2021-11-23 23:02] VITALS: TEMP 98.5
[2021-11-23 23:38] VITALS: BP 129/89; O2SAT 99
== END 2021-11-22 05:10 | disposition home or self-care (01) ==
LOC: ER 03:03
DX: R51.9 Headache, unspecified (principal); R11.2 Nausea with vomiting, unspecified
CPT/HCPCS: 96361; 96374; 96375; 99283; J1100; J1200; J2765; J7030

== ENCOUNTER 2022-02-05 02:21 | Emergency (ER) | payer SELFPAY ==
--- OUTSIDE RECORDS SUMMARY | 2022-02-05 02:25 | XMS REPORT | Continuity of Care Document ---
:1995 Author Organization [facility] t Address [address] [place] [address] Care Team Providers Name Role Phone Pcp, Patient Does Not Have A Primary Care Physician [id number] Raquel HOPPER Attending Clinician Unavailable Raquel Gonsalves Attending Clinician Doctor Unassigned, [place] Attending Clinician Unavailable Jayce Mcnally Attending Clinician [...] Univers pain pain 8-27 ity of 00:00: [address] Missed ab Missed ab Disease Active Uni vers 8-27 ity of 00:00: [address] Blighted Blighted Disease Active Unive rs ovum ovum 8-20 ity of 00:00: [address] Uterine Uterine Disease Active 2014-03 Univers [...] [facility] s 00:00: [facility] [place] NO KNOWN Drug Active Univers ALLERGIE Class ity of S [facility] Social History Social Habit Start Date Stop Date Quantity Comments Source Exposure to 2021 2021-09-22 Not sure [facility] SARS-CoV-2 00:00:00 00:11:00 [facility] (event) [place] Alcohol intake 2019-08-23 2019-08-23 0 /d University 00:00:00 00:00:00 [facility] Tobacco use and 2014-12-13 2014-12-13 Smokeless tobacco Un iversity of exposure 00:00:00 00:00:00 non-user [facility] Sex Ass[birth year] Universit y of 00:00:00 00:00:00 [facility] Smoking Status Start Date Stop Date Source Never smoked tobacco [facility] Medications Ordered Filled Start Stop Current [...] uration of Therapy: 10 days penicillin 2021- No [id number] 500mg Take 1 Univers v potassium 7-23 10-03 tablet by it y of 500 mg 00:00: 04:59 mouth in [place] tablet 00 :00 the Medical morning Branch and 1 tablet at noon and 1 tablet in the evening. Do all this for 10 days. penicillin 2021- No [id number] 500mg Take 1 Univers v potassium 7-23 10-03 tablet by it y of 500 mg 00:00: 04:59 mouth in [place] tablet 00 :00 the Medical morning Branch and 1 tablet at noon and 1 tablet in the evening. Do all this for 10 days. ibuprofen 2020-03 Yes [id number] 600mg Take 1 Univers 600 mg 2-22 05 tablet by ity of tablet 00:00: mouth [place] 00 every 6 Medical (six) Branch hours as needed for Pain (scale 4-6). benzonatate 2020-03 Yes [id number] 100mg Take 1 Univers 100 mg 2-22 05 capsule by ity of capsule 00:00: mouth 3 [place] 00 (three) Medical times Branch daily as needed for Cough. ibuprofen 2020-03 Yes [id number] 600mg Take 1 Univers 600 mg 2-22 05 tablet by ity of tablet 00:00: mouth [place] 00 every 6 Medical (six) Branch hours as needed for Pain (scale 4-6). benzonatate 2020-03 Yes [id number] 100mg Take 1 Univers 100 mg 2-22 05 capsule by ity of capsule 00:00: mouth 3 [place] 00 (three) Medical times Branch daily as needed for Cough. ibuprofen 2020-03 Yes [id number] 600mg Take 1 Univers 600 mg 2-22 05 tablet by ity of tablet 00:00: mouth [place] 00 every 6 Medical (six) Branch hours as needed for Pain (scale 4-6). benzonatate 2020-03 Yes [id number] 100mg Take 1 Univers 100 mg 2-22 05 capsule by ity of capsule 00:00: mouth 3 [place] 00 (three) Medical times Branch daily as needed for Cough. ibuprofen 2020-03 Yes [id number] 600mg Take 1 Univers 600 mg 2-22 05 tablet by ity of tablet 00:00: mouth [place] 00 every 6 Medical (six) Branch hours as needed for Pain (scale 4-6). benzonatate 2020-03 Yes [id number] 100mg Take 1 Univers 100 mg 04-24 05 capsule by ity of capsule 00:00: mouth 3 [place] 00 (three) Medical times Branch daily as needed for Cough. amoxicillin 2020-032- No [id number] 500mg Take 1 Univers 500 mg 2-24 03- 05 capsule by ity of capsule 00:00: 05:59 mouth 3 [place] 00 :00 (three) Medical times Branch daily for 10 days. ibuprofen 2020-0 Yes [id number] 600mg Take 1 Univers 600 mg 9-06 [id number] tablet by ity of tablet 00:00: mouth [place] 00 every 6 Medical (six) Branch hours as needed for Pain (scale 4-6). ibuprofen 2020-0 Yes [id number] 600mg Take 1 Univers 600 mg 9-06 [id number] tablet by ity of tablet 00:00: mouth [place] 00 every 6 Medical (six) Branch hours as needed for Pain (scale 4-6). ibuprofen 2020-0 Yes [id number] 600mg Take 1 Univers 600 mg 9-06 [id number] tablet by ity of tablet 00:00: mouth [place] 00 every 6 Medical (six) Branch hours as needed for Pain (scale 4-6). ibuprofen 2020-0 Yes [id number] 600mg Take 1 Univers 600 mg 9-06 [id number] tablet by ity of tablet 00:00: mouth [place] 00 every 6 Medical (six) Branch hours as needed for Pain (scale 4-6). ibuprofen 2020-0 Yes [id number] 600mg Take 1 Univers 600 mg 9-06 [id number] tablet by ity of tablet 00:00: mouth [place] 00 every 6 Medical (six) Branch hours as needed for Pain (scale 4-6). ibuprofen 2020-0 2020- No [id number] 600mg Take 1 Univers 600 mg 9-06 09-06 [id number] tablet by ity o f tablet 00:00: [...] at Branch 1415, ALISON albuterol 2020-0 Yes [id number] 2{puff} Inhale 2 Univers 90 6-22 Puffs ity of mcg/actuati 00:00: every 4 [place] as on inhaler 00 (four) Medical hours as Branch needed for Wheezing or Shortness of Breath. proMETHazin 2020-0 Yes [id number] 25mg Take 1 Univers e 25 mg 6-22 tablet by ity of tablet 00:00: mouth [place] 00 every 6 Medical (six) Branch hours as needed for Nausea and Vomiting (N/V). albuterol 2020-0 Yes [id number] 2{puff} Inhale 2 Univers 90 6-22 Puffs ity of mcg/actuati 00:00: every 4 [place] as on inhaler 00 (four) Medical hours as Branch needed for Wheezing or Shortness of Breath. proMETHazin 2020-0 Yes [id number] 25mg Take 1 Univers e 25 mg 6-22 tablet by ity of tablet 00:00: mouth [place] 00 every 6 Medical (six) Branch hours as needed for Nausea and Vomiting (N/V). albuterol 2020-0 Yes [id number] 2{puff} Inhale 2 Univers 90 6-22 Puffs ity of mcg/actuati 00:00: every 4 [place] as on inhaler 00 (four) Medical hours as Branch needed for Wheezing or Shortness of Breath. proMETHazin 2020-0 Yes [id number] 25mg Take 1 Univers e 25 mg 6-22 tablet by ity of tablet 00:00: mouth [place] 00 every 6 Medical (six) Branch hours as needed for Nausea and Vomiting (N/V). albuterol 2020-0 Yes [id number] 2{puff} Inhale 2 Univers 90 6-22 Puffs ity of mcg/actuati 00:00: every 4 [place] as on inhaler 00 (four) Medical hours as Branch needed for Wheezing or Shortness of Breath. proMETHazin 2020-0 Yes [id number] 25mg Take 1 Univers e 25 mg 6-22 tablet by ity of tablet 00:00: mouth [place] 00 every 6 Medical (six) Branch hours as needed for Nausea and Vomiting (N/V). albuterol 2020-0 Yes [id number] 2{puff} Inhale 2 Univers 90 6-22 Puffs ity of mcg/actuati 00:00: every 4 [place] as on inhaler 00 (four) Medical hours as Branch needed for Wheezing or Shortness of Breath. proMETHazin 2020-0 Yes [id number] 25mg Take 1 Univers e 25 mg 6-22 tablet by ity of tablet 00:00: mouth [place] 00 every 6 Medical (six) Branch hours as needed for Nausea and Vomiting (N/V). albuterol 2020-0 Yes [id number] 2{puff} Inhale 2 Univers 90 6-22 Puffs ity of mcg/actuati 00:00: every 4 [place] as on inhaler 00 (four) Medical hours as Branch needed for Wheezing or Shortness of Breath. proMETHazin 2020-0 Yes [id number] 25mg Take 1 Univers e 25 mg 6-22 tablet by ity of tablet 00:00: mouth [place] 00 every 6 Medical (six) Branch hours as needed for Nausea and Vomiting (N/V). albuterol 2020-0 Yes [id number] 2{puff} Inhale 2 Univers 90 6-22 Puffs ity of mcg/actuati 00:00: every 4 [place] as on inhaler 00 (four) Medical hours as Branch needed for Wheezing or Shortness of Breath. proMETHazin 2020-0 Yes [id number] 25mg Take 1 Univers e 25 mg 6-22 tablet by ity of tablet 00:00: mouth [place] 00 every 6 Medical (six) Branch hours as needed for Nausea and Vomiting (N/V). No known No Univers medications [facility] [place] [facility] Vital Signs Vital Name Observation Time Observation Value Comments Source Systolic blood 2021-09-22 06:39:52 130 mm[Hg] Univer sity [facility] Diastolic blood 2021-09-22 06:39:52 75 mm[facility]Hg] [facility] 2021-09-22 06:39:52 100 /min [facility]i ty [facility] [place] [facility] Respiratory rate 2021-09-22 06:39:52 16 /min Univ ers[facility] [place] [facility] Oxygen saturation in 2021-09-22 06:39:52 98 /min University of Arterial blood by [facility] [place] [facility] Pulse oximetry Branch Body temperature 2021-09-22 05:12:00 36.72 Ginny Univ ers[facility] [place] [facility] Body height 2021-09-22 05:12:00 152.4 cm [facility] [place] [facility] Body weight 2021-09-22 05:12:00 83.462 kg [facility] [place] [facility] BMI 2021-09-22 05:12:00 35.94 kg/m2 [facility] [place] [facility] Systolic blood 2021-02-21 17:03:00 135 mm[Hg] Univer sity of pressure [place] [facility] Diastolic blood 2021-02-21 17:03:00 80 mm[Hg] Unive rsity of pressure [place] [facility] Heart rate 2021-02-21 17:03:00 100 /min [facility] [place] [facility] Body temperature 2021-02-21 17:03:00 37.5 Ginny Univ ers[facility] [place] [facility] Respiratory rate 2021-02-21 17:03:00 18 /min Univ [facility] [place] [facility] Body height 2021-02-21 17:03:00 152.4 cm [facility] [place] [facility] Body weight 2021-02-21 17:03:00 83.008 kg [facility] [place] [facility] BMI 2021-02-21 17:03:00 35.74 kg/m2 [facility] [place] [facility] Oxygen saturation in 2021-02-21 17:03:00 99 /min University of Arterial blood by [facility] [place] [facility] Pulse oximetry Branch Systolic blood 2019-11-07 23:56:00 123 mm[Hg] Univer sity of pressure [place] [facility] Diastolic blood 2019-11-07 23:56:00 78 mm[Hg] Unive rsity of pressure [place] [facility] Heart rate 2019-11-07 23:56:00 95 /min [facility] [place] [facility] Body temperature 2019-11-07 23:56:00 37.33 Ginny Univ [facility] [place] [facility] Respiratory rate 2019-11-07 23:56:00 18 /min Univ [facility] [place] [facility] Body weight 2019-11-07 23:56:00 74.844 kg [facility] [place] [facility] BMI 2019-11-07 23:56:00 32.22 kg/m2 [facility] [place] [facility] Oxygen saturation in 2019-11-07 23:56:00 99 /min University of Arterial blood by [facility] [place] [facility] Pulse oximetry Branch Systolic blood 2019-11-07 23:56:00 123 mm[Hg] Univer sity of pressure [place] [facility] Diastolic blood 2019-11-07 23:56:00 78 mm[Hg] Unive rsity of [facility] [place] [facility] Heart rate 2019-11-07 23:56:00 95 /min [facility] [place] [facility] Body temperature 2019-11-07 23:56:00 37.33 Ginny [facility] [place] [facility] Respiratory rate 2019-11-07 23:56:00 18 /min Univ [facility] [place] [facility] Body weight 2019-11-07 23:56:00 74.844 kg [facility] [place] [facility] BMI 2019-11-07 23:56:00 32.22 kg/m2 [facility] [place] [facility] Oxygen saturation in 2019-11-07 23:56:00 99 /min University of Arterial blood by [facility] [place] [facility] Pulse oximetry Branch Body temperature 2019-08-23 19:21:46 37.39 Ginny [facility] [place] [facility] Systolic blood 2019-08-23 19:21:16 120 [...] 99 /min University of Arterial blood by [facility] [place] [facility] Pulse oximetry Branch Body height 2019-08-23 18:03:00 152.4 cm [facility] [place] [facility] Body weight 2019-08-23 18:03:00 72.576 kg [facility] [place] [facility] BMI 2019-08-23 18:03:00 31.25 kg/m2 [facility] [place] [facility] Body temperature 2019-08-23 19:21:46 37.39 Ginny [facility] Systolic blood 2019-08-23 19:21:16 120 mm[facility]Hg] [facility] Diastolic blood 2019-08-23 19:21:16 84 mm[Hg] [facility] of pressure [facility] Heart rate 2019-08-23 19:21:16 100 /min [facility] Respiratory rate 2019-08-23 19:21:16 18 /min [facility] Oxygen saturation in 2019-08-23 19:21:16 99 /min [facility] Arterial blood by [facility] [place] [facility] Pulse oximetry Branch Body height 2019-08-23 18:03:00 152.4 cm [facility] Body weight 2019-08-23 18:03:00 72.576 kg [facility] BMI 2019-08-23 18:03:00 31.25 kg/m2 [facility] Procedures Procedure Date / Time Performing Clinician Source Performed COVID-19 (ID NOW RAPID 2021-09-22 06:10:00 [facility] TEST[facility]) Medical Branch RAPID STREP SCREEN FOR 2021-09-22 05:19:00 Janna Lin [facility] GROUP A Medical Branch EMERGENCY SERVICES 2021-09-22 05:01:00 Doctor Jocelyn, [facility] AGREEMENTS AND [place] [facility] AUTHORIZATIONS NOTICE OF PRIVACY 2021-09-22 04:59:11 Doctor Jocelyn, [facility] PRACTICES [place] [facility] CONSENT/REFUSAL FOR 2021-09-22 04:58:57 Doctor Jocelyn [facility] DIAGNOSIS AND TREATMENT [place] [facility] RAPID INFLUENZA A/B 2021-02-21 17:51:00 Raquel Hopper [facility] COVID-19 (ID NOW RAPID 2021-02-21 17:51:00 Raquel Hopper [facility] TESTING) Medical Branch NOTICE OF PRIVACY 2021-02-21 16:54:53 Doctor Jocelyn, [facility] PRACTICES [place] [facility] CONSENT/REFUSAL FOR 2021-02-21 16:54:41 Doctor Jocelyn [facility] DIAGNOSIS AND TREATMENT [place] [facility] XR FOOT 3+ VW RIGHT 2019-11-08 00:32:04 Jayce Steiner [facility] [place] [facility] NOTICE OF PRIVACY 2019-11-07 23:47:07 Doctor Unassanais, [facility] [place] [facility] CONSENT/REFUSAL FOR 2019-11-07 23:46:53 Doctor Jocelyn, [facility] DIAGNOSIS AND TREATMENT [place] [facility] ASSIGNMENT OF BENEFITS 2019-08-23 19:29:40 [facility] [place] [facility] COVID-19 (ID NOW RAPID 2019-08-23 18:11:00 Jaswinder Patel [facility] TESTING) Medical Branch NOTICE OF PRIVACY 2019-08-23 17:51:36 Doctor Leslyessanais [facility] [place] [facility] CONSENT/REFUSAL FOR 2019-08-23 17:51:23 Doctor Jocelyn, [facility] DIAGNOSIS AND TREATMENT [place] [facility] Encounters Start End Encounter Admission Attending Care Care Encounter Source Date/Time Date/Time Type Type Clinicians Facility Department ID 2021-09-22 2021-09-22 Emergency X Raquel HOPPER [facility] ERT [id number] Univers 00:22:00 01:58:00 ity of [facility] 2021-09-22 2021-09-22 Emergency Raquel Hopper [facility] 1.2.840.114 [id number] Univers 00:22:00 01:58:00 Chrissy HALL 350.1.13.10 i ty [facility] 4.2.7.2.686 [place] [facility] [id number] [facility] 084 Branch 2021-09-22 2021-09-22 Orders Doctor CASTILLO 1.2.840.114 [id number] Univers 00:00:00 00:00:00 Only Unassigned, DOMITILA 350.1.13.10 ity of [place] [facility] 4.2.7.2.686 Prim[place] as [id number] [facility] 009 Branch 2021-09-21 2021-09-21 Orders Doctor CASTILLO 1.2.840.114 [id number] Univers 00:00:00 00:00:00 Only Unassigned, DOMITILA 350.1.13.10 ity of [place] [facility] 4.2.7.2.686 Primo as [id number] [place] [address] Branch 2021-02-21 2021-02-21 Emergency X Raquel HOPPER [facility] ERT [id number] Univers 11:04:00 13:25:[address] [facility] 2021-02-21 2021-02-21 Emergency Raquel Hopper [facility] 1.2.840.114 [id number] Univers 11:04:00 13:25:00 Chrissy [place] 350.1.13.10 i ty of [place] 4[place]2.7.[place].686 [place] [id number] [address] 2019-11-07 2019-11-07 Emergency Obdulia [facility] 1.2.132.112 [id number] 18:59:00 20:52:00 Jayce S [place] 350.1.13.10 [place] 4.2.7.2.686 [place] [id number] [facility] 2019-11-07 2019-11-07 Emergency Obdulia [facility] 1.2.354.006 [id number] Univers 18:59:00 20:52:00 Jayce S [place] 350.1.13.10 i ty of [place] 4.2.7.2.686 [place] [id number] [address] 2019-11-07 2019-11-[address] [facility] [id number] Univers 18:59:00 18:59:00 JAYCE [facility] [place] [facility] 2019-08-24 2019-08-24 Telephone Pcp, [facility] [id number] [id number] 00:00:00 00:00:00 Patient [place] 350.1.13.10 Does Not [place] 4.2.7.2.686 Have A [place] [id number] 2019-08-24 2019-08-24 Telephone Pcp, [facility] 1.2.357.412 [id number] Univers 00:00:00 00:00:00 Patient [place] 350.1.13.10 i ty of Does Not [place] 4.2.7.2.686 [place] as Have A [place] [id number] [address] 2019-08-23 2019-08-23 Emergency [facility] 1.2.666.750 [id number] 13:57:56 14:34:00 Shane [place] 350.1.13.10 [place] 4.2.7.2.686 [place] [id number] 2019-08-23 2019-08-23 Emergency Rom [facility] 1.2.910.255 [id number] Univers 13:57:56 14:34:00 Shane [place] 350.1.13.10 i ty of [place] 4.2.7.2.686 [facility] [place] [id number] [facility] 084 Branch 2019-08-23 2019-08-[address] [facility] ERT [id number] Univers 13:57:56 13:57:56 SHANE itngozi of [facility] 2019-08-23 2019-08-23 Orders Doctor NANA 1.2.840.114 [id number] 00:00:00 00:00:00 Only Unassigned, DOMITIL[place] 350.1.13.10 [place] [facility] 4.2.7.2.686 [id number] 2019-08-23 2019-08-23 Orders Doctor ANNA 1.2.840.114 [id number] Univers 00:00:00 00:00:00 Only Unassigned, DOMITILA 350.1.13.10 ity of [place] [facility] 4.2.7.2.686 [facility] [id number] [facility] 009 Branch Results Test Description Test Time Test Comments Results Result [facility] e Comments XR FOOT 3+ VW 2019-11-08 Soft tissue Universit y of RIGHT 00:35:40 swelling. No [place] [facility] abnormality is present. EXAM: XR FOOT 3+ VW RIGHT HISTORY: right foot pain COMPARISON: None FINDINGS: Imaging of the foot demonstrates maintenance of alignment. There is mildswelling over the plantar and dorsal midfoot and. Joint spaces arepreserved. [facility], Radiant Results Inft User - 11/07/2019 7:36 [...] (test code Positive Not Detected A = 42104-0) KETAN (test code = KETAN) ID NOW COVID-19 Assay is an isothermal nucleic acid amplification test intended for the qualitative detection of nucleic acid from SARS-CoV-2 viral RNA in nasopharyngeal (NARCOTICS INVESTIGATOR) specimens. It is used under Emergency Use [...] indicated. Lab Interpretation (test code = Abnormal 73696-3) [facility] [place] [facility] ABDOMEN [id number] 01:30:00 Patient Name: [place] CERDA Unit No: [id number] EXAMS: CPT CODE: [id number] ABDOMEN LTD 90996 PROCEDURE: RIGHT UPPER QUADRANT ULTRASOUND DATED 12/05/2018 [...] RDMS Probe: Trnscrbd D/ (0130) t.MERLYNR.DMM Orig Print D/T: S: 12/05/2018 (0133) [facility] NAME: [place] CERDA Radiology Department PHYS: ANSELMOJudith Tyson Web[address] : 1995 AGE: 23 SEX: F [place] [address] LOC: .ERS PHONE #: [phone] EXAM DATE: 12/04/2018 STATUS: REG ER FAX #: [phone] RAD NO: Page 1 Signed Report Patient Name: [place] CERDA Unit No: [id number] EXAMS: CPT CODE: [id number] US ABDOMEN LTD 31035 (Continued) [facility] NAME: PRASHANTOH Radiology Department PHYS: Zulay Torri JunTyson [address] [place] : 1995 AGE: 23 SEX: F [place] [address] LOC: Mk.ERS PHONE #: [phone] EXAM DATE: 12/04/2018 STATUS: REG ER FAX#: [phone] RAD NO: Page 2 Signed Report - US PREG UT [id number] 01:24:00 Patient Name: [place] CERDA Unit No: [id number] EXAMS: CPT CODE: [id number] US PREG UT TRANSVAGINAL 80704 Early obstetrical ultrasound (less than 14 weeks) [...] thick-walled complex cyst, likely representing a resolving he morrhagic corpus luteum. Ovarian blood flow is documented [...] Lux MD Technologist: Arline Bacon RDMS Probe: [id number] Trnscrbd D/ (0124) Ben Orig Print D/T: S: 12/05/2018 (0127) [facility] NAME: [place] CERDA Radiology Department PHYS: Tyson [address]obar[address] : 1995 AGE: 23 SEX: F [place], [place] [address] LOC: AgustinERS PHONE #: [phone] EXAM DATE: 12/05/2018 STATUS: REG ER FAX #: [phone] RAD NO: Page 1 Signed Report Patient Name: [place] CERDA Unit No: [id number] EXAMS: CPT CODE: [id number] US PREG UT TRANSVAGINAL 99021 (Continued) [facility] NAME: [place] CERDA Radiology Department PHYS: Tyson Escobar [address] : 1995 AGE: 23 SEX: F [place], [place] [address] LOC: AgustinERS PHONE #: [phone] EXAM DATE: 12/05/2018 STATUS: REG ER FAX #: [phone] RAD NO: Page 2 Signed Report- US PREG EVAL 1ST [id number] 01:24:00 Patient Name: [place] CERDA Unit No: [id number] EXAMS: CPT CODE: [id number] US PREG EVAL 1ST TRIMTR 82680 Early obstetrical ultrasound (less than 14 weeks) [...] Arline Bacon RDMS Probe: Trnscrbd D/ (0124) t.SDR.DMM Orig Print D/T: S: 12/05/2018 (0127) [facility] NAME: [place] CERDA Radiology Department PHYS: Lester Escobaran Chago [address] [place] : 1995 AGE: 23 SEX: F [place] [address] LOC: AgustinERS PHONE #: [phone] EXAM DATE: 12/04/2018 STATUS: REG ER FAX #: [phone] RAD NO: Page 1 Signed Report Patient Name: [place] CERDA Unit No: [id number] EXAMS: CPT CODE: [id number] US PREG EVAL 1ST TRIMTR 39853 (Continued) [facility] NAME: [place] CERDA Radiology Department PHYS: Lester Escobaryolanda Brumfieldjodi [address] [place] : 1995 AGE: 23 SEX: F [place] [address] LOC: AgustinERS PHONE #: [phone] EXAM DATE: 12/04/2018 STATUS: REG ER FAX #: [phone] RAD NO: Page 2 Signed ReportCOMPREHENSIVE METABOLIC [id number] 23:35:00 Test Item Value Reference Range Interpretation [...] 71 units/L 46-116 N code = ALKP) [id number] 23:35:00 Test Item Value Reference Range Interpretation Comments LIPASE (test code = LIP) 127 units/L 73-393 N HCG [id number] 23:35:00 Test Item Value Reference Range Interpretation Comments HCG SERUM (test 05589 INTERPRETATI ON:VALUES BETWEEN code = HCG) 15-20 [...] SHOULD BE CONSI DERED NEGATIVE COMPREHENSIVE METABOLIC [id number] 23:11:00 Test Item Value Reference Range Interpretation [...] 46-116 N code = ALKP) CBC W/AUTO [id number] 22:58:00 Test Item Value Reference Range Interpretation [...] = PLTMR) UA RFLX MICR CULT IF [id number] 22:44:00 Test Item Value Reference Range Interpretation [...]
[2022-02-05] MEDS ORDERED: CYCLOBENZAPRINE 10 MG TAB ONE (02:34)
[2022-02-05] MEDS ORDERED: KETOROLAC 30 MG/ML INJ ONE (02:34)
[2022-02-05] MEDS ORDERED: dexAMETHasone 10 MG/ML VIAL ONE (03:59)
[2022-02-05] MEDS ORDERED: HYDROCODONE/APAP 10/325 TAB ONE (03:59)
[2022-02-05 04:18] LABS: Urine Blood Negative (Negative); Urine Glucose Negative (Negative); Urine Protein Negative (Negative)
[2022-02-05 04:37] LABS: Urine Bacteria <20 /HPF (<20); Urine RBC <5 /HPF (None Seen); Urine WBC Clump Rare /HPF (None Seen)
--- NOTE | 2022-02-05 04:54 | ER ---
Nurse's Notes [facility] Name: Philomena Smith Age: 26 yrs Sex: Female : 1995 Arrival Date: 02/05/2022 Time: 02:25 Bed 2 Private MD: Diagnosis: Low back pain Presentation: 02/05 02:25 Chief complaint: EMS states: pt woke up with sharp shooting back pain. pt denies any as6 injury. Coronavirus screen: At this time, the client does not indicate any symptoms associated with coronavirus-19. Ebola Screen: No symptoms or risks identified at this time. Initial Sepsis Screen: Does the patient meet any 2 criteria? No. Patient's initial sepsis screen is negative. Does the patient have a suspected source of infection? No. Patient's initial sepsis screen is negative. Risk Assessment: Do you want to hurt yourself or someone else? Patient reports no desire to harm self or others. Onset of symptoms was February 05, 2022. 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 Flu vaccine is not up to date. - Social history:: Smoking status: Patient denies any tobacco usage or history of. Screenin:27 Abuse screen: Denies threats or abuse. Denies injuries from another. Nutritional as6 screening: No deficits noted. Tuberculosis screening: No symptoms or risk factors identified. Fall Risk None identified. Assessment: 02:27 General: Appears uncomfortable, Behavior is calm, cooperative. Pain: Complains of pain as6 in low back area Quality of pain is described as sharp, shooting. Neuro: Level of Consciousness is awake, alert, obeys commands, Oriented to person, place, time, situation. Cardiovascular: Capillary refill < 3 seconds Patient's skin is warm and dry. Respiratory: Respiratory effort is even, unlabored. 04:02 Reassessment: Patient states symptoms have not improved. as6 Vital Signs: 02:25 BP 118 / 77; Pulse 87; Resp 18 S; Temp 97.7(O); Pulse Ox 99% on R/A; Weight 86.18 kg as6 (R); Height 5 ft. 5 in. (165.10 cm) (R); Pain 10/10; 04:02 BP 133 / 92; Pulse 61; Resp 18 S; Pulse Ox 99% on R/A; as6 05:10 BP 127 / 84; Pulse 99; Resp 18 S; Pulse Ox 96% on R/A; as6 02:25 Body Mass Index 31.62 (86.18 kg, 165.10 cm) as6 ED Course: 02:25 Patient arrived in ED. as6 02:26 Du Barnes MD is Attending Physician. rt 02:26 Triage completed. as6 02:27 Arm band placed on. as6 02:27 Placed in gown. Bed in low position. Call light in reach. Side rails up X2. as6 02:31 Paul Luna, SHARLA is Primary Nurse. as6 05:10 No provider procedures requiring assistance completed. Patient did not have IV access as6 during this emergency room visit. Administered Medications: 02:40 Drug: TORadol (ketorolac) 30 mg Route: IM; Site: right deltoid; as6 05:10 Follow up: Response: No adverse reaction as6 02:40 Drug: Flexeril (cyclobenzaprine) 10 mg Route: PO; as6 05:10 Follow up: Response: No adverse reaction as6 04:02 Drug: [place] (HYDROcodone-acetaminophen) 10 mg-325 mg 1 tabs Route: PO; as6 05:10 Follow up: Response: No adverse reaction as6 04:02 Drug: Decadron (dexamethasone) 10 mg Route: IM; Site: right vastus lateralis; as6 05:09 Follow up: Response: No adverse reaction as6 Medication: 02:27 VIS not applicable for this client. as6 Outcome: 04:54 Discharge ordered by . rt 05:10 Discharged to home ambulatory. as6 05:10 Condition: stable 05:10 Discharge instructions given to patient, Instructed on discharge instructions, follow up and referral plans. medication usage, Demonstrated understanding of instructions, follow-up care, medications, Prescriptions given X 2. 05:11 Patient left the ED. as6 Signatures: Paul Luna RN RN as6 Du Barnes MD MD rt
--- NOTE | 2022-02-05 04:54 | EDPHYS ---
Physician Documentation [facility] Name: Philomena Smith Age: 26 yrs Sex: Female : 1995 Arrival Date: 02/05/2022 Time: 02:25 Bed 2 Private MD: ED Physician Du Barnes HPI: 02/05 02:31 This 26 yrs old Female presents to ER via EMS with complaints of Back pain. rt 02:31 The patient presents with pain that is acute, with no known mechanism of injury. The rt symptoms are located in the low back. Onset: The symptoms/episode began/occurred 2 hour(s) ago. The pain does not radiate. Associated signs and symptoms: The patient has no apparent associated signs or symptoms, Pertinent negatives: fever, urinary retention. The problem was sustained when bending over. Modifying factors: The patient symptoms are alleviated by nothing, the patient symptoms are aggravated by any movement, bending. Severity of symptoms: At their worst the symptoms were moderate. Presents to the ED with a low, aching, nonradiating back pain that started when she got up. The patient denies bowel, bladder incontinence, saddle anesthesia. Patient did take a bath to no relief. Denies significant for the pain. Patient denies other acute complaints at this time, symptoms are moderate in severity, no other aggravating alleviating factors.. 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 Flu vaccine is not up to date. - Social history:: Smoking status: Patient denies any tobacco usage or history of. ROS: 02:31 Constitutional: Negative for fever, chills, and weight loss, Eyes: Negative for injury, rt pain, redness, and discharge, Cardiovascular: Negative for chest pain, palpitations, and edema, Respiratory: Negative for shortness of breath, cough, wheezing, and pleuritic chest pain, Abdomen/GI: Negative for abdominal pain, nausea, vomiting, diarrhea, and constipation, MS/Extremity: Negative for injury and deformity, Skin: Negative for injury, rash, and discoloration, Neuro: Negative for headache, weakness, numbness, tingling, and seizure, Psych: Negative for depression, anxiety, suicide ideation, homicidal ideation, and hallucinations. 02:31 Back: Positive for pain at rest, pain with movement. Exam: 02:31 Constitutional: This is a well developed, well nourished patient who is awake, alert, rt and in no acute distress. Head/Face: Normocephalic, atraumatic. Eyes: Pupils equal round and reactive to light, extra-ocular motions intact. Lids and lashes normal. Conjunctiva and sclera are non-icteric and not injected. Cornea within normal limits. Periorbital areas with no swelling, redness, or edema. Chest/axilla: Normal chest wall appearance and motion. Nontender with no deformity. No lesions are appreciated. Cardiovascular: Regular rate and rhythm with a normal S1 and S2. No gallops, murmurs, or rubs. Normal PMI, no JVD. No pulse deficits. Respiratory: Lungs have equal breath sounds bilaterally, clear to auscultation and percussion. No rales, rhonchi or wheezes noted. No increased work of breathing, no retractions or nasal flaring. Abdomen/GI: Soft, non-tender, with normal bowel sounds. No distension or tympany. No guarding or rebound. No evidence of tenderness throughout. Skin: Warm, dry with normal turgor. Normal color with no rashes, no lesions, and no evidence of cellulitis. MS/ Extremity: Pulses equal, no cyanosis. Neurovascular intact. Full, normal range of motion. Neuro: Awake and alert, GCS 15, oriented to person, place, time, and situation. Cranial nerves II-XII grossly intact. Motor strength 5/5 in all extremities. Sensory grossly intact. Cerebellar exam normal. Normal gait. Psych: Awake, alert, with orientation to person, place and time. Behavior, mood, and affect are within normal limits. 02:31 Back: No costovertebral angle tenderness, no midline tenderness to the mid lumbar region as well as the bilateral paraspinal mid lumbar regions, no step-offs.. Vital Signs: 02:25 BP 118 / 77; Pulse 87; Resp 18 S; Temp 97.7(O); Pulse Ox 99% on R/A; Weight 86.18 kg as6 (R); Height 5 ft. 5 in. (165.10 cm) (R); Pain 10/10; 04:02 BP 133 / 92; Pulse 61; Resp 18 S; Pulse Ox 99% on R/A; as6 05:10 BP 127 / 84; Pulse 99; Resp 18 S; Pulse Ox 96% on R/A; as6 02:25 Body Mass Index 31.62 (86.18 kg, 165.10 cm) as6 MDM: 02:26 Patient medically screened. rt 04:56 Differential diagnosis: Epidural or Perispinal Abcess Spinal epidural abscess, rt pyelonephritis, ureterolithiasis cauda equina syndrome. ED course: Patient presents to the ED with a low back pain. There are no findings concerning for spinal epidural abscess, cauda equina syndrome such as urinary retention, bowel, bladder incontinence, saddle anesthesia. The patient has no blood or bacteria in the urine, do not suspect pyelonephritis. Do not suspect ureterolithiasis. Symptoms are improved with treatment in the ED, she is stable for outpatient care.. 04:58 Data reviewed: vital signs, nurses notes, lab test result(s). rt 02/05 03:43 Order name: UA MICROSCOPIC; Complete Time: 04:45 rt 02/05 04:18 Order name: Urine --Ancillary (enter results) 2 02/05 04:18 Order name: Urine Dipstick-Ancillary; Complete Time: 04:20 EDMS 02/05 04:47 Order name: Urine Culture EDVT 02/05 03:43 Order name: Urine Dipstick-Ancillary (obtain specimen); Complete Time: 04:17 rt 12 03:43 Order name: Urine Test (obtain specimen); Complete Time: 04:17 rt Administered Medications: 02:40 Drug: TORadol (ketorolac) 30 mg Route: IM; Site: right deltoid; as6 05:10 Follow up: Response: No adverse reaction as6 02:40 Drug: Flexeril (cyclobenzaprine) 10 mg Route: PO; as6 05:10 Follow up: Response: No adverse reaction as6 04:02 Drug: [place] (HYDROcodone-acetaminophen) 10 mg-325 mg 1 tabs Route: PO; as6 05:10 Follow up: Response: No adverse reaction as6 04:02 Drug: Decadron (dexamethasone) 10 mg Route: IM; Site: right vastus lateralis; as6 05:09 Follow up: Response: No adverse reaction as6 Disposition Summary: 02/05/22 04:54 Discharge Ordered Location: Home rt Problem: new rt Symptoms: have improved rt Condition: Stable rt Diagnosis - Low back pain rt Followup: rt - With: Private Physician - When: 2 - 3 days - Reason: Discharge Instructions: - Discharge Summary Sheet rt - Acute Back Pain, Adult rt Forms: - Medication Reconciliation Form rt - Thank You Letter rt - Antibiotic Education rt - Prescription Opioid Use rt Prescriptions: - Medrol (Brad) 4 mg Oral Tablets, Dose Pack - take 1 tablet by ORAL route as directed - follow package instructions; 1 rt packet; Refills: 0, Product Selection Permitted - Cyclobenzaprine 5 mg Oral Tablet - take 1 tablet by ORAL route 3 times per day As needed; 15 tablet; Refills: 0, rt Product Selection Permitted Signatures: Dispatcher [employer] Paul Elias RN RN as6 Du Barnes MD MD rt
[2022-02-05 09:25] VITALS: TEMP 97.7
[2022-02-05 09:28] VITALS: BP 127/84; O2SAT 96
== END 2022-02-05 05:11 | disposition home or self-care (01) ==
LOC: ER 02:21
DX: M54.50 Low back pain, unspecified (principal)
CPT/HCPCS: 81003; 81015; 81025; 87086; 87088; 96372; 99283; J1100

== ENCOUNTER 2023-10-06 04:26 | Emergency (ER) | payer SELFPAY ==
[2023-10-06] MEDS ORDERED: CEFTRIAXONE 1000 MG/VIAL ONE (04:52)
[2023-10-06] MEDS ORDERED: ACETAMINOPHEN 500 MG TAB ONE (04:52)
[2023-10-06] MEDS ORDERED: KETOROLAC 30 MG/ML INJ ONE (04:52)
[2023-10-06] MEDS ORDERED: WATER FOR INJ,STERILE 10 ML ONE (04:53)
[2023-10-06 05:30] LABS: Specific Gravity 1.026 (1.005-1.030)
--- NOTE | 2023-10-06 06:11 | ER ---
Nurse's Notes [facility] Name: Philomena Smith Age: 28 yrs Sex: Female : 1995 Arrival Date: 10/06/2023 Time: 04:26 Bed 6 Private MD: Diagnosis: Streptococcal tonsillitis Presentation: 10/05 04:44 Chief complaint: Patient states: I think I have strep, my throat hurts so bad I feel vc1 like it is swollen. My ears hurt and itch. Coronavirus screen: Client denies travel out of the [place] in the last 14 days. At this time, the client does not indicate any symptoms associated with coronavirus-19. Ebola Screen: Patient negative for fever greater than or equal to 101.5 degrees Fahrenheit, and additional compatible Ebola Virus Disease symptoms Patient denies exposure to infectious person. Patient denies travel to an Ebola-affected area in the 21 days before illness onset. No symptoms or risks identified at this time. Initial Sepsis Screen: Does the patient meet any 2 criteria? No. Patient's initial sepsis screen is negative. Does the patient have a suspected source of infection? No. Patient's initial sepsis screen is negative. Risk Assessment: Do you want to hurt yourself or someone else? Patient reports no desire to harm self or others. Onset of symptoms was June 03, 2023. Care prior to arrival: None. Activity prior to arrival: None. 04:44 Method Of Arrival: Ambulatory vc1 04:44 Acuity: LUIS ANTONIO 4 vc1 Triage Assessment: 04:49 General: Appears in no apparent distress. uncomfortable, ill, well groomed, well vc1 developed, Behavior is calm, cooperative, appropriate for age. Pain: Complains of pain in right ear, left ear, left buccal mucosa, right buccal mucosa, uvula, left aspect of posterior pharynx and right aspect of posterior pharynx Pain does not radiate. Pain currently is 10 out of 10 on a pain scale. Quality of pain is described as sharp. EENT: Throat has patchy exudate has enlarged tonsils Reports pain when swallowing Pain is 10 out of 10 on a pain scale. Neuro: Level of Consciousness is awake, alert, obeys commands, Oriented to person, place, time, situation, Appropriate for age. Cardiovascular: Capillary refill < 3 seconds Patient's skin is warm and dry. Respiratory: Airway is patent Respiratory effort is even, unlabored, Respiratory pattern is regular, symmetrical. GI: No deficits noted. No signs and/or symptoms were reported involving the gastrointestinal system. : No deficits noted. No signs and/or symptoms were reported regarding the genitourinary system. Derm: Skin is intact, is healthy with good turgor, Skin is dry, Skin is normal. Musculoskeletal: No deficits noted. No signs and/or symptoms reported regarding the musculoskeletal system. 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 - Infectious Disease History:: Denies. - Social history:: Smoking status: Patient denies any tobacco usage or history of. - Family history:: not pertinent. Screenin:48 [facility] ED Fall Risk Assessment (Adult) History of falling in the last 3 months, vc1 including since admission No falls in past 3 months (0 pts) Confusion or Disorientation No (0 pts) Intoxicated or Sedated No (0 pts) Impaired Gait No (0 pts) Mobility Assist Device Used No (0 pt) Altered Elimination No (0 pt) Score/Fall Risk Level 0 - 2 = Low Risk Oriented to surroundings, Maintained a safe environment, Educated pt \T\ family on fall prevention, incl call for assistance when getting out of bed. Abuse screen: Denies threats or abuse. Nutritional screening: No deficits noted. Tuberculosis screening: No symptoms or risk factors identified. Assessment: 04:45 General: Appears in no apparent distress. comfortable, Behavior is calm, cooperative, jw7 appropriate for age. Pain: Complains of pain in left ear and right ear, and throat Pain does not radiate. Pain currently is 10 out of 10 on a pain scale. Quality of pain is described as burning, stinging, Pain began suddenly, Is continuous. Neuro: Level of Consciousness is awake, alert, obeys commands, Oriented to person, place, time, situation, Appropriate for age. Cardiovascular: Heart tones S1 S2 present Capillary refill < 3 seconds Clubbing of nail beds is absent JVD is absent Patient's skin is warm and dry. Respiratory: Airway is patent Trachea midline Respiratory effort is even, unlabored, Respiratory pattern is regular, symmetrical, Breath sounds are clear bilaterally. GI: Abdomen is round non-distended, Bowel sounds present X 4 quads. Abd is soft and non tender X 4 quads. : No deficits noted. No signs and/or symptoms were reported regarding the genitourinary system. EENT: Reports difficulty swallowing pain in throat when swallowing. Derm: Skin is intact, is healthy with good turgor, Skin is dry, Skin is normal, Skin temperature is warm. Musculoskeletal: Circulation, motion, and sensation intact. Range of motion: intact in all extremities. 05:30 Reassessment: Patient appears in no apparent distress at this time. No changes from 7 previously documented assessment. Patient and/or family updated on plan of care and expected duration. Pain level reassessed. Patient is alert, oriented x 3, equal unlabored respirations, skin warm/dry/pink. 06:20 Reassessment: Patient appears in no apparent distress at this time. No changes from jw7 previously documented assessment. Patient and/or family updated on plan of care and expected duration. Pain level reassessed. Patient is alert, oriented x 3, equal unlabored respirations, skin warm/dry/pink. Vital Signs: 04:44 BP 129 / 90; Pulse 109; Resp 18; Temp 97; Pulse Ox 98% ; Weight 84.82 kg; Height 5 ft. vc1 0 in. ; Pain 10/10; 05:30 BP 128 / 84; Pulse 99; Resp 18 S; Pulse Ox 99% on R/A; jw7 06:21 BP 130 / 88; Pulse 95; Resp 17 S; Pulse Ox 99% on R/A; jw7 04:44 Body Mass Index 36.52 (84.82 kg, 152.4 cm) vc1 04:44 Pain Scale: Adult vc1 Armaan Coma Score: 06:20 Eye Response: spontaneous(4). Motor Response: obeys commands(6). Verbal Response: sp4 oriented(5). Total: 15. ED Course: 04:29 Patient arrived in ED. gm2 04:39 Kolby Pratt MD is Attending Physician. sp4 04:47 Triage completed. vc1 04:48 Arm band placed on left wrist. vc1 04:49 Patient has correct armband on for positive identification. Bed in low position. Call vc1 light in reach. library monitor on. Pulse ox on. NIBP on. 05:07 Test, Urine Sent. jw7 06:21 No provider procedures requiring assistance completed. Patient did not have IV access jw7 during this emergency room visit. 06:22 Provided Education on: use of call light. jw7 Administered Medications: 05:07 Drug: Ketorolac IM 60 mg IM once Route: IM; Site: left ventrogluteal; jw7 :22 Follow up: Response: No adverse reaction; Marked relief of symptoms jw7 05:07 Drug: Rocephin (cefTRIAXone) IM 1 grams IM once Route: IM; Site: right ventrogluteal; jw7 :22 Follow up: Response: No adverse reaction jw7 05:07 Drug: Acetaminophen PO 1000 mg PO once Route: PO; jw7 :22 Follow up: Response: No adverse reaction; Marked relief of symptoms jw7 Medication: 04:49 VIS not applicable for this client. vc1 Outcome: 06:11 Discharge ordered by MD. sampson 06:21 Discharged to home ambulatory, jw7 06:21 Condition: stable 06:21 Discharge instructions given to patient, Instructed on discharge instructions, follow up and referral plans. medication usage, Demonstrated understanding of instructions, follow-up care, medications, Prescriptions given X 3, 06:22 Patient left the ED. jw7 Signatures: Yanna Beckford RN RN vc1 Dinora Miller RN RN jw7 Kolby Pratt MD MD sp4 Gisele Garcia 2
--- NOTE | 2023-10-06 06:11 | EDPHYS ---
Physician Documentation [facility] Name: Philomena Smith Age: 28 yrs Sex: Female : 1995 Arrival Date: 10/06/2023 Time: 04:26 Bed 6 Private MD: ED Physician Kolby Pratt HPI: 10/05 04:48 This 28 yrs old Female presents to ER via Ambulatory with complaints of Sore sp4 Throat, Ear Pain, Pain, Congestion, Shoulder Pain. 06:20 28-year-old female presents with 3 days of sore throat, congestion, bilateral earache.. 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 - Infectious Disease History:: Denies. - Social history:: Smoking status: Patient denies any tobacco usage or history of. - Family history:: not pertinent. ROS: 06:20 Constitutional: Negative for fever, chills, and weight loss, sp4 06:20 Constitutional: Negative for fever, chills, and weight loss, positive sore throat, positive bilateral earache, positive congestion 06:20 All other systems are negative, Exam: 06:20 Constitutional: This is a well developed, well nourished patient who is awake, alert, sp4 and in no acute distress. Head/Face: Normocephalic, atraumatic. Eyes: Pupils equal round and reactive to light, extra-ocular motions intact. Lids and lashes normal. Conjunctiva and sclera are not injected. Cornea within normal limits. Periorbital areas with no swelling, redness, or edema. ENT: Nares patent. No nasal discharge, no septal abnormalities noted. Tympanic membranes are normal and external auditory canals are clear. Oropharynx with lateral tonsillar swelling and erythema bilateral tonsillar exudates Neck: Trachea midline, no thyromegaly or masses palpated, and no cervical lymphadenopathy. Supple, full range of motion without nuchal rigidity, or vertebral point tenderness. Chest/axilla: Normal chest wall appearance and motion. Nontender with no deformity. No lesions are appreciated. Cardiovascular: Regular rate and rhythm with a normal S1 and S2. No gallops, murmurs, or rubs. Normal PMI, no JVD. No pulse deficits. Respiratory: Lungs have equal breath sounds bilaterally, clear to auscultation and percussion. No rales, rhonchi or wheezes noted. No increased work of breathing, no retractions or nasal flaring. Abdomen/GI: Soft, with normal bowel sounds. No distension or tympany. No guarding or rebound. No evidence of tenderness throughout. Back: No spinal tenderness. No costovertebral tenderness. Skin: Warm, dry with normal turgor. Normal color with no rashes, no lesions, and no evidence of cellulitis. MS/ Extremity: Pulses equal, no cyanosis. Neurovascular intact. Full, normal range of motion. Neuro: Awake and alert, GCS 15, oriented to person, place, time, and situation. Cranial nerves II-XII grossly intact. Motor strength 5/5 in all extremities. Sensory grossly intact. Psych: Awake, alert, with orientation to person, place and time. Behavior, mood, and affect are within normal limits Vital Signs: 04:44 BP 129 / 90; Pulse 109; Resp 18; Temp 97; Pulse Ox 98% ; Weight 84.82 kg; Height 5 ft. vc1 0 in. ; Pain 10/10; 05:30 BP 128 / 84; Pulse 99; Resp 18 S; Pulse Ox 99% on R/A; jw7 06:21 BP 130 / 88; Pulse 95; Resp 17 S; Pulse Ox 99% on R/A; jw7 04:44 Body Mass Index 36.52 (84.82 kg, 152.4 cm) vc1 04:44 Pain Scale: Adult vc1 Armaan Coma Score: 06:20 Eye Response: spontaneous(4). Motor Response: obeys commands(6). Verbal Response: sp4 oriented(5). Total: 15. MDM: 05:05 Patient medically screened. sp4 06:22 Differential diagnosis: Allergic rhinitis, bronchitis, cocksackie virus, echovirus sp4 infection, epiglottitis. Data reviewed: vital signs, nurses notes, lab test result(s), UPT: negative. ED course: Will discharge home with p.o. cefdinir.. 10/05 04:39 Order name: Test, Urine; Complete Time: 06:08 sp4 Administered Medications: 05:07 Drug: Ketorolac IM 60 mg IM once Route: IM; Site: left ventrogluteal; jw7 06:22 Follow up: Response: No adverse reaction; Marked relief of symptoms jw7 05:07 Drug: Rocephin (cefTRIAXone) IM 1 grams IM once Route: IM; Site: right ventrogluteal; jw7 06:22 Follow up: Response: No adverse reaction jw7 05:07 Drug: Acetaminophen PO 1000 mg PO once Route: PO; jw7 06:22 Follow up: Response: No adverse reaction; Marked relief of symptoms jw7 Disposition Summary: 10/06/23 06:11 Discharge Ordered Notes: Location: Home sp4 Problem: new sp4 Symptoms: have improved sp4 Condition: Stable sp4 Diagnosis - Streptococcal tonsillitis sp4 Followup: sp4 - With: Private Physician - When: 5 - 6 days - Reason: Recheck today's complaints Discharge Instructions: - Discharge Summary Sheet sp4 - Tonsillitis, Iocx-[id number] sp4 Forms: - Patient Portal Instructions sp4 Prescriptions: - acetaminophen-codeine 300-60 mg Oral tablet - take 1 tablet ORAL route every 8 hours Together with Ibuprofen; 20 tablet; sp4 Refills: 0, Product Selection Permitted - cefdinir 300 mg Oral capsule - take 1 capsule ORAL route 2 times per day with meals for 10 days; 20 capsule; sp4 Refills: 0, Product Selection Permitted - Ibuprofen 800 mg Oral Tablet - take 1 tablet ORAL route every 8 hours As needed take with food; 30 tablet; sp4 Refills: 0, Product Selection Permitted Signatures: Dispatcher [employer] Yanna Woodruff RN RN vc1 Dinora Miller RN RN jw7 Kolby Pratt MD MD sp4
[2023-10-06 08:40] VITALS: TEMP 97
[2023-10-06 08:50] VITALS: O2SAT 99
[2023-10-06 08:51] VITALS: BP 130/88
== END 2023-10-06 06:22 | disposition home or self-care (01) ==
LOC: ER 04:26
DX: J03.00 Acute streptococcal tonsillitis, unspecified (principal)
CPT/HCPCS: 81025; 96372; 99285; J0696

== ENCOUNTER 2023-10-29 18:31 | Emergency (ER) | payer SELFPAY ==
[2023-10-29 20:04] LABS: Specific Gravity > 1.030 (1.005-1.030)
[2023-10-29 20:05] LABS: Specific Gravity > 1.030 (1.005-1.030); Sqamous Epithelial <5 /HPF (None Seen); Urine Bacteria None Seen /HPF (<20); Urine Bilirubin NEGATIVE (Negative); Urine Blood Negative (Negative); Urine Clarity Extremely Turbid (Clear); Urine Color Yellow (Yellow); Urine Crystals Unidentified Few /HPF (None Seen); Urine Culture Reflex Order NOT NEEDED; Urine Glucose NEGATIVE (Negative); Urine Ketones NEGATIVE (Negative); Urine Microscopic Reflex YN ORDER UMIC; Urine Mucus Slight /HPF (None Seen); Urine Nitrite NEGATIVE (Negative); Urine Protein TRACE (Negative); Urine Urobilinogen Normal (Normal); Urine WBC Clump Rare /HPF (None Seen); Urine Yeast (Budding) Moderate /HPF (None Seen)
--- NOTE | 2023-10-29 20:46 | RAD REPORT ---
EXAM DESCRIPTION: CT - Stone Protocol - 10/29/2023 8:37 pm CLINICAL HISTORY: Flank pain. back pain COMPARISON: Abdomen Pelvis W Contrast dated 07/19/2023 TECHNIQUE: Axial images were obtained without oral or IV contrast. Lack of contrast limits solid org an and vascular assessment. The [id number] spans the entirety of the system partially obscuring uppermost abdomen and lung bases. Coronal reformatted images were obtained and reviewed. All CT scans are performed using dose optimization technique as appropriate and may include automated exposure control or mA/KV adjustment according to patient size. FINDINGS: The lower lung jackson are clear. Cholecystectomy clips. Imaged portions of the liver and spleen show no suspicious findings on non-contrast imaging. The panc reas and adrenal glands are normal. No pathologic lymphadenopathy in the abdomen or pelvis. Small fat containing umbilical hernia. No urinary tract stones or obstructive uropathy. No bowel obstruction, free air, free fluid or abscess. Normal appendix noted.5.3 cm right adnexal les ion is present appearing enlarged since 07/19/2023 which time it measured 3.6 cm. No significant bony abnormality. IMPRESSION: No urinary tract stones or obstructive uropathy. Right adnexal lesion is present measuring 5.3 cm, increased in size since 3.6 cm. Transvaginal ultras ound or pelvic MRI recommended for followup.
[2023-10-29] MEDS ORDERED: KETOROLAC 30 MG/ML INJ ONE (20:50)
[2023-10-29] MEDS ORDERED: CIPROFLOXACIN HCL 500 MG TAB ONE (20:51)
[2023-10-29] MEDS ORDERED: HYDROCODONE/APAP 10/325 TAB ONE (20:51)
[2023-10-29] MEDS ORDERED: DIAZEPAM 5 MG TABLET ONE (20:51)
--- NOTE | 2023-10-29 22:03 | RAD REPORT ---
EXAM DESCRIPTION: US - Transvaginal Study Probe - 10/29/2023 9:35 pm CLINICAL HISTORY: pain , mass, right adenxa Pelvic pain. COMPARISON: No comparisons FINDINGS: The uterus is normal in size, shape and echotexture. The uterus measures 7.3 x 2.6 x 1.9 c m. The endometrial stripe measures 5 mm, normal. Both ovaries are normal in size, shape and echotexture. The right ovary measures 5.4 x 4.9 x 4.7 cm. The left ovary measures 2.1 x 2.1 x 1.6 cm.. No ovarian or parovarian lesions. 4.2 x 3.9 x 3.7 cm r ounded lesion in the right ovary is nonspecific but may represent an endometrioma. Normal Doppler blood flow was demonstrated to both ovaries. No significant pelvic ascites. IMPRESSION: 4.2 cm rounded lesion in the right ovary likely represents an endometrioma.Recommend fol low-up pelvic sonogram in 4-6 weeks.
--- NOTE | 2023-10-29 22:23 | EDPHYS ---
Physician Documentation [facility] Name: Philomena Smith Age: 28 yrs Sex: Female : 1995 Arrival Date: 10/29/2023 Time: 18:31 Bed 8 Private MD: ED Physician Wayne Sultana HPI: 10/28 18:58 This 28 yrs old Female presents to ER via Ambulatory with complaints of Low rn Back Pain. 18:58 The patient presents with pain that is acute. The symptoms are located in the low back. rn The pain does not radiate. Onset: The symptoms/episode began/occurred yesterday. Modifying factors: The patient symptoms are alleviated by nothing, the patient symptoms are aggravated by any movement. Severity of symptoms: At their worst the symptoms were moderate, in the emergency department the symptoms are unchanged. The patient has experienced similar episodes in the past. Patient reports right lower back pain, nonradiating, no trauma but was stretching recently and slept on the floor. No bowel or bladder issues. No weakness or numbness. Does not feel like he has a UTI. No urinary symptoms. No history of kidney stones. LMP 1 week ago and does not believe she is .. 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 - Social history:: Smoking status: Patient denies any tobacco usage or history of. - Family history:: not pertinent. - Hospitalizations: : No recent hospitalization is reported. ROS: 18:58 Constitutional: Negative for fever, chills, and weight loss, Cardiovascular: Negative rn for chest pain, palpitations, and edema, Respiratory: Negative for shortness of breath, cough, wheezing, and pleuritic chest pain, Abdomen/GI: Negative for abdominal pain or vomiting. Back: Positive for right lower back pain : Negative for injury, bleeding, discharge, and swelling, MS/Extremity: Negative for injury and deformity, Skin: Negative for injury, rash, and discoloration, Neuro: Negative for headache, weakness, numbness, tingling, and seizure, Exam: 18:58 Constitutional: This is a well developed, well nourished patient who is awake, alert, rn appears uncomfortable and is leaning forward in chair Cardiovascular: Tachycardic, regular. No pulse deficits. Respiratory: No increased work of breathing, no retractions or nasal flaring. Abdomen/GI: Soft, nontender. Vital Signs: 18:46 BP 124 / 87; Pulse 104; Resp 16; Temp 97; Pulse Ox 100% ; Weight 81.65 kg; Height 5 ft. ll1 0 in. ; Pain 10/10; 19:54 BP 115 / 84; Pulse 105; Resp 18; Pulse Ox 100% ; br2 20:00 BP 118 / 83; Pulse 97; Resp 18; Pulse Ox 100% ; al5 21:26 BP 125 / 83; Pulse 101; Resp 18; Pulse Ox 100% ; al5 21:30 BP 107 / 82; Pulse 97; Resp 18; Pulse Ox 100% on R/A; al5 21:34 BP 125 / 83; Pulse 99; Resp 18; Pulse Ox 99% ; Pain 7/10; br2 21:35 Pain 7/10; br2 21:36 Pain 7/10; br2 21:36 Pain 7/10; br2 22:00 BP 130 / 100; Pulse 98; Resp 18; Pulse Ox 100% ; al5 22:30 BP 129 / 76; Pulse 96; Resp 18; Pulse Ox 100% ; al5 22:47 BP 127 / 87; Pulse 91; Resp 18; Pulse Ox 100% ; al5 18:46 Body Mass Index 35.15 (81.65 kg, 152.4 cm) ll1 18:46 Pain Scale: Adult ll1 21:34 Pain Scale: Adult br2 21:35 Pain Scale: Adult br2 21:36 Pain Scale: Adult br2 21:36 Pain Scale: Adult br2 MDM: 18:48 Patient medically screened. rn 20:45 Differential diagnosis: arthritis, strain, fracture, sciatica, contusion, Herniated catina disc UTI. Data reviewed: vital signs, nurses notes, lab test result(s), urinalysis. Consideration of Admission/Observation Escalation of care including admission/observation considered. I considered the following discharge prescriptions or medication management in the emergency department Medications were administered in the Emergency Department. See MAR. Independent interpretation of the following test(s) in the Emergency Department CT Scan: My interpretation is ct scan. Historians other than the Patient: Spouse/Significant Other: . 10/28 18:55 Order name: Urinalysis w/ reflexes; Complete Time: 20:17 [facility] 10/28 18:55 Order name: Test, Urine; Complete Time: 20:17 [facility] 10/28 18:56 Order name: CT Stone Protocol [facility] 10/28 21:03 Order name: Transvaginal Study (Probe) catina Administered Medications: 21:05 Drug: Ciprofloxacin PO 500 mg PO once Route: PO; br2 21:36 Follow up: Pain 7/10 Adult; Response: No change in condition br2 21:05 Drug: Ketorolac IM 60 mg IM once Route: IM; Site: right gluteus; br2 21:36 Follow up: Pain 7/10 Adult br2 21:36 Follow up: Response: Pain is decreased br2 21:05 Drug: Diazepam PO 10 mg PO once Route: PO; br2 21:35 Follow up: Pain 7/10 Adult br2 21:36 Follow up: Response: Pain is decreased br2 21:05 Drug: [place] PO 10 mg-325 mg 1 tabs PO once Route: PO; br2 21:34 Follow up: BP 125 / 83; Pulse 99 bpm; Resp 18 bpm; Pulse Ox 99% ; Pain 7/10 Adult br2 21:36 Follow up: Response: Pain is decreased br2 22:54 Drug: Ondansetron PO 4 mg PO once Route: PO; al5 23:12 Follow up: Response: No adverse reaction; Medication administered at discharge. br2 Disposition Summary: 10/29/23 22:22 Discharge Ordered Notes: Location: Home catina Problem: new catina Symptoms: have improved catina Condition: Stable catina Diagnosis - Low back pain catina - Strain of muscle, fascia and tendon of lower back catina - Unspecified symptoms and signs involving the musculoskeletal system catina - Abnormal findings on diagnostic imaging of other specified body structures - right catina adnexal lesion present 5.[address], 4.2 cm rounded lesion on right ovary, suspect Endometrioma - Endometriosis of ovary catina - Other endometriosis - Endometrioma catina Followup: catina - With: Private Physician - When: 2 - 3 days - Reason: Recheck today's complaints, Continuance of care, Re-evaluation by your physician Followup: catina - With: Adeline Kumar MD - When: 2 - 3 days - Reason: Recheck today's complaints, Re-evaluation by your physician Discharge Instructions: - Discharge Summary Sheet catina - Acute Back Pain, Adult catina - Chronic Back Pain catina - Endometriosis catina - Musculoskeletal Pain catina - Ovarian Cyst catina - Transvaginal Ultrasound catina - Back Injury Prevention, [id number] catina - Ovarian Cyst, Aqck-da-[id number] catina - Incidental Abnormal Radiological Finding [facility] Forms: - Medication Reconciliation Form [facility] - Antibiotic Education catina - Prescription Opioid Use [facility] - Patient Portal Instructions [facility] - Leadership Thank You Letter [facility] Prescriptions: - acetaminophen-codeine 300-30 mg Oral tablet - take 2 tablet ORAL route every 6 hours; 20 tablet; Refills: 0, Product [facility] Selection Permitted - ondansetron 4 mg Oral Tablet,disintegrating - take 1 tablet ORAL route every 8-10 hours for 5 days; 20 tablet; Refills: 0, [facility] Product Selection Permitted - Cipro 250 mg Oral tablet - take 1 tablet ORAL route every 12 hours; 14 tablet; Refills: 0, Product [facility] Selection Permitted - Diclofenac Sodium 75 mg Oral Tablet Sustained Release - take 1 tablet ORAL route 2 times per day; 30 tablet; Refills: 0, Product [facility] Selection Permitted - Medrol (Brad) 4 mg Oral Tablets, Dose Pack - take 1 tablet ORAL route as directed - follow package instructions; 1 packet; [facility] Refills: 0, Product Selection Permitted - Cyclobenzaprine 5 mg Oral Tablet - take 1 tablet ORAL route 3 times per day As needed; 15 tablet; Refills: 0, [facility] Product Selection Permitted Signatures: Dispatcher [employer] EDWayne Richards MD MD cha Nieto, Roman, MD MD rn Lewis, Lynsay, RN RN ll1 Laura Butterfield RN RN al5 Kiara Myers RN RN br2 Corrections: (The following items were deleted from the chart) 19:00 18:58 Constitutional: Negative for fever, chills, and weight loss, Cardiovascular: rn Negative for chest pain, palpitations, and edema, Respiratory: Negative for shortness of breath, cough, wheezing, and pleuritic chest pain, Abdomen/GI: Negative for abdominal pain or vomiting. Back: Positive for right lower back pain MS/Extremity: Negative for injury and deformity, Skin: Negative for injury, rash, and discoloration, Neuro: Negative for headache, weakness, numbness, tingling, and seizure, rn 21:04 21:04 Transvaginal Study (Probe)+[id number].RAD.[id number] ordered. EDMS EDMS
--- NOTE | 2023-10-29 22:23 | ER ---
Nurse's Notes [facility] Name: Philomena Smith Age: 28 yrs Sex: Female : 1995 Arrival Date: 10/29/2023 Time: 18:31 Bed 8 Private MD: Diagnosis: Low back pain;Strain of muscle, fascia and tendon of lower back;Unspecified symptoms and signs involving the musculoskeletal system;Abnormal findings on diagnostic imaging of other specified body structures-right adnexal lesion present 5.[address], 4.2 cm rounded lesion on right ovary, suspect Endometrioma;Endometriosis of ovary;Other endometriosis-Endometrioma Presentation: 10/28 18:46 Chief complaint: Patient states: Low back pain for 2 days. No trauma or falls. 1 Coronavirus screen: Client denies travel out of the [place] in the last 14 days. At this time, the client does not indicate any symptoms associated with coronavirus-19. Ebola Screen: Patient denies travel to an Ebola-affected area in the 21 days before illness onset. Initial Sepsis Screen: Does the patient meet any 2 criteria? No. Patient's initial sepsis screen is negative. Does the patient have a suspected source of infection? No. Patient's initial sepsis screen is negative. Risk Assessment: Do you want to hurt yourself or someone else? Patient reports no desire to harm self or others. Onset of symptoms was October 28, 2023. 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 - Social history:: Smoking status: Patient denies any tobacco usage or history of. - Family history:: not pertinent. - Hospitalizations: : No recent hospitalization is reported. Screenin:55 [facility] ED Fall Risk Assessment (Adult) History of falling in the last 3 months, br2 including since admission No falls in past 3 months (0 pts) Confusion or Disorientation No (0 pts) Intoxicated or Sedated No (0 pts) Impaired Gait No (0 pts) Mobility Assist Device Used No (0 pt) Altered Elimination No (0 pt) Score/Fall Risk Level 0 - 2 = Low Risk Oriented to surroundings. Abuse screen: Denies threats or abuse. Nutritional screening: No deficits noted. Tuberculosis screening: No symptoms or risk factors identified. Assessment: 19:51 General: Appears uncomfortable, Behavior is calm, Smells of Reports Denies fever. Pain: br2 Complains of pain in buttocks Pain does not radiate. Pain currently is 8 out of 10 on a pain scale. Quality of pain is described as sharp, Pain began 1 day ago. Is continuous, Alleviated by nothing. Aggravated by increased activity, Noted to be Also complains of no other associated symptoms. Current management - is no interventions. Goal of pain control is to be pain free, Unable to use pain scale. Neuro: No deficits noted. Cardiovascular: No deficits noted. 21:52 General: ice pack applied to left eye on arrival to er room 8 . br2 Vital Signs: 18:46 BP 124 / 87; Pulse 104; Resp 16; Temp 97; Pulse Ox 100% ; Weight 81.65 kg; Height 5 ft. ll1 0 in. ; Pain 10/10; 19:54 BP 115 / 84; Pulse 105; Resp 18; Pulse Ox 100% ; br2 20:00 BP 118 / 83; Pulse 97; Resp 18; Pulse Ox 100% ; al5 21:26 BP 125 / 83; Pulse 101; Resp 18; Pulse Ox 100% ; al5 21:30 BP 107 / 82; Pulse 97; Resp 18; Pulse Ox 100% on R/A; al5 21:34 BP 125 / 83; Pulse 99; Resp 18; Pulse Ox 99% ; Pain 7/10; br2 21:35 Pain 7/10; br2 21:36 Pain 7/10; br2 21:36 Pain 7/10; br2 22:00 BP 130 / 100; Pulse 98; Resp 18; Pulse Ox 100% ; al5 22:30 BP 129 / 76; Pulse 96; Resp 18; Pulse Ox 100% ; al5 22:47 BP 127 / 87; Pulse 91; Resp 18; Pulse Ox 100% ; al5 18:46 Body Mass Index 35.15 (81.65 kg, 152.4 cm) ll1 18:46 Pain Scale: Adult ll1 21:34 Pain Scale: Adult br2 21:35 Pain Scale: Adult br2 21:36 Pain Scale: Adult br2 21:36 Pain Scale: Adult br2 ED Course: 18:34 Patient arrived in ED. ra3 18:45 Arm band placed on. ll1 18:47 Triage completed. ll1 18:48 Ron Sandoval MD is Attending Physician. rn 19:51 Kiara Myers RN is Primary Nurse. br2 19:58 Test, Urine Sent. al5 19:58 Urinalysis w/ reflexes Sent. al5 20:02 Provided Education on: processes and procedures. al5 20:02 Patient has correct armband on for positive identification. Bed in low position. Call al5 light in reach. Side rails up X 1. 20:02 No provider procedures requiring assistance completed. al5 20:33 Attending Physician role handed off by Ron Sandoval MD catina 20:33 Wayne Sultana MD is Attending Physician. catina 20:38 CT Stone Protocol In Process Unspecified. EDMS 21:36 US Transvaginal Study (Probe) In Process Unspecified. EDMS 22:19 Adeline Kumar MD is Referral Physician. catina 23:11 Patient did not have IV access during this emergency room visit. br2 Administered Medications: 21:05 Drug: Ciprofloxacin PO 500 mg PO once Route: PO; br2 21:36 Follow up: Pain 7/10 Adult; Response: No change in condition br2 21:05 Drug: Ketorolac IM 60 mg IM once Route: IM; Site: right gluteus; br2 21:36 Follow up: Pain 7/10 Adult br2 21:36 Follow up: Response: Pain is decreased br2 21:05 Drug: Diazepam PO 10 mg PO once Route: PO; br2 21:35 Follow up: Pain 7/10 Adult br2 21:36 Follow up: Response: Pain is decreased br2 21:05 Drug: [place] PO 10 mg-325 mg 1 tabs PO once Route: PO; br2 21:34 Follow up: BP 125 / 83; Pulse 99 bpm; Resp 18 bpm; Pulse Ox 99% ; Pain 7/10 Adult br2 21:36 Follow up: Response: Pain is decreased br2 22:54 Drug: Ondansetron PO 4 mg PO once Route: PO; al5 23:12 Follow up: Response: No adverse reaction; Medication administered at discharge. br2 Medication: 19:54 VIS not applicable for this client. br2 Outcome: 22:22 Discharge ordered by . catina 22:37 Discharged to home ambulatory, with significant other, br2 22:37 Condition: good 22:37 Discharge instructions given to patient, Instructed on discharge instructions, follow up and referral plans. Demonstrated understanding of instructions, Prescriptions given X 5 rx given 23:00 Patient left the ED. jb4 Signatures: Dispatcher [employer] EDMS Wayne Sultana MD MD cha Nieto, Roman, MD MD rn Bryson, James RN RN jb4 Magaly Solis RN RN ll1 Melisa Palmer ra3 Laura Butterfield RN RN al5 Kiara Myers RN RN br2
[2023-10-29] MEDS ORDERED: ONDANSETRON 4 MG (ODT) TAB ONE (22:53)
[2023-10-29 23:05] VITALS: TEMP 97
[2023-10-29 23:07] VITALS: BP 125/83; O2SAT 99
== END 2023-10-29 23:00 | disposition home or self-care (01) ==
LOC: ER 18:31
DX: S39.012A Strain of muscle, fascia and tendon of lower back, initial encounter (principal); R29.91 Unspecified symptoms and signs involving the musculoskeletal system; N83.01 Follicular cyst of right ovary; N80.121 Deep endometriosis of right ovary
CPT/HCPCS: 74176; 76377; 76830; 81001; 81025; Q0162

== ENCOUNTER 2023-12-23 14:31 | Emergency (ER) | payer SELFPAY ==
--- NOTE | 2023-12-23 15:22 | RAD REPORT ---
EXAMINATION: LUMBAR SPINE 3 VIEWS CLINICAL INDICATION: Female, 28 years old. PAIN TECHNIQUE: AP, lateral, focused lateral lumbosacral views of the lumbar spine were obtained. [id number]. COMPARISON: No prior exam. FINDINGS: For purposes of this dictation, it is assumed that there are 5 lumbar type vertebral bodies. ALIGNMENT: Minimal thoracolumbar curvature. BONES: Vertebral bodies are normal in height. No aggressive osseous lesions. DISCS: Disc heights are maintained. SOFT TISSUE: Surgical clips in upper quadrant. IMPRESSION: No acute lumbar spine abnormality.
[2023-12-23] MEDS ORDERED: dexAMETHasone 10 MG/ML VIAL ONE (16:12)
[2023-12-23] MEDS ORDERED: DIAZEPAM 5 MG TABLET ONE (16:13)
[2023-12-23] MEDS ORDERED: KETOROLAC 30 MG/ML INJ ONE (16:13)
[2023-12-23] MEDS ORDERED: HYDROCODONE/APAP 5/325 MG TAB ONE (16:13)
[2023-12-23 16:53] LABS: Specific Gravity 1.023 (1.005-1.030)
[2023-12-23 17:24] LABS: Specific Gravity 1.023 (1.005-1.030); Urine Bacteria <20 /HPF (<20); Urine Bilirubin NEGATIVE (Negative); Urine Blood Negative (Negative); Urine Clarity Extremely Turbid (Clear); Urine Color Light-Yellow (Yellow); Urine Culture Reflex Order NOT NEEDED; Urine Glucose NEGATIVE (Negative); Urine Ketones NEGATIVE (Negative); Urine Microscopic Reflex YN ORDER UMIC; Urine Mucus Slight /HPF (None Seen); Urine Nitrite NEGATIVE (Negative); Urine Protein TRACE (Negative); Urine RBC <5 /HPF (None Seen); Urine Urobilinogen Normal (Normal); Urine WBC <5 /HPF (<5); Urine pH 8.5 (5.0-7.0)
--- NOTE | 2023-12-23 17:33 | EDPHYS ---
Physician Documentation [facility] Name: Philomena Smith Age: 28 yrs Sex: Female : 1995 Arrival Date: 12/23/2023 Time: 14:31 Bed 10 Private MD: ED Physician Chato Weller HPI: 12/22 21:43 This 28 yrs old Female presents to ER via Ambulatory with complaints of Back kb Pain. 21:44 Pt is a 28 year old female who presents for low back pain that has been intermittent kb for 3 years. States it got worse after taking the trash out this morning. Denies injury, trauma, bowel/bladder issues, numbness, tingling.. Historical: - Allergies: 14:45 unknown antibiotic; hb - PMHx: 14:45 Migraine; hb - PSHx: 14:45 section; Cholecystectomy; hb ROS: 21:42 Constitutional: As per HPI kb Exam: 21:42 Constitutional: This is a well developed, well nourished patient who is awake, alert, kb and in no acute distress. Head/Face: Normocephalic, atraumatic. ENT: Moist Mucous membranes Cardiovascular: Regular rate Respiratory: Respirations even and unlabored. No increased work of breathing. Talking in full sentences Abdomen/GI: Soft, non-tender. No distention Skin: Warm, dry with normal turgor. Normal color. MS/ Extremity: Pulses equal, no cyanosis. Neurovascular intact. Full, normal range of motion. Neuro: Awake and alert, GCS 15, oriented to person, place, time, and situation. 21:42 Back: pain, that is moderate, of the lumbar area, ROM is painful, Vital Signs: 14:44 BP 126 / 90; Pulse 102; Resp 16; Temp 96.9(TE); Pulse Ox 100% on R/A; Pain 10/10; hb 14:44 Pain Scale: Adult hb MDM: 14:36 Medical Screening Exam initiated kb 21:42 Differential diagnosis: vertebral fracture, strain, sciatica, bulging disc. Data kb reviewed: vital signs, nurses notes. Test considered but Not performed: MRI: MRI lumbar spine considered but pt has no neuro deficits, this pain has been chronic for 3 years without injury or trauma. . Counseling: I had a detailed discussion with the patient and/or guardian regarding the historical points, exam findings, and any diagnostic results supporting the discharge/admit diagnosis, lab results, radiology results, the need for outpatient follow up, a family practitioner, to return to the emergency department if symptoms worsen or persist or if there are any questions or concerns that arise at home. 12/22 14:56 Order name: Test, Urine; Complete Time: 17:04 kb 12/22 14:56 Order name: Urinalysis w/ reflexes; Complete Time: 17:26 kb 12/22 14:56 Order name: Lumbar Spine (3 Views) XRAY; Complete Time: 16:01 kb Administered Medications: 16:22 Drug: Dexamethasone IM 10 mg IM once Route: IM; Site: right deltoid; jb4 17:52 Follow up: Response: No adverse reaction; Marked relief of symptoms; Pain is decreased jb4 16:22 Drug: Diazepam PO 5 mg PO once Route: PO; jb4 17:52 Follow up: Response: No adverse reaction; Marked relief of symptoms jb4 16:22 Drug: HYDROcodone-acetaminophen PO 5 mg-325 mg 1 tabs PO once Route: PO; jb4 17:52 Follow up: Response: No adverse reaction; Marked relief of symptoms jb4 16:22 Drug: Ketorolac IM 30 mg IM once Route: IM; Site: right deltoid; jb4 17:52 Follow up: Response: No adverse reaction; Marked relief of symptoms jb4 Disposition Summary: 12/23/23 17:33 Discharge Ordered Notes: Location: Home kb Condition: Stable kb Diagnosis - Low back pain kb Followup: kb - With: Emergency Department - When: As needed - Reason: Worsening of condition Followup: kb - With: Private Physician - When: 2 - 3 days - Reason: Recheck today's complaints, Continuance of care, Re-evaluation by your physician Discharge Instructions: - Discharge Summary Sheet kb - Chronic Back Pain, [id number] kb Forms: - Medication Reconciliation Form kb - Antibiotic Education kb - Prescription Opioid Use kb - Patient Portal Instructions kb - Leadership Thank You Letter kb Prescriptions: - Prednisone 20 mg Oral Tablet - take 1 tablet ORAL route once daily for 5 days; 5 tablet; Refills: 0, Product kb Selection Permitted - Diclofenac Sodium 75 mg Oral tablet, delayed release (enteric coated) - take 1 tablet ORAL route 2 times per day As needed; 30 tablet; Refills: 0, kb Product Selection Permitted - orphenadrine citrate 100 mg Oral Tablet Sustained Release - take 1 tablet ORAL route 2 times per day As needed; 20 tablet; Refills: 0, kb Product Selection Permitted Signatures: Dispatcher [employer] Tg Reese, CORALC FELIX-Keri Gan, RN RN hb Bart Marie RN RN jb4
--- NOTE | 2023-12-23 17:33 | ER ---
Nurse's Notes [facility] Name: Philomena Smith Age: 28 yrs Sex: Female : 1995 Arrival Date: 12/23/2023 Time: 14:31 Bed 10 Private MD: Diagnosis: Low back pain Presentation: 12/22 14:44 Chief complaint: Low back pain after taking out trash this morning. Coronavirus screen: hb At this time, the client does not indicate any symptoms associated with coronavirus-19. Ebola Screen: No symptoms or risks identified at this time. Initial Sepsis Screen: Does the patient meet any 2 criteria? No. Patient's initial sepsis screen is negative. Does the patient have a suspected source of infection? No. Patient's initial sepsis screen is negative. Risk Assessment: Do you want to hurt yourself or someone else? Patient reports no desire to harm self or others. Onset of symptoms was December 23, 2023. 14:44 Method Of Arrival: Ambulatory hb 14:44 Acuity: LUIS ANTONIO 4 hb Historical: - Allergies: 14:45 unknown antibiotic; hb - PMHx: 14:45 Migraine; hb - PSHx: 14:45 section; Cholecystectomy; hb Screenin:40 [facility] ED Fall Risk Assessment (Adult) History of falling in the last 3 months, jb4 including since admission No falls in past 3 months (0 pts) Confusion or Disorientation No (0 pts) Intoxicated or Sedated No (0 pts) Impaired Gait No (0 pts) Mobility Assist Device Used No (0 pt) Altered Elimination No (0 pt) Score/Fall Risk Level 0 - 2 = Low Risk Oriented to surroundings, Maintained a safe environment. Abuse screen: Denies threats or abuse. Nutritional screening: No deficits noted. Tuberculosis screening: No symptoms or risk factors identified. Assessment: 15:40 General: Appears in no apparent distress. uncomfortable, Behavior is calm, cooperative, jb4 appropriate for age. Pain: Complains of pain in low back area. Neuro: Level of Consciousness is awake, alert, obeys commands, Oriented to person, place, time, situation. Cardiovascular: Patient's skin is warm and dry. Respiratory: Airway is patent Respiratory effort is even, unlabored, Respiratory pattern is regular, symmetrical. GI: No signs and/or symptoms were reported involving the gastrointestinal system. : No signs and/or symptoms were reported regarding the genitourinary system. EENT: No signs and/or symptoms were reported regarding the EENT system. Derm: Skin is intact, Skin is pink, warm \T\ dry. Musculoskeletal: Circulation, motion, and sensation intact. Range of motion: intact in all extremities. 16:51 Reassessment: Patient appears in no apparent distress at this time. Patient and/or jb4 family updated on plan of care and expected duration. Pain level reassessed. Patient is alert, oriented x 3, equal unlabored respirations, skin warm/dry/pink. Vital Signs: 14:44 BP 126 / 90; Pulse 102; Resp 16; Temp 96.9(TE); Pulse Ox 100% on R/A; Pain 10/10; hb 14:44 Pain Scale: Adult hb ED Course: 14:33 Patient arrived in ED. mr 14:36 Brian Tg, SAMSON is PHCP. kb 14:36 Chato Weller DO is Attending Physician. kb 14:45 Triage completed. hb 14:45 Arm band placed on. hb 15:17 Lumbar Spine (3 Views) XRAY In Process Unspecified. EDMS 15:40 Patient has correct armband on for positive identification. Bed in low position. Call jb4 light in reach. Side rails up X 1. Provided Education on: discharge instructions. 15:40 No provider procedures requiring assistance completed. Patient did not have IV access jb4 during this emergency room visit. 15:42 Patient placed in an exam room, on a stretcher. ap3 16:51 Bart Marie, RN is Primary Nurse. jb4 Administered Medications: 16:22 Drug: Dexamethasone IM 10 mg IM once Route: IM; Site: right deltoid; jb4 17:52 Follow up: Response: No adverse reaction; Marked relief of symptoms; Pain is decreased jb4 16:22 Drug: Diazepam PO 5 mg PO once Route: PO; jb4 17:52 Follow up: Response: No adverse reaction; Marked relief of symptoms jb4 16:22 Drug: HYDROcodone-acetaminophen PO 5 mg-325 mg 1 tabs PO once Route: PO; jb4 17:52 Follow up: Response: No adverse reaction; Marked relief of symptoms jb4 16:22 Drug: Ketorolac IM 30 mg IM once Route: IM; Site: right deltoid; jb4 17:52 Follow up: Response: No adverse reaction; Marked relief of symptoms jb4 Medication: 15:40 VIS not applicable for this client. jb4 Outcome: 17:33 Discharge ordered by . kimberlee 17:51 Discharged to home via wheelchair, with friend, jb4 17:51 Condition: stable 17:51 Discharge instructions given to patient, Instructed on discharge instructions, follow up and referral plans. no drinking with medication, no driving heavy equipment, medication usage, Demonstrated understanding of instructions, follow-up care, medications, Prescriptions given X 3, 17:52 Patient left the ED. jb4 Signatures: Dispatcher [employer] EDMS Tg Torres, MANAGER INFRASTRUCTURE-C MANAGER INFRASTRUCTURE-Ckb Mikayla Ang, Reg Reg mr Keri Obando, RN RN Bart Haider RN RN jb4 Laura Quispe RN RN ap3 Corrections: (The following items were deleted from the chart) 17:51 15:40 Discharged to home via wheelchair, with friend, jb4 jb4 17:51 15:40 Condition: stable jb4 jb4 17:51 15:40 Discharge instructions given to patient, Instructed on discharge instructions, jb4 follow up and referral plans. no drinking with medication, no driving heavy equipment, medication usage, Demonstrated understanding of instructions, follow-up care, medications, Prescriptions given X 3, jb4
[2023-12-23 21:33] VITALS: BP 126/90; TEMP 96.9; O2SAT 100
== END 2023-12-23 17:52 | disposition home or self-care (01) ==
LOC: ER 14:31
DX: M54.50 Low back pain, unspecified (principal)
CPT/HCPCS: 72100; 81001; 81025; 96372; 99284; J1100

== ENCOUNTER 2023-12-30 09:02 | Emergency (ER) | payer SELFPAY ==
--- NOTE | 2023-12-30 09:33 | ER ---
Nurse's Notes [facility] Name: Philomena Smith Age: 28 yrs Sex: Female : 1995 Arrival Date: 12/30/2023 Time: 09:02 Bed 2 Private MD: Diagnosis: Urticaria Presentation: 12/29 09:16 Chief complaint: Patient states: intermittent rash that began 2 days ago, comes and ss goes. pain under R breast that began today. Coronavirus screen: Client denies travel out of the [place] in the last 14 days. Ebola Screen: Patient denies exposure to infectious person. Patient denies travel to an Ebola-affected area in the 21 days before illness onset. Initial Sepsis Screen: Does the patient meet any 2 criteria? No. Patient's initial sepsis screen is negative. Does the patient have a suspected source of infection? No. Patient's initial sepsis screen is negative. Risk Assessment: Do you want to hurt yourself or someone else? Patient reports no desire to harm self or others. Onset of symptoms was December 29, 2023. 09:16 Method Of Arrival: Ambulatory ss 09:16 Acuity: LUIS ANTONIO 4 ss Historical: - Allergies: 09:18 Cefdinir; ss - PMHx: 09:18 Migraine; Chronic back pain; ss - PSHx: 09:18 section; Cholecystectomy; ss - Infectious Disease History:: Denies. - Social history:: Smoking status: Patient denies any tobacco usage or history of. Screenin:20 [facility] ED Fall Risk Assessment (Adult) History of falling in the last 3 months, iw including since admission No falls in past 3 months (0 pts) Confusion or Disorientation No (0 pts) Intoxicated or Sedated No (0 pts) Impaired Gait No (0 pts) Mobility Assist Device Used No (0 pt) Altered Elimination No (0 pt) Score/Fall Risk Level 0 - 2 = Low Risk Oriented to surroundings, Maintained a safe environment. Abuse screen: Denies injuries from another. Nutritional screening: No deficits noted. Tuberculosis screening: No symptoms or risk factors identified. Assessment: 09:13 General: Appears in no apparent distress. Behavior is calm, cooperative. Pain: iw Complains of pain in right lateral anterior chest and right breast. Pain: Pain currently is 4 out of 10 on a pain scale. Neuro: Level of Consciousness is awake, alert, obeys commands, Oriented to person, place, time, situation, Moves all extremities. Full function. Respiratory: Respiratory effort is even, unlabored, Respiratory pattern is regular. GI: Abdomen is non-distended, Abd is soft and non tender X 4 quads. Abd is soft Patient currently denies abdominal pain. Derm: Skin is intact, is healthy with good turgor. Derm: Reports rash. Musculoskeletal: Range of motion: intact in all extremities. Vital Signs: 09:16 BP 129 / 93; Pulse 116; Resp 16; Temp 97.7(O); Pulse Ox 99% on R/A; Weight 83.91 kg; ss Height 5 ft. 0 in. ; Pain 5/10; 09:16 Body Mass Index 36.13 (83.91 kg, 152.4 cm) ss 09:16 Pain Scale: Adult ss ED Course: 09:05 Patient arrived in ED. mr 09:12 Jumana Márquez, RN is Primary Nurse. iw 09:18 Triage completed. ss 09:18 Arm band placed on right wrist. ss 09:19 Becca Arias MD is Attending Physician. sp3 09:45 No provider procedures requiring assistance completed. Patient did not have IV access iw during this emergency room visit. Administered Medications: No medications were administered Medication: 09:20 VIS not applicable for this client. iw Outcome: 09:33 Discharge ordered by . sp3 09:45 Discharged to home ambulatory, with friend, iw 09:45 Condition: good 09:45 Discharge instructions given to patient, Instructed on discharge instructions, follow up and referral plans. medication usage, Demonstrated understanding of instructions, follow-up care, medications, Prescriptions given X 1, 09:45 Patient left the ED. iw Signatures: Mikayla Ang, Reg Reg mr Jumana Márquez, RN RN Bhakti Guardado RN RN Becca Arias MD MD sp3
--- NOTE | 2023-12-30 09:33 | EDPHYS ---
Physician Documentation [facility] Name: Philomena Smith Age: 28 yrs Sex: Female : 1995 Arrival Date: 12/30/2023 Time: 09:02 Bed 2 Private MD: ED Physician Becca Arias HPI: 12/29 09:31 This 28 yrs old Female presents to ER via Ambulatory with complaints of Rash, sp3 Nausea. 09:31 28-year-old female with chief complaint rash that is "coming and going". Patient does sp3 not currently have it but has pictures on her phone what appears to be urticaria. She states that she takes Benadryl and goes away and then it comes back. It is predominantly worse after she wakes up from sleep. She denies any known allergies. No airway involvement, shortness of breath, chest pain, syncope, near syncope or any other complaints. Patient endorses mild nausea only. She denies .. Historical: - Allergies: 09:18 Cefdinir; ss - PMHx: 09:18 Migraine; Chronic back pain; ss - PSHx: 09:18 section; Cholecystectomy; ss - Infectious Disease History:: Denies. - Social history:: Smoking status: Patient denies any tobacco usage or history of. ROS: 09:31 Constitutional: Negative for fever, chills, and weight loss, Eyes: Negative for injury, sp3 pain, redness, and discharge, ENT: Negative for injury, pain, and discharge, Neck: Negative for injury, pain, and swelling, Cardiovascular: Negative for chest pain, palpitations, and edema, Respiratory: Negative for shortness of breath, cough, wheezing, and pleuritic chest pain, Back: Negative for injury and pain, Neuro: Negative for headache, weakness, numbness, tingling, and seizure, Psych: Negative for depression, anxiety, suicide ideation, homicidal ideation, and hallucinations, Endocrine: Negative for neck swelling, polydipsia, polyuria, polyphagia, and marked weight changes, Hematologic/Lymphatic: Negative for swollen nodes, abnormal bleeding, and unusual bruising, 09:31 All other systems are negative, Exam: 09:31 Constitutional: This is a well developed, well nourished patient who is awake, alert, sp3 and in no acute distress. Head/Face: Normocephalic, atraumatic. Eyes: Pupils equal round and reactive to light, extra-ocular motions intact. Lids and lashes normal. Conjunctiva and sclera are non-icteric and not injected. Cornea within normal limits. Periorbital areas with no swelling, redness, or edema. Neck: Trachea midline, no thyromegaly or masses palpated, and no cervical lymphadenopathy. Supple, full range of motion without nuchal rigidity, or vertebral point tenderness. No Meningismus. Chest/axilla: Normal chest wall appearance and motion. Nontender with no deformity. No lesions are appreciated. Cardiovascular: Regular rate and rhythm with a normal S1 and S2. No gallops, murmurs, or rubs. Normal PMI, no JVD. No pulse deficits. Respiratory: Lungs have equal breath sounds bilaterally, clear to auscultation and percussion. No rales, rhonchi or wheezes noted. No increased work of breathing, no retractions or nasal flaring. Abdomen/GI: Soft, non-tender, with normal bowel sounds. No distension or tympany. No guarding or rebound. No evidence of tenderness throughout. Back: No spinal tenderness. No costovertebral tenderness. Full range of motion. Skin: Warm, dry with normal turgor. Normal color with no rashes, no lesions, and no evidence of cellulitis. MS/ Extremity: Pulses equal, no cyanosis. Neurovascular intact. Full, normal range of motion. Neuro: Awake and alert, GCS 15, oriented to person, place, time, and situation. Cranial nerves II-XII grossly intact. Motor strength 5/5 in all extremities. Sensory grossly intact. Cerebellar exam normal. Normal gait. Psych: Awake, alert, with orientation to person, place and time. Behavior, mood, and affect are within normal limits. Vital Signs: 09:16 BP 129 / 93; Pulse 116; Resp 16; Temp 97.7(O); Pulse Ox 99% on R/A; Weight 83.91 kg; ss Height 5 ft. 0 in. ; Pain 5/10; 09:16 Body Mass Index 36.13 (83.91 kg, 152.4 cm) ss 09:16 Pain Scale: Adult ss MDM: 09:19 Medical Screening Exam initiated sp3 09:32 Data reviewed: vital signs, nurses notes. ED course: Differential diagnosis includes sp3 allergic reaction versus contact dermatitis versus viral illness. Based on photos however urticaria is present. I have advised that her inciting agent is likely related to her sleep location/bedroom. I will put her on a course of prednisone and she will experiment to try and ascertain what is causing her allergy. Follow-up with merchandise clerk as needed. Patient has no current rash in the ED.. Administered Medications: No medications were administered Disposition Summary: 12/30/23 09:33 Discharge Ordered Notes: Location: Home sp3 Condition: Stable sp3 Diagnosis - Urticaria sp3 Followup: sp3 - With: Private Physician - When: Upon discharge from the Emergency Department - Reason: Continuance of care Discharge Instructions: - Discharge Summary Sheet sp3 - Hives sp3 Forms: - Medication Reconciliation Form sp3 - Antibiotic Education sp3 - Prescription Opioid Use sp3 - Patient Portal Instructions sp3 - Leadership Thank You Letter sp3 Prescriptions: - Prednisone 20 mg Oral Tablet - take 2 tablets ORAL route once daily for 5 days; 10 tablet; Refills: 0, Product sp3 Selection Permitted Signatures: Bhakti Guardado, SHARLA RN Becca Arias MD MD sp3
[2023-12-30 10:00] VITALS: BP 129/93; TEMP 97.7; O2SAT 99
== END 2023-12-30 09:45 | disposition home or self-care (01) ==
LOC: ER 09:02
DX: L50.9 Urticaria, unspecified (principal)

== ENCOUNTER 2024-02-27 18:58 | Emergency (ER) | payer SELFPAY ==
[2024-02-27] MEDS ORDERED: ONDANSETRON 4 MG/2 ML VIAL ONE (19:48)
[2024-02-27] MEDS ORDERED: dexAMETHasone 10 MG/ML VIAL ONE (19:48)
[2024-02-27] MEDS ORDERED: KETOROLAC 30 MG/ML INJ ONE (19:48)
[2024-02-27] MEDS ORDERED: NA CHLORIDE 0.9% 1,000 ML ONE (19:49)
[2024-02-27 20:18] LABS: Absolute Basophils 0.1 K/uL (0-0.5); Absolute Eosinophils 0.1 K/uL (0-0.5); Absolute Lymphocytes (CBC) 1.3 K/uL (0.7-4.9); Absolute Monocytes 0.5 K/uL (0.1-1.3); Absolute Neutrophil 7.2 K/uL (1.8-8.0); Basophils % 0.6 % (0-1.3); Eosinophils % 0.6 % (0-4.4); Hemoglobin 13.4 g/dL (12.0-15.0); Lymphocytes % 14.6 % (15.3-44.8); MCH 31.4 pg (27.0-35.0); MCHC 33.4 g/dL (32.0-36.0); MCV 94.1 fL (80-100); MPV 8.4 fL (7.6-11.3); Monocytes % 5.7 % (3.3-12.3); Neutrophils % 78.5 % (41.7-73.7); Platelets 300 thou/uL (152-406); RBC Red Blood Cell Count 4.26 M/uL (3.86-4.86); Red Cell Distribution Width 12.4 % (12.1-15.2)
[2024-02-27 20:20] LABS: Specific Gravity 1.028 (1.005-1.030)
[2024-02-27 20:22] LABS: Specific Gravity 1.028 (1.005-1.030); Sqamous Epithelial <5 /HPF (None Seen); Urine Bacteria None Seen /HPF (<20); Urine Bilirubin NEGATIVE (Negative); Urine Blood 3+ (OVER) (Negative); Urine Clarity Extremely Turbid (Clear); Urine Color Light-Orange (Yellow); Urine Crystals Unidentified Few /HPF (None Seen); Urine Culture Reflex Order REFLEXED; Urine Glucose NEGATIVE (Negative); Urine Ketones NEGATIVE (Negative); Urine Microscopic Reflex YN ORDER UMIC; Urine Mucus Slight /HPF (None Seen); Urine Nitrite NEGATIVE (Negative); Urine Protein 1+ (Negative); Urine RBC >50 /HPF (None Seen); Urine Urobilinogen Normal (Normal); Urine WBC >50 /HPF (<5); Urine Yeast (Budding) Few /HPF (None Seen)
[2024-02-27 20:35] LABS: Albumin 3.4 g/dL (3.4-5.0); Albumin/Globulin Ratio 0.8 (1.1-1.8); Anion Gap 7.7 mEq/L (5.0-15.0); Bilirubin Total 0.2 mg/dL (0.2-1.0); Globulin 4.4 g/dL (2.3-3.5); Potassium 3.7 mEq/L (3.5-5.1); Protein, Total 7.8 g/dL (6.4-8.2)
[2024-02-27] MEDS ORDERED: SMZ./TMP. 800/160 MG TABLET ONE (20:45)
[2024-02-27] MEDS ORDERED: levoFLOXacin 750 MG TAB ONE (20:46)
--- NOTE | 2024-02-27 20:55 | EDPHYS ---
Physician Documentation [facility] Name: Philomena Smith Age: 28 yrs Sex: Female : 1995 Arrival Date: 02/27/2024 Time: 18:58 Bed 24 Private MD: ED Physician Wayne Sultana HPI: 02/26 19:40 This 28 yrs old Female presents to ER via Ambulatory with complaints of Low catina Back Pain. 19:40 The patient presents with pain that is acute, with no known mechanism of injury. The catina symptoms are located in the low back. Location: lumbar area, left low back and right low back. The problem was sustained when bending over. Onset: The symptoms/episode began/occurred 2 day(s) ago. Modifying factors: The patient symptoms are alleviated by remaining still, the patient symptoms are aggravated by any movement, bending. Associated signs and symptoms: The patient has no apparent associated signs or symptoms. Severity of symptoms: At their worst the symptoms were moderate, in the emergency department the symptoms are unchanged. The patient has experienced similar episodes in the past, multiple times. 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 - Infectious Disease History:: Denies. - Social history:: Smoking status: Patient denies any tobacco usage or history of. Patient uses alcohol, occasionally. Patient/guardian denies using street drugs. - Family history:: not pertinent. ROS: 19:40 Constitutional: Negative for fever, chills, and weight loss, Eyes: Negative for injury, catina pain, redness, and discharge, ENT: Negative for injury, pain, and discharge, Neck: Negative for injury, pain, and swelling, Cardiovascular: Negative for chest pain, palpitations, and edema, Respiratory: Negative for shortness of breath, cough, wheezing, and pleuritic chest pain, Abdomen/GI: Negative for abdominal pain, nausea, vomiting, diarrhea, and constipation, : Negative for injury, bleeding, discharge, and swelling, MS/Extremity: Negative for injury and deformity, Skin: Negative for injury, rash, and discoloration, Neuro: Negative for headache, weakness, numbness, tingling, and seizure, Psych: Negative for depression, anxiety, suicide ideation, homicidal ideation, and hallucinations, Allergy/Immunology: Negative for hives, rash, and allergies, Endocrine: Negative for neck swelling, polydipsia, polyuria, polyphagia, and marked weight changes, Hematologic/Lymphatic: Negative for swollen nodes, abnormal bleeding, and unusual bruising, 19:40 Back: Positive for decreased range of motion, pain at rest, pain with movement, of the lumbar area, left low back and right low back, Exam: 19:40 Constitutional: This is a well developed, well nourished patient who is awake, alert, catina and in no acute distress. Head/Face: Normocephalic, atraumatic. Eyes: Pupils equal round and reactive to light, extra-ocular motions intact. Lids and lashes normal. Conjunctiva and sclera are non-icteric and not injected. Cornea within normal limits. Periorbital areas with no swelling, redness, or edema. ENT: Nares patent. No nasal discharge, no septal abnormalities noted. Tympanic membranes are normal and external auditory canals are clear. Oropharynx with no redness, swelling, or masses, exudates, or evidence of obstruction, uvula midline. Mucous membranes moist. Neck: Trachea midline, no thyromegaly or masses palpated, and no cervical lymphadenopathy. Supple, full range of motion without nuchal rigidity, or vertebral point tenderness. No Meningismus. Chest/axilla: Normal chest wall appearance and motion. Nontender with no deformity. No lesions are appreciated. Cardiovascular: Regular rate and rhythm with a normal S1 and S2. No gallops, murmurs, or rubs. Normal PMI, no JVD. No pulse deficits. Respiratory: Lungs have equal breath sounds bilaterally, clear to auscultation and percussion. No rales, rhonchi or wheezes noted. No increased work of breathing, no retractions or nasal flaring. Abdomen/GI: Soft, non-tender, with normal bowel sounds. No distension or tympany. No guarding or rebound. No evidence of tenderness throughout. Skin: Warm, dry with normal turgor. Normal color with no rashes, no lesions, and no evidence of cellulitis. MS/ Extremity: Pulses equal, no cyanosis. Neurovascular intact. Full, normal range of motion., bilateral aka Neuro: Awake and alert, GCS 15, oriented to person, place, time, and situation. Cranial nerves II-XII grossly intact. Motor strength 5/5 in all extremities. Sensory grossly intact. Cerebellar exam normal. Normal gait. Psych: Awake, alert, with orientation to person, place and time. Behavior, mood, and affect are within normal limits. 19:40 Back: pain, that is moderate, of the lumbar area, left low back and right low back, ROM is painful, normal spinal alignment noted, CVA tenderness, is absent, muscle spasm, is appreciated in the left low back and right low back, Vital Signs: 19:26 BP 134 / 89; Pulse 112; Resp 20; Temp 98.6; Pulse Ox 100% ; Weight 84.82 kg; Height 5 af3 ft. 0 in. ; 19:26 Body Mass Index 36.52 (84.82 kg, 152.4 cm) af3 MDM: 19:17 Medical Screening Exam initiated catina 19:43 Differential diagnosis: strain, sciatica, contusion, Herniated disc UTI. Data reviewed: [facility] vital signs, nurses notes, lab test result(s), radiologic studies, CT scan. Consideration of Admission/Observation Escalation of care including admission/observation considered. I considered the following discharge prescriptions or medication management in the emergency department Medications were administered in the Emergency Department. See MAR. Independent interpretation of the following test(s) in the Emergency Department CT Scan: My interpretation is CT LUMBAR. Test considered but Not performed: MRI: NO MRI LUMBAR. Historians other than the Patient: PT WELL INFORMED. Care significantly affected by the following chronic conditions: Obesity, MIGRAINE, CHRONIC BACK PAIN. 02/26 19:40 Order name: CBC with Diff; Complete Time: 20:22 [facility] 02/26 19:40 Order name: Comprehensive Metabolic Panel; Complete Time: 20:51 [facility] 02/26 19:40 Order name: Urinalysis w/ reflexes; Complete Time: 20:25 [facility] 02/26 19:40 Order name: PREGU; Complete Time: 20:22 [facility] 02/26 20:27 Order name: Urine Culture EDAL 02/26 19:40 Order name: CT Lumbar Spine Wo Con; Complete Time: 21:27 catina Administered Medications: 20:15 Drug: NS 0.9% IV 1000 ml IV at 1000 ml once; to be given as a bolus over 60 minutes jb4 Route: IV; Rate: 1000 ml; Site: left antecubital; 20:15 Drug: Ketorolac IVP 30 mg IVP once Route: IVP; Site: left antecubital; jb4 21:05 Follow up: Response: No adverse reaction; Marked relief of symptoms; Pain is decreased jb4 20:15 Drug: Ondansetron IVP 4 mg IVP once; over 2 minutes Route: IVP; Site: left antecubital; jb4 21:05 Follow up: Response: No adverse reaction jb4 20:15 Drug: Decadron - Dexamethasone IVP 10 mg IVP once Route: IVP; Site: left antecubital; jb4 21:05 Follow up: Response: No adverse reaction; Marked relief of symptoms; Pain is decreased jb4 21:05 Drug: Trimethoprim-Sulfamethoxazole PO (160 mg-800 mg (DS) 1 tablet PO once Route: PO; jb4 21:05 Drug: LevOfloxacin PO 750 mg PO once Route: PO; jb4 Disposition Summary: 02/27/24 20:54 Discharge Ordered Notes: Location: Home catina Problem: new catina Symptoms: have improved catina Condition: Stable catina Diagnosis - Low back pain catina - Other injury of muscle, fascia and tendon of lower back catina - UTI/ Urinary tract infection, site not specified catina Followup: catina - With: Private Physician - When: 2 - 3 days - Reason: Recheck today's complaints, Continuance of care, Re-evaluation by your physician Followup: caitna - With: Kostas Fairbanks MD - When: 2 - 3 days - Reason: Recheck today's complaints, Re-evaluation by your physician Discharge Instructions: - Discharge Summary Sheet catina - Acute Back Pain, Adult catina - Musculoskeletal Pain catina - Urinary Tract Infection, Adult catina - Radicular Pain catina Forms: - Medication Reconciliation Form catina - Antibiotic Education catina - Prescription Opioid Use catina - Patient Portal Instructions catina - Leadership Thank You Letter [facility] Prescriptions: - dexamethasone 4 mg Oral tablet - take 1 tablet ORAL route once daily; 5 tablet; Refills: 0, Product Selection catina Permitted - diclofenac sodium 50 mg Oral tablet, delayed release (enteric coated) - take 1 tablet ORAL route every 8 hours; 21 tablet; Refills: 0, Product [facility] Selection Permitted - Bactrim DS 800-160 mg Oral Tablet - take 1 tablet ORAL route every 12 hours for 7 days; 14 tablet; Refills: 0, [facility] Product Selection Permitted - methocarbamol 750 mg Oral tablet - take 1 tablet ORAL route 4 times per day; 28 tablet; Refills: 0, Product catina Selection Permitted - levofloxacin 500 mg Oral tablet - take 1 tablet ORAL route once daily for 7 days; 7 tablet; Refills: 0, Product [facility] Selection Permitted Signatures: Dispatcher [employer] EDMS Wayne Sultana MD MD cha Page, Corey, PA PA Bart Nolan, RN RN jb4 Anisa Alston RN RN lg3 Corrections: (The following items were deleted from the chart) 20:29 20:29 Urine Culture+[id number].LAB.BRZ ordered. EDAL EDMS
--- NOTE | 2024-02-27 20:55 | ER ---
Nurse's Notes [facility] [place] Name: Philomena Smith Age: 28 yrs Sex: Female : 1995 Arrival Date: 02/27/2024 Time: 18:58 Bed 24 Private MD: Diagnosis: Low back pain;Other injury of muscle, fascia and tendon of lower back;UTI/ Urinary tract infection, site not specified Presentation: 02/26 19:30 Chief complaint: Patient states: low back pain since yesterday and worsening. lg3 Coronavirus screen: Client denies travel out of the [place] in the last 14 days. At this time, the client does not indicate any symptoms associated with coronavirus-19. Ebola Screen: No symptoms or risks identified at this time. Initial Sepsis Screen: Does the patient meet any 2 criteria? No. Patient's initial sepsis screen is negative. Does the patient have a suspected source of infection? No. Patient's initial sepsis screen is negative. Risk Assessment: Do you want to hurt yourself or someone else? Patient reports no desire to harm self or others. Onset of symptoms was February 26, 2024. 19:30 Method Of Arrival: Ambulatory lg3 19:30 Acuity: LUIS ANTONIO 3 lg3 Triage Assessment: 19:31 General: Appears in no apparent distress. uncomfortable, Behavior is calm, cooperative. lg3 Pain: Complains of pain in low back area Pain does not radiate. Pain currently is 10 out of 10 on a pain scale. EENT: No deficits noted. No signs and/or symptoms were reported regarding the EENT system. Neuro: No deficits noted. Patel Agitation-Sedation Scale (RASS): 0 - Alert and Calm Level of Consciousness is awake, alert, obeys commands, Oriented to person, place, time, situation. Cardiovascular: No deficits noted. Denies chest pain, shortness of breath, Capillary refill < 3 seconds Clubbing of nail beds is absent JVD is absent Patient's skin is warm and dry. Respiratory: No deficits noted. Airway is patent Respiratory effort is even, unlabored, Respiratory pattern is regular, symmetrical. GI: No deficits noted. No signs and/or symptoms were reported involving the gastrointestinal system. : No signs and/or symptoms were reported regarding the genitourinary system. Derm: No deficits noted. No signs and/or symptoms reported regarding the dermatologic system. Skin is intact, is healthy with good turgor, Skin is dry, Skin is normal, Skin temperature is warm. Musculoskeletal: Circulation, motion, and sensation intact. Range of motion: intact in all extremities, Reports pain in low back area. 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 - Infectious Disease History:: Denies. - Social history:: Smoking status: Patient denies any tobacco usage or history of. Patient uses alcohol, occasionally. Patient/guardian denies using street drugs. - Family history:: not pertinent. Screenin:36 [facility] ED Fall Risk Assessment (Adult) History of falling in the last 3 months, lg3 including since admission No falls in past 3 months (0 pts) Confusion or Disorientation No (0 pts) Intoxicated or Sedated No (0 pts) Impaired Gait No (0 pts) Mobility Assist Device Used No (0 pt) Altered Elimination No (0 pt) Score/Fall Risk Level 0 - 2 = Low Risk Oriented to surroundings, Maintained a safe environment, Educated pt \T\ family on fall prevention, incl call for assistance when getting out of bed, Assessed \T\ reinforced patient's understanding of fall precautions, Provided non-skid footwear. Abuse screen: Denies threats or abuse. Denies injuries from another. Nutritional screening: No deficits noted. Tuberculosis screening: No symptoms or risk factors identified. Assessment: 19:36 General: see triage assessment. lg3 20:14 Reassessment: Patient appears in no apparent distress at this time. Patient and/or jb4 family updated on plan of care and expected duration. Pain level reassessed. Patient is alert, oriented x 3, equal unlabored respirations, skin warm/dry/pink. 21:20 Reassessment: Patient appears in no apparent distress at this time. Patient and/or jb4 family updated on plan of care and expected duration. Pain level reassessed. Patient is alert, oriented x 3, equal unlabored respirations, skin warm/dry/pink. d/c pending completion of IV fluids. Patient states feeling better. 21:41 Reassessment: Pt refusing the remaining fluids. jb4 Vital Signs: 19:26 BP 134 / 89; Pulse 112; Resp 20; Temp 98.6; Pulse Ox 100% ; Weight 84.82 kg; Height 5 af3 ft. 0 in. ; 19:26 Body Mass Index 36.52 (84.82 kg, 152.4 cm) af3 ED Course: 18:59 Patient arrived in ED. jj6 19:17 Wayne Sultana MD is Attending Physician. [facility] 19:31 Triage completed. lg3 19:31 Arm band placed on right wrist. lg3 19:36 Patient has correct armband on for positive identification. Placed in gown. Bed in low lg3 position. Call light in reach. Side rails up X 1. Client placed on continuous cardiac and pulse oximetry monitoring. NIBP monitoring applied. Door closed. Noise minimized. Warm blanket given. Pillow given. 19:36 Patient maintains SpO2 saturation greater than 95% on room air. lg3 19:48 Inserted saline lock: 20 gauge in right antecubital area, using aseptic technique. lg3 Flushed with 10 mL NS. 20:14 Bart Marie, RN is Primary Nurse. jb4 20:15 CBC with Diff Sent. jb4 20:15 Comprehensive Metabolic Panel Sent. jb4 20:15 Urinalysis w/ reflexes Sent. jb4 20:15 PREGU Sent. jb4 20:42 CT Lumbar Spine Wo Con In Process Unspecified. EDMS 20:54 Kostas Fairbanks MD is Referral Physician. [facility] 21:41 Provided Education on: discharge instructions.. jb4 21:41 No provider procedures requiring assistance completed. IV discontinued, intact, jb4 bleeding controlled, No redness/swelling at site. Pressure dressing applied. Administered Medications: 20:15 Drug: NS 0.9% IV 1000 ml IV at 1000 ml once; to be given as a bolus over 60 minutes jb4 Route: IV; Rate: 1000 ml; Site: left antecubital; 20:15 Drug: Ketorolac IVP 30 mg IVP once Route: IVP; Site: left antecubital; jb4 21:05 Follow up: Response: No adverse reaction; Marked relief of symptoms; Pain is decreased jb4 20:15 Drug: Ondansetron IVP 4 mg IVP once; over 2 minutes Route: IVP; Site: left antecubital; jb4 21:05 Follow up: Response: No adverse reaction jb4 20:15 Drug: Decadron - Dexamethasone IVP 10 mg IVP once Route: IVP; Site: left antecubital; jb4 21:05 Follow up: Response: No adverse reaction; Marked relief of symptoms; Pain is decreased jb4 21:05 Drug: Trimethoprim-Sulfamethoxazole PO (160 mg-800 mg (DS) 1 tablet PO once Route: PO; jb4 21:05 Drug: LevOfloxacin PO 750 mg PO once Route: PO; jb4 Medication: 19:36 VIS not applicable for this client. lg3 Outcome: 20:54 Discharge ordered by . catina 21:41 Discharged to home ambulatory, jb4 21:41 Condition: stable 21:41 Discharge instructions given to patient, Instructed on discharge instructions, follow up and referral plans. no drinking with medication, no driving heavy equipment, medication usage, Demonstrated understanding of instructions, follow-up care, medications, Prescriptions given X 5 21:48 Patient left the ED. jb4 Signatures: Dispatcher [employer] EDMS Wayne Sultana MD MD cha Bryson, James, RN RN jb4 Anisa Alston RN RN lg3 Aminta Shay6 Paula Richard
--- NOTE | 2024-02-27 20:57 | RAD REPORT ---
EXAMINATION: CT LUMBAR SPINE WITHOUT CONTRAST CLINICAL INDICATION: Female, 28 years old. PAIN TECHNIQUE: Axial CT images were obtained through the lumbar spine in soft tissue and bone windows wit hout intravenous contrast. Coronal and Sagittal reformatted images were created from the data set. One or more of the following dose reduction techniques were used: Automated exposure control, adjustm ent of the mA and/ or kV according to patient size, and/or iterative reconstruction. Unless otherwise specified, incidental findings do not require dedicated imaging follow-up. COMPARISON: 10/29/2023 CT abdomen and ultrasound. FINDINGS: For purposes of this dictation, it is assumed that there are 5 non rib-bearing lumbar type vertebrae, and the most caudal fully segmented lumbar vertebra is labeled L5. ALIGNMENT: The lumbar spine demonstrates normal alignment without scoliosis or spondylolisthesis. BONES: No significant soft tissue abnormalities. No aggressive osseous lesions. DISCS: Intervertebral disc space heights are maintained. LEVELS: No significant spinal canal or neural foraminal stenosis. No visualized abnormality within th e spinal canal. SOFT TISSUE: Right adnexal 5.5 cm lesion again seen, better evaluated on pelvic ultrasound done on . IMPRESSION: No acute lumbar spine abnormalities.
[2024-02-27 22:02] VITALS: O2SAT 99
[2024-02-27 22:05] VITALS: BP 137/81; TEMP 98.2
== END 2024-02-27 21:48 | disposition home or self-care (01) ==
LOC: ER 18:58
DX: S39.092A Other injury of muscle, fascia and tendon of lower back, initial encounter (principal); N39.0 Urinary tract infection, site not specified
CPT/HCPCS: 36415; 72131; 80053; 81001; 81025; 85025; 87086; 87088; 96374; 96375; 99284; J1100; J2405; J7030

== ENCOUNTER 2024-05-23 18:45 | Emergency (ER) | payer OTHER, SELFPAY ==
[2024-05-23] MEDS ORDERED: KETOROLAC 30 MG/ML INJ ONE (19:21)
[2024-05-23 19:25] LABS: Specific Gravity 1.028 (1.005-1.030); Sqamous Epithelial <5 /HPF (None Seen); Transitional Epithelial <5 /HPF (None Seen); Urine Bacteria <20 /HPF (<20); Urine Bilirubin NEGATIVE (Negative); Urine Blood 1+ (Negative); Urine Clarity Turbid (Clear); Urine Color Yellow (Yellow); Urine Culture Reflex Order REFLEXED; Urine Glucose NEGATIVE (Negative); Urine Ketones NEGATIVE (Negative); Urine Microscopic Reflex YN ORDER UMIC; Urine Mucus Slight /HPF (None Seen); Urine Nitrite NEGATIVE (Negative); Urine Protein TRACE (Negative); Urine Urobilinogen Normal (Normal); Urine WBC 20-50 /HPF (<5)
[2024-05-23 19:27] LABS: Specific Gravity 1.028 (1.005-1.030)
[2024-05-23] MEDS ORDERED: HYDROCODONE/APAP 5/325 MG TAB ONE (19:41)
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
[2024-05-23 20:40] VITALS: BP 126/90; TEMP 98.7; O2SAT 98
== END 2024-05-23 20:35 | disposition home or self-care (01) ==
LOC: ER 18:45
DX: M54.50 Low back pain, unspecified (principal); M25.562 Pain in left knee; M79.642 Pain in left hand; V49.40XA Driver injured in collision with unspecified motor vehicles in traffic accident, initial encounter
CPT/HCPCS: 72100; 81001; 81025; 87086; 87088; 96372; 99284

== ENCOUNTER 2024-10-09 13:17 | Emergency (ER) | payer SELFPAY ==
--- OUTSIDE RECORDS SUMMARY | 2024-10-09 13:23 | XMS REPORT | Continuity of Care Document ---
Author Name Unknown Address [address] [place] [address] [facility] [place] Address [address] [place] [address] Care Team Providers Care Business Services Tech Name Role Phone Pcp, Patient Does Not Have A Primary Care Physic shikha [id number] Attending Clinician Unavailable Gaurav Gtz MD Attending Clinician [phone] Analia Chong Attending Clinician [phone] KEYSHA RG Attending Clinician Unavailable KEYSHA RG Attending Clinician Unavailable RENETTA BANDA Attending Clinician Un available MICHAEL RICE Attending Clinician Unavailable MICHAEL RICE Attending Clinician Unavailable YOUNG WYNN Attending Clinician Unavailable YOUNG WYNN Attending Clinician Unavailable Young Wynn DO Attending Clinician [phone] Arianna Shay MD Attending Clinician + DARYL JOHNSON Attending Clinician UnavailDaryl Rodriguez MD Attending Clinician [phone] Doctor Unassigned, Amelia [place] Attending Clinician U navailable ISIS LOPEZ Attending Clinician Unavailable ISIS LOPEZ Attending Clinician Unavailable Raquel MCCABE Attending Clinician Unavailable Raquel MCCABE Attending Clinician Unavailable Tahira Fisher MD Attending Clinician [phone] LEXI ZAVALA Attending Clinician Unavailab LEXI Grace Attending Clinician Unavailab CHACHO Griffith Attending Clinician Leslye anirudhilable DC RIVERA Attending Clinician Unavailab VANE Lan Attending Clinician Unavailable Vane Giron Attending Clinician [phone] Jayce Mcnally Attending Clinician [phone] JAYCE HAN Attending Clinician Unavailable Pcp, Patient Does Not Have A Attending Clinician Shane Sanchez Attending Clinician [phone] SHANE HENRY Attending Clinician Unavailable KEYSHA RG Admitting Clinician Unavailable RENETTA BANDA Admitting Clinician Un available MICHAEL RICE Admitting Clinician Unavailable ISIS LOPEZ Admitting Clinician Unavailable VANE GOMEZ Admitting Clinician Unavailable Payers Payer Name Policy Type Policy Number Effective Date Expirati on Date Source Problems Condition Name Condition Details Condition Category Status Onset Date Resolution Date Last Treatment Date Treating Clinician Comments Source NOSE BLEEDS/OLAG TIMOTHY NOSE BLEEDS/OLGA TIMOTHY Active 10/24/2022 [facility] Diagnosis Active 10-24 00:00: 00 2022-10-25 02:46:00 Shahla Napoles Pelvic pain Pelvic pain Disease Active 10-27 00:00: 00 [facility] Missed ab Missed ab Disease Active 10-27 00:00: 00 [facility] Blighted ovum Blighted ovum Disease Active 10-20 00:00: 00 [facility] Uterine size-date discrepanc y, antepartum , first trimester Uterine size-date discrepanc y, antepartum , first trimester Disease Active 2014-03 0 00:00: 00 [facility] Fatigue during , antepartum , unspecifie d trimester Fatigue during , antepartum , unspecifie d trimester Disease Active 2014-03 00:00: 00 [facility] Supervisio n of high-risk with insufficie nt care, unspecifie d trimester Supervisio n of high-risk with insufficie nt care, unspecifie d trimester Disease Active 2014-03 00:00: 00 [facility] Fatigue during , antepartum , unspecifie d trimester Fatigue during , antepartum , unspecifie d trimester Disease Active 2014-03 00:00: 00 [facility] Unfavorabl e cervix in term Unfavorabl e cervix in term Disease Resolve d 07-26 00:00: 00 2017-10-27 00:00:00 2017-10-27 14:02:26 [facility] Liveborn by Liveborn by Disease Resolve d 07-26 00:00: 00 2017-10-27 00:00:00 2017-10-27 14:02:26 [facility] 40 weeks gestation of 40 weeks gestation of Disease Resolve d 07-24 00:00: 00 2017-10-27 00:00:00 2017-10-27 14:02:26 [facility] Maternal varicella, non-immune Maternal varicella, non-immune Disease Resolve d 2014-03 00:00: 00 2017-10-27 00:00:00 2017-10-27 14:02:26 [facility] Absence of menstruati on Absence of menstruati on Disease Resolve d 2014-03 00:00: 00 2014-12-19 00:00:00 2014-12-19 10:05:51 [facility] Allergies, Adverse Reactions, Alerts Allergy Name Allergy Type Status Severity Reaction(s) Onset Date Inactive Date Treating Clinician Comments Source Cefdinir Drug Allergy Active Shortness of Breath 2023-03 00:00: 00 [facility] CEFDINIR DRUG INGREDI Active High SOB 2023-03 00:00: 00 [facility] No Known Allergie s DA Active U 2018-03 0 00[facility]00: [facility] NO KNOWN ALLERGIE S Drug Class Active [facility] Social History Social Habit Start Date Stop Date Quantity Comments Source [facility] ASSERTION Not [facility] History of Occupation [facility] Alcoholic beverage intake 2024-10-05 00:00:00 2024-10-05 00:00:00 0 /d [facility] Tobacco use and exposure 2024-10-05 00:00:00 2024-10-05 00:00:00 Smokeless tobacco non-user [facility] Alcohol intake 2023-06-03 00:00:00 2023-06-03 00:00:00 0 /d [facility] Exposure to SARS-CoV-2 (event) 2021 00:00:00 2021-09-22 00:11:00 Not sure [facility] History of Social function 2018-09-10 00:00:00 2018-09-10 00:00:00 [facility] Sex assigned at 1995 00:00:00 1995 00:00:00 [facility] Smoking Status Start Date Stop Date Source Never smoked tobacco [facility] Medications Ordered Medication Name Filled Medication Name Start Date Stop Date Current Medication? Ordering Clinician Indication Dosage Frequency Signature (SIG) Comments Components Source ubrogepant (UBRELVY ORAL) 09-27 19:58: 49 Yes Take by mouth. Takes PRN for migraines [facility] iopamidol (ISOVUE 370-500 mL) injection 100 mL iopamidol (ISOVUE 370-500 mL) injection 100 mL 09-26 11:30: 00 09-26 11:30 :00 Yes [id number] 100mL 100 mL, Intravenou s, ONCE, 1 dose, On 09/26/24 at 0630, Routine [facility] ketorolac (TORADOL) injection 30 mg ketorolac (TORADOL) injection 30 mg 09-26 10:00: 00 09-26 10:00 :00 Yes 30mg 30 mg, Slow IV Push, ONCE NOW, 1 dose, On 09/26/24 at 0500, STAT [facility] HYDROcodone -acetaminop hen 5-325 mg tablet 09-26 00:00: 00 Yes [id number] 1{tbl} Take 1 tablet by mouth every 6 hours as needed for Pain (scale 7-10) for up to 5 doses. Indication s: acute pain [facility] acetaminoph en (TYLENOL) tablet 1,000 mg 09-18 19:15: 00 09-18 20:26 :00 No 1000mg 1,000 mg, Oral, ONCE, 1 dose, On 09/18/24 at 1415, ALISON [facility] ibuprofen 600 mg tablet 09-18 00:00: 00 Yes [id number] 600mg Take 1 tablet by mouth every 8 hours as needed for Pain (scale 4-6). [facility] ondansetron (ZOFRAN (PF)) injection 4 mg 2023-03 17:15: 00 12-28 18:55 :00 No 4mg 4 mg, Slow IV Push, ONCE, 1 dose, On Fri12/29/23 at 1215, ALISON [facility] diphenhydrA MINE (BENADRYL ALLERGY) 25 mg tablet 2023-03 00:00: 00 Yes [id number] 25mg Take 1 tablet by mouth every 6 (six) hours as needed for Itching. [facility] ondansetron 4 mg disintegrat ing tablet 2023-03 00:00: 00 Yes [id number] 4mg Take 1 tablet by mouth every 8 (eight) hours as needed for Nausea and Vomiting (N/V). [facility] diphenhydrA MINE (BENADRYL) tablet 25 mg 10-06 03:30: 00 10-06 02:51 :00 No 25mg 25 mg, Oral, ONCE, 1 dose, On Fri10/06/23 at 2230, Routine [facility] predniSONE (DELTASONE) tablet 40 mg 10-06 02:45: 00 10-06 02:51 :00 No 40mg 40 mg, Oral, ONCE, 1 dose, On Fri10/06/23 at 2145, ALISON [facility] methylPREDN ISolone (MEDROL, LAUREANO,) 4 mg tablets 10-05 00:00: 00 Yes [id number] Take by mouth SEE-INSTRU CTIONS. follow package directions [facility] erythromyci n base 500 mg tablet 10-05 00:00: 00 Yes [id number] 500mg Take 1 tablet by mouth every 6 (six) hours. [facility] iopamidol (ISOVUE 370-500 mL) injection 80 mL 08-26 01:30: 00 08-26 01:30 :00 No [id number] 80mL 80 mL, Intravenou s, ONCE, 1 dose, On Fri08/26/23 at 2030, Routine [facility] ketorolac (TORADOL) injection 15 mg 08-26 01:15: 00 08-26 00:37 :00 No 15mg 15 mg, Slow IV Push, ONCE, 1 dose, On Fri08/26/23 at 2015, Routine [facility] NaCl 0.9% (NS) bolus infusion 1,000 mL 08-26 01:00: 00 08-26 01:49 :00 No 1000mL at 999 mL/hr, 1,000 mL, IV Infusion, ONCE, 1 dose, [facility]08/26/23 [facility] (BENA[facility]YL) [facility] 12.5 mg 08-26 00:30: 00 08-26 00:38 :00 No 12.5mg 12.5 mg, Slow IV Push, ONCE, 1 dose, On Fri08/26/23 at 1930, STAT [facility] metoclopram florencia HCl (REGLAN) injection 10 mg 08-26 00:30: 00 08-26 00:35 :00 No 10mg 10 mg, Slow IV Push, ONCE, 1 dose, On Fri08/26/23 at 1930, ALISON [facility] butalbital- acetaminoph en-caff 50-325-40 mg tablet 08-25 00:00: 00 Yes [id number] 1{tbl} Take 1 tablet by mouth every 6 (six) hours as needed for Pain (scale 4-6) for up to 20 doses. [facility] ondansetron 4 mg disintegrat ing tablet 08-25 00:00: 00 Yes [id number] 4mg Take 1 tablet by mouth every 8 (eight) hours as needed for Nausea and Vomiting (N/V) for up to 15 doses. [facility] dicyclomine 20 mg tablet 08-25 00:00: 00 Yes [id number] 20mg Take 1 tablet by mouth 4 (four) times daily as needed for Abdominal pain for up to 20 doses. [facility] amoxicillin (TRIMOX) capsule 500 mg 07-14 20:15: 00 07-14 20:56 :00 No 500mg 500 mg, Oral, ONCE, 1 dose, On Fri07/15/23 at 1515, ALISON, Reason for Anti-Infec tive: Documented Infection, Documented Infection Site: HEENT, Duration of Therapy: Once (ED) [facility] dexamethaso ne sod phos PF injection 10 mg 07-14 20:15: 00 07-14 20:54 :00 No 10mg 10 mg, Intramuscu lar, ONCE, 1 dose, On Fri07/15/23 at 1515, 1 mL [facility] ketorolac (TORADOL) injection 30 mg 07-14 20:15: 00 07-14 20:54 :00 No 30mg 30 mg, Intramuscu lar, ONCE, 1 dose, On Fri07/15/23 at 1515, Routine [facility] ibuprofen 800 mg tablet 07-14 00:00: 00 Yes [id number] 800mg Take 1 tablet by mouth 3 (three) times daily as needed for Pain (scale 4-6). [facility] methylPREDN ISolone 4 mg tablets 07-14 00:00: 00 Yes [id number] Take by mouth SEE-INSTRU CTIONS. follow package directions [facility] amoxicillin 500 mg tablet 07-14 00:00: 00 07-25 04:59 :00 No [id number] 500mg Take 1 tablet by mouth in the morning and 1 tablet in the evening. Do all this for 10 days. [facility] fluconazole 150 mg tablet 07-14 00:00: 00 07-15 04:59 :00 No [id number] 150mg Take 1 tablet by mouth once now for 1 dose. [facility] diphenhydrA MINE (BENADRYL) injection 25 mg 06-03 01:15: 00 06-03 00:19 :00 No 25mg 25 mg, Slow IV Push, ONCE, 1 dose, On Fri06/03/23 at 2014, STAT [facility] ketorolac (TORADOL) injection 15 mg 06-03 01:15: 00 06-03 00:15 :00 No 15mg 15 mg, Slow IV Push, ONCE, 1 dose, On Fri06/03/23 at 2014, ALISON [facility] metoclopram florencia HCl (REGLAN) injection 10 mg 06-03 01:15: 00 06-03 00:14 :00 No 10mg 10 mg, Slow IV Push, ONCE, 1 dose, On Fri06/03/23 at 2014, ALISON [facility] NaCl 0.9% (NS) bolus infusion 1,000 mL 06-03 00:30: 00 06-03 03:26 :00 No 1000mL at 999 mL/hr, 1,000 mL, IV Infusion, ONCE, 1 dose, On Fri06/03/23 at 1930, STAT [facility] ibuprofen 800 mg tablet 06-02 00:00: 00 Yes [id number] 800mg Take 1 tablet by mouth every 8 (eight) hours as needed for Pain (scale 4-6). [facility] ketorolac (TORADOL) injection 30 mg 05-07 04:00: 00 05-07 03:30 :00 No 30mg 30 mg, Slow IV Push, ONCE, 1 dose, On Fri05/07/23 at 2200, Routine [facility] NaCl 0.9% (NS) bolus infusion 1,000 mL 05-07 03:15: 00 05-07 04:40 :00 No 1000mL at 999 mL/hr, 1,000 mL, IV Infusion, ONCE, 1 dose, On Fri05/07/23 at 2115, STAT [facility] metoclopram florencia HCl (REGLAN) injection 10 mg 05-07 03:15: 00 05-07 03:30 :00 No 10mg 10 mg, Slow IV Push, ONCE, 1 dose, On Fri05/07/23 at 2115, ALISON [facility] diphenhydrA MINE (BENADRYL) injection 25 mg 05-07 03:15: 00 05-07 03:30 :00 No 25mg 25 mg, Slow IV Push, ONCE, 1 dose, On Fri05/07/23 at 2115, STAT [facility] ondansetron 4 mg disintegrat ing tablet 05-06 00:00: 00 05-12 04:59 :00 No [id number] 4mg Take 1 tablet by mouth every 8 (eight) hours as needed for Nausea and Vomiting (N/V) for up to 5 days. [facility] butalbital- acetaminoph en-caff 50-325-40 mg tablet 05-06 00:00: 00 05-12 04:59 :00 No [id number] 1{tbl} Take 1 tablet by mouth every 4 (four) hours as needed for Pain (scale 7-10) for up to 5 days. [facility] chlorhexidi ne 0.12 % mouthwash 818 00:00: 00 11-02 04:59 :00 No [id number] 15mL Swish and spit out 15 mL in the morning and 15 mL in the evening. Do all this for 14 days. [facility] cephALEXin (KEFLEX) capsule 500 mg 09-18 03:08: 00 09-18 03:15 :00 No 500mg 500 mg, Oral, ONCE, 1 dose, On Fri09/17/22 at 2215, ALISON
Re ason for Anti-Infec tive: Documented Infection< br>Documen victorina Infection Site: Urine
D uration of Therapy: Other (see Comments) [facility] iopamidol (ISOVUE 370-500 mL) injection 75 mL 09-18 01:45: 00 09-18 01:45 :00 No [id number] 75mL 75 mL, Intravenou s, ONCE, 1 dose, On Fri09/17/22 at 2045, Routine [facility] cephALEXin (KEFLEX) 500 mg capsule 09-17 00:00: 00 09-25 04:59 :00 No [id number] 500mg Take 1 capsule by mouth in the morning and 1 capsule in the evening. Do all this for 7 days. [facility] penicillin v potassium (PEN-VEE K) tablet 500 mg 09-22 07:45: 00 09-22 06:38 :00 No 500mg 500 mg, Oral, ONCE, 1 dose, On Fri09/22/21 at 0245, ALISON
Re ason for Anti-Infec tive: Documented Infection< br>Documen victorina Infection Site: HEENT
D uration of Therapy: 10 days [facility] penicillin v potassium 500 mg tablet 09-22 00:00: 00 10-03 04:59 :00 No [id number] 500mg Take 1 tablet by mouth in the morning and 1 tablet at noon and 1 tablet in the evening. Do all this for 10 days. [facility] ibuprofen 600 mg tablet 2020-03 00:00: 00 Yes [id number] 05 600mg Take 1 tablet by mouth every 6 (six) hours as needed for Pain (scale 4-6). [facility] benzonatate 100 mg capsule 2020-03 00:00: 00 Yes [id number] 05 100mg Take 1 capsule by mouth 3 (three) times daily as needed for Cough. [facility] amoxicillin 500 mg capsule 2020-03 00:00: 00 03-04 05:59 :00 No [id number] 05 500mg Take 1 capsule by mouth 3 (three) times daily for 10 days. [facility] ibuprofen 600 mg tablet 11-06 00:00: 00 Yes [id number] 600mg Take 1 tablet by mouth every 6 (six) hours as needed for Pain (scale 4-6). [facility] acetaminoph en (TYLENOL) tablet 650 mg 08-22 19:30: 00 08-22 07:20 :00 No 650mg 650 mg, Oral, ONCE, 1 dose, Fri08/23/19 at 1430, ALISON [facility] ibuprofen (IBU) tablet 800 mg 08-22 19:15: 00 08-22 18:09 :00 No 800mg 800 mg, Oral, ONCE, 1 dose, Fri08/23/19 at 1415, ALISON [facility] albuterol 90 mcg/actuati on inhaler 08-22 00:00: 00 Yes [id number] 2{puff} Inhale 2 Puffs every 4 (four) hours as needed for Wheezing or Shortness of Breath. [facility] proMETHazin e 25 mg tablet 08-22 00:00: 00 Yes [id number] 25mg Take 1 tablet by mouth every 6 (six) hours as needed for Nausea and Vomiting (N/V). [facility] No known medications No Un kacie [facility] Vital Signs Vital Name Observation Time Observation Value Comments S ourchelle Systolic blood pressure 2024-10-05 19:06:00 125 mm[Hg] [facility] acute hospital Diastolic blood pressure 2024-10-05 19:06:00 86 mm[Hg] [facility] acute hospital Heart rate 2024-10-05 19:06:00 98 /min [facility] Body temperature 2024-10-05 19:06:00 36.44 Ginny [facility] Respiratory rate 2024-10-05 19:06:00 19 /min [facility] Body height 2024-10-05 19:06:00 152.4 cm [facility] Body weight 2024-10-05 19:06:00 92.715 kg [facility] BMI 2024-10-05 19:06:00 39.92 kg/m2 [facility] Systolic blood pressure 2024-09-27 20:47:33 132 mm[Hg] [facility] acute hospital Diastolic blood pressure 2024-09-27 20:47:33 89 mm[Hg] General acute hospital Heart rate 2024-09-27 20:47:33 115 /min [facility] Body temperature 2024-09-27 20:47:33 37 Ginny [facility] Respiratory rate 2024-09-27 20:47:33 16 /min [facility] Body height 2024-09-27 20:47:33 152.4 cm [facility] Body weight 2024-09-27 20:47:33 87.998 kg [facility] BMI 2024-09-27 20:47:33 37.89 kg/m2 [facility] Oxygen saturation in Arterial blood by Pulse oximetry 2024-09-27 20:47:33 100 /min [facility] Systolic blood pressure 2024-09-26 11:22:00 121 mm[Hg] [facility] acute hospital Diastolic blood pressure 2024-09-26 11:22:00 84 mm[Hg] [facility] acute hospital Heart rate 2024-09-26 11:22:00 98 /min [facility] Body temperature 2024-09-26 11:22:00 37 Ginny [facility] Respiratory rate 2024-09-26 11:22:00 17 /min [facility] Oxygen saturation in Arterial blood by Pulse oximetry 2024-09-26 11:22:00 100 /min [facility] Body height 2024-09-26 04:54:00 152.4 cm [facility] Body weight 2024-09-26 04:54:00 86.183 kg [facility] BMI 2024-09-26 04:54:00 37.11 kg/m2 [facility] Systolic blood pressure 2024-09-18 20:47:00 126 mm[Hg] [facility] acute hospital Diastolic blood pressure 2024-09-18 20:47:00 92 mm[Hg] General acute hospital Heart rate 2024-09-18 20:47:00 94 /min [facility] Body temperature 2024-09-18 20:47:00 36.83 Ginny [facility] Respiratory rate 2024-09-18 20:47:00 18 /min [facility] Oxygen saturation in Arterial blood by Pulse oximetry 2024-09-18 20:47:00 99 /min [facility] Body height 2024-09-18 18:35:00 152.4 cm [facility] Body weight 2024-09-18 18:35:00 86.183 kg [facility] BMI 2024-09-18 18:35:00 37.11 kg/m2 [facility] Systolic blood pressure 2024-02-29 06:54:00 142 mm[Hg] [facility] acute hospital Diastolic blood pressure 2024-02-29 06:54:00 94 mm[Hg] [facility] acute hospital Heart rate 2024-02-29 06:54:00 93 /min [facility] Body temperature 2024-02-29 06:54:00 37.28 Ginny [facility] Respiratory rate 2024-02-29 06:54:00 16 /min [facility] Body height 2024-02-29 06:54:00 152.4 cm [facility] Body weight 2024-02-29 06:54:00 92.08 kg [facility] BMI 2024-02-29 06:54:00 39.65 kg/m2 [facility] Oxygen saturation in Arterial blood by Pulse oximetry 2024-02-29 06:54:00 100 /min [facility] Systolic blood pressure 2023-12-29 20:53:00 137 mm[Hg] [facility] acute hospital Diastolic blood pressure 2023-12-29 20:53:00 94 mm[Hg] [facility] acute hospital Heart rate 2023-12-29 20:53:00 117 /min [facility] Body temperature 2023-12-29 20:53:00 36.89 Ginny [facility] Respiratory rate 2023-12-29 20:53:00 18 /min [facility] Oxygen saturation in Arterial blood by Pulse oximetry 2023-12-29 20:53:00 100 /min [facility] Body height 2023-12-29 17:04:00 152.4 cm [facility] Body weight 2023-12-29 17:04:00 83.915 kg [facility] BMI 2023-12-29 17:04:00 36.13 kg/m2 [facility] Systolic blood pressure 2023-10-07 02:54:00 133 mm[Hg] [facility] acute hospital Diastolic blood pressure 2023-10-07 02:54:00 96 mm[Hg] General acute hospital Heart rate 2023-10-07 02:54:00 113 /min [facility] Respiratory rate 2023-10-07 02:54:00 18 /min [facility] Oxygen saturation in Arterial blood by Pulse oximetry 2023-10-07 02:54:00 100 /min [facility] Body temperature 2023-10-07 02:19:00 37.28 Ginny [facility] Body height 2023-10-07 02:19:00 152.4 cm [facility] Body weight 2023-10-07 02:19:00 84.823 kg [facility] BMI 2023-10-07 02:19:00 36.52 kg/m2 [facility] Systolic blood pressure 2023-08-27 01:47:00 118 mm[Hg] [facility] acute hospital Diastolic blood pressure 2023-08-27 01:47:00 83 mm[Hg] General acute hospital Heart rate 2023-08-27 01:47:00 93 /min [facility] Body temperature 2023-08-27 01:47:00 36.94 Ginny [facility] Respiratory rate 2023-08-27 01:47:00 18 /min [facility] Oxygen saturation in Arterial blood by Pulse oximetry 2023-08-27 01:47:00 98 /min [facility] Body height 2023-08-26 23:58:00 152.4 cm [facility] Body weight 2023-08-26 23:58:00 86.183 kg [facility] BMI 2023-08-26 23:58:00 37.11 kg/m2 [facility] Systolic blood pressure 2023-07-15 19:45:00 135 mm[Hg] General acute hospital Diastolic blood pressure 2023-07-15 19:45:00 89 mm[Hg] General acute hospital Heart rate 2023-07-15 19:45:00 112 /min [facility] Body temperature 2023-07-15 19:45:00 36.78 Ginny [facility] Respiratory rate 2023-07-15 19:45:00 16 /min [facility] Body height 2023-07-15 19:45:00 152.4 cm [facility] Body weight 2023-07-15 19:45:00 84.369 kg [facility] BMI 2023-07-15 19:45:00 36.33 kg/m2 [facility] Oxygen saturation in Arterial blood by Pulse oximetry 2023-07-15 19:45:00 99 /min [facility] Systolic blood pressure 2023-06-04 03:31:00 123 mm[Hg] General acute hospital Diastolic blood pressure 2023-06-04 03:31:00 79 mm[Hg] General acute hospital Heart rate 2023-06-04 03:31:00 97 /min [facility] Body temperature 2023-06-04 03:31:00 37.06 Ginny [facility] Respiratory rate 2023-06-04 03:31:00 16 /min [facility] Oxygen saturation in Arterial blood by Pulse oximetry 2023-06-04 03:31:00 98 /min [facility] acute hospital Body height 2023-06-03 22:35:00 152.4 cm [facility] weight 2023-06-03 22:35:00 86.183 kg [facility] BMI 2023-06-03 22:35:00 37.11 kg/m2 [facility] Heart rate 2023-05-08 04:15:00 93 /min [facility] Oxygen saturation in Arterial blood by Pulse oximetry 2023-05-08 04:15:00 100 /min [facility] Systolic blood pressure 2023-05-08 04:00:00 122 mm[Hg] General acute hospital Diastolic blood pressure 2023-05-08 04:00:00 90 mm[Hg] General acute hospital Respiratory rate 2023-05-08 04:00:00 16 /min [facility] Body temperature 2023-05-08 02:58:00 36.61 Ginny [facility] Body height 2023-05-08 02:58:00 152.4 cm [facility] Body weight 2023-05-08 02:58:00 86.456 kg [facility] BMI 2023-05-08 02:58:00 37.22 kg/m2 [facility] Heart rate 2022-10-18 20:43:00 98 /min [facility] [facility] Systolic blood pressure 2022-10-18 20:29:00 130 mm[Hg] General acute hospital Diastolic blood pressure 2022-10-18 20:29:00 90 mm[Hg] General acute hospital Body temperature 2022-10-18 20:29:00 37.06 Ginny [facility] Respiratory rate 2022-10-18 20:29:00 18 /min [facility] Body height 2022-10-18 20:29:00 152.4 cm [facility] Body weight 2022-10-18 20:29:00 83.008 kg [facility] BMI 2022-10-18 20:29:00 35.74 kg/m2 [facility] Oxygen saturation in Arterial blood by Pulse oximetry 2022-10-18 20:29:00 99 /min General acute hospital Systolic blood pressure 2022-09-18 03:01:00 107 mm[Hg] General acute hospital Diastolic blood pressure 2022-09-18 03:01:00 74 mm[Hg] General acute hospital Heart rate 2022-09-18 03:01:00 106 /min [facility] Respiratory rate 2022-09-18 03:01:00 17 /min [facility] Oxygen saturation in Arterial blood by Pulse oximetry 2022-09-18 03:01:00 98 /min General acute hospital Body temperature 2022-09-17 23:37:10 36.67 Ginny [facility] Body height 2022-09-17 22:18:00 152.4 cm [facility] Body weight 2022-09-17 22:18:00 83.008 kg [facility] BMI 2022-09-17 22:18:00 35.74 kg/m2 [facility] Systolic blood pressure 2021-09-22 06:39:52 130 mm[Hg] General acute hospital Diastolic blood pressure 2021-09-22 06:39:52 75 mm[Hg] General acute hospital Heart rate 2021-09-22 06:39:52 100 /min [facility] Respiratory rate 2021-09-22 06:39:52 16 /min [facility] Oxygen saturation in Arterial blood by Pulse oximetry 2021-09-22 06:39:52 98 /min General acute hospital Body temperature 2021-09-22 05:12:00 36.72 Ginny [facility] Body height 2021-09-22 05:12:00 152.4 cm [facility] Body weight 2021-09-22 05:12:00 83.462 kg [facility] BMI 2021-09-22 05:12:00 35.94 kg/m2 [facility] Systolic blood pressure 2021-02-21 17:03:00 135 mm[Hg] General acute hospital Diastolic blood pressure 2021-02-21 17:03:00 80 mm[Hg] General acute hospital Heart rate 2021-02-21 17:03:00 100 /min [facility] Body temperature 2021-02-21 17:03:00 37.5 Ginny [facility] Respiratory rate 2021-02-21 17:03:00 18 /min [facility] Body height 2021-02-21 17:03:00 152.4 cm [facility] Body weight 2021-02-21 17:03:00 83.008 kg [facility] BMI 2021-02-21 17:03:00 35.74 kg/m2 [facility] Oxygen saturation in Arterial blood by Pulse oximetry 2021-02-21 17:03:00 99 /min General acute hospital Systolic blood pressure 2019-11-07 23:56:00 123 mm[Hg] General acute hospital Diastolic blood pressure 2019-11-07 23:56:00 78 mm[Hg] General acute hospital Heart rate 2019-11-07 23:56:00 95 /min [facility] Body temperature 2019-11-07 23:56:00 37.33 Ginny [facility] Respiratory rate 2019-11-07 23:56:00 18 /min [facility] Body weight 2019-11-07 23:56:00 74.844 kg [facility] BMI 2019-11-07 23:56:00 32.22 kg/m2 [facility] Oxygen saturation in Arterial blood by Pulse oximetry 2019-11-07 23:56:00 99 /min General acute hospital Systolic blood pressure 2019-11-07 23:56:00 123 mm[Hg] General acute hospital Diastolic blood pressure 2019-11-07 23:56:00 78 mm[Hg] General acute hospital Heart rate 2019-11-07 23:56:00 95 /min [facility] Body temperature 2019-11-07 23:56:00 37.33 Ginny [facility] Respiratory rate 2019-11-07 23:56:00 18 /min [facility] Body weight 2019-11-07 23:56:00 74.844 kg [facility] BMI 2019-11-07 23:56:00 32.22 kg/m2 [facility] Oxygen saturation in Arterial blood by Pulse oximetry 2019-11-07 23:56:00 99 /min General acute hospital Body temperature 2019-08-23 19:21:46 37.39 Ginny [facility] Systolic blood pressure 2019-08-23 19:21:16 120 mm[Hg] General acute hospital Diastolic blood pressure 2019-08-23 19:21:16 84 mm[Hg] General acute hospital Heart rate 2019-08-23 19:21:16 100 /min [facility] Respiratory rate 2019-08-23 19:21:16 18 /min [facility] Oxygen saturation in Arterial blood by Pulse oximetry 2019-08-23 19:21:16 99 /min General acute hospital Body height 2019-08-23 18:03:00 152.4 cm [facility] Body weight 2019-08-23 18:03:00 72.576 kg [facility] BMI 2019-08-23 18:03:00 31.25 kg/m2 [facility] Body temperature 2019-08-23 19:21:46 37.39 Ginny [facility] Systolic blood pressure 2019-08-23 19:21:16 120 mm[Hg] General acute hospital Diastolic blood pressure 2019-08-23 19:21:16 84 mm[Hg] General acute hospital Heart rate 2019-08-23 19:21:16 100 /min [facility] Respiratory rate 2019-08-23 19:21:16 18 /min [facility] Oxygen saturation in Arterial blood by Pulse oximetry 2019-08-23 19:21:16 99 /min General acute hospital Body height 2019-08-23 18:03:00 152.4 cm [facility] Body weight 2019-08-23 18:03:00 72.576 kg [facility] BMI 2019-08-23 18:03:00 31.25 kg/m2 [facility] Heart Rate 2022-10-25 03:13:22 Pete Napoles Systolic (mm Hg) 2022-10-25 03:13:17 Leesa Napoles Diastolic (mm Hg) 2022-10-25 [facility] 2022-10-25 03:12:55 98.3 F Leesa Napoles Height 2022-10-24 18:53:00 5 [ft_i] [facility] BMI Calculated 2022-10-24 18:53:00 [facility] Weight 2022-10-24 18:53:00 [facility] Procedures Procedure Date / Time Performed Performing Clinician Source US OVARY TORSION 2024-09-27 21:55:50 Keysha Rg [facility] COMP. METABOLIC PANEL (04351) 2024-09-26 06:53:00 Renetta Banda [facility] TEST, SERUM 2024-09-26 06:02:00 Darío l Renetta Jaramillo [facility] CBC WITH DIFF 2024-09-26 06:02:00 [facility] URINALYSIS 2024-09-26 06:02:00 Banipal Morr ical, [facility] EXTRA TUBE URINE CULTURE 2024-09-26 06:02:00 Ban ipal Ella [facility] POCT TEST 2024-09-18 20:30:00 Michael Rice [facility] DUPLEX VENOUS LEGS BILATERAL - BY VASCULAR LAB 2024-09-18 20:21:20 Michael Rice [facility] RAPID STREP SCREEN FOR GROUP A 2024-02-29 07:01:00 Singer Young [facility] INFLUENZA A/B RSV COVID NAAT 2024-02-29 07:01:00 Singer Young [facility] LIPASE 2023-12-29 18:55:00 Arianna Shay [facility] COMP. METABOLIC PANEL (53418) 2023-12-29 18:55:00 Arianna Shay [facility] CBC WITH DIFF 2023-12-29 18:55:00 Arianna Shay [facility] URINALYSIS 2023-12-29 18:48:00 Arianna Shay [facility] INFLUENZA A/B RSV COVID NAAT 2023-12-29 18:48:00 Arianna Shay [facility] POCT TEST 2023-08-27 00:15:00 Isis Lopez [facility] LIPASE 2023-08-27 00:13:00 Isis Lopez [facility] HEPATIC FUNCTION PANEL (23889) (ALB,T.PRO,BILI T,BU/BC,ALT,AST,ALK PHOS) 2023-08-27 00:13:00 Isis Lopez [facility] BASIC METABOLIC PANEL (NA, K, CL, CO2, GLUCOSE, BUN, CREATININE, CA) 2023-08-27 00:13:00 Isis Lopez [facility] CBC WITH DIFF 2023-08-27 00:13:00 Isis Lopez [facility] URINALYSIS 2023-08-27 00:13:00 Isis Lopez [facility] POCT GLUCOSE(AGE >30DAYS) 2023-07-15 20:53:00 Keysha Rg [facility] POCT GLUCOSE (AUTOMATED) 2023-07-15 20:52:00 Alison Rg [facility] RAPID STREP SCREEN FOR GROUP A 2023-07-15 20:48:00 Keysha Rg [facility] POCT TEST 2023-07-15 20:47:00 Keysha Rg [facility] POCT TEST 2023-06-04 00:24:00 Raquel Mccabe [facility] RAPID STREP SCREEN FOR GROUP A 2023-06-04 00:21:00 Raquel Mccabe [facility] URINALYSIS 2023-06-04 00:19[facility]OLIC PAN[facility] (16671) 2023-06-04 00:05:00 Raquel Mccabe [facility] CBC WITH DIFF 2023-06-04 00:05:00 Raquel Mccabe [facility] POCT TEST 2023-05-08 03:29:00 Sally Lexibobo Diaz [facility] CONSENT/REFUSAL FOR DIAGNOSIS AND TREATMENT 2023-05-08 02:52:34 Doctor Unassigned, [address] [address] [place] [facility] NOTICE OF PRIVACY PRACTICES 2022-10-18 20:24:41 Doctor Unassigned, [address] [facility] CONSENT/REFUSAL FOR DIAGNOSIS AND TREATMENT 2022-10-18 20:22:32 Doctor Unassigned, [address] [facility] POCT TEST 2022-09-17 22:50:00 Chantell Gomez [facility] COMP. METABOLIC PANEL (94121) 2022-09-17 22:49:00 Vane Gomez [facility] TOTAL BETA HCG ASSAY 2022-09-17 22:49:00 Luca Gomez [facility] CBC WITH DIFF 2022-09-17 22:49:00 Vane Gomez [facility] URINALYSIS 2022-09-17 22:49[facility]00 [facility]ID NOW RAPID TESTING) 2021-09-22 06:10:00 Raquel Mccabe [facility] RAPID STREP SCREEN FOR GROUP A 2021-09-22 05:19:00 Janna Lin [facility] EMERGENCY SERVICES AGREEMENTS AND AUTHORIZATIONS 2021-09-22 05:01:00 Doctor Unassigned, [address] [address] [facility] NOTICE OF PRIVACY PRACTICES 2021-09-22 04:59:11 Doctor Unassigned, [address] [address] [facility] CONSENT/REFUSAL FOR DIAGNOSIS AND TREATMENT 2021-09-22 04:58:57 Doctor Unassigned, [address] [facility] RAPID INFLUENZA A/B 2021-02-21 17:51:00 Raquel Mccabe [facility] COVID-19 (ID NOW RAPID TESTING) 2021-02-21 17:51:00 Raquel Mccabe [facility] NOTICE OF PRIVACY PRACTICES 2021-02-21 16:54:53 Doctor Unassigned, [address] [address] [place] [facility] CONSENT/REFUSAL FOR DIAGNOSIS AND TREATMENT 2021-02-21 16:54:41 Doctor Unassigned, [address] [address] [facility] XR FOOT 3+ VW RIGHT 2019-11-08 00:32:04 Jayce Han [facility] NOTICE OF PRIVACY PRACTICES 2019-11-07 23:47:07 Doctor Unassigned, [address] [address] [place] [facility] CONSENT/REFUSAL FOR DIAGNOSIS AND TREATMENT 2019-11-07 23:46:53 Doctor Unassigned, [address] [facility] ASSIGNMENT OF BENEFITS 2019-08-23 19:29:40 Docto r Unassigned, [address] [facility] COVID-19 (ID NOW RAPID TESTING) 2019-08-23 18:11:00 Jaswinder Patel [facility] NOTICE OF PRIVACY PRACTICES 2019-08-23 17:51:36 Doctor Unassigned, [address] [address] [place] [facility] CONSENT/REFUSAL FOR DIAGNOSIS AND TREATMENT 2019-08-23 17:51:23 Doctor Unassigned, [address] [facility] Encounters Start Date/Time End Date/Time Encounter Type Admission Type Attending [facility] Care Department Encounter ID Source 2024-10-05 14:15:00 2024-10-05 15:18:03 Office Visit [id number] Gaurav Gtz [facility] ([facility]) 1.2.840.114 350.1.13.10 4.2.7.2.686 [id number] [facility] 2024-09-28 00:00:00 2024-09-28 11:18:42 Telephone Analia Harry [facility] ([facility]) 1.2.840.114 350.1.13.10 4.2.7.2.686 [id number] [facility] 2024-09-27 15:51:00 2024-09-27 19:58:00 Emergency X KEYSHA RG ERICCA [facility] ERT [id number] [facility] 2024-09-25 23:55:00 2024-09-26 06:27:00 Emergency X RENETTA BANDA [facility] ERT [id number] [facility] 2024-09-18 13:37:00 2024-09-18 15:49:00 Emergency X TIFF, MICHAEL CABALLERO [facility] ERT [id number] [facility] 2024-02-29 01:02:00 2024-02-29 02:38:00 Emergency X YOUNG WYNN PHILLIP [facility] ERT [id number] [facility] 2024-02-29 01:02:00 2024-02-29 02:38:00 Emergency Young Wynn [facility] 1.840.114 350.1.13.10 4.2.7.2.686 [id number] [facility] 2023-12-29 12:06:00 2023-12-29 15:59:00 Emergency Mirtakings Arianna Luis [facility] 1.840.114 350.1.13.10 4.2.7.2.686 [id number] [facility] 2023-10-06 21:22:00 2023-10-06 21:56:00 Emergency X KINGALOK CASANOVAENCE [facility] ERT [id number] [facility] 2023-10-06 21:22:00 2023-10-06 21:56:00 Emergency Daryl Johnson Inder [facility] 1.840.114 350.1.13.10 4.2.7.2.686 [id number] [facility] 2023-08-29 00:00:00 2023-10-04 18:25:10 Patient Secure Msg Doctor Unassigned, [place] [address] [place] [facility] 1.2840.114 350.1.13.10 4.2.7.2.686 [id number] [facility] 2023-08-26 18:59:00 2023-08-26 21:01:00 Emergency X CACACE, ISIS CACACE, ISIS [facility] ERT [id number] [facility] 2023-08-26 18:59:00 2023-08-26 21:01:00 Emergency Isis Lopez [facility] 1.2.840.114 350.1.13.10 4.2.7.2.686 [id number] [facility] 2023-07-15 14:47:00 2023-07-15 16:32:00 Emergency KEYSHA GUTIÉRREZ KURTISLEILAClinton [facility] ERT [id number] [facility] 2023-07-15 14:47:00 2023-07-15 16:32:00 Emergency Keysha Rg Akbar [facility] 1.2.840.114 350.1.13.10 4.2.7.2.686 [id number] [facility] 2023-06-03 17:37:00 2023-06-03 22:55:00 Emergency X Raquel MCCABE K [facility] ERT [id number] [facility] 2023-06-03 17:37:00 2023-06-03 22:55:00 Emergency Tahira Fisher K Paige [facility] 1.2.840.114 350.1.13.10 4.2.7.2.686 [id number] [facility] 2023-05-07 21:01:00 2023-05-07 22:46:00 Emergency X LEXI ZAVALA SALLY LEXI [facility] ERT [id number] [facility] 2023-05-07 21:01:00 2023-05-07 22:46:00 Emergency Lexi Zavalae [facility] 1.2.840.114 350.1.13.10 4.2.7.2.686 [id number] [facility] 2022-11-26 00:00:00 2022-11-26 00:00:00 Patient Secure Msg Doctor Unassigned, [place] [address] [place] [facility] 1.2.840.114 350.1.13.10 4.2.7.2.686 [id number] [facility] 2022-10-24 13:50:00 2022-10-24 22:51:00 Emergency E CHACHO [facility] [id number] [facility] 2022-10-18 15:33:00 2022-10-18 15:44:00 Emergency X RICHARD RIVERAMOISÉS [facility] ERT [id number] [facility] 2022-10-18 15:33:00 2022-10-18 15:44:00 Emergency Dc Rivera [facility] 1.840.114 350.1.13.10 4.2.7.2.686 [id number] [facility] 2022-09-17 17:20:00 2022-09-17 22:33:00 Emergency X VANE GOMEZ [facility] ERT [id number] [facility] 2022-09-17 17:20:00 2022-09-17 22:33:00 Emergency Vane Gomez [facility] 1.840.114 350.1.13.10 4.2.7.2.686 [id number] [facility] 2021-09-22 00:22:00 2021-09-22 01:58:00 Emergency X Raquel MCCABE [facility] ERT [id number] [facility] 2021-09-22 00:22:00 2021-09-22 01:58:00 Emergency Raquel Mccabe [facility] 1.2840.114 350.1.13.10 4.2.7.2.686 [id number] [facility] 2021-09-22 00:00:00 2021-09-22 00:00:00 Orders Only Doctor Unassigned, [place] [facility] 1.2.840.114 350.1.13.10 4.2.7.2.686 [id number] [facility] 2021-09-21 00:00:00 2021-09-21 00:00:00 Orders Only Doctor Unassigned, [place] [address] [place] [facility] 1.2.840.114 350.1.13.10 4.2.7.2.686 [id number] [facility] 2021-02-21 11:04:00 2021-02-21 13:25:00 Emergency X Raquel MCCABE [facility] ERT [id number] [facility] 2021-02-21 11:04:00 2021-02-21 13:25:00 Emergency Raquel Mccabe [facility] 1.2.840.114 350.1.13.10 4.2.7.2.686 [id number] [facility] 2019-11-07 18:59:00 2019-11-07 20:52:00 Emergency Emely Jayce [facility] 1.2.840.114 350.1.13.10 4.2.7.2.686 [id number] [facility] 2019-11-07 18:59:00 2019-11-07 20:52:00 Emergency Jayce Han [facility] 1.2.840.114 350.1.13.10 4.2.7.2.686 [id number] 2019-11-07 18:59:00 2019-11-07 18:59:00 Emergency X JAYCE HAN [facility] ERT [id number] [facility] 2019-08-24 00:00:00 2019-08-24 00:00:00 Telephone Pcp, Patient Does Not Have A [facility] 1.2.840.114 350.1.13.10 4.2.7.2.686 [id number] [facility] 2019-08-24 00:00:00 2019-08-24 00:00:00 Telephone Pcp, Patient Does Not Have A [facility] 1.2.840.114 350.1.13.10 4.2.7.2.686 [id number] 2019-08-23 13:57:56 2019-08-23 14:34:00 Emergency Rom [facility] 1.2.840.114 350.1.13.10 4.2.7.2.686 [id number] [facility] 2019-08-23 13:57:56 2019-08-23 14:34:00 Emergency [facility] 1.2.840.114 350.1.13.10 4.2.7.2.686 [id number] 2019-08-23 13:57:56 2019-08-23 13:57:56 Emergency X [facility] ERT [id number] [facility] 2019-08-23 00:00:00 2019-08-23 00:00:00 Orders Only Doctor Unassigned, [place] [facility] 1.2.840.114 350.1.13.10 4.2.7.2.686 [id number] [facility] 2019-08-23 00:00:00 2019-08-23 00:00:00 Orders Only Doctor Unassigned, [place] [facility] 1.2.840.114 350.1.13.10 4.2.7.2.686 [id number] Results Test Description Test Time Test Comments Results Resul t Comments Source US Ovary torsion 2024-09-01 8 23:52:21 EXAM: US OVARY TORSION 09/27/2024 4:58 PM HISTORY: 29-year-old Female; Provided indication: R pelvic pain . LMP = 6/8/2025Pregnancy test = Negative. TECHNIQUE: Transabdominal and transvaginal ultrasound imaging and colorDoppler evaluation of the pelvis was performed. Spectral Doppler evaluationof the ovaries was performed. Bladder Cleaner images were obtained for jerman. COMPARISON: Ultrasound 09/26/2024. FINDINGS: Uterus: The uterus measures 11.3 x 5.5 x 4.2 cm. The myometrium appears homogenous.No focal lesion is detected. The endometrium is normal in appearance andthe thickness measures 0.6 cm. The cervix is unremarkable. Right Adnexa:Ovary: The right ovary measures 7.9 x 6.3 x 5.8 cm with a volume of 150.9ml. A solid and cystic mass is present in the right ovary of about the samesize and some vascularity. Normal arterial and venous waveforms arevisualized. Normal flow is seen on color Doppler. Left Adnexa:Ovary: The left ovary measures 2.1 x 1.3 x 1.4 cm with a volume of 1.9 ml.The left ovary is unremarkable.Normal arterial and venous waveforms arevisualized. Normal flow is seen on color Doppler. Cul-de-sac: Significant free fluid is present. [facility] WITH [id number] 06:16:00* Test Item Value Reference Range Interpretation Comme nts WBC (test code = 6690-2) 10.6 4.30-11.10 RBC (test code = 789-8) 4.24 3.93-5.25 HGB (test code = 718-7) 13.4 g/dL 11.6-15.0 HCT (test code = 4544-3) 38.1 % 35.7-45.2 MCV (test code = 787-2) 89.9 fL 80.6-95.5 MCH (test code = 785-6) 31.6 pg 25.9-32.8 MCHC (test code = 786-4) 35.2 g/dL 31.6-35.1 H RDW-SD (test code = 39669-4) 38.5 fL 39.0-49.9 L RDW-CV (test code = 788-0) 11.9 % 12.0-15.5 L PLT (test code = 777-3) 340 166-358 MPV (test code = 83483-7) 10.2 fL 9.5-12.9 NRBC/100 WBC (test code = 4961764364) 0 0.0-10.0 NRBC x10^3 (test code = 8535928820) See_Comment [Automated messa ge] The system which generated this result transmitted reference range: 10*3/?L. The reference range was not used to interpret this result as normal/abnormal. GRAN MAT (NEUT) % (test code = 770-8) 59.9 % IMM GRAN % (test code = 0325744834) 0.4 % LYMPH % (test code = 736-9) 33.1 % MONO % (test code = 5905-5) 5.6 % EOS % (test code = 713-8) 0.6 % BASO % (test code = 706-2) 0.4 % GRAN MAT x10^3(ANC) (test code = 5301613284) 6.36 10*3/uL 1.88-7.09 IMM GRAN x10^3 (test code = 6506439178) 0.04 10*3/uL 0.00-0.06 LYMPH x10^3 (test code = 731-0) 3.51 10*3/uL 1.32-3.29 H MONO x10^3 (test code = 742-7) 0.59 10*3/uL 0.33-0.92 EOS x10^3 (test code = 711-2) 0.06 10*3/uL 0.03-0.39 BASO x10^3 (test code = 704-7) 0.04 10*3/uL 0.01-0.07 Lab Interpretation (test code = 76816-6) [id number] 20:30:00* Test Item Value Reference Range Interpretation Comme nts POCT PREG (test code = 1605) Negative On board controls acceptable with C Line (test code = 3574) Yes POCT PREG LOT # (test code = 3575) [id number] POCT PREG TEST DATE ( test code = 3576) 2026-01-26 Lab Interpretation (test cod e = 83451-2) [facility] (56382)2023-12-29 19:26:16* Test Item Value Reference Range Interpretation Comme nts NA (test code = 1215781452) 134 mmol/L 135-145 L K (test code = 8144420107) 4.5 mmol/L 3.5-5.0 CL (test code = 7571992411) 102 mmol/L 98-108 CO2 TOTAL (test code = 0442593209) 18 mmol/L 23-31 L AGAP (test code = 5647280476) 14 2-16 BUN (test code = 8757854433) 12 mg/dL 7-23 GLUCOSE (test code = 4632567311) 103 mg/dL 70-110 CREATININE (test code = 2160-0) 0.51 mg/dL 0.50-1.04 TOTAL BILI (test code = 0074163394) 1.0 mg/dL 0.1-1.1 CALCIUM (test code = 2293965432) 9.2 mg/dL 8.6-10.6 T PROTEIN (test code = 6330795202) 9.2 g/dL 6.3-8.2 H ALBUMIN (test code = 4330099026) 5.0 g/dL 3.5-5.0 ALK PHOS (test code = 6571954746) 70 U/L 34-122 ALTv (test code = 1742-6) 65 U/L 5-35 H AST(SGOT) (test code = 0543007407) 40 U/L 13-40 eGFR (test code = 80370-9) 131.4 mL/min/1.73m2 CKD-EPI eGFR (2020). Assuming creatinine has been stable day-to-day for at least three months, the eGFR indicates Category G1 (>= 90 mL/min/1.73 m2) Lab Interpretation (test code = 68072-8) [facility]normal [facility] 19:25:35* Test Item Value Reference Range Interpretation Comme nts LIPASE (test code = 3491987076) 50 U/L 0-220 Lab Interpretation (test cod e = 93505-4) Normal [facility] [id number] 19:13:28* Test Item Value Reference Range Interpretation Comme nts WBC (test code = 6690-2) 8.44 4.30-11.10 RBC (test code = 789-8) 4.91 3.93-5.25 HGB (test code = 718-7) 15.6 g/dL 11.6-15.0 H HCT (test code = 4544-3) 46.0 % 35.7-45.2 H MCV (test code = 787-2) 93.7 fL 80.6-95.5 MCH (test code = 785-6) 31.8 pg 25.9-32.8 MCHC (test code = 786-4) 33.9 g/dL 31.6-35.1 RDW-SD (test code = 63967-8) 40.8 fL 39.0-49.9 RDW-CV (test code = 788-0) 11.9 % 12.0-15.5 L PLT (test code = 777-3) 294 166-358 MPV (test code = 42906-6) 10.6 fL 9.5-12.9 NRBC/100 WBC (test code = 8554323826) 0.0 0.0-10.0 NRBC x10^3 (test code = [id number]) See_Comment [Automated messa ge] The system which generated this result transmitted reference range: 10*3/?L. The reference range was not used to interpret this result as normal/abnormal. GRAN MAT (NEUT) % (test code = 770-8) 69.5 % IMM GRAN % (test code = 4808791551) 0.70 % LYMPH % (test code = 736-9) 21.9 % MONO % (test code = 5905-5) 6.8 % EOS % (test code = 713-8) 0.7 % BASO % (test code = 706-2) 0.4 % GRAN MAT x10^3(ANC) (test code = 1821290024) 5.87 10*3/uL 1.88-7.09 IMM GRAN x10^3 (test code = 8343633559) 0.06 10*3/uL 0.00-0.06 LYMPH x10^3 (test code = 731-0) 1.85 10*3/uL 1.32-3.29 MONO x10^3 (test code = 742-7) 0.57 10*3/uL 0.33-0.92 EOS x10^3 (test code = 711-2) 0.06 10*3/uL 0.03-0.39 BASO x10^3 (test code = 704-7) 0.03 10*3/uL 0.01-0.07 Lab Interpretation (test code = 55623-6) Abnormal [facility] [id number] 00:15:00* Test Item Value Reference Range Interpretation Comme nts POCT PREG (test code = 1605) Negative On board controls acceptable with C Line (test code = 3574) Yes POCT PREG LOT # (test code = 3575) [id number] POCT PREG TEST DATE ( test code = 3576) 07/04/2024 Lab Interpretation (test cod e = 24876-0) Normal [facility] GLUCOSE (AUTOMATED)2023-07-15 20:53:56* Test Item Value Reference Range Interpretation Comme nts POCT GLU (test code = 5181149848) 130 mg/dL 70-110 H Lab Interpretation (test cod e = 34916-3) Abnormal [facility] Glucose(Age >30days)2023-07-15 20:53:00* Test Item Value Reference Range Interpretation Comme nts POCT Glu (age>30days) (test code = 3342) 130 mg/dL 70-110 A Lab Interpretation (test cod e = 04524-6) Abnormal [facility] [id number] 20:47:00* Test Item Value Reference Range Interpretation Comme nts POCT PREG (test code = 1605) Negative On board controls acceptable with C Line (test code = 3574) Yes POCT PREG LOT # (test code = 3575) [id number] POCT PREG TEST DATE ( test code = 3576) 04/09/2023 Lab Interpretation (test cod e = 75412-1) Normal [facility]. Metabolic Panel (57929)2023-06-04 00:53:47* Test Item Value Reference Range Interpretation Comme nts NA (test code = 9986516718) 140 mmol/L 135-145 K (test code = 2883699986) 3.8 mmol/L 3.5-5.0 CL (test code = 1852117048) 107 mmol/L 98-108 CO2 TOTAL (test code = 2468710889) 27 mmol/L 23-31 AGAP (test code = 7590351862) 6 2-16 BUN (test code = 3599015645) 9 mg/dL 7-23 GLUCOSE (test code = 9949745556) 90 mg/dL 70-110 CREATININE (test code = 2160-0) 0.50 mg/dL 0.50-1.04 TOTAL BILI (test code = 3427065279) 0.4 mg/dL 0.1-1.1 CALCIUM (test code = 1093840508) 8.9 mg/dL 8.6-10.6 T PROTEIN (test code = 5336837229) 8.2 g/dL 6.3-8.2 ALBUMIN (test code = 8770603681) 4.1 g/dL 3.5-5.0 ALK PHOS (test code = 6276631089) 92 U/L 34-122 ALTv (test code = 1742-6) 36 U/L 5-35 H AST(SGOT) (test code = 5523286707) 30 U/L 13-40 eGFR (test code = 00192-8) 132.8 mL/min/1.73m2 CKD-EPI eGFR (2020). Assuming creatinine has been stable day-to-day for at least three months, the eGFR indicates Category G1 (>= 90 mL/min/1.73 m2) Lab Interpretation (test code = 94880-5) [facility] [id number] 00:30:45* Test Item Value Reference Range Interpretation Comme nts WBC (test code = 6690-2) 9.76 4.30-11.10 RBC (test code = 789-8) 4.05 3.93-5.25 HGB (test code = 718-7) 13.1 g/dL 11.6-15.0 HCT (test code = 4544-3) 38.3 % 35.7-45.2 MCV (test code = 787-2) 94.6 fL 80.6-95.5 MCH (test code = 785-6) 32.3 pg 25.9-32.8 MCHC (test code = 786-4) 34.2 g/dL 31.6-35.1 RDW-SD (test code = 60979-9) 39.9 fL 39.0-49.9 RDW-CV (test code = 788-0) 11.7 % 12.0-15.5 L PLT (test code = 777-3) 339 166-358 MPV (test code = 52929-1) 10.0 fL 9.5-12.9 NRBC/100 WBC (test code = 4238731338) 0.0 0.0-10.0 NRBC x10^3 (test code = 5046586143) See_Comment [Automated messa ge] The system which generated this result transmitted reference range: 10*3/?L. The reference range was not used to interpret this result as normal/abnormal. GRAN MAT (NEUT) % (test code = 770-8) 65.7 % IMM GRAN % (test code = 4086218496) 0.20 % LYMPH % (test code = 736-9) 26.9 % MONO % (test code = 5905-5) 6.3 % EOS % (test code = 713-8) 0.5 % BASO % (test code = 706-2) 0.4 % GRAN MAT x10^3(ANC) (test code = 1022083526) 6.41 10*3/uL 1.88-7.09 IMM GRAN x10^3 (test code = 8911220462) 0.00-0.06 LYMPH x10^3 (test code = 731-0) 2.63 10*3/uL 1.32-3.29 MONO x10^3 (test code = 742-7) 0.61 10*3/uL 0.33-0.92 EOS x10^3 (test code = 711-2) 0.05 10*3/uL 0.03-0.39 BASO x10^3 (test code = 704-7) 0.04 10*3/uL 0.01-0.07 Lab Interpretation (test code = 96085-2) [facility]normal [facility] [id number] 00:24:00* Test Item Value Reference Range Interpretation Comme nts POCT PREG (test code = 1605) Negative On board controls acceptable with C Line (test code = 3574) Yes Lab Interpretation (test cod e = 59210-8) Normal [facility] [id number] 03:29:00* Test Item Value Reference Range Interpretation Comme nts POCT PREG (test code = 1605) Negative On board controls acceptable with C Line (test code = 3574) Yes POCT PREG LOT # (test code = 6460) 586390 POCT PREG TEST DATE ( test code = 3575) 0718937 Lab Interpretation (test cod e = 31014-0) Normal [facility]MUN[facility]Y2023-08-25 03:37:00* Test Item Value Reference Range Interpretation Comme nts Hep C Ab (test code = Hep C Ab) NON-REACTIVE CDC HIV 4th GEN (test code = CDC HIV 4th GEN) Negative 1*NA*(10/24/22 10:37 PM) [id number] 19:00:00* Test Item Value Reference Range Interpretation Comme nts Glucose Lvl (test code = Glucose Lvl) 103 70-99 BUN (test code = BUN) 8 7-22 Creatinine Lvl (test code = Creatinine Lvl) 0.52 0.50-1.40 Sodium Lvl (test code = Sodium Lvl) 138 135-145 Potassium Lvl (test code = Potassium Lvl) 4.0 3.5-5.1 Chloride Lvl (test code = Chloride Lvl) 111 95-109 CO2 (test code = CO2) 20 24-32 Calcium Lvl (test code = Calcium Lvl) 9.0 8.5-10.5 AGAP (test code = AGAP) 11.0 10.0-20.0 eGFR (test code = eGFR) 132 S Preg (test code = S Preg) Negative *NA*(10/24/22 2:00 PM) [facility]:00:00* Test Item Value Reference Range Interpretation Comme nts WBC X 10x3 (test code = WBC X 10x3) 8.9 3.7-10.4 RBC X 10x6 (test code = RBC X 10x6) 4.41 4.20-5.40 Hgb (test code = Hgb) 13.5 12.0-16.0 Hct (test code = Hct) 40.6 36.0-48.0 MCV (test code = MCV) 92.0 80.0-98.0 MCH (test code = MCH) 30.5 pg 27.0-31.0 MCHC (test code = MCHC) 33.2 32.0-36.0 RDW (test code = RDW) 12.5 11.5-14.5 Platelet (test code = Platelet) 237 133-450 MPV (test code = MPV) 7.2 7.4-10.4 Segs (test code = Segs) 22.6 45.0-75.0 Lymphocytes (test code = Lymphocytes) 68.7 20.0-40.0 Monocytes (test code = Monocytes) 6.6 2.0-12.0 Eosinophils (test code = Eosinophils) 1.5 <=4.0 Basophils (test code = Basophils) 0.6 <=1.0 Neutrophils # (test code = Neutrophils #) 2.0 1.5-8.1 Lymphocytes # (test code = Lymphocytes #) 6.1 1.0-5.5 Monocytes # (test code = Monocytes #) 0.6 <=0.8 Eosinophils # (test code = Eosinophils #) 0.1 <=0.5 Basophils # (test code = Basophils #) 0.1 <=0.2 [facility] [id number] 22:50:00* Test Item Value Reference Range Interpretation Comme nts POCT PREG (test code = 1605) Negative On board controls acceptable with C Line (test code = 3574) Yes POCT PREG LOT # (test code = 3575) [id number] POCT PREG TEST DATE ( test code = 3576) 02/13/2024 Lab Interpretation (test cod e = 40800-6) Normal [facility] CenterXR [facility]+ VW [id number] 00:35:40Soft tissue swelling. No acute bony abnormality is present. EXAM: XR FOOT 3+ VW RIGHT HISTORY: right foot pain COMPARISON: None FINDINGS: Imaging of the foot demonstrates maintenance of alignment. There is mildswelling over the plantar and dorsal midfoot and. Joint spaces arepreserved. [facility], Radiant Results Inft User - 11/07/2019 7:36 PM CDTEXAM:XR FOOT 3+ VW RIGHTHISTORY:right foot pain COMPARISON:NoneFINDINGS: Imaging of the foot demonstrates maintenance of alignment. There is mildswelling over the plantar and dorsal midfoot and. Joint spaces arepreserved.IMPRESSIONSoft tissue swelling.No acute bony abnormality is present.[facility]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
[2024-10-09 14:33] LABS: Influenza A Ag Negative; Influenza B Ag Negative; SARS-CoV-2 Antigen Rapid Res Negative (Negative)
--- NOTE | 2024-10-09 14:44 | ER ---
Nurse's Notes [facility] Name: Philomena Smith Age: 29 yrs Sex: Female : 1995 Arrival Date: 10/09/2024 Time: 13:17 Bed DIS1 Private MD: Diagnosis: Acute tonsillitis, unspecified Presentation: 10/09 13:34 Chief complaint: Patient states: Cough, congestion, sore throat, SIMON, diarrhea, fatigue ll1 for 3 days. Coronavirus screen: Client denies travel out of the [place] in the last 14 days. diarrhea, fatigue, fever, headache, sore throat, Client presents with at least one sign or symptom that may indicate coronavirus-19. Standard/surgical mask placed on the client. Ebola Screen: Patient denies travel to an Ebola-affected area in the 21 days before illness onset. Initial Sepsis Screen: Does the patient meet any 2 criteria? No. Patient's initial sepsis screen is negative. Does the patient have a suspected source of infection? No. Patient's initial sepsis screen is negative. Risk Assessment: Do you want to hurt yourself or someone else? Patient reports no desire to harm self or others. Onset of symptoms was October 06, 2024. 13:34 Method Of Arrival: Ambulatory ll1 13:34 Acuity: LUIS ANTONIO 4 ll1 Triage Assessment: 13:34 General: Appears uncomfortable, Behavior is calm, cooperative, appropriate for age, ll1 Reports fatigue for. Pain: Complains of pain in throat Quality of pain is described as aching. EENT: Reports nasal congestion pain when swallowing. Respiratory: Reports cough that is. 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 - Infectious Disease History:: Denies. - Social history:: Smoking status: Patient denies any tobacco usage or history of. Screenin:13 [facility] ED Fall Risk Assessment (Adult) History of falling in the last 3 months, ll1 including since admission No falls in past 3 months (0 pts) Confusion or Disorientation No (0 pts) Intoxicated or Sedated No (0 pts) Impaired Gait No (0 pts) Mobility Assist Device Used No (0 pt) Altered Elimination No (0 pt) Score/Fall Risk Level 0 - 2 = Low Risk Maintained a safe environment, Hourly rounding (assess needs \T\ fall precautionary measures) done. Abuse screen: Denies threats or abuse. Nutritional screening: No deficits noted. Tuberculosis screening: No symptoms or risk factors identified. Assessment: 13:34 Respiratory: Airway is patent Respiratory effort is even, unlabored, Breath sounds are ll1 clear bilaterally. EENT: Throat is reddened. 15:10 Reassessment: No changes from previously documented assessment. Patient and/or family ll1 updated on plan of care and expected duration. Pain level reassessed. Patient is alert, oriented x 3, equal unlabored respirations, skin warm/dry/pink. Vital Signs: 13:34 BP 126 / 89; Pulse 104; Resp 17; Temp 97.6; Pulse Ox 99% ; Weight 90.72 kg; Height 5 ll1 ft. 0 in. ; Pain 10/10; 13:34 Body Mass Index 39.06 (90.72 kg, 152.4 cm) ll1 13:34 Pain Scale: Adult ll1 ED Course: 13:21 Patient arrived in ED. gl 13:35 Triage completed. ll1 13:35 Arm band placed on. ll1 13:35 Patient has correct armband on for positive identification. Provided Education on: ER ll1 procedures and process. 13:36 Gamaliel Ivey is Attending Physician. ci 13:36 Boogie Garcia FNP-C is [facility]. dr5 13:44 COVID-19 Ag + Flu A+B Ag Sent. ll1 13:44 Group A Streptococcus Rapid Sent. ll1 14:43 Gamaliel Ivey is Attending Physician. dr5 15:13 No provider procedures requiring assistance completed. Patient did not have IV access ll1 during this emergency room visit. Administered Medications: 15:05 Drug: Dexamethasone IM 10 mg IM once Route: IM; Site: right vastus lateralis; ll1 15:35 Follow up: Response: No adverse reaction ll1 Medication: 16:43 VIS not applicable for this client. ll1 Outcome: 14:43 Discharge ordered by . dr5 15:13 Patient left the ED. ll1 15:13 Discharged to home ambulatory, ll1 15:13 Condition: stable 15:13 Discharge instructions given to patient, Instructed on discharge instructions, follow up and referral plans. medication usage, Demonstrated understanding of instructions, follow-up care, medications, Prescriptions given X 2, Signatures: Magaly Solis, RN RN ll1 IheonunekwuGamaliel Dustin, JUDICIAL ADMINISTRATIVE ASSISTANT-C JUDICIAL ADMINISTRATIVE ASSISTANT-Cdr5 Kristal Dooley, Reg Reg gl Corrections: (The following items were deleted from the chart) 13:37 13:34 Resp 17bpm; 90.72 kg; Height 5 ft. 0 in.; BMI: 39.0; Pain 12/10, Adult; ll1 ll1
--- NOTE | 2024-10-09 14:44 | EDPHYS ---
Physician Documentation [facility] Name: Philomena Smith Age: 29 yrs Sex: Female : 1995 Arrival Date: 10/09/2024 Time: 13:17 Bed DIS1 Private MD: ED Physician Gamaliel Ivey HPI: 10/09 18:15 This 29 yrs old Female presents to ER via Ambulatory with complaints of Sore dr5 Throat. 18:15 The patient presents with sore throat. The patient describes throat pain as burning, dr5 scratchy. Onset: The symptoms/episode began/occurred 3 day(s) ago. Patient is a 21-year-old female with history of chronic back pain and migraines coming in for sore throat this been going for the past 3 days. Patient reports that she started taking amoxicillin from [place] with mild relief. Patient denies sick contacts. Take patient reports swollen tonsils with exudate.. 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 - Infectious Disease History:: Denies. - Social history:: Smoking status: Patient denies any tobacco usage or history of. ROS: 18:15 Constitutional: as per hpi dr5 Exam: 18:15 Constitutional: This is a well developed, well nourished patient who is awake, alert, dr5 and in no acute distress. Head/Face: Normocephalic, atraumatic. Eyes: Pupils equal round and reactive to light, extra-ocular motions intact. Lids and lashes normal. Conjunctiva and sclera are non-icteric and not injected. Cornea within normal limits. Periorbital areas with no swelling, redness, or edema. Neck: Trachea midline, no thyromegaly or masses palpated, and no cervical lymphadenopathy. Supple, full range of motion without nuchal rigidity, or vertebral point tenderness. No Meningismus. Chest/axilla: Normal chest wall appearance and motion. Nontender with no deformity. No lesions are appreciated. Cardiovascular: Regular rate and rhythm with a normal S1 and S2. Normal PMI, no JVD. No pulse deficits. Respiratory: Lungs have equal breath sounds bilaterally, clear to auscultation. No rales, rhonchi or wheezes noted. No increased work of breathing, no retractions or nasal flaring. Back: No spinal tenderness. No costovertebral tenderness. Full range of motion. Skin: Warm, dry with normal turgor. Normal color with no rashes, no lesions, and no evidence of cellulitis. MS/ Extremity: Pulses equal, no cyanosis. Neurovascular intact. Full, normal range of motion. Neuro: Awake and alert, GCS 15, oriented to person, place, time, and situation. Cranial nerves II-XII grossly intact. Motor strength 5/5 in all extremities. Sensory grossly intact. Cerebellar exam normal. Normal gait. 18:15 ENT: External ear(s): are unremarkable, Ear canal(s): are normal, TM's: are normal, Nose: is normal, Mouth: is normal, Posterior pharynx: Airway: normal, no evidence of obstruction, Tonsils: bilaterally enlarged, with exudate, Uvula: normal, midline, swelling, that is mild, Vital Signs: 13:34 BP 126 / 89; Pulse 104; Resp 17; Temp 97.6; Pulse Ox 99% ; Weight 90.72 kg; Height 5 ll1 ft. 0 in. ; Pain 10/10; 13:34 Body Mass Index 39.06 (90.72 kg, 152.4 cm) ll1 13:34 Pain Scale: Adult ll1 MDM: 13:36 Medical Screening Exam initiated ci 18:15 Differential diagnosis: Allergic rhinitis, group A strep tonsillitis, influenza, dr5 tonsillitis, upper respiratory infection. Data reviewed: vital signs, nurses notes, lab test result(s), Flu: negative COVID-negative, strep negative. Consideration of Admission/Observation Escalation of care including admission/observation considered. Considered admission if patient found to have peritonsillar abscess. I considered the following discharge prescriptions or medication management in the emergency department I discussed and recommended Over The Counter medications, Medications were administered in the Emergency Department. See MAR. Care significantly affected by the following chronic conditions: Migraine, chronic back pain. Care significantly affected by the following Social Determinants of Health: Poor access to healthcare and/or lack of insurance, Poor access to transportation, Problems related to employment. Counseling: I had a detailed discussion with the patient and/or guardian regarding the historical points, exam findings, and any diagnostic results supporting the discharge/admit diagnosis, the presence of at least one elevated blood pressure reading (>120/80) during this emergency department visit, lab results, the need for outpatient follow up, for definitive care, an ENT specialist, to return to the emergency department if symptoms worsen or persist or if there are any questions or concerns that arise at home. Medication response: Dexamethasone. Response to treatment: the patient's symptoms have mildly improved after treatment. Special discussion: I discussed with the patient/guardian in detail that at this point there is no indication for admission to the hospital. It is understood, however, that if the symptoms persist or worsen the patient needs to return immediately for re-evaluation. Based on the history and exam findings, there is no indication for further emergent testing or inpatient evaluation. I discussed with the patient/guardian the need to see the ENT specialist for further evaluation of the symptoms. ED course: Will cover patient with antibiotics for tonsillitis as well as give steroid shot. Recommend patient follow primary care doctor this next week. Increase hydration. Alternate Tylenol and Motrin as needed for pain and fever. All questions were answered. Strict ER precautions given.. 10/09 13:40 Order name: Group A Streptococcus Rapid; Complete Time: 14:42 [facility] 10/09 13:40 Order name: COVID-19 Ag + Flu A+B Ag; Complete Time: 14:42 [facility] 10/09 14:37 Order name: Throat Culture EDMS Administered Medications: 15:05 Drug: Dexamethasone IM 10 mg IM once Route: IM; Site: right vastus lateralis; ll1 15:35 Follow up: Response: No adverse reaction ll1 Disposition: 18:36 Co-signature as Attending Physician, Gamaliel Ivey I agree with the assessment ci and plan of care. I reviewed the patient's care provided by the Advanced Practice Provider and agree with the diagnosis and treatment plan. Disposition Summary: 10/09/24 14:43 Discharge Ordered Notes: Location: Home dr5 Condition: Stable dr5 Diagnosis - Acute tonsillitis, unspecified dr5 Followup: dr5 - With: Emergency Department - When: As needed - Reason: Worsening of condition Followup: dr5 - With: Private Physician - When: 1 - 2 days - Reason: Recheck today's complaints, Continuance of care, Re-evaluation by your physician Discharge Instructions: - Discharge Summary Sheet dr5 - Tonsillitis dr5 Forms: - Medication Reconciliation Form dr5 - Antibiotic Education dr5 - Prescription Opioid Use dr5 - Patient Portal Instructions dr5 - Leadership Thank You Letter dr5 Prescriptions: - Amoxicillin 500 mg Oral capsule - take 1 capsule ORAL route every 12 hours for 10 days; 20 tablet; Refills: 0, dr5 Product Selection Permitted - Medrol (Brad) 4 mg Oral Tablets, Dose Pack - take 1 tablet ORAL route as directed - follow package instructions; 1 packet; dr5 Refills: 0, Product Selection Permitted Signatures: Dispatcher [employer] Magaly Scott RN RN ll1 IheonunekwuGamaliel Dustin, SHANK SKINNER-C SHANK SKINNER-Cdr5
[2024-10-09 15:27] VITALS: BP 126/89; TEMP 97.6; O2SAT 99
== END 2024-10-09 15:13 | disposition home or self-care (01) ==
LOC: ER 13:17
DX: J03.90 Acute tonsillitis, unspecified (principal); Z11.52 Encounter for screening for COVID-19
CPT/HCPCS: 36415; 87070; 87428; 96372; 99284; J1100

== ENCOUNTER 2024-10-13 07:24 | Emergency (ER) | payer SELFPAY ==
--- OUTSIDE RECORDS SUMMARY | 2024-10-13 07:30 | XMS REPORT | Continuity of Care Document ---
Author Name Unknown Address [address] [facility] [address] [place] [address] Organization [facility] Address [address] [facility] [address] [place] [address] Care Team Providers Care Medical Tech Name Role Phone Pcp, Patient Does Not Have A Primary Care Physic shikha [id number] Attending Clinician Unavailable Gaurav Gtz MD Attending Clinician [phone] Analia Chong Attending Clinician [phone] KEYSHA GR Attending Clinician Unavailable KEYSHA RG Attending Clinician Unavailable RENETTA BANDA Attending Clinician Un available MICHAEL RICE Attending Clinician Unavailable MICHAEL RICE Attending Clinician Unavailable YOUNG WYNN Attending Clinician Unavailable YOUNG WYNN Attending Clinician Unavailable Young Wynn DO Attending Clinician [phone] Arianna Shay MD Attending Clinician + DARYL MALIK Attending Clinician UnavailDaryl Rodriguez MD Attending Clinician [phone] Doctor Unassigned, [place] Attending Clinician U navailable ISIS LOPEZ Attending Clinician Unavailable ISIS LOPEZ Attending Clinician Unavailable Raquel MCCABE Attending Clinician Unavailable Raquel MCCABE Attending Clinician Unavailable Tahira Fisher MD Attending Clinician [phone] LEXI ZAVALA Attending Clinician Unavailab LEXI Grace Attending Clinician Unavailab CHACHO Griffith Attending Clinician Leslye vailable DC RIVERA Attending Clinician Unavailab VANE Lan Attending Clinician Unavailable Vane Giron Attending Clinician [phone] Jayce Mcnally Attending Clinician [phone] JAYCE HAN Attending Clinician Unavailable Pcp, Patient Does Not Have A Attending Clinician Shane Sanchez Attending Clinician [phone] SHANE HENRY Attending Clinician Unavailable KEYSHA RG [...] Treatment Date Treating Clinician Comments Source NOSE BLEEDS/OLGA TIMOTHY NOSE BLEEDS/OLGA TIMOTHY Active 10/24/2022 [facility] Diagnosis Active 10-24 00:00: 00 2022-10-25 02:46:00 Shahla Napoles Pelvic pain Pelvic pain Disease Active 10-27 00:00: 00 [facility] Missed ab Missed ab Disease Active 10-27 00:00: 00 [facility] Blighted ovum Blighted ovum Disease Active 10-20 00:00: 00 [facility] Uterine size-date discrepanc y, antepartum , first trimester Uterine size-date discrepanc y, antepartum , first trimester Disease Active 2014-03 0 00:00: 00 [facility] Fatigue during , antepartum , unspecifie d trimester Fatigue during , antepartum , unspecifie d trimester Disease Active 2014-03 00:00: 00 [facility] Supervisio n of high-risk with insufficie nt care, unspecifie d trimester Supervisio n of high-risk with insufficie nt care, unspecifie d trimester Disease Active 2014-03 00:00: 00 [facility] Fatigue during , antepartum , unspecifie d trimester Fatigue during , antepartum , unspecifie d trimester Disease Active 2014-03 00:00: 00 [facility] Unfavorabl e cervix in term Unfavorabl e cervix in term Disease Resolve d 07-26 00:00: 00 2017-10-27 00:00:00 2017-10-27 14:02:26 [facility] Liveborn by Liveborn by Disease Resolve d 07-26 00:00: 00 2017-10-27 00:00:00 2017-10-27 14:02:26 [facility] 40 weeks gestation of 40 weeks gestation of Disease Resolve d 07-24 00:00: 00 2017-10-27 00:00:00 2017-10-27 14:02:26 [facility] Maternal varicella, non-immune Maternal varicella, non-immune Disease Resolve d 2014-03 00:00: 00 2017-10-27 00:00:00 2017-10-27 14:02:26 [facility] Absence of menstruati on Absence of menstruati on Disease Resolve d 2014-03 00:00: 00 2014-12-19 00:00:00 2014-12-19 10:05:51 [facility] Allergies, Adverse Reactions, Alerts Allergy Name Allergy Type Status Severity Reaction(s) Onset Date Inactive Date Treating Clinician Comments Source Cefdinir Drug Allergy Active Shortness of Breath 2023-03 00:00: 00 [facility] CEFDINIR DRUG INGREDI Active High SOB 2023-03 00:00: 00 [facility] No Known Allergie s DA Active U 2018-03 0 00:00: [facility] NO KNOWN ALLERGIE S Drug Class Active [facility] Social History Social Habit Start Date Stop Date Quantity Comments Source Gender [facility] ASSERTION Not [facility] History of Occupation [facility] Alcoholic beverage intake 2024-10-05 00:00:00 2024-10-05 00:00:00 0 /d [facility] Tobacco use and exposure 2024-10-05 00:00:00 2024-10-05 00:00:00 Smokeless tobacco non-user [facility] Alcohol intake 2023-06-03 00:00:00 2023-06-03 00:00:00 0 /d [facility] Exposure to SARS-CoV-2 (event) 2021 00:00:00 2021-09-22 00:11:[address] [facility] History of Social function 2018-09-10 00:00:00 2018-09-10 00:00:[address] [facility] Sex assigned at 1995 00:00:00 1995 00:00:[address] [facility] Smoking Status Start Date Stop Date Source Never smoked tobacco [facility] Medications Ordered Medication Name Filled Medication Name Start Date Stop Date Current Medication? Ordering Clinician Indication Dosage Frequency Signature (SIG) Comments Components Source ubrogepant (UBRELVY ORAL) 09-27 19:58: 49 Yes Take by mouth. Takes PRN for migraines [facility] iopamidol (ISOVUE 370-500 mL) injection 100 mL iopamidol (ISOVUE 370-500 mL) injection 100 mL 09-26 11:30: 00 09-26 11:30 :00 Yes [id number] 100mL 100 mL, Intravenou s, ONCE, 1 dose, On 09/26/24 at 0630, Routine [facility] ketorolac (TORADOL) injection 30 mg ketorolac (TORADOL) injection 30 mg 09-26 10:00: 00 09-26 10:00 :00 Yes 30mg 30 mg, Slow IV Push, ONCE NOW, 1 dose, On 09/26/24 at 0500, STAT [facility] HYDROcodone -acetaminop hen 5-325 mg tablet 09-26 00:00: 00 Yes [id number] 1{tbl} Take 1 tablet by mouth every 6 hours as needed for Pain (scale 7-10) for up to 5 doses. Indication s: acute pain [facility] acetaminoph en (TYLENOL) tablet 1,000 mg 09-18 19:15: 00 09-18 20:26 :00 No 1000mg 1,000 mg, Oral, ONCE, 1 dose, On 09/18/24 at 1415, ALISON [facility] ibuprofen 600 mg tablet 09-18 00:00: 00 Yes [id number] 600mg Take 1 tablet by mouth every 8 hours as needed for Pain (scale 4-6). [facility] ondansetron (ZOFRAN (PF)) injection 4 mg 2023-03 17:15: 00 12-28 18:55 :00 No 4mg 4 mg, Slow IV Push, ONCE, 1 dose, On Fri12/29/23 at 1215, ALISON [facility] diphenhydrA MINE (BENADRYL ALLERGY) 25 mg tablet 2023-03 00:00: 00 Yes [id number] 25mg Take 1 tablet by mouth every 6 (six) hours as needed for Itching. [facility] ondansetron 4 mg disintegrat ing tablet 2023-03 00:00: 00 Yes [id number] 4mg Take 1 tablet by mouth every 8 (eight) hours as needed for Nausea and Vomiting (N/V). [facility] diphenhydrA MINE (BENADRYL) tablet 25 mg 10-06 03:30: 00 10-06 02:51 :00 No 25mg 25 mg, Oral, ONCE, 1 dose, On 10/06/23 at 2230, Routine [facility] predniSONE (DELTASONE) tablet 40 mg 10-06 02:45: 00 10-06 02:51 :00 No 40mg 40 mg, Oral, ONCE, 1 dose, On Fri10/06/23 at 2145, ALISON [facility] methylPREDN ISolone (MEDROL, LAUREANO,) 4 mg tablets 10-05 00:00: 00 Yes [id number] Take by mouth SEE-INSTRU CTIONS. follow package directions [facility] erythromyci n base 500 mg tablet 10-05 00:00: 00 Yes [id number] 500mg Take 1 tablet by mouth every 6 (six) hours. [facility] iopamidol (ISOVUE 370-500 mL) injection 80 mL 08-26 01:30: 00 08-26 01:30 :00 No [id number] 80mL 80 mL, Intravenou s, ONCE, 1 dose, On Fri08/26/23 at 2030, Routine [facility] ketorolac (TORADOL) injection 15 mg 08-26 01:15: 00 08-26 00:37 :00 No 15mg 15 mg, Slow IV Push, ONCE, 1 dose, On Fri08/26/23 at 2015, Routine [facility] NaCl 0.9% (NS) bolus infusion 1,000 mL 08-26 01:00: 00 08-26 01:49 :00 No 1000mL at 999 mL/hr, 1,000 mL, IV Infusion, ONCE, 1 dose, On Fri08/26/23 at 2000, ALISON [facility] diphenhydrA MINE (BENADRYL) injection 12.5 mg 08-26 00:30: 00 08-26 00:38 :00 No 12.5mg 12.5 mg, Slow IV Push, ONCE, 1 dose, On Fri08/26/23 at 1930, STAT [facility] metoclopram florencia HCl (REGLAN) injection 10 mg 08-26 00:30: 00 08-26 00:35 :00 No 10mg 10 mg, Slow IV Push, ONCE, 1 dose, On Fri08/26/23 at 1930, ALISON [facility] butalbital- acetaminoph en-caff 50-325-40 mg tablet 08-25 00:00: 00 Yes [id number] 1{tbl} Take 1 tablet by mouth every 6 (six) hours as needed for Pain (scale 4-6) for up to 20 doses. [facility] ondansetron 4 mg disintegrat ing tablet 08-25 00:00: 00 Yes [id number] 4mg Take 1 tablet by mouth every 8 (eight) hours as needed for Nausea and Vomiting (N/V) for up to 15 doses. [facility] dicyclomine 20 mg tablet 08-25 00:00: 00 Yes [id number] 20mg Take 1 tablet by mouth 4 (four) times daily as needed for Abdominal pain for up to 20 doses. [facility] amoxicillin (TRIMOX) capsule 500 mg 07-14 20:15: 00 07-14 20:56 :00 No 500mg 500 mg, Oral, ONCE, 1 dose, On Fri07/15/23 at 1515, ALISON, Reason for Anti-Infec tive: Documented Infection, Documented Infection Site: HEENT, Duration of Therapy: Once (ED) [facility] dexamethaso ne sod phos PF injection 10 mg 07-14 20:15: 00 07-14 20:54 :00 No 10mg 10 mg, Intramuscu lar, ONCE, 1 dose, On Fri07/15/23 at 1515, 1 mL [facility] ketorolac (TORADOL) injection 30 mg 07-14 20:15: 00 07-14 20:54 :00 No 30mg 30 mg, Intramuscu lar, ONCE, 1 dose, On Fri07/15/23 at 1515, Routine [facility] ibuprofen 800 mg tablet 07-14 00:00: 00 Yes [id number] 800mg Take 1 tablet by mouth 3 (three) times daily as needed for Pain (scale 4-6). [facility] methylPREDN ISolone 4 mg tablets 07-14 00:00: 00 Yes [id number] Take by mouth SEE-INSTRU CTIONS. follow package directions [facility] amoxicillin 500 mg tablet 07-14 00:00: 00 07-25 04:59 :00 No [id number] 500mg Take 1 tablet by mouth in the morning and 1 tablet in the evening. Do all this for 10 days. [facility] fluconazole 150 mg tablet 07-14 00:00: 00 07-15 04:59 :00 No [id number] 150mg Take 1 tablet by mouth once now for 1 dose. [facility] diphenhydrA MINE (BENADRYL) injection 25 mg 06-03 01:15: 00 06-03 00:19 :00 No 25mg 25 mg, Slow IV Push, ONCE, 1 dose, On Fri06/03/23 at 2014, STAT [facility] ketorolac (TORADOL) injection 15 mg 06-03 01:15: 00 06-03 00:15 :00 No 15mg 15 mg, Slow IV Push, ONCE, 1 dose, On Fri06/03/23 at 2014, ALISON [facility] metoclopram florencia HCl (REGLAN) injection 10 mg 06-03 01:15: 00 06-03 00:14 :00 No 10mg 10 mg, Slow IV Push, ONCE, 1 dose, On Fri06/03/23 at 2014, ALISON [facility] NaCl 0.9% (NS) bolus infusion 1,000 mL 06-03 00:30: 00 06-03 03:26 :00 No 1000mL at 999 mL/hr, 1,000 mL, IV Infusion, ONCE, 1 dose, On Fri06/03/23 at 1930, STAT [facility] ibuprofen 800 mg tablet 06-02 00:00: 00 Yes [id number] 800mg Take 1 tablet by mouth every 8 (eight) hours as needed for Pain (scale 4-6). [facility] ketorolac (TORADOL) injection 30 mg 05-07 04:00: 00 05-07 03:30 :00 No 30mg 30 mg, Slow IV Push, ONCE, 1 dose, On Fri05/07/23 at 2200, Routine [facility] NaCl 0.9% (NS) bolus infusion 1,000 mL 05-07 03:15: 00 05-07 04:40 :00 No 1000mL at 999 mL/hr, 1,000 mL, IV Infusion, ONCE, 1 dose, On Fri05/07/23 at 2115, STAT [facility] metoclopram florencia HCl (REGLAN) injection 10 mg 05-07 03:15: 00 05-07 03:30 :00 No 10mg 10 mg, Slow IV Push, ONCE, 1 dose, On Fri05/07/23 at 2115, ALISON [facility] diphenhydrA MINE (BENADRYL) injection 25 mg 05-07 03:15: 00 05-07 03:30 :00 No 25mg 25 mg, Slow IV Push, ONCE, 1 dose, On Fri05/07/23 at 2115, STAT [facility] ondansetron 4 mg disintegrat ing tablet 05-06 00:00: 00 05-12 04:59 :00 No [id number] 4mg Take 1 tablet by mouth every 8 (eight) hours as needed for Nausea and Vomiting (N/V) for up to 5 days. [facility] butalbital- acetaminoph en-caff 50-325-40 mg tablet 05-06 00:00: 00 05-12 04:59 :00 No [id number] 1{tbl} Take 1 tablet by mouth every 4 (four) hours as needed for Pain (scale 7-10) for up to 5 days. [facility] chlorhexidi ne 0.12 % mouthwash 8-18 00:00: 00 11-02 04:59 :00 No [id number] 15mL Swish and spit out 15 mL in the morning and 15 mL in the evening. Do all this for 14 days. [facility] cephALEXin (KEFLEX) capsule 500 mg 09-18 03:08: 00 09-18 03:15 :00 No 500mg 500 mg, Oral, ONCE, 1 dose, On Fri09/17/22 at 2215, ALISON
Re ason for Anti-Infec tive: Documented Infection< br>Documen victorina Infection Site: Urine
D uration of Therapy: Other (see Comments) [facility] iopamidol (ISOVUE 370-500 mL) injection 75 mL 09-18 01:45: 00 09-18 01:45 :00 No [id number] 75mL 75 mL, Intravenou s, ONCE, 1 dose, On Fri09/17/22 at 2045, Routine [facility] cephALEXin (KEFLEX) 500 mg capsule 09-17 00:00: 00 09-25 04:59 :00 No [id number] 500mg Take 1 capsule by mouth in the morning and 1 capsule in the evening. Do all this for 7 days. [facility] penicillin v potassium (PEN-VEE K) tablet 500 mg 09-22 07:45: 00 09-22 06:38 :00 No 500mg 500 mg, Oral, ONCE, 1 dose, On Fri09/22/21 at 0245, ALISON
Re ason for Anti-Infec tive: Documented Infection< br>Documen victorina Infection Site: HEENT
D uration of Therapy: 10 days [facility] penicillin v potassium 500 mg tablet 09-22 00:00: 00 10-03 04:59 :00 No [id number] 500mg Take 1 tablet by mouth in the morning and 1 tablet at noon and 1 tablet in the evening. Do all this for 10 days. [facility] ibuprofen 600 mg tablet 2020-03 00:00: 00 Yes [id number] 05 600mg Take 1 tablet by mouth every 6 (six) hours as needed for Pain (scale 4-6). [facility] benzonatate 100 mg capsule 2020-03 00:00: 00 Yes [id number] 05 100mg Take 1 capsule by mouth 3 (three) times daily as needed for Cough. [facility] amoxicillin 500 mg capsule 2020-03 00:00: 00 03-04 05:59 :00 No [id number] 05 500mg Take 1 capsule by mouth 3 (three) times daily for 10 days. [facility] ibuprofen 600 mg tablet 11-06 00:00: 00 Yes [id number] 600mg Take 1 tablet by mouth every 6 (six) hours as needed for Pain (scale 4-6). [facility] acetaminoph en (TYLENOL) tablet 650 mg 08-22 19:30: 00 08-22 07:20 :00 No 650mg 650 mg, Oral, ONCE, 1 dose, Fri08/23/19 at 1430, ALISON [facility] ibuprofen (IBU) tablet 800 mg 08-22 19:15: 00 08-22 18:09 :00 No 800mg 800 mg, Oral, ONCE, 1 dose, Fri08/23/19 at 1415, ALISON [facility] albuterol 90 mcg/actuati on inhaler 08-22 00:00: 00 Yes [id number] 2{puff} Inhale 2 Puffs every 4 (four) hours as needed for Wheezing or Shortness of Breath. [facility] proMETHazin e 25 mg tablet 08-22 00:00: 00 Yes [id number] 25mg Take 1 tablet by mouth every 6 (six) hours as needed for Nausea and Vomiting (N/V). [facility] No known medications No Un kacie [facility] Vital Signs Vital Name Observation Time Observation Value Comments S edgard Systolic blood pressure 2024-10-05 19:06:00 125 mm[Hg] [facility] Diastolic blood pressure 2024-10-05 19:06:00 86 mm[Hg] [facility] Heart rate 2024-10-05 19:06:00 98 /min [facility] Body temperature 2024-10-05 19:06:[address] [facility] Respiratory rate 2024-10-05 19:06:00 19 /min [facility] Body height 2024-10-05 19:06:00 152.4 cm [facility] Body weight 2024-10-05 19:06:00 92.715 kg [facility] BMI 2024-10-05 19:06:00 39.92 kg/m2 [facility] Systolic blood pressure 2024-09-27 20:47:33 132 mm[Hg] [facility] Diastolic blood pressure 2024-09-27 20:47:33 89 mm[Hg] [facility] Heart rate 2024-09-27 20:47:33 115 /min [facility] Body temperature 2024-09-27 20:47:[address] [facility] Respiratory rate 2024-09-27 20:47:33 16 /min [facility] Body height 2024-09-27 20:47:33 152.4 cm [facility] Body weight 2024-09-27 20:47:33 87.998 kg [facility] BMI 2024-09-27 20:47:33 37.89 kg/m2 [facility] Oxygen saturation in Arterial blood by Pulse oximetry 2024-09-27 20:47:33 100 /min [facility] Systolic blood pressure 2024-09-26 11:22:00 121 mm[Hg] [facility] Diastolic blood pressure 2024-09-26 11:22:00 84 mm[Hg] [facility] Heart rate 2024-09-26 11:22:00 98 /min [facility] Body temperature 2024-09-26 11:22:[address] [facility] Respiratory rate 2024-09-26 11:22:00 17 /min [facility] Oxygen saturation in Arterial blood by Pulse oximetry 2024-09-26 11:22:00 100 /min [facility] Body height 2024-09-26 04:54:00 152.4 cm [facility] Body weight 2024-09-26 04:54:00 86.183 kg [facility] BMI 2024-09-26 04:54:00 37.11 kg/m2 [facility] Systolic blood pressure 2024-09-18 20:47:00 126 mm[Hg] [facility] Diastolic blood pressure 2024-09-18 20:47:00 92 mm[Hg] [facility] Heart rate 2024-09-18 20:47:00 94 /min [facility] Body temperature 2024-09-18 20:47:[address] [facility] Respiratory rate 2024-09-18 20:47:00 18 /min [facility] Oxygen saturation in Arterial blood by Pulse oximetry 2024-09-18 20:47:00 99 /min [facility] Body height 2024-09-18 18:35:00 152.4 cm [facility] Body weight 2024-09-18 18:35:00 86.183 kg [facility] BMI 2024-09-18 18:35:00 37.11 kg/m2 [facility] Systolic blood pressure 2024-02-29 06:54:00 142 mm[Hg] [facility] Diastolic blood pressure 2024-02-29 06:54:00 94 mm[Hg] [facility] Heart rate 2024-02-29 06:54:00 93 /min [facility] Body temperature 2024-02-29 06:54:[address] [facility] Respiratory rate 2024-02-29 06:54:00 16 /min [facility] Body height 2024-02-29 06:54:00 152.4 cm [facility] Body weight 2024-02-29 06:54:00 92.08 kg [facility] BMI 2024-02-29 06:54:00 39.65 kg/m2 [facility] Oxygen saturation in Arterial blood by Pulse oximetry 2024-02-29 06:54:00 100 /min [facility] Systolic blood pressure 2023-12-29 20:53:00 137 mm[Hg] [facility] Diastolic blood pressure 2023-12-29 20:53:00 94 mm[Hg] [facility] Heart rate 2023-12-29 20:53:00 117 /min [facility] Body temperature 2023-12-29 20:53:[address] [facility] Respiratory rate 2023-12-29 20:53:00 18 /min [facility] Oxygen saturation in Arterial blood by Pulse oximetry 2023-12-29 20:53:00 100 /min [facility] Body height 2023-12-29 17:04:00 152.4 cm [facility] Body weight 2023-12-29 17:04:00 83.915 kg [facility] BMI 2023-12-29 17:04:00 36.13 kg/m2 [facility] Systolic blood pressure 2023-10-07 02:54:00 133 mm[Hg] [facility] Diastolic blood pressure 2023-10-07 02:54:00 96 mm[Hg] [facility] Heart rate 2023-10-07 02:54:00 113 /min [facility] Respiratory rate 2023-10-07 02:54:00 18 /min [facility] Oxygen saturation in Arterial blood by Pulse oximetry 2023-10-07 02:54:00 100 /min [facility] Body temperature 2023-10-07 02:19:[address] [facility] Body height 2023-10-07 02:19:00 152.4 cm [facility] Body weight 2023-10-07 02:19:00 84.823 kg [facility] BMI 2023-10-07 02:19:00 36.52 kg/m2 [facility] Systolic blood pressure 2023-08-27 01:47:00 118 mm[Hg] [facility] Diastolic blood pressure 2023-08-27 01:47:00 83 mm[Hg] [facility] Heart rate 2023-08-27 01:47:00 93 /min [facility] Body temperature 2023-08-27 01:47:[address] [facility] Respiratory rate 2023-08-27 01:47:00 18 /min [facility] Oxygen saturation in Arterial blood by Pulse oximetry 2023-08-27 01:47:00 98 /min [facility] Body height 2023-08-26 23:58:00 152.4 cm [facility] Body weight 2023-08-26 23:58:00 86.183 kg [facility] BMI 2023-08-26 23:58:00 37.11 kg/m2 [facility] Systolic blood pressure 2023-07-15 19:45:00 135 mm[Hg] [facility] Diastolic blood pressure 2023-07-15 19:45:00 89 mm[Hg] [facility] Heart rate 2023-07-15 19:45:00 112 /min [facility] Body temperature 2023-07-15 19:45:[address] [facility] Respiratory rate 2023-07-15 19:45:00 16 /min [facility] Body height 2023-07-15 19:45:00 152.4 cm [facility] Body weight 2023-07-15 19:45:00 84.369 kg [facility] BMI 2023-07-15 19:45:00 36.33 kg/m2 [facility] Oxygen saturation in Arterial blood by Pulse oximetry 2023-07-15 19:45:00 99 /min [facility] Systolic blood pressure 2023-06-04 03:31:00 123 mm[Hg] [facility] Diastolic blood pressure 2023-06-04 03:31:00 79 mm[Hg] [facility] Heart rate 2023-06-04 03:31:00 97 /min [facility] Body temperature 2023-06-04 03:31:[address] [facility] Respiratory rate 2023-06-04 03:31:00 16 /min [facility] Oxygen saturation in Arterial blood by Pulse oximetry 2023-06-04 03:31:00 98 /min [facility] Body height 2023-06-03 22:35:00 152.4 cm [facility] Body weight 2023-06-03 22:35:00 86.183 kg [facility] BMI 2023-06-03 22:35:00 37.11 kg/m2 [facility] Heart rate 2023-05-08 04:15:00 93 /min [facility] Oxygen saturation in Arterial blood by Pulse oximetry 2023-05-08 04:15:00 100 /min [facility] Systolic blood pressure 2023-05-08 04:00:00 122 mm[Hg] [facility] Diastolic blood pressure 2023-05-08 04:00:00 90 mm[Hg] [facility] Respiratory rate 2023-05-08 04:00:00 16 /min [facility] Body temperature 2023-05-08 02:58:[address] [facility] Body height 2023-05-08 02:58:00 152.4 cm [facility] Body weight 2023-05-08 02:58:00 86.456 kg [facility] BMI 2023-05-08 02:58:00 37.22 kg/m2 [facility] Heart rate 2022-10-18 20:43:00 98 /min [facility] Systolic blood pressure 2022-10-18 20:29:00 130 mm[Hg] [facility] Diastolic blood pressure 2022-10-18 20:29:00 90 mm[Hg] [facility] Body temperature 2022-10-18 20:29:[address] [facility] Respiratory rate 2022-10-18 20:29:00 18 /min [facility] Body height 2022-10-18 20:29:00 152.4 cm [facility] Body weight 2022-10-18 20:29:00 83.008 kg [facility] BMI 2022-10-18 20:29:00 35.74 kg/m2 [facility] Oxygen saturation in Arterial blood by Pulse oximetry 2022-10-18 20:29:00 99 /min [facility] Systolic blood pressure 2022-09-18 03:01:00 107 mm[Hg] [facility] Diastolic blood pressure 2022-09-18 03:01:00 74 mm[Hg] [facility] Heart rate 2022-09-18 03:01:00 106 /min [facility] Respiratory rate 2022-09-18 03:01:00 17 /min [facility] Oxygen saturation in Arterial blood by Pulse oximetry 2022-09-18 03:01:00 98 /min [facility] Body temperature 2022-09-17 23:37:[address] [facility] Body height 2022-09-17 22:18:00 152.4 cm [facility] Body weight 2022-09-17 22:18:00 83.008 kg [facility] BMI 2022-09-17 22:18:00 35.74 kg/m2 [facility] Systolic blood pressure 2021-09-22 06:39:52 130 mm[Hg] [facility] Diastolic blood pressure 2021-09-22 06:39:52 75 mm[Hg] [facility] Heart rate 2021-09-22 06:39:52 100 /min [facility] Respiratory rate 2021-09-22 06:39:52 16 /min [facility] Oxygen saturation in Arterial blood by Pulse oximetry 2021-09-22 06:39:52 98 /min [facility] Body temperature 2021-09-22 05:12:[address] [facility] Body height 2021-09-22 05:12:00 152.4 cm [facility] Body weight 2021-09-22 05:12:00 83.462 kg [facility] BMI 2021-09-22 05:12:00 35.94 kg/m2 [facility] Systolic blood pressure 2021-02-21 17:03:00 135 mm[Hg] [facility] Diastolic blood pressure 2021-02-21 17:03:00 80 mm[Hg] [facility] Heart rate 2021-02-21 17:03:00 100 /min [facility] Body temperature 2021-02-21 17:03:[address] [facility] Respiratory rate 2021-02-21 17:03:00 18 /min [facility] Body height 2021-02-21 17:03:00 152.4 cm [facility] Body weight 2021-02-21 17:03:00 83.008 kg [facility] BMI 2021-02-21 17:03:00 35.74 kg/m2 [facility] Oxygen saturation in Arterial blood by Pulse oximetry 2021-02-21 17:03:00 99 /min [facility] Systolic blood pressure 2019-11-07 23:56:00 123 mm[Hg] [facility] Diastolic blood pressure 2019-11-07 23:56:00 78 mm[Hg] [facility] Heart rate 2019-11-07 23:56:00 95 /min [facility] Body temperature 2019-11-07 23:56:[address] [facility] Respiratory rate 2019-11-07 23:56:00 18 /min [facility] Body weight 2019-11-07 23:56:00 74.844 kg [facility] BMI 2019-11-07 23:56:00 32.22 kg/m2 [facility] Oxygen saturation in Arterial blood by Pulse oximetry 2019-11-07 23:56:00 99 /min [facility] Systolic blood pressure 2019-11-07 23:56:00 123 mm[Hg] [facility] Diastolic blood pressure 2019-11-07 23:56:00 78 mm[Hg] [facility] Heart rate 2019-11-07 23:56:00 95 /min [facility] Body temperature 2019-11-07 23:56:[address] [facility] Respiratory rate 2019-11-07 23:56:00 18 /min [facility] Body weight 2019-11-07 23:56:00 74.844 kg [facility] BMI 2019-11-07 23:56:00 32.22 kg/m2 [facility] Oxygen saturation in Arterial blood by Pulse oximetry 2019-11-07 23:56:00 99 /min [facility] Body temperature 2019-08-23 19:21:[address] [facility] Systolic blood pressure 2019-08-23 19:21:16 120 mm[Hg] [facility] Diastolic blood pressure 2019-08-23 19:21:16 84 mm[Hg] [facility] Heart rate 2019-08-23 19:21:16 100 /min [facility] Respiratory rate 2019-08-23 19:21:16 18 /min [facility] Oxygen saturation in Arterial blood by Pulse oximetry 2019-08-23 19:21:16 99 /min [facility] Body height 2019-08-23 18:03:00 152.4 cm [facility] Body weight 2019-08-23 18:03:00 72.576 kg [facility] BMI 2019-08-23 18:03:00 31.25 kg/m2 [facility] Body temperature 2019-08-23 19:21:[address] [facility] Systolic blood pressure 2019-08-23 19:21:16 120 mm[Hg] [facility] Diastolic blood pressure 2019-08-23 19:21:16 84 mm[Hg] [facility] Heart rate 2019-08-23 19:21:16 100 /min [facility] Respiratory rate 2019-08-23 19:21:16 18 /min [facility] Oxygen saturation in Arterial blood by Pulse oximetry 2019-08-23 19:21:16 99 /min [facility] Body height 2019-08-23 18:03:00 152.4 cm [facility] Body weight 2019-08-23 18:03:00 72.576 kg [facility] BMI 2019-08-23 18:03:00 31.25 kg/m2 [facility] Heart Rate 2022-10-25 03:13:22 Pete Napoles Systolic (mm Hg) 2022-10-25 03:13:17 Leesa Napoles Diastolic (mm Hg) 2022-10-25 [facility] 2022-10-25 03:12:55 98.3 F [facility] Height 2022-10-24 18:53:00 5 [ft_i] [facility] BMI Calculated 2022-10-24 18:53:00 [facility] Weight 2022-10-24 18:53:00 [facility] [place] Procedures Procedure Date / Time Performed Performing Clinician Source US OVARY TORSION 2024-09-27 21:55:[address] [facility] COMP. METABOLIC PANEL (86743) 2024-09-26 06:53:[address] [facility] TEST, SERUM 2024-09-26 06:02:[address] [facility] CBC WITH DIFF 2024-09-26 06:02:00 [facility] URINALYSIS 2024-09-26 06:02:00 Banipal [facility] EXTRA TUBE URINE CULTURE 2024-09-26 06:02:00 Ban ipal [facility] POCT TEST 2024-09-18 20:30:[address] [facility] DUPLEX VENOUS LEGS BILATERAL - BY VASCULAR LAB 2024-09-18 20:21:[address] [facility] RAPID STREP SCREEN FOR GROUP A 2024-02-29 07:01:[address] [facility] INFLUENZA A/B RSV COVID NAAT 2024-02-29 07:01:[address] [facility] LIPASE 2023-12-29 18:55:[address] [facility] COMP. METABOLIC PANEL (89521) 2023-12-29 18:55:[address] [facility] CBC WITH DIFF 2023-12-29 18:55:[address] [facility] URINALYSIS 2023-12-29 18:48:[address] [facility] INFLUENZA A/B RSV COVID NAAT 2023-12-29 18:48:[address] [facility] POCT TEST 2023-08-27 00:15:[address] [facility] LIPASE 2023-08-27 00:13:00 Isis Lopez [facility] HEPATIC FUNCTION PANEL ([id number]) (ALB,T.PRO,BILI T,BU/BC,ALT,AST,ALK PHOS) 2023-08-27 00:13:[address] [facility] BASIC METABOLIC PANEL (NA, K, CL, CO2, GLUCOSE, BUN, CREATININE, CA) 2023-08-27 00:13:[address] [facility] CBC WITH DIFF 2023-08-27 00:13:00 Isis Lopez [facility] URINALYSIS 2023-08-27 00:13:00 Isis Lopez [facility] POCT GLUCOSE(AGE >30DAYS) 2023-07-15 20:53:[address] [facility] POCT GLUCOSE (AUTOMATED) 2023-07-15 20:52:[address] [facility] RAPID STREP SCREEN FOR GROUP A 2023-07-15 20:48:[address] [facility] POCT TEST 2023-07-15 20:47:[address] [facility] POCT TEST 2023-06-04 00:24:[address] [facility] RAPID STREP SCREEN FOR GROUP A 2023-06-04 00:21:[address] [facility] URINALYSIS 2023-06-04 00:19[facility] MET[facility]OLIC PANEL ([id number]) 2023-06-04 00:05:[address] [facility] CBC WITH DIFF 2023-06-04 00:05:00 Raquel Mccabe [facility] POCT TEST 2023-05-08 03:29:[address] [facility] CONSENT/REFUSAL FOR DIAGNOSIS AND TREATMENT 2023-05-08 02:52:34 Doctor Unassigned, [place] [facility] NOTICE OF PRIVACY PRACTICES 2022-10-18 20:24:41 Doctor Unassigned, [place] [facility] CONSENT/REFUSAL FOR DIAGNOSIS AND TREATMENT 2022-10-18 20:22:32 Doctor Unassigned, [place] [facility] POCT TEST 2022-09-17 22:50:[address] [facility] COMP. METABOLIC PANEL (12138) 2022-09-17 22:49:[address] [facility] TOTAL BETA HCG ASSAY 2022-09-17 22:49:[address] [facility] CBC WITH DIFF 2022-09-17 22:49:00 Vane Gomez [facility] URINALYSIS 2022-09-17 22:49:00 Vane Gomez [facility] COVID-19 (ID NOW RAPID TESTING) 2021-09-22 06:10:[address] [facility] RAPID STREP SCREEN FOR GROUP A 2021-09-22 05:19:[address] [facility] EMERGENCY SERVICES AGREEMENTS AND AUTHORIZATIONS 2021-09-22 05:01:00 Doctor Unassigned, [place] [facility] NOTICE OF PRIVACY PRACTICES 2021-09-22 04:59:11 Doctor Unassigned, [place] [facility] CONSENT/REFUSAL FOR DIAGNOSIS AND TREATMENT 2021-09-22 04:58:57 Doctor Unassigned, [place] [facility] RAPID INFLUENZA A/B 2021-02-21 17:51:[address] [facility] COVID-19 (ID NOW RAPID TESTING) 2021-02-21 17:51:[address] [facility] NOTICE OF PRIVACY PRACTICES 2021-02-21 16:54:53 Doctor Unassigned, [place] [facility] CONSENT/REFUSAL FOR DIAGNOSIS AND TREATMENT 2021-02-21 16:54:41 Doctor Unassigned, [place] [facility] XR FOOT 3+ VW RIGHT 2019-11-08 00:32:[address] [facility] NOTICE OF PRIVACY PRACTICES 2019-11-07 23:47:07 Doctor Unassigned, [place] [facility] CONSENT/REFUSAL FOR DIAGNOSIS AND TREATMENT 2019-11-07 23:46:53 Doctor Unassigned, [place] [facility] ASSIGNMENT OF BENEFITS 2019-08-23 19:29:40 Docto r Unassigned, [place] [facility] COVID-19 (ID NOW RAPID TESTING) 2019-08-23 18:11:[address] [facility] NOTICE OF PRIVACY PRACTICES 2019-08-23 17:51:36 Doctor Unassigned, [place] [facility] CONSENT/REFUSAL FOR DIAGNOSIS AND TREATMENT 2019-08-23 17:51:23 Doctor Unassigned, [place] [facility] Encounters Start Date/Time End Date/Time Encounter Type Admission Type Attending [facility] Care Department Encounter ID Source 2024-10-05 14:15:00 2024-10-05 15:18:03 Office Visit [id number] Gaurav Gtz [facility] 1.2.840.114 350.1.13.10 4.2.7.2.686 [id number] [facility] 2024-09-28 00:00:00 2024-09-28 11:18:42 Telephone Analia Harry [facility] 1.2.840.114 350.1.13.10 4.2.7.2.686 [id number] [facility] 2024-09-27 15:51:00 2024-09-27 19:58:00 Emergency X KEYSHA RG ERICCA [facility] ERT [id number] [facility] 2024-09-25 23:55:00 2024-09-26 06:27:00 Emergency X RENETTA BANDA [facility] ERT [id number] [facility] 2024-09-18 13:37:00 2024-09-18 15:49:00 Emergency X MICHAEL RICE BRENT [facility] ERT [id number] [facility] 2024-02-29 01:02:00 2024-02-29 02:38:00 Emergency X YOUNG WYNN PHILLIP [facility] ERT [id number] [facility] 2024-02-29 01:02:00 2024-02-29 02:38:00 Emergency Young Wynn [facility] 1.840.114 350.1.13.10 4.2.7.2.686 [id number] [facility] 2023-12-29 12:06:00 2023-12-29 15:59:00 Emergency Edgarkings Arianna Luis [facility] 1..114 350.1.13.10 4.2.7.2.686 [id number] [facility] 2023-10-06 21:22:00 2023-10-06 21:56:00 Emergency X ALOK MALIKENCE [facility] ERT [id number] [facility] 2023-10-06 21:22:00 2023-10-06 21:56:00 Emergency MiloDaryl Inder [facility] 1..114 350.1.13.10 4.2.7.2.686 [id number] [facility] 2023-08-29 00:00:00 2023-10-04 18:25:10 Patient Secure Msg Doctor Unassigned, [place] [facility] 1.840.114 350.1.13.10 4.2.7.2.686 [id number] [facility] 2023-08-26 18:59:00 2023-08-26 21:01:00 Emergency X DESIACEISIS JOHNNA [facility] ERT [id number] [facility] 2023-08-26 18:59:00 2023-08-26 21:01:00 Emergency Isis Lopez [facility] 1.2.840.114 350.1.13.10 4.2.7.2.686 [id number] [facility] 2023-07-15 14:47:00 2023-07-15 16:32:00 Emergency KEYSHA GUTIÉRREZ KURTISLEILAClinton [facility] ERT [id number] [facility] 2023-07-15 14:47:00 2023-07-15 16:32:00 Emergency Keysha Rg Akbar [facility] 1.2.840.114 350.1.13.10 4.2.7.2.686 [id number] [facility] 2023-06-03 17:37:00 2023-06-03 22:55:00 Emergency X Raquel MCCABE K [facility] ERT [id number] [facility] 2023-06-03 17:37:00 2023-06-03 22:55:00 Emergency Derrickjennifer Tahira Raquel Mccabe [facility] 1.2.840.114 350.1.13.10 4.2.7.2.686 [id number] [facility] 2023-05-07 21:01:00 2023-05-07 22:46:00 Emergency X LEXI ZAVALA SALLY LEXI [facility] ERT [id number] [facility] 2023-05-07 21:01:00 2023-05-07 22:46:00 Emergency Lexi Zavala [facility] 1.2.840.114 350.1.13.10 4.2.7.2.686 [id number] [facility] 2022-11-26 00:00:00 2022-11-26 00:00:00 Patient Secure Msg Doctor Unassigned, [place] [facility] 1.2.840.114 350.1.13.10 4.2.7.2.686 [id number] [facility] 2022-10-24 13:50:00 2022-10-24 22:51:00 Emergency E CHACHO [facility] [id number] [facility] 2022-10-18 15:33:00 2022-10-18 15:44:00 Emergency X RICHARD RIVERAMOISÉS [facility] ERT [id number] [facility] 2022-10-18 15:33:00 2022-10-18 15:44:00 Emergency Dc Rivera [facility] 1.840.114 350.1.13.10 4.2.7.2.686 [id number] [facility] 2022-09-17 17:20:00 2022-09-17 22:33:00 Emergency X VANE GOMEZ [facility] ERT [id number] [facility] 2022-09-17 17:20:00 2022-09-17 22:33:00 Emergency Vane Gomez [facility] 1.840.114 350.1.13.10 4.2.7.2.686 [id number] [facility] 2021-09-22 00:22:00 2021-09-22 01:58:00 Emergency X Raquel MCCABE [facility] ERT [id number] [facility] 2021-09-22 00:22:00 2021-09-22 01:58:00 Emergency Estelle, Raquel Chrissy [facility] 1.2840.114 350.1.13.10 4.2.7.2.686 [id number] [facility] 2021-09-22 00:00:00 2021-09-22 00:00:00 Orders Only Doctor Unassigned, [place] [facility] 1.2.840.114 350.1.13.10 4.2.7.2.686 [id number] [facility] 2021-09-21 00:00:00 2021-09-21 00:00:00 Orders Only Doctor Unassigned, [place] [facility] 1.2.840.114 350.1.13.10 4.2.7.2.686 [id number] [facility] 2021-02-21 11:04:00 2021-02-21 13:25:00 Emergency X Raquel MCCABE [facility] ERT [id number] [facility] 2021-02-21 11:04:00 2021-02-21 13:25:00 Emergency Raquel Mccabe [facility] 1.2.840.114 350.1.13.10 4.2.7.2.686 [id number] [facility] 2019-11-07 18:59:00 2019-11-07 20:52:00 Emergency EmelyLarryya [facility] 1.2.840.114 350.1.13.10 4.2.7.2.686 [id number] [facility] 2019-11-07 18:59:00 2019-11-07 20:52:00 Emergency Emely Jayce Cortez [facility] 1.2.840.114 350.1.13.10 4.2.7.2.686 [id number] 2019-11-07 18:59:00 2019-11-07 18:59:00 Emergency X JAYCE HAN [facility] ERT [id number] [facility] 2019-08-24 00:00:00 2019-08-24 00:00:00 Telephone Pcp, Patient Does Not Have A [facility] 1.2.840.114 350.1.13.10 4.2.7.2.686 [id number] [facility] 2019-08-24 00:00:00 2019-08-24 00:00:00 Telephone Pcp, Patient Does Not Have A [facility] 1.2.840.114 350.1.13.10 4.2.7.2.686 [id number] 2019-08-23 13:57:56 2019-08-23 14:34:00 Emergency Rom [facility] 1.2.840.114 350.1.13.10 4.2.7.2.686 [id number] [facility] 2019-08-23 13:57:56 2019-08-23 14:34:00 Emergency [facility] 1.2.840.114 350.1.13.10 4.2.7.2.686 [id number] 2019-08-23 13:57:56 2019-08-23 13:57:56 Emergency X [facility] ERT [id number] [facility] 2019-08-23 00:00:00 2019-08-23 00:00:00 Orders Only Doctor Unassigned, [place] [facility] 1.2.840.114 350.1.13.10 4.2.7.2.686 [id number] [facility] 2019-08-23 00:00:00 2019-08-23 00:00:00 Orders Only Doctor Unassigned, [place] [facility] 1.2.840.114 350.1.13.10 4.2.7.2.686 [id number] Results Test Description Test Time Test Comments Results Resul t Comments Source US Ovary torsion 2024-09-01 8 23:52:21 EXAM: US OVARY TORSION 09/27/2024 4:58 PM HISTORY: 29-year-old Female; Provided indication: R pelvic pain . LMP = 08/08/2024Pregnancy test = Negative. TECHNIQUE: Transabdominal and transvaginal ultrasound imaging and colorDoppler evaluation of the pelvis was performed. Spectral Doppler evaluationof the ovaries was performed. Making Department Preparer images were obtained for therecord. COMPARISON: Ultrasound 09/26/2024. FINDINGS: Uterus: The uterus [...] Doppler. Cul-de-sac: Significant free fluid is present. [facility] WITH [id number] 06:16:00* Test Item Value Reference Range Interpretation [...] g/dL 31.6-35.1 H RDW-SD (test code = 16857-2) 38.5 fL 39.0-49.9 L RDW-CV (test code = 788-0) 11.9 % 12.0-15.5 L PLT (test code = 777-3) 340 166-358 MPV (test code = 73969-5) 10.2 fL 9.5-12.9 NRBC/100 WBC (test code = 4210443500) 0 0.0-10.0 NRBC x10^3 (test code = 8667185739) See_Comment [Automated messa ge] The system which generated this result transmitted reference range: 10*3/?L. The reference range was not used to interpret this result as normal/abnormal. GRAN MAT (NEUT) % (test code = 770-8) 59.9 % IMM GRAN % (test code = 3896301949) 0.4 % LYMPH % (test code = 736-9) 33.1 % MONO % (test code = 5905-5) 5.6 % EOS % (test code = 713-8) 0.6 % BASO % (test code = 706-2) 0.4 % GRAN MAT x10^3(ANC) (test code = 7972294612) 6.36 10*3/uL 1.88-7.09 IMM GRAN x10^3 (test code = 3045828691) 0.04 10*3/uL 0.00-0.06 LYMPH x10^3 (test code = 731-0) 3.51 10*3/uL 1.32-3.29 H MONO x10^3 (test code = 742-7) 0.59 10*3/uL 0.33-0.92 EOS x10^3 (test code = 711-2) 0.06 10*3/uL 0.03-0.39 BASO x10^3 (test code = 704-7) 0.04 10*3/uL 0.01-0.07 Lab Interpretation (test code = 14191-9) [facility]normal [facility] [id number] 20:30:00* Test Item Value Reference Range Interpretation Comme nts POCT PREG (test code = 1605) Negative On board controls acceptable with C Line (test code = 3574) Yes POCT PREG LOT # (test code = 3575) [id number] POCT PREG TEST DATE ( test code = 3576) 2026-01-26 Lab Interpretation (test cod e = 79713-0) Normal [facility] (14798)2023-12-29 19:26:16* Test Item Value Reference Range Interpretation Comme nts NA (test code = 5394600123) 134 mmol/L 135-145 L K (test code = 8532002562) 4.5 mmol/L 3.5-5.0 CL (test code = 3064947251) 102 mmol/L 98-108 CO2 TOTAL (test code = 7836043541) 18 mmol/L 23-31 L AGAP (test code = 8182771194) 14 2-16 BUN (test code = 7071068163) 12 mg/dL 7-23 GLUCOSE (test code = 9419890991) 103 mg/dL 70-110 CREATININE (test code = 2160-0) 0.51 mg/dL 0.50-1.04 TOTAL BILI (test code = 5841832318) 1.0 mg/dL 0.1-1.1 CALCIUM (test code = 6240400925) 9.2 mg/dL 8.6-10.6 T PROTEIN (test code = 1818204000) 9.2 g/dL 6.3-8.2 H ALBUMIN (test code = 2227601556) 5.0 g/dL 3.5-5.0 ALK PHOS (test code = 0624760960) 70 U/L 34-122 ALTv (test code = 1742-6) 65 U/L 5-35 H AST(SGOT) (test code = 6273255000) 40 U/L 13-40 eGFR (test code = 75192-5) 131.4 mL/min/1.73m2 CKD-EPI eGFR (2020). Assuming creatinine has been stable day-to-day for at least three months, the eGFR indicates Category G1 (>= 90 mL/min/1.73 m2) Lab Interpretation (test code = 70484-1) [facility]normal [facility] 19:25:35* Test Item Value Reference Range Interpretation Comme nts LIPASE (test code = 1528774375) 50 U/L 0-220 Lab Interpretation (test cod e = 35264-0) Normal [facility] with [id number] 19:13:28* Test Item Value Reference Range Interpretation [...] 33.9 g/dL 31.6-35.1 RDW-SD (test code = 02519-4) 40.8 fL 39.0-49.9 RDW-CV (test code = 788-0) 11.9 % 12.0-15.5 L PLT (test code = 777-3) 294 166-358 MPV (test code = 33241-4) 10.6 fL 9.5-12.9 NRBC/100 WBC (test code = 0117054989) 0.0 0.0-10.0 NRBC x10^3 (test code = 1753709110) See_Comment [Automated messa ge] The system which generated this result transmitted reference range: 10*3/?L. The reference range was not used to interpret this result as normal/abnormal. GRAN MAT (NEUT) % (test code = 770-8) 69.5 % IMM GRAN % (test code = 7658014602) 0.70 % LYMPH % (test code = 736-9) 21.9 % MONO % (test code = 5905-5) 6.8 % EOS % (test code = 713-8) 0.7 % BASO % (test code = 706-2) 0.4 % GRAN MAT x10^3(ANC) (test code = 8711638597) 5.87 10*3/uL 1.88-7.09 IMM GRAN x10^3 (test code = 6444631231) 0.06 10*3/uL 0.00-0.06 LYMPH x10^3 (test code = 731-0) 1.85 10*3/uL 1.32-3.29 MONO x10^3 (test code = 742-7) 0.57 10*3/uL 0.33-0.92 EOS x10^3 (test code = 711-2) 0.06 10*3/uL 0.03-0.39 BASO x10^3 (test code = 704-7) 0.03 10*3/uL 0.01-0.07 Lab Interpretation (test code = 44817-0) Abnormal [facility] EMPY6279-29-70 00:15:00* Test Item Value Reference Range Interpretation Comme nts POCT PREG (test code = 1605) Negative On board controls acceptable with C Line (test code = 3574) Yes POCT PREG LOT # (test code = 3575) [id number] POCT PREG TEST DATE ( test code = 357) 07/04/2024 Lab Interpretation (test cod e = 25013-6) Normal [facility] GLUCOSE (AUTOMATED)2023-07-15 20:53:56* Test Item Value Reference Range Interpretation Comme nts POCT GLU (test code = 0379285873) 130 mg/dL 70-110 H Lab Interpretation (test cod e = 60238-8) Abnormal [facility] Glucose(Age >30days)2023-07-15 20:53:00* Test Item Value Reference Range Interpretation Comme nts POCT Glu (age>30days) (test code = 3342) 130 mg/dL 70-110 A Lab Interpretation (test cod e = 86806-0) Abnormal [facility] [id number] 20:47:00* Test Item Value Reference Range Interpretation Comme nts POCT PREG (test code = 1605) Negative On board controls acceptable with C Line (test code = 3574) Yes POCT PREG LOT # (test code = 3575) [id number] POCT PREG TEST DATE ( test code = 3576) 04/09/2023 Lab Interpretation (test cod e = 50921-6) Normal [facility]. Metabolic Panel (95081)2023-06-04 00:53:47* Test Item Value Reference Range Interpretation Comme nts NA (test code = 9542601487) 140 mmol/L 135-145 K (test code = 7024277744) 3.8 mmol/L 3.5-5.0 CL (test code = 4572912779) 107 mmol/L 98-108 CO2 TOTAL (test code = 9289459311) 27 mmol/L 23-31 AGAP (test code = 6940598086) 6 2-16 BUN (test code = 4483869372) 9 mg/dL 7-23 GLUCOSE (test code = 7040912543) 90 mg/dL 70-110 CREATININE (test code = 2160-0) 0.50 mg/dL 0.50-1.04 TOTAL BILI (test code = 4157979277) 0.4 mg/dL 0.1-1.1 CALCIUM (test code = 8565663650) 8.9 mg/dL 8.6-10.6 T PROTEIN (test code = 2130559827) 8.2 g/dL 6.3-8.2 ALBUMIN (test code = 4833999255) 4.1 g/dL 3.5-5.0 ALK PHOS (test code = 2511978399) 92 U/L 34-122 ALTv (test code = 1742-6) 36 U/L 5-35 H AST(SGOT) (test code = 0961838835) 30 U/L 13-40 eGFR (test code = 50609-4) 132.8 mL/min/1.73m2 CKD-EPI eGFR (2020). Assuming creatinine has been stable day-to-day for at least three months, the eGFR indicates Category G1 (>= 90 mL/min/1.73 m2) Lab Interpretation (test code = 00499-8) [facility]normal [facility] Ukrt6463-19-08 00:30:45* Test Item Value Reference Range Interpretation [...] 34.2 g/dL 31.6-35.1 RDW-SD (test code = 98658-7) 39.9 fL 39.0-49.9 RDW-CV (test code = 788-0) 11.7 % 12.0-15.5 L PLT (test code = 777-3) 339 166-358 MPV (test code = 41490-2) 10.0 fL 9.5-12.9 NRBC/100 WBC (test code = 3747476570) 0.0 0.0-10.0 NRBC x10^3 (test code = 7385082331) See_Comment [Automated messa ge] The system which generated this result transmitted reference range: 10*3/?L. The reference range was not used to interpret this result as normal/abnormal. GRAN MAT (NEUT) % (test code = 770-8) 65.7 % IMM GRAN % (test code = 4146193266) 0.20 % LYMPH % (test code = 736-9) 26.9 % MONO % (test code = 5905-5) 6.3 % EOS % (test code = 713-8) 0.5 % BASO % (test code = 706-2) 0.4 % GRAN MAT x10^3(ANC) (test code = 7839258779) 6.41 10*3/uL 1.88-7.09 IMM GRAN x10^3 (test code = 1610215580) 0.00-0.06 LYMPH x10^3 (test code = 731-0) 2.63 10*3/uL 1.32-3.29 MONO x10^3 (test code = 742-7) 0.61 10*3/uL 0.33-0.92 EOS x10^3 (test code = 711-2) 0.05 10*3/uL 0.03-0.39 BASO x10^3 (test code = 704-7) 0.04 10*3/uL 0.01-0.07 Lab Interpretation (test code = 80439-4) [facility]normal [facility] [id number] 00:24:00* Test Item Value Reference Range Interpretation Comme nts POCT PREG (test code = 1605) Negative On board controls acceptable with C Line (test code = 3574) Yes Lab Interpretation (test cod e = 17231-1) Normal [facility] [id number] 03:29:00* Test Item Value Reference Range Interpretation Comme nts POCT PREG (test code = 1605) Negative On board controls acceptable with C Line (test code = 3574) Yes POCT PREG LOT # (test code = 3573) [id number] POCT PREG TEST DATE ( test code = 3575) [id number] Lab Interpretation (test cod e = 64770-2) Normal [facility]Y2023-08-25 03:37:00* Test Item Value Reference Range Interpretation Comme nts Hep C Ab (test code = Hep C Ab) NON-REACTIVE CDC HIV 4th GEN (test code = CDC HIV 4th GEN) Negative 1*NA*(10/24/22 10:37 PM) [facility] 19:00:00* Test Item Value Reference Range Interpretation [...] = S Preg) Negative *NA*(10/24/22 2:00 PM) [facility]OCM5195-[facility]-85 19:00:00* Test Item Value Reference Range Interpretation [...] (test code = Basophils #) 0.1 <=0.2 [facility] [id number] 22:50:00* Test Item Value Reference Range Interpretation Comme nts POCT PREG (test code = 1605) Negative On board controls acceptable with C Line (test code = 3574) Yes POCT PREG LOT # (test code = 3575) [id number] POCT PREG TEST DATE ( test code = 3576) 02/13/2024 Lab Interpretation (test cod e = 77523-3) Normal [facility] HospitalXR FOOT 3+ VW [id number] 00:35:40Soft tissue swelling. No acute bony abnormality [...] arepreserved.IMPRESSIONSoft tissue swelling.No acute bony abnormality is present.[facility] HospitalCOVID-[facility] (ID NOW RAPID TESTING) 2019-08-23 18:38:00* Test Item Value Reference Range Interpretation Comme nts SARS-CoV-2 Rapid ID NOW (test code = 36262-0) Positive Not Detected A KETAN (test code = KETAN) ID NOW COVID-19 As say is an isothermal nucleic acid amplification test intended for the qualitative detection of nucleic acid from SARS-CoV-2 viral RNA in nasopharyngeal (CASE SEALER) specimens. It is used under Emergency Use [...] clinically indicated. Lab Interpretation (test code = 83331-5) [facility] ABDOMEN [id number] 01:30:00Patient Name: PHILOMENA SMITH Unit No: [id number] EXAMS: CPT CODE: [id number] ABDOMEN LTD 00360 PROCEDURE: RIGHT UPPER QUADRANT ULTRASOUND DATED 12/05/2018 [...] visualized pancreas appears normal. RIGHT KIDNEY: The rightkidney measures 10.3 cm in length. Normal renal contour and morphology with normal echogenicity. The re is no hydronephrosis. Additional comments: No free [...] t.SDR.DMM Orig Print D/T: S: 12/05/2018 (0133) [facility] NAME: PHILOMENA SMITH Radiology Department PHYS: Tyson Escobar [address] : 1995 AGE: 23 SEX: F [place] [address] LOC: AgustinERS PHONE #: [phone] EXAM DATE: 12/04/2018 STATUS: REG ER FAX #: [phone] RAD NO: Page 1 Signed Report Patient Name: PHILOEMNA SMITH Unit No: [id number] EXAMS: CPT CODE: [id number] US ABDOMEN LTD 56541 (Continued) [facility] NAME: PRASHANTPHILOMENA Radiology Department PHYS: Tyson Escobar [address] : 1995 AGE: 23 SEX: F [place] [address] LOC: Mk.ERS PHONE #: [phone] EXAM DATE: 12/04/2018 STATUS: REG ER FAX #: [phone] RAD NO: Page 2 Signed Report- US PREG UT [id number] 01:24:00Patient Name: PHILOMENA SMITH Unit No: [id number] EXAMS: CPT CODE: [id number] US PREG UT TRANSVAGINAL 44566 Early obstetrical ultrasound (less than 14 weeks) [...] adjacent to the gestational sac, likely representing subc horionic hemorrhage. No abnormalities of the myometrium are identified. The cervix is closed. The right ovary measures 3.8 x 1.8 x 1.7 cm and maintains normal echotexture. The left ovary measures 5.2x 1.9 x 1.7 cm and contains a 2.0 x 1.5 x 1.5 cm thick-walled complex cyst, likely representing a resolving hemorrhagic corpus luteum. Ovarian blood flow is documented bilaterally using Doppler ultrasound. No adnexal masses or pelvic fluid collections are identified. IMPRESSION: 1. Single living intrauterine with an estimated ultrasound gestational age of 6 weeks 4 days and an estimateddate of delivery of 07/26/2019. SL: 131 at 0124 Reported and signed by: Gustavo Machado MD CC: Vicky Lux MD Technologist: Arline Bacon RDMS Probe: [id number] Trnscrbd D/ (0124) Ben Orig Print D/T: S: 12/05/2018 (0127) [facility] NAME: PHILOMENA SMITH Radiology Department PHYS: CIPRIANO Tyson Stark [address] : 1995 AGE: 23 SEX: Mk [place], [place] [address] LOC: AgustinERS PHONE #: [phone] EXAM DATE: 12/05/2018 STATUS: REG ER FAX #: [phone] RAD NO: Page 1 Signed Report Patient Name: PHILOMENA SMITH Unit No: [id number] EXAMS: CPT CODE: [id number] US PREG UT TRANSVAGINAL 08162 (Continued) [facility] NAME: PHILOMENA SMITH Radiology Department PHYS: CLAUDIATyson Wilson [address] : 1995 AGE: 23 SEX: F [place], [place] [address] LOC: YESSICA PHONE #: [phone] EXAM DATE: 12/05/2018 STATUS: REG ER FAX #: [phone] RAD NO: Page 2 Signed Report- US PREG EVAL 1ST [id number] 01:24:00Patient Name: PHILOMENA SMITH Unit No: [id number] EXAMS: CPT CODE: [id number] US PREG EVAL 1ST TRIMTR 71532 Early obstetrical ultrasound (less than 14 weeks) [...] Arline Bacon RDMS Probe: Trnscrbd D/ (0124) t.MERLYNRMarionDMM Orig Print D/T: S: 12/05/2018 (0127) [facility] NAME: PHILOMENA SMITH Radiology Department PHYS: TURNERNITINMarionZulay Torri Tyson Barahona [address] : 1995 AGE: 23 SEX: F [place] [address] LOC: Mk.ERS PHONE #: [phone] EXAM DATE: 12/04/2018 STATUS: REG ER FAX #: [phone] RAD NO: Page 1 Signed Report Patient Name: PHILOMENA SMITH Unit No: [id number] EXAMS: CPT CODE: [id number] US PREG EVAL 1ST TRIMTR 44346 (Continued) [facility] NAME: PHILOMENA SMITH Radiology Department PHYS: ANSELMOMarionTyson Redding [address] : 1995 AGE: 23 SEX: F [place] [address] LOC: F.ERS PHONE #: [phone] EXAM DATE: 12/04/2018 STATUS: REG ER FAX #: [phone] RAD NO: Page 2 Signed ReportCOMPREHENSIVE METABOLIC [id number] 23:35:00* Test Item Value Reference Range Interpretation [...] code = ALKP) 71 units/L 46-116 N [id number] 23:35:00* Test Item Value Reference Range Interpretation Comme nts LIPASE (test code = LIP) 127 units/L 73-393 N HCG [id number] 23:35:00* Test Item Value Reference Range Interpretation Comme nts HCG SERUM (test code = HCG) 51129 INTERPRETATION:V ALUES BETWEEN 15-20 milliInternational units/mL NEED TO BERETESTED WITHIN 48 HOURS. All units for these ranges are in milliInternationalunits/mL0-1 WK AFTER CONCEPTION 0-50 1-2 WKS AFTER CONCEPTION 40-3002-3 WKS AFTER CONCEPTION 100-1,0003-4 WKS AFTER CONCEPTION 500-6,0001-2 MONTHS AFTER CONCEPTION 5,000-200,0002-3 MONTHS AFTER CONCEPTION 10,000-100,0002ND TRIMESTER 3,000-50,0003RD TRIMESTER 1,000-50,000 SPECIMENS WITH AN HCG LEVEL FROM 0-6 milliInternationalunits/mL SHOULD BE CONSIDERED NEGATIVE COMPREHENSIVE METABOLIC [id number] 23:11:00* Test Item Value Reference Range Interpretation [...] ALKP) 71 units/L 46-116 N CBC W/AUTO [id number] 22:58:00* Test Item Value Reference Range Interpretation [...] NORMAL NORMAL UA RFLX MICR CULT IF [id number] 22:44:00* Test Item Value Reference Range Interpretation [...] Source 2024-09-28 11:18:30 SCHEDULED 10/05/24 Nataly Shelton [facility] 2024-09-28 09:28:23 Copied from [facility] #[id number]. Topic: Appointment - Appointment Request >> Sep 28, 2024 9:26 AM Patient Dermatology Specialist wrote: Pt is requesting call back to schedule appointment for ovarian mass, referral in system. Please call [phone] (home) PRATIMA Elizondo [facility] 2024-09-27 19:57:48 Patient given discharge instructions and verbalized no further concerns or questions. Skin p/w/d, rr equal and non labored. A&Ox4. Ambulated independently with a steady gait in stable condition. Sophia Doherty RN [facility] 2024-09-27 15:48:17 CC: patient presents to the ER with complaints of right sided ovarian cyst that began 3 days STUDIO ASSISTANT. Patient states she was seen in [facility] and [facility] and was diagnosed with a mass on her right ovary. Patient states she has been taking norco without relief. Awake, alert, oriented, resp reg unlabored, skin warm and dry, color appropriate for race, moves all ext without difficulty, amb without assistance. Appears in no distress. Sheila Ang RN [facility] 2024-09-26 06:27:20 Patient provided with D/C instructions [...] Patient ambulatory to lobby with steady gait. [facility] 2024-09-26 05:56:32 This RN spoke with [employer] regarding adding additional lab orders to previously sent specimen. Lab reports will add on shortly. [facility] 2024-09-26 04:26:56 Patient/family medicated per eMAR at this time. Patient name, , and allergies verified at this time. Patient/family educated on importance and reason for medication. Patient/family verbalizes understanding at this time, denies any questions. [facility] 2024-09-26 01:50:00 PIV initiated using appropriate processes at this time, see LDAs. Lab specimens collected, verified using 2 patient identifiers. Patient tolerated process well. Patient denies additional needs. Bed locked and in lowest position with side-rails elevated, call-light within reach. [facility] 2024-09-26 01:02:23 This RN attempted to initiate PIV access w/o success x 1. Lab specimens obtained. Patient requesting no additional PIV attempted made until need for PIV. Lab specimens collected, verified using 2 patient identifiers. Patient tolerated process well. Patient denies additional needs. Bed locked and in lowest position with side-rails elevated, call-light within reach. [facility] 2024-09-26 00:55:00 Patient educated on the need for a urine sample. Patient verbalizes understanding and reports will attempt to urinate at this time. Patient educated on the proper cleaning and collection technique and verbalizes understanding. Patient provided with a urine sample collection cup and cleaning towelette. Patient ambulatory to restroom with steady gait, NAD noted. T [facility] 2024-09-25 23:53:24 Philomena Smith is a 29 year old female who presents ambulatory with steady gait to the ED c/o pelvic pain. Patient reports was diagnosed with mass on ovary/uterus, and was recently told it doubled in size. Patient was told to go to ED if became painful. Patient Aox4, NAD noted, VSS, RR e/u. Patient to [facility] d/t ED saturation for further evaluation. Macie Gurrola RN [facility] 2024-09-18 15:48:47 Pt given printed and verbal [...] steady gait, in no apparent distress, Sharda Taylor RN [facility] 2024-09-18 13:34:03 Patient to ED for bilateral pain radiating from knees to upper thighs. Reports she drove to [place] and back to [place] 3 times from 09/02-09/10. Patient is worried about blood clots. Oleg Lim RN [facility] 2024-02-29 02:38:05 Pt given printed and verbal [...] in no apparent distress IA Shell RN [facility] 2024-02-29 00:54:42 Patient arrived ambulatory to ED c/o cough that started yesterday and today patient states back of throat hurts to breathe. Brother was sick with strep at home but was kept isolated. Went to [facility] last night for back pain. Diagnosed with pulled muscles in back and UTI. Last medication taken was diclofenace sodium at noon and Robaxin at noon and 1999. IA Traore RN [facility] 2024-02-29 00:51:00 [facility] Emergency Department Note Patient Name: Philomena Smith Date of : 1995 28 year old female Treatment Room: [facility] ED MARY MCKEON/CATHERINE Primary Care Physician: PATIENT DOES NOT HAVE A PCP Patient Escorted by: Self [9] Mode of Arrival: Personal means [1] EMS Treatment Prior to ED Arrival: STUDIO ASSISTANT treatment: Medication (comment) STUDIO ASSISTANT treatment comments: see triage note Travel and [...] year old female with pharyngitis. Was at [facility] and treated for UTI/back pain. Didn't look [...] N/A 07/26/2015 Surgeon: Georgi Ann MD; Location: [facility] Labor and Delivery OR Location DILATION AND CURETTAGE (SHX) N/A 10/20/2017 Surgeon: Georgi Ann MD; Location: [facility] OR [facility] DILATION AND CURETTAGE (SHX) Lower 10/30/2017 Surgeon: Georgi Ann MD; Location: [facility] OR [facility] Review of Systems: Review of Systems Constitutional: [...] 2024 022 Influenza A NAAT(!): Positive [PS] 5 Influenza A NAAT(!): Positive [PS] ED Course [...] (three) times daily as needed for Cough. EJESYTRPMQ-EESUKLLHYXIES-REZ F 50-325-40 MG TABLET Take 1 tablet [...] on file Follow-up: Contact information [facility] Medicine [address], [address] [facility] [address] Instructions: for follow up of your emergency visit. [facility] Specialty: Emergency Medicine [address] [address] Instructions: If symptoms worsen as documented in the discharge Electronically signed by: Young Wynn DO 02/29/24 0225 TH AND SAFETY MANAGER [facility] 2023-12-29 15:58:46 Pt given printed and verbal [...] in no apparent distress, Robert Conley RN [facility] 2023-12-29 12:02:13 Patient states "I have been having diarrhea and throwing up since yesterday evening." Patient c/o of a generalized rash that started during the night. [facility] 2023-10-06 21:55:37 Pt given printed and verbal discharge instructions regarding allergic reaction and encouraged hydration. 2 Prescriptions sent to pharmacy Discussed ibuprofen and to take with food to avoid GI distress. Discussed antibiotic therapy and to take until all completed unless adverse reaction occurs - if occurs, discontinue medication and follow up with pcp/seek medical attention Discussed [place] 5 side affects and to avoid driving/operating [...] ambulatory without assist, in no apparent distress, [facility] 2023-10-06 21:14:56 Pt arrived ambulatory without assist. Pt c/o allergic reaction to medication - itchy and increased difficulty with swallowing. Pt was given Cefdinir 300mg today for strep throat, she has taken two doses. Pt She was also prescribed IBU 800mg and APAP/Codeine 300mg-30mg, She takes taking both of these medications before without issues. Wendy Juarez RN [facility] 2023-08-26 20:50:18 Chief Complaint Patient presents with [...] care. Liliana Webb RN Liliana Webb RN [facility] 2023-08-26 18:57:20 Patient came in with complaints of RUQ abdominal pain since 1 month. Nathalia Low RN [facility] 2023-07-15 16:04:31 Pt given printed and verbal [...] with steady gait, in no apparent distress, [facility] 2023-07-15 14:44:53 Patient with sore throat since this AM and left thigh has been numb to the touch since Friday. Patient ambulatory to triage and states that she has no issues with walking. Denies any numbness in other areas of the body. Laura Galicia RN [facility] 2023-06-03 22:52:48 Pt given printed and verbal [...] in no apparent distress Ava Shell RN [facility] 2023-06-03 17:33:06 Pt arrived via private car with c/o sore throat x2 days, states she had amoxicillin at home and started taking it. She also c/o having a headache since Friday, states she has a history of migraines and took ESGIG and BC powder without improvement. States she has not been able to see a neurologist due to insurance. Mary Jo Obando RN [facility] 2023-05-07 22:43:48 Summary: Discharge Pt given printed and verbal discharge instructions regarding intractable headache, encouraged hydration, Prescriptions provided matpjzvyhi-qkrzfasolwfke-zfg f 50-325-40 mg tablet ondansetron 4 mg disintegrating tablet Discussed ibuprofen and to take with food to avoid GI distress. Discussed imdhgviztv-vopncwirhitpf-vvr f 50-325-40 mg tablet side affects and [...] with steady gait, in no apparent distress, TH AND SAFETY MANAGER Chiara Dean RN [facility] 2023-05-07 22:16:48 Summary: Pain Patient states that her headache is gone and she feels better, IV fluids still infusing. TH AND SAFETY MANAGER [facility] 2023-05-07 20:53:55 Patient arrived ambulatory to ED c/o migraine that started this morning. Last medication taken was Cynodil around 1930. Patient was seen at [facility] a couple of months ago and was diagnosed with chronic migraines. Was referred to neurologist but was unable to go. Patient also states having multiple episodes of emesis. TH AND SAFETY MANAGER Saturnino Traore RN [facility] 2023-05-07 20:52:00 [facility] Emergency Department Note Patient Name: Philomena Smith Date of : 1995 27 year old female Treatment Room: TX5/PA5 Primary Care Physician: PATIENT DOES NOT HAVE A PCP Patient Escorted by: Family [5] Mode of Arrival: Personal means [1] EMS Treatment Prior to ED Arrival: STUDIO ASSISTANT treatment: Medication (comment) STUDIO ASSISTANT treatment comments: Cynodil Travel and Exposure Screening: [...] this time Was referred to Neurology by [facility], but hasn't been able to afford to go to a Neurologist yet. Pt sts that she has received migraine cocktail multiple times at [facility] History provided by: Patient public health outreach worker used: No Past Medical History/Immunizations: Past Medical [...] N/A 07/26/2015 Surgeon: Georgi Ann MD; Location: [facility] Delivery OR Location DILATION AND CURETTAGE (SHX) N/A 10/20/2017 Surgeon: Georgi Ann MD; Location: [facility] OR [facility] DILATION AND CURETTAGE (SHX) Lower 10/30/2017 Surgeon: Georgi Ann MD; Location: [facility] OR [facility] Review of Systems: Review of Systems Constitutional: [...] 1,000 mL ondansetron 4 mg disintegrating tablet yegasvtowp-fpxcgkdmuabbq-myw f 50-325-40 mg tablet First Provider Eval: ED Events Date/Time Event User Comments 05/07/232053 Medical Screening Begins LEXI RODRIGUEZ -- 05/07/232053 First Provider Evaluation LEXI RODRIGUEZ -- ED COURSE Diagnosis/Impression as of 05/07/23 [...] Medications: Patient's Medications START taking these medications XFMHKKSSYF-SAGSCVQPSOIKF-KAV F 50-325-40 MG TABLET Take 1 tablet [...] Electronically signed by: Lexi Zavala FNP 05/07/232228 TH AND SAFETY MANAGER Associated attestation - Tess Faith MD - 05/07/2023 10:38 PM HEALTH AND SAFETY MANAGER Addendum I was personally available for consultation in the Emergency Department during this encounter and patient evaluation by Sally. [facility] 2022-10-18 15:35:07 Formatting of this n ote might be different from the original. Pt discharged home following ERP eval. Given all education and information regarding prescription use; s/s of worsening condition; and importance of follow up with pcp. Pt verbalized understanding. Alert and ambulatory to pov [facility] 2022-10-18 15:28:06 Formatting of this n ote might be different from the original. Pt to ed alert and ambulatory. C/o three little spots on tongue that spontaneously appeared after eating a sub at [facility]. Denies any pain or injury. Never experienced this before. Praveena Doss RN [facility] 2022-09-17 22:25:00 Formatting of this n ote [...] in no apparent distress. Nathalia Low RN [facility] 2022-09-17 17:19:32 Formatting of this n ote might be different from the original. Patient states that the pain in her abdomen feels like a contraction and is also having pressure pain in her vagina. Ector Ch RN [facility] 2022-09-17 17:16:02 Formatting of this n ote might be different from the original. Patient here for abdominal swelling. States that her abdomen is distended today and is not normally this size. Patient states that she had a positive test a few days ago and the repeat test was negative. [facility] 2018-12-05 01:44:00 [facility] ([facility]) EMERGENCY PROVIDER REPORT REPORT#:[id number] REPORT STATUS: Signed DATE:12/05/18 TIME: 0144 PATIENT: PHILOMENA SMITH UNIT #: [id number] ROOM/BED: AGE: 23 SEX: F PCP PHYS: [...] 12/04/182239: [Embedded Image Not Available] Laboratory Tests: 12/040 Chemistry Sodium (135 - 145 mEq/L) 138 [...] % (Auto) (14.3 - 34.3 %) 25.6 Cooke % (Auto) (5.1 - 10.4 %) 7.9 Eos % (Auto) (0.1 - 3.0 %) 0.8 Baso % (Auto) (0.1 - 1.0 %) 0.5 Neut # (Auto) (K/mm3) 5.2 Lymph # (Auto) (K/mm3) 2.0 Cooke # (Auto) (K/mm3) 0.6 Eos # (Auto) (K/mm3) 0.06 Baso # (Auto) (K/mm3) 0.0 Immature Plt Fraction (0.0 - 10.8 %) 0.0 Miscellaneous Maternal Serum HCG 36810 Urines Urine Color (YELLOW) YELLOW Urine Appearance (CLEAR) HAZY Urine pH (5 - 9) 6.0 Ur Specific [place] (1.001 - 1.035) 1.025 Urine Protein (NEGATIVE) [...] RARE Recent Impressions: ULTRASOUND - US ABDOMEN [facility] 12/04 0029 Report Impression - Status: SIGNED [...] - US PREG EVAL 1ST TRIMTR 12/04 9784 Report Impression - Status: SIGNED Entered: 12/05/2018 [...] wks with heart tone of 126 bhcg [id number] Discussed labs, image, diagnosed with family. Referred [...] 78 12/05 206 Resp 16 12/05 206 All vital signs [...] a call to 911. at [phone] RPT #:[id number] END OF REPORT [facility]
--- NOTE | 2024-10-13 07:49 | EDPHYS ---
Physician Documentation [facility] Name: Philomena Smith Age: 29 yrs Sex: Female : 1995 Arrival Date: 10/13/2024 Time: 07:24 Bed IW1 Private MD: ED Physician Chato Weller HPI: 10/13 07:50 This 29 yrs old Female presents to ER via Unassigned with complaints of Sore ms3 Throat, Swollen Throat. 07:50 29-year-old female with no past medical history presents to the emergency department ms3 for sore throat, cough, congestion that has been ongoing for 1 week. Patient states she was seen emergency department last week and diagnosed with pharyngitis and given antibiotics. Patient states her pain is currently a 10/10. She denies any alleviating or inciting factors. Patient endorses cough, congestion, night sweats. Patient denies nausea, vomiting, shortness of breath.. Historical: - Allergies: 07:59 Cefdinir; hb 07:59 unknown antibiotic; hb - PMHx: 07:59 chronic back pain; Migraine; hb - PSHx: 07:59 section; Cholecystectomy; hb ROS: 07:50 Cardiovascular: Negative for chest pain, and palpitations. ms3 07:50 Abdomen/GI: Negative for abdominal pain, nausea, vomiting, diarrhea, and constipation, MS/Extremity: Negative for injury and deformity, Skin: Negative for injury, rash, and discoloration, 07:50 Constitutional: Positive for chills, 07:50 Respiratory: Positive for cough, Exam: 07:50 Constitutional: This is a well developed, well nourished patient who is awake, alert, ms3 and in no acute distress. Cardiovascular: Regular rate and rhythm with a normal S1 and S2. No gallops, murmurs, or rubs. Normal PMI, no JVD. No pulse deficits. Respiratory: Lungs have equal breath sounds bilaterally, clear to auscultation and percussion. No rales, rhonchi or wheezes noted. No increased work of breathing, no retractions or nasal flaring. Abdomen/GI: Soft, non-tender, with normal bowel sounds. No distension or tympany. No guarding or rebound. No evidence of tenderness throughout. 07:50 ENT: Mouth: Posterior pharynx: Tonsils: are normal in appearance, Uvula: midline, swelling, erythema, that is mild, exudate, is not appreciated, peritonsillar mass, is not appreciated, pooling of secretions, is not appreciated, Vital Signs: 07:35 BP 122 / 88; Pulse 100; Resp 18; Temp 97.2(TE); Pulse Ox 100% on R/A; hb MDM: 07:30 Medical Screening Exam initiated ms3 07:50 Differential diagnosis: Allergic rhinitis, pharyngitis, upper respiratory infection, ms3 viral syndrome. Data reviewed: vital signs, nurses notes, and as a result, I will discharge patient. I considered the following discharge prescriptions or medication management in the emergency department See Rx. Counseling: I had a detailed discussion with the patient and/or guardian regarding the historical points, exam findings, and any diagnostic results supporting the discharge/admit diagnosis, the need for outpatient follow up, to return to the emergency department if symptoms worsen or persist or if there are any questions or concerns that arise at home. ED course: Discussed obtaining flu, COVID, rapid strep with patient. Patient states symptoms have been ongoing for 1 week. Discussed with patient testing results would not change treatment plan as patient recently completed antibiotics and is outside the window to be treated for fluid. Patient opted to not have labs drawn. Discussed symptomatic treatment with patient. Patient to follow-up Dr. Arias in 2 to 3 days. All questions were answered. Return precautions were discussed to include worsening symptoms, shortness of breath, difficulty swallowing, or any other concerns.. Administered Medications: No medications were administered Disposition Summary: 10/13/24 07:48 Discharge Ordered Notes: Location: Home ms3 Condition: Stable ms3 Diagnosis - Acute pharyngitis, unspecified ms3 Followup: ms3 - With: Domenico Arias DO - When: 2 - 3 days - Reason: Recheck today's complaints Discharge Instructions: - Discharge Summary Sheet ms3 - Pharyngitis ms3 - Sore Throat ms3 Forms: - Medication Reconciliation Form ms3 - Antibiotic Education ms3 - Prescription Opioid Use ms3 - Patient Portal Instructions ms3 - Leadership Thank You Letter ms3 Prescriptions: - Claritin 10 mg Oral Tablet - take 1 tablet ORAL route once daily As needed; 30 tablet; Refills: 0, Product ms3 Selection Permitted - benzonatate 200 mg Oral capsule - take 1 capsule ORAL route 3 times per day as needed; 20 capsule; Refills: 0, ms3 Product Selection Permitted Signatures: Dispatcher [employer] Keri Ortiz, RN RN Chato Orta, DO ms3
--- NOTE | 2024-10-13 08:07 | ER ---
Nurse's Notes [facility] Name: Philomena Smith Age: 29 yrs Sex: Female : 1995 Arrival Date: 10/13/2024 Time: 07:24 Bed IW1 Private MD: Diagnosis: Acute pharyngitis, unspecified Presentation: 10/13 07:35 Chief complaint: Cough, congestion, and sore throat x 10 days. Coronavirus screen: At this time, the client does not indicate any symptoms associated with coronavirus-19. Ebola Screen: No symptoms or risks identified at this time. Initial Sepsis Screen: Does the patient meet any 2 criteria? No. Patient's initial sepsis screen is negative. Does the patient have a suspected source of infection? No. Patient's initial sepsis screen is negative. Risk Assessment: Do you want to hurt yourself or someone else? Patient reports no desire to harm self or others. Onset of symptoms was October 03, 2024. 07:35 Method Of Arrival: Ambulatory hb 07:35 Acuity: LUIS ANTONIO 4 hb Triage Assessment: 08:00 General: Appears in no apparent distress. Behavior is calm, cooperative. Neuro: GCS 15. hb Cardiovascular: Patient's skin is warm and dry. Respiratory: Respiratory effort is even, unlabored, Respiratory pattern is regular, symmetrical. Historical: - Allergies: 07:59 Cefdinir; hb 07:59 unknown antibiotic; hb - PMHx: 07:59 chronic back pain; Migraine; hb - PSHx: 07:59 section; Cholecystectomy; hb Vital Signs: 07:35 BP 122 / 88; Pulse 100; Resp 18; Temp 97.2(TE); Pulse Ox 100% on R/A; hb ED Course: 07:28 Patient arrived in ED. cj3 07:30 Chato Weller DO is Attending Physician. ms3 07:44 Domenico Arias DO is Referral Physician. ms3 07:57 Triage completed. hb Administered Medications: No medications were administered Outcome: 07:48 Discharge ordered by MD. ms3 08:07 Discharged to home ambulatory, hb 08:07 Condition: stable 08:07 Discharge instructions given to patient, Instructed on discharge instructions, follow up and referral plans. medication usage, Demonstrated understanding of instructions, follow-up care, medications, Prescriptions given X 2, 08:07 Patient left the ED. hb Signatures: Keri Obando, RN RN Chato Orta DO DO ms3 Kalpana Lynn cj3
[2024-10-13 08:17] VITALS: BP 122/88; TEMP 97.2; O2SAT 100
== END 2024-10-13 08:07 | disposition home or self-care (01) ==
LOC: ER 07:24
DX: J02.9 Acute pharyngitis, unspecified (principal)
CPT/HCPCS: 99283